=== PATIENT | female | born 2000 | race Caucasian/White ===

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

== ENCOUNTER 2022-01-16 10:51 | Emergency (ER) | payer OTHER, SELFPAY ==
--- NOTE | 2022-01-16 10:59 | ED.URI ---
HPI - URI/Sore Throat General Chief Complaint: Upper Respiratory Infection Stated Complaint: Sore Throat,Fatigue,Body Aches Time Seen by Provider: 01/16/22 10:59 Source: patient and RN notes reviewed History of Present Illness HPI Narrative: Patient is a 22-year-old female presents the urgent care with complaints of sore throat, fatigue and body aches since yesterday. Patient denies any ill exposures. States was worse today and she did have a low-grade fever. Patient is not taking anything [id number] for her symptoms. No other acute complaints. No acute distress noted. Patient aware of the plan of care. Some parts of this dictation were generated by voice recognition software and may contain typographical and/or grammatical inaccuracies. Related Data Home Medications Medication Instructions Recorded Confirmed Copper Iud 01/16/22 Allergies Allergy/AdvReac Type Severity Reaction Status Date / Time No Known Allergies Allergy Verified 01/16/22 11:11 Review of Systems Review of Systems: CONSTITUTIONAL: Reports of low-grade fever and fatigue EYES: Denies visual changes, redness, or discharge. ENT: Reports of sore throat and postnasal drainage CARDIOVASCULAR: Denies chest pain, palpitations, or edema. RESPIRATORY: Denies cough or dyspnea. GASTROINTESTINAL: Denies abdominal pain, nausea, vomiting, or diarrhea. GENITOURINARY: Denies dysuria or hematuria. SKIN: Denies rash or itching. MUSCULOSKELETAL: Denies back pain, joint pain. Reports of body aches NEUROLOGIC: Denies headache, numbness, or weakness. All other systems reviewed are negative, except as documented in HPI. [facility] Past Medical History Medical History (Updated 01/16/22 @ 11:38 by GAMAL Garcia) Anxiety and depression Elevated cholesterol Environmental and seasonal allergies Episode of syncope 2019 Surgical History Surgical History (Updated 08/30/21 @ 12:19 by Suki Mina NP) History of appendectomy History of tonsillectomy [place] teeth extracted Family History Family History Grandparent Diabetes mellitus Father Hypertension Other Cerebrovascular accident Social History Social History (Updated 08/30/21 @ 12:19 by Suki Mina NP) Smoking status: Current every day smoker Tobacco type: e-cigarettes/vaping Alcohol intake: never Substance use: never Gender identity (if verbalized by the patient): Female Comments At the time of my signature, I reviewed and agree with the nursing past medical, surgical, social, and family history. There is no relevant family history pertinent to the patient complaint. Exam Narrative: GENERAL: This is a well-nourished, well-developed patient, in no apparent distress. HEAD: normocephalic, atraumatic. EYES: PERRL. Sclera clear/white. Vision is grossly intact. EARS: External ears normal, auditory canals clear and without drainage, TMs normal without perforation. Hearing grossly intact. NOSE: External nose normal with no obvious nasal discharge, nares without redness, no rhinorrhea. THROAT: Mucous membranes moist, posterior pharynx clear. Mild postnasal drainage NECK: Neck supple CARDIOVASCULAR: Regular rate and rhythm without murmurs, gallops, or rubs. RESPIRATORY: Clear to auscultation. Breath sounds equal bilaterally. No wheezes, rales, or rhonchi. SKIN: warm, intact with no suspicious lesions or rash, good texture and turgor. NEURO: awake, alert, and oriented to person, place and time. There were no obvious focal neurologic abnormalities. EXTREMITIES: No clubbing, cyanosis, or edema. Course Course Level of Care: Express Care Visit Vital Signs Vital signs: Vital Signs Temperature 98.6 F 01/16/22 11:00 Pulse Rate 103 H 01/16/22 11:00 Respiratory Rate 18 01/16/22 11:00 Blood Pressure 117/85 01/16/22 11:00 Pulse Oximetry 100 01/16/22 11:00 Oxygen Delivery Room Air 01/16/22 11:0
[2022-01-16 11:00] VITALS: BP 117/85; PULSE 103; RESP 18; TEMP 37; O2SAT 100
== END 2022-01-16 11:47 | disposition home or self-care (01) ==
PROVIDERS: Emergency Provider Nurse Practitioner Family; PCP Family Medicine
DX: J02.9 Acute pharyngitis, unspecified (principal); F17.290 Nicotine dependence, other tobacco product, uncomplicated; E78.00 Pure hypercholesterolemia, unspecified
CPT/HCPCS: 87081; 87804; 87880; 99213; G0463

== ENCOUNTER 2022-05-14 19:31 | Emergency (ER) | payer OTHER, SELFPAY ==
--- NOTE | ~2022-05-14 | XR_ITS ---
EXAM: XR abdomen/kub 1V DATE: 05/14/2022 20:28 HISTORY: constipation, history of gastric sleeve 01/2022 . COMPARISON: None available. FINDINGS: Clear lung bases. Surgical changes at the GE junction. Paucity of small bowel gas, otherwi se normal bowel gas pattern. No organomegaly. No abnormal abdominal calcification. IUD projecting wit hin the pelvic ring Regional bones and soft tissues normal for age. IMPRESSION: No radiographic evidence of obstruction or ileus. Reviewed, dictated and finalized at location K. [employer]
[2022-05-14 19:34] VITALS: BP 141/94; PULSE 100; RESP 18; TEMP 35.2; O2SAT 100
--- NOTE | 2022-05-14 22:23 | ED.ABDPAIN ---
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 Patient states that she has not had a bowel movement in almost 3 weeks. Admits to taking multiple [id number] laxative preparations with no improvement of her symptoms. Patient states that she has not flatulent. Related Data Home Medications Medication Instructions Recorded Confirmed Copper Iud 01/16/22 Allergies Allergy/AdvReac Type Severity Reaction Status Date / Time No Known Allergies Allergy Verified 01/16/22 11:11 Review of Systems Review of Systems: CONSTITUTIONAL: Denies fever, chills, or sweats. EYES: Denies visual changes, redness, or discharge. ENT: Denies rhinorrhea, congestion, sore throat, or otalgia. CARDIOVASCULAR: Denies chest pain, palpitations, or edema. RESPIRATORY: Denies cough or dyspnea. GASTROINTESTINAL: Reports abdominal pain, nausea, constipation GENITOURINARY: Denies dysuria or hematuria. SKIN: Denies rash or itching. MUSCULOSKELETAL: Denies back pain, joint pain, or myalgia. NEUROLOGIC: Denies headache, numbness, dizziness, or weakness. PSYCHIATRIC: Denies anxiety or depression. PMFSH Past Medical History Medical History Anxiety and depression Elevated cholesterol Environmental and seasonal allergies Episode of syncope 2019 Surgical History Surgical History History of appendectomy History of tonsillectomy [place] teeth extracted Family History Family History Grandparent Diabetes mellitus Father Hypertension Other Cerebrovascular accident Social History Social History Smoking status: Current every day smoker Tobacco type: e-cigarettes/vaping Alcohol intake: never Substance use: never Gender identity (if verbalized by the patient): Female Exam Narrative: GENERAL: Well-appearing, well-nourished, no physical limitations, and in no acute distress. HEAD: Normocephalic, atraumatic. EYES: Conjunctivae normal, PERRLA and EOMI. CHEST: Clear to auscultation. No respiratory distress. No wheezes rales or rhonchi. HEART: Regular rate and rhythm. No murmur heard. Normal peripheral pulses. ABDOMEN: Soft, diffusely tender, distended, hypoactive bowel sounds. EXTREMITIES: Normal range of motion. No edema. No clubbing or cyanosis SKIN: Warm, dry, no rash. No noted wounds NEURO: No focal deficits. Alert and oriented x3. MAEW. CN's II-XI intact bilaterally, normal gait PSYCH: Cooperative. Normal mood and affect. Course Course Emergency Course: 0: Fleets enema was administered successfully. Patient has had 3 bowel movements Vital Signs Vital signs: Vital Signs Temperature 35.2 C L 05/14/22 19:34 Pulse Rate 100 05/14/22 19:34 Respiratory Rate 18 05/14/22 19:34 Blood Pressure 141/94 H 05/14/22 19:34 Pulse Oximetry 100 05/14/22 19:34 Oxygen Delivery Room Air 05/14/22 19:34 Temperature 35.2 C L 05/14/22 19:34 Pulse Rate 100 05/14/22 19:34 Respiratory Rate 18 05/14/22 19:34 Blood Pressure 141/94 H 05/14/22 19:34 Pulse Oximetry 100 05/14/22 19:34 Oxygen Delivery Room Air 05/14/22 19:34 MDM - Abdominal Pain Imaging Data Radiologist's impression: ITS Impressions Abdomen X-Ray 05/14/22 21:04 IMPRESSION: No radiographic evidence of obstruction or ileus. Discharge Plan Discharge Clinical Impression: Constipation Patient Disposition: Home, Self-Care Condition: Stable Instructions: Antibiotic Form, Constipation (DC) Prescriptions: No Action Copper Iud
--- NOTE | 2022-05-14 22:44 | PC.NURSE ---
Patient tolerated enema well and was able to have 3 bowel movements. patient verbalizes relief.
== END 2022-05-14 22:48 | disposition home or self-care (01) ==
LOC: ANHED 22:43
PROVIDERS: Emergency Provider Nurse Practitioner Family; PCP Family Medicine
DX: K59.00 Constipation, unspecified (principal); E78.00 Pure hypercholesterolemia, unspecified; F17.290 Nicotine dependence, other tobacco product, uncomplicated; Z98.84 Bariatric surgery status; Z97.5 Presence of (intrauterine) contraceptive device
CPT/HCPCS: 74018; 99283

== ENCOUNTER 2022-05-22 23:11 | Emergency (ER) | payer OTHER, SELFPAY ==
--- NOTE | ~2022-05-22 | CT_ITS ---
CT Abdomen and Pelvis with contrast. History: Abdominal pain. Spiral CT of the abdomen and pelvis was performed after the administration of intravenous contrast. 1 00 cc of Omnipaque 350 was administered intravenously without complication. Dose reduction technique was used on this scan by utilizing automated exposure control and iterative reconstruction technique. The dose-length product (DLP) was 1212.38 mGy-cm. COMPARISON: 12/29/2020 Findings: Scans through the lung bases are unremarkable. There is a 2.6 x 2.2 cm hypodense masslike area in the liver, adjacent to the gallbladder fossa (axia l image 47), stable from prior exam. The spleen, pancreas, gallbladder, adrenals and kidneys are with in normal limits. No evidence of aortic aneurysm. No lymphadenopathy is seen. There is no evidence of bowel obstruction. There is evidence of prior bariatric surgery. There is no evidence to suggest acute appendicitis or diverticulitis. Images through the pelvis were performed. Urinary bladder unremarkable. No adnexal mass seen. IUD in place. Trace pelvic free fluid noted. Impression: 2.6 x 2.2 cm hypodense masslike area in the liver, stable from prior exam. Given stability since 2020 , this is most compatible with focal fatty infiltration versus other benign mass. Trace free fluid in the pelvis, nonspecific. Reviewed, dictated and finalized at location . 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 Give n stability since 2020, this is most compatible with focal fatty infiltration v ersus other benign mass. Trace free fluid in the pelvis, nonspecific.
[2022-05-22 23:30] VITALS: BP 135/99; PULSE 99; RESP 17; TEMP 38.1; O2SAT 99
--- NOTE | 2022-05-23 00:08 | ED.ABDPAIN ---
HPI - Abdominal Pain General Chief Complaint: Abdominal Pain Stated Complaint: pain under rib cage Time Seen by Provider: 05/23/22 00:01 History of Present Illness HPI narrative: Patient is a 22-year-old female with a history of appendicitis status post appendectomy, obesity status post gastric sleeve procedure here for evaluation of sudden onset of epigastric abdominal pain. Patient states the pain came on while she was at rest and was severe in nature. Pain has been relatively constant since. It is located in her epigastric region and occasionally radiates to her right upper quadrant. Denies fever at home but noted to have a low-grade temp in triage. Reports 1 episode of vomiting and being nauseated since. Patient had chicken and cheese sandwich for lunch. No diarrhea, constipation, sick contacts, dyspnea, chest pain or cough. Related Data Home Medications Medication Instructions Recorded Confirmed Copper Iud 01/16/22 Allergies Allergy/AdvReac Type Severity Reaction Status Date / Time No Known Allergies Allergy Verified 01/16/22 11:11 Review of Systems Review of Systems: Gen: Denies fevers or chills Eyes: Denies eye pain or visual change ENT: Denies congestion Respiratory: Denies shortness of breath or cough CV: Denies chest pain or palpitations GI: Reports abdominal pain, nausea and vomiting. denies burning, urgency, frequency or hematuria Musculoskeletal: Denies back pain or muscle pain Neuro: Denies numbness, tingling, weakness or focal weakness Skin: Denies rash Except as documented, all other systems reviewed and negative [facility] Past Medical History Medical History Anxiety and depression Elevated cholesterol Environmental and seasonal allergies Episode of syncope 2019 Surgical History Surgical History History of appendectomy History of tonsillectomy [place] teeth extracted Family History Family History Grandparent Diabetes mellitus Father Hypertension Other Cerebrovascular accident Social History Social History Smoking status: Current every day smoker Tobacco type: e-cigarettes/vaping Alcohol intake: never Substance use: never Gender identity (if verbalized by the patient): Female Exam Narrative: APPEARANCE: Obese. Well appearing, no pain in distress, well-nourished. Head: Normocephalic and atraumatic. EYES: PERRLA/EOMI, conjunctivae clear NOSE: No nasal drainage EARS: External ear normal in appearance THROAT: Oropharynx is clear. Mucous membranes are moist. NECK: Supple. No adenopathy, no masses. RESPIRATORY: Airway patent, respirations nonlabored. Clear to auscultation bilaterally, no rales, rhonchi, wheezing. CARDIOVASCULAR: Regular rate and rhythm without murmurs, rubs, or gallops. ABDOMINAL: Tender to palpation in the epigastric region and right upper quadrant with deep palpation. Normoactive bowel sounds. Soft, nondistended. No rebound tenderness or guarding. MUSCULOSKELETAL: Extremities are warm and well-perfused. Moves all extremities well. No edema. NEURO: Normal speech. No focal neurologic deficits. SKIN: Skin is warm and dry. No rashes. PSYCHIATRIC: Normal affect/mood.. Course Vital Signs Vital signs: Vital Signs Temperature 100.6 F H 05/22/22 23:30 Pulse Rate 99 05/22/22 23:30 Respiratory Rate 17 05/22/22 23:30 Blood Pressure 135/99 H 05/22/22 23:30 Pulse Oximetry 99 05/22/22 23:30 Oxygen Delivery Room Air 05/22/22 23:30 Temperature 98.1 F 05/23/22 02:42 Pulse Rate 80 05/23/22 03:16 Respiratory Rate 18 05/23/22 03:16 Blood Pressure 133/80 05/23/22 03:16 Pulse Oximetry 99 05/23/22 03:16 Oxygen Delivery Room Air 05/22/22 23:30 MDM - Abdominal Pain MDM Narrative
[2022-05-23 00:11] VITALS: BP 137/89; O2SAT 98
[2022-05-23] MEDS: ONDANSETRON INJ 4 MG/2 ML VIAL IV PUSH (00:32)
[2022-05-23 00:33] VITALS: BP 134/72; O2SAT 99
[2022-05-23] MEDS: LACTATED RINGERS 1,000 ML 999 ML IV CONT (00:33)
[2022-05-23 00:37] LABS: Basophils Absolute Auto 0.1 K/mm3 (0.0-0.1); Basophils Percent Auto 0.7 % (0.2-1.2); Eosinophils Absolute Auto 0.1 K/mm3 (0-0.3); Hematocrit 42.5 % (37.0-47.0); Hemoglobin 14.1 g/dL (12.0-15.0); Immature Granulocyte Absolute 0.02 K/mm3 (0.00-0.031); Immature Granulocyte Percent A 0.2 % (0-0.5); Lymphocytes Absolute Auto 2.91 K/mm3 (0.9-3.2); Lymphocytes Percent Auto 33.1 % (18.3-44.2); Mean Corpuscular HGB Conc 33.2 g/dl (32-36); Mean Corpuscular Hemoglobin 31.2 pg (26-34); Mean Platelet Volume 12.1 fl (7.4-10.4); Monocytes Absolute Auto 0.7 K/mm3 (0.1-0.6); Monocytes Percent Auto 8.2 % (2.6-8.5); Neutrophils Percent Auto 56.8 % (45.5-73.1); Platelet Count Result 252 k/mm3 (150-375); Red Blood Count 4.52 M/mm3 (4.2-5.4); Red Cell Distribution Width 13.5 % (11.5-14.5); White Blood Count 8.8 K/mm3 (4.5-10.0)
[2022-05-23 00:38] LABS: Appearance Urine Clear (Clear); Bilirubin Urine Negative (Negative); Blood Urine Trace-intact (Negative); Color Urine Yellow (Yellow); Glucose Urine UA Negative (Negative); Ketones Urine Negative (Negative); Leukocyte Esterase Ur Negative LEU/UL (Negative); Nitrate Urine Negative (Negative); Protein Urine Negative (Negative); pH Urine 7.5 (5.0-9.0)
[2022-05-23 00:43] LABS: Bacteria Urine Trace /hpf; Mucus Urine Rare /lpf; Squamous Epithelial Cell Urine Moderate /hpf (Few); WBC Urine 0-3 /hpf
[2022-05-23 00:44] LABS: Add Urine Microscopic? YES
[2022-05-23 00:46] VITALS: BP 130/64; O2SAT 99
[2022-05-23 00:48] LABS: Alanine Aminotransferase 21 U/L (6-35); Albumin Level 4.4 g/dL (3.5-5.1); Alkaline Phosphatase 53 U/L (38-126); Anion Gap 4 mmol/L (8-16); Aspartate Amino Transferase 22 U/L (14-36); Bilirubin,Total 0.4 mg/dL (0.2-1.3); Blood Urea Nitrogen 12 mg/dL (7-17); Calcium 9.2 mg/dL (8.4-10.2); Carbon Dioxide 27 mmol/L (22-30); Chloride 108 mmol/L (98-107); Estimated CRCL calculation 182 ml/min; Estimated Glomerular Filt Rate > 60; Glucose 93 mg/dL (65-110); Lactic Acid Reflex 0.8 mmol/L (0.7-2.0); Lipase 71 U/L (23-300); Potassium 3.9 mmol/L (3.4-5.0); Sodium 139 mmol/L (137-145)
[2022-05-23] MEDS: MORPHINE SULFATE (*CRX) 4 MG/ML INJ IV PUSH (01:42)
[2022-05-23 02:01] VITALS: BP 132/81; O2SAT 98
[2022-05-23 02:18] LABS: Influenza A QL RT-PCR Negative (Negative); Influenza B QL RT-PCR Negative (Negative); SARS-CoV-2 RNA PCR Negative
[2022-05-23 02:42] VITALS: TEMP 36.7
[2022-05-23 03:16] VITALS: BP 133/80; PULSE 80; RESP 18; O2SAT 99
== END 2022-05-23 03:18 | disposition home or self-care (01) ==
PROVIDERS: Emergency Provider Physician Assistant; PCP Family Medicine
DX: R10.9 Unspecified abdominal pain (principal); Z20.822 Contact with and (suspected) exposure to COVID-19; F41.9 Anxiety disorder, unspecified; F32.9 Major depressive disorder, single episode, unspecified
CPT/HCPCS: 36415; 74177; 80053; 81001; 81025; 83605; 83690; 85025; 87636; 96365; 96375; 99284; J0131; J2270; J2405; J7120; Q9967

== ENCOUNTER 2022-05-27 23:35 | Emergency (ER) | payer OTHER, SELFPAY ==
--- NOTE | ~2022-05-27 | CT_ITS ---
EXAMINATION: CT abdomen pelvis w con DATE: 05/28/2022 04:12 INDICATION: Abdominal pain. History of gastric bypass surgery. TECHNIQUE: Computed tomography (CT) of the abdomen and pelvis was performed without intravenous contr ast. 100 CC oral contrast material was administered at 0300 hours with the patient vomited after the oral contrast medium administration. Automated exposure control and iterative reconstruction techniqu e were employed. Exam dose: 1375.49 mGy-cm total exam DLP. COMPARISON: May 23, 2022 CT abdomen pelvis FINDINGS: The lung bases are clear of infiltrate or consolidation. Normal heart size. No pericardial or pleural effusion. Stable hypoattenuating lesion of left hepatic lobe since 08/01/2018, consistent with benign process gi danya the long-term stability. The liver, gallbladder, bile ducts, spleen, pancreas, pancreatic duct, a nd adrenal glands and kidneys are otherwise unremarkable. No urinary tract calculus or hydroureterone phrosis. The urinary bladder is unremarkable. There is an IUD within the uterus. Involuting peripherally enhancing approximately 2.5 cm right ovarian cyst. Trace free fluid in the po sterior cul-de-sac. There is a suture line along the stomach from previous gastric sleeve procedure. No bowel obstruction or intraperitoneal free air. The appendix is not visualized. Small fat-containing umbilical hernia. Included skeletal structures are unremarkable. IMPRESSION: No bowel obstruction or intraperitoneal free air Involuting peripherally enhancing approximately 2.5 cm right ovarian cyst Trace free fluid in the pelvic cul-de-sac, likely due to ruptured right ovarian cyst IUD within uterus Status post gastric sleeve procedure Chronic focal hypoattenuating lesion of left hepatic lobe medial segment, stable since 08/09/2018, the refore likely benign Reviewed, dictated and finalized at Location A. Reviewed, dictated and finalized at location A. 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
[2022-05-27 23:38] VITALS: BP 133/92; PULSE 98; RESP 16; TEMP 36.6; O2SAT 100
[2022-05-27 23:52] LABS: Basophils Absolute Auto 0.1 K/mm3 (0.0-0.1); Basophils Percent Auto 0.6 % (0.2-1.2); Eosinophils Absolute Auto 0.2 K/mm3 (0-0.3); Eosinophils Percent Auto 1.8 % (0-4.4); Hematocrit 40.6 % (37.0-47.0); Hemoglobin 13.9 g/dL (12.0-15.0); Immature Granulocyte Absolute 0.02 K/mm3 (0.00-0.031); Immature Granulocyte Percent A 0.2 % (0-0.5); Lymphocytes Absolute Auto 3.68 K/mm3 (0.9-3.2); Lymphocytes Percent Auto 38.7 % (18.3-44.2); Mean Corpuscular HGB Conc 34.2 g/dl (32-36); Mean Corpuscular Hemoglobin 31.9 pg (26-34); Mean Corpuscular Volume 93.1 fl (80-100); Monocytes Absolute Auto 0.8 K/mm3 (0.1-0.6); Monocytes Percent Auto 8.2 % (2.6-8.5); Neutrophils Absolute Auto 4.8 K/mm3 (1.3-6.7); Neutrophils Percent Auto 50.5 % (45.5-73.1); Platelet Count Result 247 k/mm3 (150-375); Red Blood Count 4.36 M/mm3 (4.2-5.4); Red Cell Distribution Width 13.2 % (11.5-14.5); White Blood Count 9.5 K/mm3 (4.5-10.0)
[2022-05-28] VITALS (10 sets, daily range): BP systolic 100–140; BP diastolic 68–107; PULSE 73–80; RESP 14–19; TEMP 36.7–37.2; O2SAT 96–100
[2022-05-28 00:01] LABS: Alanine Aminotransferase 20 U/L (6-35); Albumin Level 4.7 g/dL (3.5-5.1); Alkaline Phosphatase 55 U/L (38-126); Anion Gap 7 mmol/L (8-16); Aspartate Amino Transferase 20 U/L (14-36); Bilirubin,Total 0.6 mg/dL (0.2-1.3); Blood Urea Nitrogen 17 mg/dL (7-17); Calcium 9.3 mg/dL (8.4-10.2); Carbon Dioxide 26 mmol/L (22-30); Chloride 104 mmol/L (98-107); Estimated CRCL calculation 153 ml/min; Estimated Glomerular Filt Rate > 60; Glucose 111 mg/dL (65-110); Lipase 91 U/L (23-300); Sodium 137 mmol/L (137-145)
[2022-05-28 00:12] LABS: Appearance Urine Clear (Clear); Bilirubin Urine Negative (Negative); Blood Urine Negative (Negative); Color Urine Yellow (Yellow); Glucose Urine UA Negative (Negative); Ketones Urine 1+ mg/dL (Negative); Leukocyte Esterase Ur Negative LEU/UL (Negative); Nitrate Urine Negative (Negative); Protein Urine Negative (Negative); pH Urine 6.5 (5.0-9.0)
[2022-05-28 00:17] LABS: Bacteria Urine Trace /hpf; Mucus Urine Rare /lpf; RBC Urine 0-2 /hpf (0-2); Squamous Epithelial Cell Urine Few /hpf (Few); WBC Urine 0-3 /hpf
[2022-05-28 00:25] LABS: Add Urine Microscopic? YES
--- NOTE | 2022-05-28 04:52 | ED.GENADULT ---
HPI - General Adult General Chief complaint: Abdominal Pain Stated complaint: abd pain Time Seen by Provider: 05/28/22 02:37 History of Present Illness HPI narrative: Patient a 22-year-old female that presents the emergency department with chief complaint of epigastric and right upper quadrant pain. Patient reports she has history of a gastric sleeve in the end of 2021 patient states that she started having epigastric discomfort and has had vomiting the patient reports she was seen in the emergency department for similar symptoms had a CT scan with just IV contrast that did not show any significant abnormality Related Data Home Medications Medication Instructions Recorded Confirmed Copper Iud 01/16/22 Allergies Allergy/AdvReac Type Severity Reaction Status Date / Time No Known Allergies Allergy Verified 05/28/22 02:08 Review of Systems Review of Systems: A 10 system review of systems was completed on the patient and is negative except for what is stated in the HPI. Nursing and ancillary documentation was reviewed. [facility] Past Medical History Medical History Anxiety and depression Elevated cholesterol Environmental and seasonal allergies Episode of syncope 2019 Surgical History Surgical History History of appendectomy History of tonsillectomy [place] teeth extracted Family History Family History Grandparent Diabetes mellitus Father Hypertension Other Cerebrovascular accident Social History Social History Smoking status: Current every day smoker Tobacco type: e-cigarettes/vaping Alcohol intake: never Substance use: never Gender identity (if verbalized by the patient): Female Exam Narrative: GENERAL: Well-appearing, well-nourished, and in no acute distress. HEAD: Normocephalic, atraumatic. EYES: PERRLA and EOMI. ENT: Nares clear, no rhinorrhea or epistaxis. Mucous membranes moist. NECK: Supple. CHEST: Clear to auscultation. No respiratory distress. HEART: Regular rate and rhythm. No murmur heard. Normal peripheral pulses. ABDOMEN: Soft, tender in the epigastric and right upper quadrant, nondistended, normal active bowel sounds. EXTREMITIES: Normal range of motion. No edema. SKIN: Warm, dry, no rash. NEURO: No focal deficits. Alert and oriented x3. PSYCH: Normal mood and affect. Course Vital Signs Vital signs: Vital Signs Temperature 36.6 C 05/27/22 23:38 Pulse Rate 98 05/27/22 23:38 Respiratory Rate 16 05/27/22 23:38 Blood Pressure 133/92 H 05/27/22 23:38 Pulse Oximetry 100 05/27/22 23:38 Oxygen Delivery Room Air 05/27/22 23:38 Temperature 36.7 C 05/28/22 02:02 Pulse Rate 77 05/28/22 06:35 Respiratory Rate 14 05/28/22 06:35 Blood Pressure 119/90 05/28/22 06:35 Pulse Oximetry 99 05/28/22 06:35 Oxygen Delivery Room Air 05/27/22 23:38 Medical Decision Making MDM Narrative Medical decision making narrative: Due to the patient's prior gastric procedure CT scan of the abdomen pelvis was ordered with addition of p.o. contrast. This showed no evidence of abnormality with the gastric procedure. There is no evidence of thickening around the gallbladder the patient's pain is doing much better at this time patient was instructed to follow-up with her primary care provider the patient's laboratory studies were reviewed and patient had normal white blood cell count normal electrolytes no evidence of liver enzyme elevation and urinalysis showed no evidence of UTI. Vital Signs Vital Signs: Vital Signs Temperature 36.6 C 05/27/22 23:38 Pulse Rate 98 05/27/22 23:38 Respiratory Rate 16 05/27/22 23:38 Blood Pressure 133/92 H 05/27/22 23:38 Pulse Oximetry 100 05/27/22 23:38 O
[2022-05-28] MEDS: MORPHINE SULFATE (*CRX) 4 MG/ML INJ IV PUSH (06:23)
== END 2022-05-28 07:40 | disposition home or self-care (01) ==
PROVIDERS: Emergency Provider Emergency Medicine; PCP Family Medicine
DX: R10.11 Right upper quadrant pain (principal); R10.13 Epigastric pain; E78.00 Pure hypercholesterolemia, unspecified; F17.290 Nicotine dependence, other tobacco product, uncomplicated
CPT/HCPCS: 36415; 74177; 80053; 81001; 81025; 83690; 85025; 96374; 99284; J2270; Q9967

== ENCOUNTER 2022-07-06 20:51 | Emergency (ER) | payer OTHER, SELFPAY ==
[2022-07-06] VITALS (11 sets, daily range): BP systolic 112–128; BP diastolic 51–91; PULSE 64–115; RESP 16–23; TEMP 37.9; O2SAT 96–100
--- NOTE | ~2022-07-06 | CT_ITS ---
EXAMINATION: CT abdomen pelvis w con INDICATION: Right upper quadrant pain TECHNIQUE: Computed tomographic images of the abdomen and pelvis were obtained after the administrati on of 100 cc of Omnipaque 350 intravenous contrast. The dose-length product (DLP) was 1356.49 mGy-cm. Automated exposure control and iterative reconstruction technique were employed. COMPARISON: 05/28/2022 FINDINGS: The lung bases are clear. The heart size is normal. There is a chronic, stable low-attenuat ion lesion adjacent to gallbladder fossa. The spleen, pancreas, and adrenal glands are normal. There are stones in the nondistended gallbladder. Surgical changes are noted in the stomach. The kidneys ar e unremarkable. No pathologically enlarged abdominal or pelvic lymph nodes are identified. No free in traperitoneal gas or evidence of bowel obstruction. An IUD is present in the uterus in expected posit ion. IMPRESSION: 1. Cholelithiasis without evidence of cholecystitis. Reviewed, dictated and finalized at location A.
[2022-07-06 21:22] LABS: Basophils Absolute Auto 0.1 K/mm3 (0.0-0.1); Basophils Percent Auto 0.6 % (0.2-1.2); Eosinophils Absolute Auto 0.1 K/mm3 (0-0.3); Eosinophils Percent Auto 1.4 % (0-4.4); Hematocrit 42.6 % (37.0-47.0); Hemoglobin 14.5 g/dL (12.0-15.0); Immature Granulocyte Absolute 0.02 K/mm3 (0.00-0.031); Immature Granulocyte Percent A 0.2 % (0-0.5); Lymphocytes Absolute Auto 2.26 K/mm3 (0.9-3.2); Lymphocytes Percent Auto 25.8 % (18.3-44.2); Mean Corpuscular Hemoglobin 31.9 pg (26-34); Mean Corpuscular Volume 93.8 fl (80-100); Mean Platelet Volume 11.7 fl (7.4-10.4); Monocytes Absolute Auto 0.6 K/mm3 (0.1-0.6); Monocytes Percent Auto 6.7 % (2.6-8.5); Neutrophils Absolute Auto 5.7 K/mm3 (1.3-6.7); Neutrophils Percent Auto 65.3 % (45.5-73.1); Platelet Count Result 316 k/mm3 (150-375); Red Blood Count 4.54 M/mm3 (4.2-5.4); Red Cell Distribution Width 13.2 % (11.5-14.5); White Blood Count 8.8 K/mm3 (4.5-10.0)
[2022-07-06 21:29] LABS: Appearance Urine Slightly Cloudy (Clear); Bilirubin Urine 1+ (Negative); Blood Urine Trace-lysed (Negative); Color Urine Yellow (Yellow); Glucose Urine UA Negative (Negative); Ketones Urine Trace mg/dL (Negative); Leukocyte Esterase Ur Trace LEU/UL (Negative); Nitrate Urine Negative (Negative); Protein Urine 1+ mg/dL (Negative); Specific Grav Ur 1.025 (1.001-1.035)
[2022-07-06 21:33] LABS: Alanine Aminotransferase 23 U/L (6-35); Albumin Level 4.6 g/dL (3.5-5.1); Alkaline Phosphatase 54 U/L (38-126); Anion Gap 8 mmol/L (8-16); Aspartate Amino Transferase 21 U/L (14-36); Bilirubin,Total 0.5 mg/dL (0.2-1.3); Blood Urea Nitrogen 9 mg/dL (7-17); Calcium 9.2 mg/dL (8.4-10.2); Carbon Dioxide 24 mmol/L (22-30); Chloride 108 mmol/L (98-107); Estimated CRCL calculation 172 ml/min; Estimated Glomerular Filt Rate > 60; Glucose 110 mg/dL (65-110); Lipase 50 U/L (23-300); Potassium 3.7 mmol/L (3.4-5.0); Sodium 140 mmol/L (137-145)
[2022-07-06 21:39] LABS: Add Urine Microscopic? YES
[2022-07-06 21:40] LABS: RBC Urine 0-2 /hpf (0-2); Squamous Epithelial Cell Urine Few /hpf (Few)
[2022-07-06 21:41] LABS: Bacteria Urine 1+ /hpf
--- NOTE | 2022-07-06 22:33 | ED.ABDPAIN ---
HPI - Abdominal Pain General Chief Complaint: Abdominal Pain Stated Complaint: abd pain Time Seen by Provider: 07/06/22 21:51 History of Present Illness HPI narrative: 22-year-old female with a history of appendectomy reports for right upper quadrant and epigastric abdominal pain for the past month, worsening over the past couple of days. Patient reports she has been evaluated in the ED for similar pain and was advised to follow-up with an outpatient ultrasound. Patient reports she got an ultrasound 5 days ago that revealed cholelithiasis. She reports worsening pain to her right upper quadrant. Reports the pain wraps around to her right back. Patient reports 3 episodes of vomiting today, fever of 100-102 at home today. Denies diarrhea, constipation, chest pain, shortness of breath, urinary complaints, cough, hemoptysis. Related Data Home Medications Medication Instructions Recorded Confirmed Copper Iud 01/16/22 Allergies Allergy/AdvReac Type Severity Reaction Status Date / Time NSAIDS (Non-Steroidal Allergy Unknown Other Verified 07/06/22 23:46 Anti-Inflamma Review of Systems Review of Systems: CONSTITUTIONAL: See HPI EYES: Denies visual changes, redness, or discharge. ENT: Denies rhinorrhea, congestion, sore throat, or otalgia. CARDIOVASCULAR: Denies chest pain, palpitations, or edema. RESPIRATORY: Denies cough or dyspnea. GASTROINTESTINAL: See HPI GENITOURINARY: Denies dysuria or hematuria. SKIN: Denies rash or itching. MUSCULOSKELETAL: Denies joint pain, or myalgia. NEUROLOGIC: Denies headache, numbness, dizziness, or weakness. PSYCHIATRIC: Denies anxiety or depression. [facility] Past Medical History Medical History Anxiety and depression Elevated cholesterol Environmental and seasonal allergies Episode of syncope 2019 Surgical History Surgical History History of appendectomy History of tonsillectomy [place] teeth extracted Family History Family History Grandparent Diabetes mellitus Father Hypertension Other Cerebrovascular accident Social History Social History Smoking status: Current every day smoker Tobacco type: e-cigarettes/vaping Alcohol intake: never Substance use: never Gender identity (if verbalized by the patient): Female Exam Narrative: GENERAL: Well-appearing, well-nourished, and in no acute distress. HEAD: Normocephalic, atraumatic. EYES: PERRLA and EOMI. ENT: Nares clear, no rhinorrhea or epistaxis. Mucous membranes moist. Oropharynx without tonsillar hypertrophy exudate or other lesions. B NECK: Supple. No adenopathy or masses. CHEST: Clear to auscultation. No respiratory distress. No wheezes rales or rhonchi HEART: Regular rate and rhythm. No murmur heard. Normal peripheral pulses. ABDOMEN: Soft, nondistended, normal active bowel sounds. Tenderness to right upper quadrant. Positive [place] sign. No rigidity, guarding. EXTREMITIES: Normal range of motion. No edema. SKIN: Warm, dry, no rash. NEURO: No focal deficits. Alert and oriented x3. PSYCH: Normal mood and affect. Course Vital Signs Vital signs: Vital Signs Temperature 100.2 F H 07/06/22 20:56 Pulse Rate 115 H 07/06/22 20:56 Respiratory Rate 18 07/06/22 20:56 Blood Pressure 122/91 H 07/06/22 20:56 Pulse Oximetry 100 07/06/22 20:56 Oxygen Delivery Room Air 07/06/22 20:56 Temperature 100.2 F H 07/06/22 20:56 Pulse Rate 73 07/07/22 00:47 Respiratory Rate 29 H 07/07/22 00:47 Blood Pressure 130/76 07/07/22 00:47 Pulse Oximetry 98 07/07/22 00:47 Oxygen Delivery Room Air 07/06/22 20:56 MDM - Abdominal Pain MDM Narrative Medical decision making narrative: 22-year-old female with a history of appendectom
[2022-07-06] MEDS: SODIUM CHLORIDE 0.9% IV 1,000 ML 999 ML IV CONT (23:02)
[2022-07-06] MEDS: ONDANSETRON INJ 4 MG/2 ML VIAL IV PUSH (23:03)
[2022-07-06] MEDS: FAMOTIDINE 20 MG/2 ML VIAL IV PUSH (23:03)
[2022-07-06 23:12] LABS: Lactic Acid Reflex 0.8 mmol/L (0.7-2.0)
[2022-07-07] VITALS (8 sets, daily range): BP systolic 114–131; BP diastolic 51–76; PULSE 65–93; RESP 17–29; O2SAT 98–100
[2022-07-07] MEDS: MORPHINE SULFATE (*CRX) 4 MG/ML INJ IV PUSH (00:42)
== END 2022-07-07 01:07 | disposition home or self-care (01) ==
PROVIDERS: Emergency Medicine; Emergency Provider Physician Assistant; PCP Family Medicine
DX: K80.50 Calculus of bile duct without cholangitis or cholecystitis without obstruction (principal); N30.00 Acute cystitis without hematuria; R10.11 Right upper quadrant pain; F17.290 Nicotine dependence, other tobacco product, uncomplicated
CPT/HCPCS: 36415; 74177; 80053; 81001; 81025; 83605; 83690; 85025; 96361; 96374; 96375; 99284; J0131; J2270; J2405; J7030; Q9967

== ENCOUNTER 2022-08-25 21:56 | Emergency (ER) | payer OTHER, SELFPAY ==
--- NOTE | ~2022-08-25 | XR_ITS ---
Right Knee Technique: AP, lateral, and oblique views were obtained. Clinical History: Laceration Findings: No fracture or dislocation is seen. Osseous alignment is anatomic. Joint spaces are preserv ed without degenerative or erosive change. Soft tissues are unremarkable. No joint effusion is seen. Impression: Unremarkable right knee radiographs. Reviewed, dictated and finalized at location . Impression: Unremarkable right knee radiographs.
[2022-08-25 22:01] VITALS: BP 151/76; PULSE 110; RESP 20; TEMP 36.3; O2SAT 100
[2022-08-25] MEDS: oxyCODONE/ACETAMINOPHEN (*CRX) 5-325 MG TABLET 1 TABLET PO (22:34)
--- NOTE | 2022-08-25 22:35 | ED.WOUNDLAC ---
HPI - Wound/Laceration General Chief Complaint: Wound/Laceration Stated Complaint: right knee lac Time Seen by Provider: 08/25/22 22:16 History of Present Illness HPI narrative: This is a 22-year-old female with past history of anxiety and depression, presents emergency department with laceration of the right knee. The patient states she was leaning against a glass coffee table, when it shattered, cutting her knee in two places. She complains of 8/10 knee pain. She denies head injury, other injury or loss of consciousness. Related Data Home Medications Medication Instructions Recorded Confirmed Copper Iud 01/16/22 Allergies Allergy/AdvReac Type Severity Reaction Status Date / Time NSAIDS (Non-Steroidal Allergy Unknown Other Verified 08/25/22 22:05 Anti-Inflamma Review of Systems Review of Systems: CONSTITUTIONAL: Denies fever, chills, or sweats. CARDIOVASCULAR: Denies chest pain, palpitations, or edema. RESPIRATORY: Denies cough or dyspnea. GASTROINTESTINAL: Denies abdominal pain, nausea, vomiting, or diarrhea. GENITOURINARY: Last menstrual period 2 months ago, IUD removed 1 month ago; Denies dysuria or hematuria. SKIN: Denies rash or itching. MUSCULOSKELETAL: Right knee pain denies back pain, joint pain, or myalgia. NEUROLOGIC: Denies headache, numbness, dizziness, or weakness. PSYCHIATRIC: Denies anxiety or depression. PMFSH Past Medical History Medical History Anxiety and depression Elevated cholesterol Environmental and seasonal allergies Episode of syncope 2020 Surgical History Surgical History History of appendectomy History of tonsillectomy [place] teeth extracted Family History Family History Grandparent Diabetes mellitus Father Hypertension Other Cerebrovascular accident Social History Social History Smoking status: Current every day smoker Tobacco type: e-cigarettes/vaping Alcohol intake: never Substance use: never Gender identity (if verbalized by the patient): Female Exam Narrative: GENERAL: Well-developed, well-nourished, and in no acute distress. HEAD: Normocephalic, atraumatic. EYES: PERRLA and EOMI. CHEST: Clear to auscultation. No respiratory distress. No wheezes rales or rhonchi HEART: Regular rate and rhythm. No murmur heard. Normal peripheral pulses. ABDOMEN: Soft, nontender, nondistended, normal active bowel sounds. EXTREMITIES: No lacerations noted at the medial aspect of the right knee. One measuring 1-1/2 cm and a second measuring 1 cm. Normal range of motion. No edema. NEURO: No focal deficits. Alert and oriented x3. PSYCH: Normal mood and affect. Course Course Emergency Course: 23:50 - X-ray not concerning for retained foreign object or fracture. Lacerations were repaired. Please see procedure note. I recommended the patient follow-up in 10 to 14 days for suture removal. Discussed return and emergency precautions including signs/symptoms of wound infection. The patient voiced understanding and is comfortable with the plan. All questions answered to her satisfaction. Vital Signs Vital signs: Vital Signs Temperature 97.3 F L 08/25/22 22:01 Pulse Rate 110 H 08/25/22 22:01 Respiratory Rate 20 08/25/22 22:01 Blood Pressure 151/76 H 08/25/22 22:01 Pulse Oximetry 100 08/25/22 22:01 Oxygen Delivery Room Air 08/25/22 22:01 Temperature 98 F 08/25/22 23:07 Pulse Rate 87 08/25/22 23:07 Respiratory Rate 14 08/25/22 23:07 Blood Pressure 131/82 08/25/22 23:07 Pulse Oximetry 97 08/25/22 23:07 Oxygen Delivery Room Air 08/25/22 22:01 Procedures Laceration Laceration 1: Date: 08/25/22 Time: 23:45 Site: lower extremity Side (If applicable): r
[2022-08-25] MEDS: LIDOCAINE HCL 2% LOCAL INJ 20 ML VIAL (22:41)
[2022-08-25 23:07] VITALS: BP 131/82; PULSE 87; RESP 14; TEMP 36.6; O2SAT 97
== END 2022-08-26 00:02 | disposition home or self-care (01) ==
PROVIDERS: Emergency Provider Preventive Medicine Aerospace Medicine; PCP Family Medicine
DX: S81.011A Laceration without foreign body, right knee, initial encounter (principal); E78.00 Pure hypercholesterolemia, unspecified; F17.290 Nicotine dependence, other tobacco product, uncomplicated; Z97.5 Presence of (intrauterine) contraceptive device; W25.XXXA Contact with sharp glass, initial encounter
CPT/HCPCS: 12002; 73562; 99283; A9270

== ENCOUNTER 2022-10-03 22:27 | Emergency (ER) | payer OTHER, SELFPAY ==
[2022-10-03 22:27] VITALS: BP 143/76; PULSE 117; RESP 16; TEMP 37; O2SAT 100
--- NOTE | 2022-10-04 01:47 | PC.NURSE ---
Pt reports diffuse abdominal pain that radiates to her back that has been going on for 2 months. +Intermittent nausea, vomiting, diarrhea. She has had her gallbladder removed. Last BM was yesterday, describes it as loose and stringy . Denies fevers or urinary symptoms.
[2022-10-04 02:01] LABS: Basophils Absolute Auto 0.1 K/mm3 (0.0-0.1); Basophils Percent Auto 0.6 % (0.2-1.2); Eosinophils Absolute Auto 0.4 K/mm3 (0-0.3); Eosinophils Percent Auto 3.3 % (0-4.4); Hematocrit 42.7 % (37.0-47.0); Hemoglobin 14.1 g/dL (12.0-15.0); Immature Granulocyte Absolute 0.02 K/mm3 (0.00-0.031); Immature Granulocyte Percent A 0.2 % (0-0.5); Lymphocytes Absolute Auto 3.45 K/mm3 (0.9-3.2); Lymphocytes Percent Auto 31.9 % (18.3-44.2); Mean Corpuscular Hemoglobin 31.3 pg (26-34); Mean Corpuscular Volume 94.7 fl (80-100); Mean Platelet Volume 11.2 fl (7.4-10.4); Monocytes Absolute Auto 0.7 K/mm3 (0.1-0.6); Monocytes Percent Auto 6.1 % (2.6-8.5); Neutrophils Absolute Auto 6.3 K/mm3 (1.3-6.7); Neutrophils Percent Auto 57.9 % (45.5-73.1); Platelet Count Result 302 k/mm3 (150-375); Red Blood Count 4.51 M/mm3 (4.2-5.4); Red Cell Distribution Width 12.7 % (11.5-14.5); White Blood Count 10.8 K/mm3 (4.5-10.0)
[2022-10-04 02:02] LABS: Appearance Urine Clear (Clear); Bilirubin Urine Negative (Negative); Blood Urine Negative (Negative); Color Urine Yellow (Yellow); Glucose Urine UA Negative (Negative); Ketones Urine Negative (Negative); Leukocyte Esterase Ur Negative LEU/UL (Negative); Nitrate Urine Negative (Negative); Protein Urine Negative (Negative); Specific Grav Ur 1.016 (1.001-1.035)
[2022-10-04 02:05] LABS: Add Urine Microscopic? NO
--- NOTE | 2022-10-04 02:09 | ED.GENADULT ---
HPI - General Adult General Chief complaint: Abdominal Pain Stated complaint: abd pain for two months Time Seen by Provider: 10/04/22 01:56 History of Present Illness HPI narrative: This is a 23-year-old female with history of chronic abdominal pain presenting with abdominal pain. Pain started at 7:00 p.m. is sharp pain in the epigastric area it is nonradiating, 7 out 10 intensity constant. Feels like when she had gallbladder pain although she had her gallbladder taken out several months ago. There are no exacerbating alleviating symptoms. No fever chills chest pain shortness of breath nausea vomiting or diarrhea. She took Tylenol with no relief before she arrived Related Data Home Medications Medication Instructions Recorded Confirmed Copper Iud 01/16/22 Allergies Allergy/AdvReac Type Severity Reaction Status Date / Time NSAIDS (Non-Steroidal Allergy Unknown Other Verified 08/25/22 22:05 Anti-Inflamma [facility] Past Medical History Medical History Anxiety and depression Elevated cholesterol Environmental and seasonal allergies Episode of syncope 2020 Surgical History Surgical History History of appendectomy History of tonsillectomy [place] teeth extracted Family History Family History Grandparent Diabetes mellitus Father Hypertension Other Cerebrovascular accident Social History Social History Smoking status: Current every day smoker Tobacco type: e-cigarettes/vaping Alcohol intake: never Substance use: never Gender identity (if verbalized by the patient): Female Exam Narrative: APPEARANCE: No apparent distress. well-appearing Head: atraumatic. EYES: EOMI, NOSE: Atraumatic NECK: Trachea midline RESPIRATORY: No increased rate of breathing CARDIOVASCULAR: RRR, ABDOMINAL: Non-distended MUSCULOSKELETAl: mild tenderness in the epigastric area, rest the abdomen is soft nontender no guarding or rebound NEURO: Alert. Moving 4/4 extremities SKIN:: Warm, dry. Normal color PSYCHIATRIC: Normal affect Course Vital Signs Vital signs: Vital Signs Temperature 98.6 F 10/03/22 22:27 Pulse Rate 117 H 10/03/22 22:27 Respiratory Rate 16 10/03/22 22:27 Blood Pressure 143/76 H 10/03/22 22:27 Pulse Oximetry 100 10/03/22 22:27 Oxygen Delivery Room Air 10/03/22 22:27 Temperature 98.6 F 10/03/22 22:27 Pulse Rate 117 H 10/03/22 22:27 Respiratory Rate 16 10/03/22 22:27 Blood Pressure 143/76 H 10/03/22 22:27 Pulse Oximetry 100 10/03/22 22:27 Oxygen Delivery Room Air 10/03/22 22:27 Medical Decision Making MDM Narrative Medical decision making narrative: -Presentation: 22-year-old with chronic abdominal pain presenting with abdominal pain. Abdominal exam is benign. 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 Metabolic panel unremarkable. UA without infection Dx tests considered but not ordered: CT abdomen pelvis - benign abdominal exam -Procedures: -Interventions: 1 L normal saline, Pepcid, Zofran, Tylenol, Maalox -Shared decision making / Disposition: upon re-evaluation the patient symptoms have improved. She is resting comfortably in bed. She is comfortable going home. Patient will be discharged with a course of Pepcid -RX Pepcid 20 mg b.i.d. x6 weeks Vital Signs Vital Signs: Vital Sig
[2022-10-04 02:18] LABS: Alanine Aminotransferase 23 U/L (6-35); Albumin Level 4.7 g/dL (3.5-5.1); Alkaline Phosphatase 58 U/L (38-126); Anion Gap 8 mmol/L (8-16); Aspartate Amino Transferase 23 U/L (14-36); Bilirubin,Total 0.4 mg/dL (0.2-1.3); Blood Urea Nitrogen 14 mg/dL (7-17); Calcium 9.2 mg/dL (8.4-10.2); Carbon Dioxide 28 mmol/L (22-30); Chloride 103 mmol/L (98-107); Estimated CRCL calculation 130 ml/min; Estimated Glomerular Filt Rate > 60; Glucose 92 mg/dL (65-110); Lipase 62 U/L (23-300); Potassium 3.9 mmol/L (3.4-5.0); Sodium 139 mmol/L (137-145)
[2022-10-04] MEDS: SODIUM CHLORIDE 0.9% IV 2,000 ML 999 ML IV CONT (02:26)
[2022-10-04] MEDS: MAG HYDROX/AL HYDROX/SIMETH 30 ML UDC PO (02:26)
[2022-10-04] MEDS: ONDANSETRON INJ 4 MG/2 ML VIAL IV PUSH (02:26)
[2022-10-04] MEDS: FAMOTIDINE 20 MG/2 ML VIAL IV PUSH (02:26)
[2022-10-04 03:43] VITALS: BP 111/68; PULSE 74; RESP 18; O2SAT 98
== END 2022-10-04 03:44 | disposition home or self-care (01) ==
PROVIDERS: Emergency Provider Emergency Medicine; PCP Family Medicine
DX: K29.70 Gastritis, unspecified, without bleeding (principal); E78.00 Pure hypercholesterolemia, unspecified; F17.290 Nicotine dependence, other tobacco product, uncomplicated
CPT/HCPCS: 36415; 80053; 81003; 81025; 83690; 85025; 96361; 96365; 96375; 99284; A9270; J0131; J2405; J7030

== ENCOUNTER 2022-11-01 21:48 | Emergency (ER) | payer OTHER, SELFPAY ==
--- NOTE | ~2022-11-01 | CT_ITS ---
EXAMINATION: CT abdomen pelvis w con DATE: 11/02/2022 00:07 INDICATION: Nausea and vomiting. Fever. Epigastric pain. TECHNIQUE: Computed tomography (CT) of the abdomen and pelvis was performed with 100 cc Omnipaque 350 intravenous contrast. The dose-length product was 1196.37 mGy-cm. Automated exposure control and ite rative reconstruction technique were employed. COMPARISON: CT dated 07/06/2022. FINDINGS: Lung bases are unremarkable. Heart size normal. No significant pleural or pericardial effus ion. Fatty infiltration of the liver. Status post cholecystectomy. There is a liver cyst at the gallbladde r fossa. The spleen, pancreas, adrenal glands and kidneys are unremarkable. There are changes of liana jerman bypass surgery. No significant vascular abnormality. There is a small involuting corpus luteal cy st of the right ovary. Small amount of free fluid in the pelvis. No significant vascular abnormality. No lymphadenopathy. IMPRESSION: 1. No acute abdominal abnormality. Reviewed, dictated and finalized at location A.
--- NOTE | ~2022-11-01 | XR_ITS ---
EXAMINATION: XR chest 1V portable 11/02/2022 00:12 INDICATION: Cough and fever PROCEDURE: AP portable chest COMPARISON: 04/10/2022 FINDINGS: The lungs are clear. The cardiomediastinal silhouette is within normal limits. There are no pleural effusions. There is no pneumothorax suspected. IMPRESSION: 1: NO ACUTE CARDIOPULMONARY DISEASE. Reviewed, dictated and finalized at location A.
[2022-11-01 21:49] VITALS: BP 132/85; PULSE 142; RESP 18; TEMP 36.9; O2SAT 100
[2022-11-01 22:00] VITALS: BP 120/84; PULSE 121; RESP 14; O2SAT 96
--- NOTE | 2022-11-01 22:15 | ECG_ITS ---
Measurements Intervals [place] Rate: 114 P: 50 CO: 161 QRS: 72 QRSD: 85 T: 13 QT: 312 QTc: 431 Interpretive Statements SINUS TACHYCARDIA DELAYED PRECORDIAL R/S TRANSITION ABNORMAL ECG COMPARED TO ECG 08/10/2019 09:57:57 SINUS TACHYCARDIA NOW PRESENT Electronically Signed On 11-02-2022 7:15:09 CDT by Heber Pearl D.O.
[2022-11-01] MEDS: ONDANSETRON INJ 4 MG/2 ML VIAL IV PUSH (22:47)
[2022-11-01] MEDS: SODIUM CHLORIDE 0.9% IV 1,000 ML 999 ML IV CONT ×2 (22:48→22:49)
[2022-11-01 22:51] LABS: Basophils Absolute Auto 0.1 K/mm3 (0.0-0.1); Basophils Percent Auto 0.7 % (0.2-1.2); Eosinophils Absolute Auto 0.1 K/mm3 (0-0.3); Eosinophils Percent Auto 1.1 % (0-4.4); Hemoglobin 13.7 g/dL (12.0-15.0); Immature Granulocyte Absolute 0.03 K/mm3 (0.00-0.031); Immature Granulocyte Percent A 0.3 % (0-0.5); Lymphocytes Absolute Auto 2.54 K/mm3 (0.9-3.2); Lymphocytes Percent Auto 25.9 % (18.3-44.2); Mean Corpuscular HGB Conc 33.4 g/dl (32-36); Mean Corpuscular Hemoglobin 31.3 pg (26-34); Mean Corpuscular Volume 93.6 fl (80-100); Mean Platelet Volume 11.3 fl (7.4-10.4); Monocytes Absolute Auto 0.7 K/mm3 (0.1-0.6); Monocytes Percent Auto 7.2 % (2.6-8.5); Neutrophils Absolute Auto 6.4 K/mm3 (1.3-6.7); Neutrophils Percent Auto 64.8 % (45.5-73.1); Platelet Count Result 280 k/mm3 (150-375); Red Blood Count 4.38 M/mm3 (4.2-5.4); Red Cell Distribution Width 12.1 % (11.5-14.5); White Blood Count 9.8 K/mm3 (4.5-10.0)
[2022-11-01 23:10] LABS: Alanine Aminotransferase 24 U/L (6-35); Albumin Level 4.3 g/dL (3.5-5.1); Alkaline Phosphatase 60 U/L (38-126); Anion Gap 10 mmol/L (8-16); Aspartate Amino Transferase 34 U/L (14-36); Bilirubin,Total 0.3 mg/dL (0.2-1.3); Blood Urea Nitrogen 15 mg/dL (7-17); Carbon Dioxide 20 mmol/L (22-30); Chloride 107 mmol/L (98-107); Estimated CRCL calculation 131 ml/min; Estimated Glomerular Filt Rate > 60; Glucose 100 mg/dL (65-110); Lipase 63 U/L (23-300); Sodium 137 mmol/L (137-145)
[2022-11-01 23:11] LABS: Lactic Acid Reflex 0.7 mmol/L (0.7-2.0)
[2022-11-01 23:13] LABS: Appearance Urine Clear (Clear); Bilirubin Urine Negative (Negative); Blood Urine Negative (Negative); Color Urine Yellow (Yellow); Glucose Urine UA Negative (Negative); Ketones Urine Trace mg/dL (Negative); Leukocyte Esterase Ur Negative LEU/UL (Negative); Nitrate Urine Negative (Negative); Protein Urine Negative (Negative); pH Urine 5.5 (5.0-9.0)
[2022-11-01 23:27] LABS: Influenza A QL RT-PCR Negative (Negative); Influenza B QL RT-PCR Negative (Negative); SARS-CoV-2 RNA PCR Negative (Negative)
[2022-11-01 23:28] LABS: Add Urine Microscopic? NO
--- NOTE | 2022-11-01 23:36 | ED.GENADULT ---
HPI - General Adult General Chief complaint: Fever Stated complaint: fever, n/v, fatigue Time Seen by Provider: 11/01/22 22:01 History of Present Illness HPI narrative: Patient presents emerged from the chief complaint of fever patient reports that for the last several days she has been having intermittent fever patient reports she has prior history of gastric sleeve and reports that she was seen in another emergency department had a chest x-ray and was swabbed for COVID and flu patient states that she is able to nausea denies diarrhea reports some mild epigastric discomfort. Related Data Home Medications Medication Instructions Recorded Confirmed Copper Iud 01/16/22 Allergies Allergy/AdvReac Type Severity Reaction Status Date / Time NSAIDS (Non-Steroidal Allergy Unknown Other Verified 08/25/22 22:05 Anti-Inflamma Review of Systems Review of Systems: A 10 system review of systems was completed on the patient and is negative except for what is stated in the HPI. Nursing and ancillary documentation was reviewed. PMFSH Past Medical History Medical History Anxiety and depression Elevated cholesterol Environmental and seasonal allergies Episode of syncope 2020 Surgical History Surgical History History of appendectomy History of tonsillectomy [place] teeth extracted Family History Family History Grandparent Diabetes mellitus Father Hypertension Other Cerebrovascular accident Social History Social History Smoking status: Current every day smoker Tobacco type: e-cigarettes/vaping Alcohol intake: never Substance use: never Gender identity (if verbalized by the patient): Female Exam Narrative: GENERAL: Well-appearing, well-nourished, and in no acute distress. HEAD: Normocephalic, atraumatic. EYES: PERRLA and EOMI. ENT: Nares clear, no rhinorrhea or epistaxis. Mucous membranes moist. NECK: Supple. CHEST: Clear to auscultation. No respiratory distress. HEART: Regular rate and rhythm. No murmur heard. Normal peripheral pulses. ABDOMEN: Soft, nontender, nondistended, normal active bowel sounds. EXTREMITIES: Normal range of motion. No edema. SKIN: Warm, dry, no rash. NEURO: No focal deficits. Alert and oriented x3. PSYCH: Normal mood and affect. Course Vital Signs Vital signs: Vital Signs Temperature 36.9 C 11/01/22 21:49 Pulse Rate 142 H 11/01/22 21:49 Respiratory Rate 18 11/01/22 21:49 Blood Pressure 132/85 11/01/22 21:49 Pulse Oximetry 100 11/01/22 21:49 Oxygen Delivery Room Air 11/01/22 21:49 Temperature 37.1 C 11/02/22 01:28 Pulse Rate 74 11/02/22 03:25 Respiratory Rate 14 11/02/22 03:25 Blood Pressure 123/89 11/02/22 03:25 Pulse Oximetry 100 11/02/22 03:25 Oxygen Delivery Room Air 11/01/22 21:49 Medical Decision Making [facility] Narrative Medical decision making narrative: Differential diagnosis includes bowel obstruction, gastroenteritis, dehydration, UTI, colitis, diverticulitis Laboratory studies were obtained and patient showed normal CBC electrolytes are within normal limits liver enzymes are normal lactic acid 0.7 urinalysis showed no evidence of UTI Patient is negative for COVID negative for flu CT scan of the abdomen pelvis showed no acute abnormalities Patient received 2 L of normal saline boluses and received Zofran and Compazine in the emergency department the patient is feeling much better at this time and like to go home Vital Signs Vital Signs: Vital Signs Temperature 36.9 C 11/01/22 21:49 Pulse Rate 142 H 11/01/22 21:49 Respiratory Rate 18 11/01/22 21:49 Blood Pressure 132/85 11/01/22 21:49 Pulse Oximetry 100 11/01/22 21:49 Oxygen De
[2022-11-01 23:40] VITALS: BP 102/68; PULSE 86; RESP 14; O2SAT 100
[2022-11-01 23:41] LABS: Procalcitonin < 0.0 ng/mL
[2022-11-02] VITALS: BP 117/76; PULSE 90; RESP 14; O2SAT 100
[2022-11-02 01:28] VITALS: BP 132/66; PULSE 82; RESP 14; TEMP 37.1; O2SAT 100
[2022-11-02 03:25] VITALS: BP 123/89; PULSE 74; RESP 14; O2SAT 100
[2022-11-02] MEDS: PROCHLORPERAZINE EDISYLATE 10 MG/2 ML VIAL IV PUSH (03:25)
== END 2022-11-02 03:45 | disposition home or self-care (01) ==
PROVIDERS: Emergency Provider Emergency Medicine; PCP Family Medicine
DX: R11.2 Nausea with vomiting, unspecified (principal); E86.0 Dehydration; Z20.822 Contact with and (suspected) exposure to COVID-19; E78.00 Pure hypercholesterolemia, unspecified; F17.290 Nicotine dependence, other tobacco product, uncomplicated; Z98.84 Bariatric surgery status; Z90.49 Acquired absence of other specified parts of digestive tract; R00.0 Tachycardia, unspecified
CPT/HCPCS: 36415; 71045; 74177; 80053; 81003; 81025; 83605; 83690; 83735; 84145; 85025; 87040; 87636; 93005; 96361; 96374; 99284; J0780; J2405; J7030; Q9967

== ENCOUNTER 2023-02-25 20:51 | Emergency (ER) | payer OTHER, SELFPAY ==
--- NOTE | ~2023-02-25 | XR_ITS ---
EXAM: XR hand RT min 3V DATE: 02/25/2023 21:18 HISTORY: pain, numbness, injury TO 1ST AND 2ND DIGIT . COMPARISON: None available. FINDINGS: Normal mineralization. No fracture or dislocation. No lytic or blastic lesion. Joint space s are maintained. No erosion or periosteal change. Soft tissues within normal limits. IMPRESSION: No acute osseous finding in the right hand. Reviewed, dictated and finalized at location K. R AWAY
[2023-02-25 20:57] VITALS: BP 130/90; PULSE 80; RESP 15; TEMP 36.5; O2SAT 100
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
== END 2023-02-25 21:50 | disposition home or self-care (01) ==
LOC: ANHED 21:33
PROVIDERS: Emergency Provider Emergency Medicine; PCP Family Medicine
DX: S63.501A Unspecified sprain of right wrist, initial encounter (principal); S66.911A Strain of unspecified muscle, fascia and tendon at wrist and hand level, right hand, initial encounter; F17.290 Nicotine dependence, other tobacco product, uncomplicated; X58.XXXA Exposure to other specified factors, initial encounter; Y99.0 Civilian activity done for income or pay
CPT/HCPCS: 73130; 99283

== ENCOUNTER 2023-03-02 21:01 | Emergency (ER) | payer OTHER, SELFPAY ==
--- NOTE | ~2023-03-02 | XR_ITS ---
EXAM: XR shoulder RT min 2V DATE: 03/02/2023 21:46 HISTORY: ARM WAS PULLED X 5 DAY AGO . COMPARISON: None available. FINDINGS: Normal mineralization. No fracture or dislocation. No lytic or blastic lesion. Joint space s are maintained. No erosion or periosteal change. Soft tissues within normal limits. IMPRESSION: No acute osseous finding in the right shoulder. Reviewed, dictated and finalized at location K. 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
[2023-03-02 21:01] VITALS: BP 132/100; PULSE 113; RESP 18; TEMP 36.3; O2SAT 99
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
--- NOTE | 2023-03-02 21:40 | PC.NURSE ---
Pt denies taking any meds for her symptoms.
== END 2023-03-02 22:39 | disposition home or self-care (01) ==
PROVIDERS: Emergency Provider Emergency Medicine; PCP Family Medicine
DX: R20.2 Paresthesia of skin (principal); M25.511 Pain in right shoulder; F17.290 Nicotine dependence, other tobacco product, uncomplicated
CPT/HCPCS: 73030; 99283

== ENCOUNTER 2023-03-20 10:17 | Emergency (ER) | payer OTHER, SELFPAY ==
[2023-03-20 10:24] VITALS: BP 124/87; PULSE 86; RESP 18; TEMP 37.2; O2SAT 100
--- NOTE | 2023-03-20 10:43 | ED.URI ---
HPI - URI/Sore Throat General Chief Complaint: Upper Respiratory Infection Stated Complaint: Sore Throat Time Seen by Provider: 03/20/23 10:38 Source: patient and RN notes reviewed Mode of arrival: ambulatory Limitations: no limitations History of Present Illness HPI Narrative: Patient presents today complaining of a sore throat since yesterday that is worse today. Denies any additional symptoms to include cough, congestion, rhinorrhea, fever. She currently rates her pain 8/10 and has tried some allergy medication with mild relief. Pain increases with swallowing. History of tonsillectomy. Denies known sick contacts. Related Data Home Medications Medication Instructions Recorded Confirmed No Home Medications 03/20/23 03/20/23 Allergies Allergy/AdvReac Type Severity Reaction Status Date / Time NSAIDS (Non-Steroidal Allergy Unknown Other Verified 03/20/23 10:31 Anti-Inflamma Review of Systems Review of Systems: CONSTITUTIONAL: Denies body aches, fever, chills, or sweats. EYES: Denies visual changes, redness, or discharge. ENT: Denies rhinorrhea, congestion, or otalgia.+ sore throat CARDIOVASCULAR: Denies chest pain, palpitations, or edema. RESPIRATORY: Denies cough or dyspnea. GASTROINTESTINAL: Denies abdominal pain, nausea, vomiting, or diarrhea. GENITOURINARY: Denies dysuria or hematuria. SKIN: Denies rash, itching, or wounds. MUSCULOSKELETAL: Denies back pain, joint pain, or myalgia. NEUROLOGIC: Denies headache, numbness, tingling, or weakness. PSYCH: Denies depression or anxiety. [facility] Past Medical History Medical History Anxiety and depression Elevated cholesterol Environmental and seasonal allergies Episode of syncope 2019 Surgical History Surgical History History of appendectomy (~07/2018) History of cholecystectomy (~07/2022) History of gastric surgery (~01/2022) History of tonsillectomy (~2019) [place] teeth extracted (~2018) Family History Family History Grandparent Diabetes mellitus Father Hypertension Unknown Cancer Unknown POTS (postural orthostatic tachycardia syndrome) Other Cerebrovascular accident Social History Social History Smoking status: Former smoker Tobacco type: e-cigarettes/vaping Alcohol intake: current Alcohol use details: 1 drink per month Substance use: never Lack of Transportation: No Lack of Food: Never True Current Housing: I Have Housing Concerned About Future Housing: No Difficulty Paying Gas/Electric Bills: No Difficulty Paying for Meds: No Currently Unemployed: No Education: High School Diploma/GED Difficulty w/ Childcare or Family Care: No Gender identity (if verbalized by the patient): Female Comments At time of signature, I have reviewed and agree with nursing past medical, surgical, social and family history unless otherwise noted. Please see nursing chart for further information. There is no relevant family history pertinent to the presenting complaint Exam Narrative: GENERAL: Well-appearing, well-nourished, and in no acute distress. HEAD: Normocephalic, atraumatic. EYES: EOMI. No redness or drainage. Conjunctivae normal. ENT: Mucous membranes pink and moist. Nares clear. No rhinorrhea. TMs normal bilaterally. Throat erythematous posteriorly without edema or exudate. Uvula midline. NECK: Normal AROM. Supple. No lymphadenopathy. CHEST: No respiratory distress. Clear to auscultation. HEART: Regular rate and rhythm. No murmur appreciated. EXTREMITIES: Normal range of motion. No edema. SKIN: Warm, dry, no rash. Capillary refill normal. Normal skin turgor. NEURO: No focal deficits. Alert and oriented x3. Gait steady. PSYCH: Normal affect. No signs of dep
== END 2023-03-20 10:50 | disposition home or self-care (01) ==
PROVIDERS: Emergency Provider Nurse Practitioner; PCP Family Medicine
DX: J02.9 Acute pharyngitis, unspecified (principal); F17.290 Nicotine dependence, other tobacco product, uncomplicated; E78.00 Pure hypercholesterolemia, unspecified
CPT/HCPCS: 87081; 87880; 99213; G0463

== ENCOUNTER 2023-03-23 12:02 | Emergency (ER) | payer OTHER, SELFPAY ==
[2023-03-23 12:23] VITALS: BP 117/69; PULSE 84; RESP 18; TEMP 36.9; O2SAT 98
--- NOTE | 2023-03-23 12:55 | ED.GENADULT ---
HPI - General Adult General Chief complaint: Upper Respiratory Infection Stated complaint: sorethroat Time Seen by Provider: 03/23/23 12:56 Source: patient Mode of arrival: ambulatory Limitations: no limitations History of Present Illness HPI narrative: a 3-year-old female patient presents to [facility] with complaints of sore throat for about a week now. Patient states she went saw to the urgent care a couple days ago and was swabbed for strep throat and was negative. Patient states she has been on antihistamines throat lozenges. Patient states that her throat pain is gotten worse and now she has noticed some white patches on her tongue that are very painful today. Denies fevers, body aches or chills. Patient does admit giving oral sex as recently as 2 weeks ago. Denies any other symptoms at this time. Related Data Allergies Allergy/AdvReac Type Severity Reaction Status Date / Time NSAIDS (Non-Steroidal Allergy Unknown Other Verified 03/20/23 10:31 Anti-Inflamma Review of Systems Review of Systems: CONSTITUTIONAL: Denies fever, chills, or sweats. EYES: Denies visual changes, redness, or discharge. ENT: Denies rhinorrhea, congestion, Positive sore throat, denies otalgia. CARDIOVASCULAR: Denies chest pain, palpitations, or edema. RESPIRATORY: Denies cough or dyspnea. GASTROINTESTINAL: Denies abdominal pain, nausea, vomiting, or diarrhea. GENITOURINARY: Denies dysuria or hematuria. SKIN: Denies rash or itching. MUSCULOSKELETAL: Denies back pain, joint pain, or myalgia. NEUROLOGIC: Denies headache, numbness, or weakness. PSYCHIATRIC: Denies anxiety or depression. [facility] Past Medical History Medical History Anxiety and depression Elevated cholesterol Environmental and seasonal allergies Episode of syncope 2019 Surgical History Surgical History History of appendectomy (~07/2018) History of cholecystectomy (~07/2022) History of gastric surgery (~01/2022) History of tonsillectomy (~2019) [place] teeth extracted (~2018) Family History Family History Grandparent Diabetes mellitus Father Hypertension Unknown Cancer Unknown POTS (postural orthostatic tachycardia syndrome) Other Cerebrovascular accident Social History Social History Smoking status: Former smoker Tobacco type: e-cigarettes/vaping Alcohol intake: current Alcohol use details: 1 drink per month Substance use: never Lack of Transportation: No Lack of Food: Never True Current Housing: I Have Housing Concerned About Future Housing: No Difficulty Paying Gas/Electric Bills: No Difficulty Paying for Meds: No Currently Unemployed: No Education: High School Diploma/GED Difficulty w/ Childcare or Family Care: No Gender identity (if verbalized by the patient): Female Comments at the time of my signature I agree with nursing past medical history, surgical, social, and family history. There is no relevant family history pertinent to the presenting complaint. Exam Narrative: GENERAL: Well-appearing, well-nourished, and in no acute distress. HEAD: Normocephalic, atraumatic. EYES: PERRLA and EOMI. ENT: Nares clear, no rhinorrhea or epistaxis. Mucous membranes moist. posterior pharynx with bright erythema and there is white lesions in patches noted to the tongue. Some scattered white patchy noted to the posterior pharynx that appears very small pinpoint. NECK: Supple. No lymphadenopathy CHEST: Clear to auscultation. No respiratory distress. HEART: Regular rate and rhythm. No murmur heard. Normal peripheral pulses. ABDOMEN: Soft, nontender, nondistended, normal active bowel sounds. EXTREMITIES: Normal range of motion. No edema. SKIN: Warm, dry, no rash. NEURO: No focal deficits. Alert and oriente
[2023-03-23 16:10] LABS: Chlamydia trachomatis NOT DETECTED (NOT DETECTE); Neisseria gonorrhoeae PCR NOT DETECTED (NOT DETECTE)
== END 2023-03-23 13:19 | disposition home or self-care (01) ==
PROVIDERS: Emergency Provider Nurse Practitioner Family; PCP Family Medicine
DX: B37.0 Candidal stomatitis (principal); J02.9 Acute pharyngitis, unspecified; E78.00 Pure hypercholesterolemia, unspecified
CPT/HCPCS: 87081; 87491; 87591; 87880; 99213; G0463

== ENCOUNTER 2023-04-21 12:40 | Outpatient (CLI) | payer OTHER, SELFPAY ==
--- NOTE | ~2023-04-21 | MR_ITS ---
EXAMINATION: MR shoulder RT wo con DATE: 04/21/2023 13:26 INDICATION: Right rotator cuff capsule sprain presenting with right shoulder pain and decreased range of motion post lifting injury 2 months prior TECHNIQUE: Magnetic resonance imaging (MRI) of the right shoulder was performed without intravenous c ontrast. Sequences included axial PD-weighted FS FSE, coronal oblique PD-weighted FS FSE, coronal obl ique T2-weighted FS FSE, sagittal PD-weighted FS FSE, and sagittal T1-weighted SE. COMPARISON: None. FINDINGS: Coracoacromial arch: The acromion undersurface is mildly curved in morphology (type I-II). The coracoacromial ligament is normal. Acromioclavicular joint is normal. Rotator cuff: The supraspinatus, infraspinatus and teres minor tendons are normal. The subscapularis tendon is norm al. Normal rotator cuff muscle bulk and signal. Biceps tendon, glenoid labrum and glenohumeral cartilage: Long head of the biceps tendon is normal. Glenoid labrum is normal. Glenohumeral cartilage is normal. Fluid: Physiologic amount of fluid in the glenohumeral joint and biceps tendon sheath. No loose osteochondr al bodies. No abnormal fluid signal in the subacromial/subdeltoid bursa to suggest bursitis. Bones: Normal marrow signal with no edema, fracture or abnormal marrow replacing process. IMPRESSION: 1. Normal right shoulder MRI. Reviewed, dictated and finalized at location [facility]. 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
== END 2023-04-21 12:41 | disposition home or self-care (01) ==
PROVIDERS: PCP Family Medicine; Visit Provider Orthopaedic Surgery
DX: S43.421A Sprain of right rotator cuff capsule, initial encounter (principal); X58.XXXA Exposure to other specified factors, initial encounter
CPT/HCPCS: 73221

== ENCOUNTER 2023-05-02 11:15 | Outpatient (RCR) | payer OTHER, SELFPAY ==
[2023-03-17 11:05] VITALS: BP_SYST 120
--- NOTE | 2023-03-17 11:58 | OPREHPOC ---
Outpatient Therapy Plan of Care This is a Multidisciplinary Plan of Care that may contain components documented by all disciplines (PT, OT, and ST.) PT Problem 1 PT Problem #1 Knowledge Deficit PT Goal 1 Goal 1* indep with HEP 2* use correct body mechanics & shoulder position with lifting PT Problem 2 PT Problem #2 Pain PT Goal 1 Goal 1* pain rating at worst 3/10 2* no radicular pain into R UE 3* self assessment Quick DASH score of 16% limitation in activity level PT Problem 3 PT Problem #3 Impaired Flexibility PT Goal 1 Goal increase R shoulder AROM in standing to increase activity level: 1* flexion 140' 2* abduction 140' 3* IR- reach behind back, palm to above waist 4* ER- reach to back of head, palm to back of head PT Problem 4 PT Problem #4 Impaired Strength PT Goal 1 Goal increase R shoulder strength to increase activity and return to work: in standing 5 reps: 1* flexion with 2# hand wt to 90' 2* abduction with 2# hand wt to 90' 3* ER with 2# hand wt with elbow at her side 4* bilateral UE lift of 20# box from floor/waist height x 3 reps
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
[2023-04-09 11:00] VITALS: BP_SYST 130
--- NOTE | 2023-04-09 11:56 | PTOPPROG ---
Assessment and note entered by Dionne Celeste, PT Evaluation Information Assessment Status Progress Diagnosis R rotator cuff sprain Onset 02-25 Subjective Information saw last week, to have MRI, not yet scheduled, have to get workman's comp to approve it; continue to stay off work; shoulder is better, but lifting forward still hurts and pain into neck pain range 3-6/10; sharp, constant pain; lateral neck to anterior shoulder joint; radicular into upper 1/3 of humerus; decrease pain: tylenol, ice increase pain: shoulder flexion, getting comfortable position for sleep awaken 0-1x/night with pain in shoulder Assessment PT Clinical Summary Caroline has received 8 PT sessions. She is awaiting work comp approval for MRI and has not returned to work. Compared to the initial evaluation: pain rating same at the worst of 6/10 and least from 4 to 3/10 self assessment Quick DASH score worse, from 34% to 39% limitation in activity level; R shoulder active and passive motions all increased 5 to 15'; increase strength of R shoulder, but exhibit cleaner dynamometer decreased by 5#; education for posture, shoulder positioning and HEP. Continue PT 2x/week for continue to decrease pain and increase R shoulder ROM and strength. Plan of Care Interventions Electrical Stimulation,Hot Pack/Cold Pack,Manual Therapy,Neuro Re-education,Patient Education,Therapeutic Activities,Therapeutic Exercise,Ultrasound,Other Other Interventions taping PT Services Indicated Yes Treatment Frequency and 2x/wk for 4 visits Duration These treatments will address the objective and functional deficits as defined above. The patient will be advanced safely and appropriately in order for the patient to progress towards his/her prior level of function. Additional exercises will be introduced and as well as a comprehensive home exercise program upon discharge, if needed, ?to ensure carryover of functional gains achieved in the clinic. This treatment plan has been reviewed and agreement upon by the patient.
--- NOTE | 2023-04-30 13:53 | PCPTNOTE ---
pt called and canceled today's reeval appt; rescheduled for later this week.
--- NOTE | 2023-05-02 11:58 | PTOPPROG ---
Assessment and note entered by Dionne Celeste, PT Evaluation Information Assessment Status Progress Diagnosis R rotator cuff sprain Onset 02-25 Subjective Information saw , is able to return to work with restrictions: no lifting, pushing, pulling over 10# no overhead or repetitive reaching activities; to return to work Friday; had cortisone shot at dr boyce and feeling better; had the MRI- said inflammation and no tears; is using her arm to clean home, kitchen tasks, laundry--able to do everything she needs to do at home; Assessment PT Clinical Summary Caroline has had 12 PT sessions. 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 She is to return to work next week, light duty, 10# lifting limit. 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 Plan of Care Interventions Electrical Stimulation,Hot Pack/Cold Pack,Manual Therapy,Patient Education,Therapeutic Activities,Therapeutic Exercise,Ultrasound Other Interventions taping PT Services Indicated Yes Treatment Frequency and 1x/wk for 5 visits Duration These treatments will address the objective and functional deficits as defined above. The patient will be advanced safely and appropriately in order for the patient to progress towards his/her prior level of function. Additional exercises will be introduced and as well as a comprehensive home exercise program upon discharge, if needed, ?to ensure carryover of functional gains achieved in the clinic. This treatment plan has been reviewed and agreement upon by the patient.
--- NOTE | 2023-05-02 11:58 | OPREHPOC ---
Outpatient Therapy Plan of Care This is a Multidisciplinary Plan of Care that may contain components documented by all disciplines (PT, OT, and ST.) PT Problem 1 PT Problem #1 Knowledge Deficit PT Goal 1 Goal 1* indep with HEP 2* use correct body mechanics & shoulder position with lifting Progress Met Comment 04-09-23 progress met goals continue toward goals PT Goal 2 Progress Met Comment 05-02-23 progress met goals continue towards goals to progress education PT Problem 2 PT Problem #2 Pain PT Goal 1 Goal 1* pain rating at worst 3/10 2* no radicular pain into R UE 3* self assessment Quick DASH score of 16% limitation in activity level Progress Not Met Comment 04-09-23 progress goals not met continue towards goals PT Goal 2 Progress Met Comment 05-02-23 progress met goals NEW GOALS: 1* pt report pain at worst of 2/10 with increased activity level PT Problem 3 PT Problem #3 Impaired Flexibility PT Goal 1 Goal increase R shoulder AROM in standing to increase activity level: 1* flexion 140' 2* abduction 140' 3* IR- reach behind back, palm to above waist 4* ER- reach to back of head, palm to back of head Progress Not Met Comment 04-09-23 progress improved with all ranges, but goals not met continue towards goals PT Goal 2 Progress Met Comment 05-02-23 progress met goals discontinue ROM treatment
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
== END 2023-05-12 09:52 | disposition home or self-care (01) ==
LOC: ANHPT 11:15
PROVIDERS: PCP Family Medicine; Visit Provider Orthopaedic Surgery
DX: S43.421D Sprain of right rotator cuff capsule, subsequent encounter (principal)
CPT/HCPCS: 97014; 97110; 97140; 97161; 97530; G0283

== ENCOUNTER 2023-05-03 18:44 | Emergency (ER) | payer OTHER, SELFPAY ==
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
[2023-05-03 18:46] VITALS: BP 144/90; PULSE 120; RESP 19; TEMP 36.3; O2SAT 99
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
[2023-05-04] MEDS: ACETAMINOPHEN 500 MG TABLET 1000 MG PO (00:14)
[2023-05-04] MEDS: diazePAM INJ (*CRX) 10 MG/2 ML SYRINGE 5 MG IM (00:14)
== END 2023-05-04 01:47 | disposition home or self-care (01) ==
PROVIDERS: Emergency Provider Physician Assistant; PCP Family Medicine
DX: S16.1XXA Strain of muscle, fascia and tendon at neck level, initial encounter (principal); E78.00 Pure hypercholesterolemia, unspecified; Z87.891 Personal history of nicotine dependence; Z90.49 Acquired absence of other specified parts of digestive tract; V49.40XA Driver injured in collision with unspecified motor vehicles in traffic accident, initial encounter
CPT/HCPCS: 70450; 72125; 72128; 72131; 81025; 96372; 99284; A9270; J3360; L0140

== ENCOUNTER 2023-05-25 19:36 | Emergency (ER) | payer OTHER, SELFPAY ==
[2023-05-25] VITALS (10 sets, daily range): BP systolic 138–142; BP diastolic 83–93; PULSE 98–119; RESP 17–19; TEMP 36.2; O2SAT 98–100
--- NOTE | ~2023-05-25 | CT_ITS ---
Non-contrast CT scan of the Abdomen and Pelvis Clinical indication: Obstruction Technique: 2.5 mm axial scans were obtained through the abdomen and pelvis without intravenous or or al contrast. Dose reduction technique was used on this scan by utilizing automated exposure control a nd iterative reconstruction technique. The dose-length product (DLP) was 1383.32 mGy-cm. COMPARISON: 11/01/2022 Findings: Images through the lung bases reveal no abnormalities. There is no evidence of renal or ureteral calculi. The kidneys and the ureters are nondilated. Stable cystic mass in the liver adjacent to the gallbladder fossa. The spleen, pancreas, and adrenals appear normal. Cholecystectomy clips are present. There is no aortic aneurysm. There is no evidence of bowel obstruction. Images through the pelvis were performed. There is no evidence of ascites or lymphadenopathy. Urinary bladder unremarkable. No pelvic mass seen. No ascites. Impression: No acute abnormality. No evidence of bowel obstruction. Stable cystic mass in the liver adjacent to the gallbladder fossa. Reviewed, dictated and finalized at [facility]. 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 No evidence of bowel obstruction. Stable cystic mass in the liver adjacent to the gallbladder fossa.
--- NOTE | 2023-05-25 19:47 | ED.GENADULT ---
[facility] - General Adult General Chief complaint: Unspecified Stated complaint: constipation Time Seen by Provider: 05/25/23 19:43 Source: patient Mode of arrival: ambulatory Limitations: no limitations History of Present Illness HPI narrative: This is a 23-year-old female who presents to the ED with chief complaint of constipation x4 weeks. Reports her last bowel movement was 4 weeks ago and the last time she passed gas was 4 weeks ago. Reports she had an episode of this in the past that lasted 3 weeks and she came to the ER got an enema that helped. Reports today she tried to give herself 2 separate soapsuds enemas without success. She reports 2 episodes of vomiting after trying the enemas today. Reports generalized abdominal pain. Denies fevers, chills, urinary symptoms, hematemesis. States she has been trying MiraLax, Dulcolax and Colace as well. Past Surgical history of gastric sleeve, cholecystectomy, appendectomy Related Data Home Medications Medication Instructions Recorded Confirmed metoprolol succinate 25 mg 37.5 mg PO DAILY 04/23/23 05/15/23 tablet,extended release 24 hr Allergies Allergy/AdvReac Type Severity Reaction Status Date / Time NSAIDS (Non-Steroidal Allergy Unknown Other Verified 04/23/23 07:55 Anti-Inflamma Review of Systems Review of Systems: All systems as dictated in [facility] Past Medical History Medical History Anxiety and depression Elevated cholesterol Environmental and seasonal allergies Episode of syncope 2019 Inappropriate sinus tachycardia Surgical History Surgical History History of appendectomy (~07/2018) History of cholecystectomy (~07/2022) History of gastric surgery (~01/2022) History of tonsillectomy (~2019) [place] teeth extracted (~2018) Family History Family History Grandparent Diabetes mellitus Father Hypertension Unknown Cancer Unknown POTS (postural orthostatic tachycardia syndrome) Other Cerebrovascular accident Social History Social History (Updated 04/23/23 @ 07:57 by Coco Brennan) Smoking status: Former smoker Tobacco type: e-cigarettes/vaping Alcohol intake: current Alcohol use details: 1 drink per month Substance use: never Do You Feel Safe in your Home?: Yes Lack of Transportation: No Lack of Food: Never True Current Housing: I Have Housing Concerned About Future Housing: No Difficulty Paying Gas/Electric Bills: No Difficulty Paying for Meds: No Currently Unemployed: No Education: High School Diploma/GED Difficulty w/ Childcare or Family Care: No Gender identity (if verbalized by the patient): Female Exam Narrative: GENERAL: Well-appearing, well-nourished, and in no acute distress. HEAD: Normocephalic, atraumatic. EYES: PERRLA and EOMI. ENT: Nares clear, no rhinorrhea or epistaxis. Mucous membranes moist. Oropharynx without tonsillar hypertrophy exudate or other lesions. NECK: Supple. No adenopathy or masses. CHEST: No respiratory distress. Clear to auscultation. No wheezes rales or rhonchi HEART: Regular rate and rhythm. No murmur heard. Normal peripheral pulses. ABDOMEN: Soft, nontender, nondistended with hypo-active bowel sounds. MSK: Normal range of motion. No edema. SKIN: Warm, dry, no rash. NEURO: Alert and oriented x3. No focal deficits. PSYCH: Normal mood and affect. Course Vital Signs Vital signs: Vital Signs Temperature 97.1 F L 05/25/23 19:38 Pulse Rate 119 H 05/25/23 19:38 Respiratory Rate 18 05/25/23 19:38 Blood Pressure 138/93 H 05/25/23 19:38 Pulse Oximetry 100 05/25/23 19:38 Temperature 97.1 F L 05/25/23 19:38 Pulse Rate 105 H 05/25/23 21:30 Respiratory Rate 19 05/25/23 21:30 Blood Pressure 141/83 H 05/25/23 20:16 Pulse Oximetry 100 05/25/23 21:30
[2023-05-25] MEDS: SODIUM CHLORIDE 0.9% IV 1,000 ML 999 ML IV CONT (20:11)
[2023-05-25 20:19] LABS: Basophils Percent Auto 0.5 % (0.2-1.2); Eosinophils Percent Auto 0.5 % (0-4.4); Hematocrit 37.9 % (37.0-47.0); Hemoglobin 12.7 g/dL (12.0-15.0); Immature Granulocyte Absolute 0.02 K/mm3 (0.00-0.031); Immature Granulocyte Percent A 0.3 % (0-0.5); Lymphocytes Absolute Auto 1.79 K/mm3 (0.9-3.2); Lymphocytes Percent Auto 23.6 % (18.3-44.2); Mean Corpuscular HGB Conc 33.5 g/dl (32-36); Mean Corpuscular Hemoglobin 30.7 pg (26-34); Mean Corpuscular Volume 91.5 fl (80-100); Mean Platelet Volume 10.7 fl (7.4-10.4); Monocytes Absolute Auto 0.7 K/mm3 (0.1-0.6); Monocytes Percent Auto 9.6 % (2.6-8.5); Neutrophils Percent Auto 65.5 % (45.5-73.1); Platelet Count Result 294 k/mm3 (150-375); Red Blood Count 4.14 M/mm3 (4.2-5.4); Red Cell Distribution Width 12.8 % (11.5-14.5); White Blood Count 7.6 K/mm3 (4.5-10.0)
[2023-05-25 20:28] LABS: Alanine Aminotransferase 27 U/L (6-35); Albumin Level 4.5 g/dL (3.5-5.1); Alkaline Phosphatase 76 U/L (38-126); Anion Gap 9 mmol/L (8-16); Aspartate Amino Transferase 29 U/L (14-36); Bilirubin,Total 0.4 mg/dL (0.2-1.3); Blood Urea Nitrogen 12 mg/dL (7-17); Calcium 9.5 mg/dL (8.4-10.2); Carbon Dioxide 25 mmol/L (22-30); Chloride 106 mmol/L (98-107); Estimated CRCL calculation 129 ml/min; Estimated Glomerular Filt Rate > 60; Glucose 93 mg/dL (65-110); Lipase 55 U/L (23-300); Potassium 3.6 mmol/L (3.4-5.0); Sodium 140 mmol/L (137-145)
[2023-05-25 20:32] LABS: Appearance Urine Cloudy (Clear); Bacteria Urine 1+ /hpf; Bilirubin Urine Negative (Negative); Blood Urine Negative (Negative); Color Urine Yellow (Yellow); Glucose Urine UA Negative (Negative); Ketones Urine Negative (Negative); Leukocyte Esterase Ur Negative LEU/UL (Negative); Nitrate Urine Negative (Negative); Non Pathogenic Casts 0-2; Protein Urine Negative (Negative); Squamous Epithelial Cell Urine Many /hpf (Few); WBC Urine 0-5 /hpf
[2023-05-25 20:37] LABS: Add Urine Microscopic? YES
== END 2023-05-25 22:00 | disposition home or self-care (01) ==
PROVIDERS: Emergency Provider Physician Assistant; PCP Family Medicine
DX: K59.00 Constipation, unspecified (principal); E78.00 Pure hypercholesterolemia, unspecified; Z90.49 Acquired absence of other specified parts of digestive tract; Z87.891 Personal history of nicotine dependence; R16.0 Hepatomegaly, not elsewhere classified
CPT/HCPCS: 36415; 74176; 80053; 81001; 81025; 83690; 85025; 96360; 99284; J7030

== ENCOUNTER 2023-09-21 21:32 | Emergency (ER) | payer OTHER, SELFPAY ==
--- NOTE | ~2023-09-21 | CT_ITS ---
CT of the Abdomen and Pelvis: Indication: Abdominal pain Technique: 2.5 mm axial scans were obtained through the abdomen and pelvis following intravenous adm inistration of 100 cc of Omnipaque 350. Dose reduction technique was used on this scan by utilizing a utomated exposure control and iterative reconstruction technique. The dose-length product (DLP) was 9 34.16 mGy-cm. COMPARISON: 05/25/2023 Findings: Scans through the lung bases are unremarkable. Patient is status post cholecystectomy. There is a 4.1 x 2.6 cm cyst with a fluid collection in the l iver extending to the gallbladder fossa, essentially unchanged from prior exam. The spleen, pancreas, adrenals and kidneys are within normal limits. No evidence of aortic aneurysm. No lymphadenopathy. No bowel obstruction or bowel wall thickening. There is no evidence to suggest acute appendicitis. Images through the pelvis were performed. Urinary bladder unremarkable. No pelvic mass seen. No ascit es. Impression: Stable cystic mass in the liver extending to the gallbladder fossa. This could reflect biloma or othe r chronic postcholecystectomy fluid collection, and appears stable from prior exam. No acute abnormality. Reviewed, dictated and finalized at location . Impression: Stable cystic mass in the liver extending to the gallbladder fossa. This could reflect biloma or other chronic postcholecystectomy fluid collection, and appea rs stable from prior exam. No acute abnormality.
[2023-09-21 21:34] VITALS: BP 127/85; PULSE 110; RESP 18; TEMP 36.5; O2SAT 100
[2023-09-21 22:38] LABS: Basophils Absolute Auto 0.1 K/mm3 (0.0-0.1); Eosinophils Absolute Auto 0.3 K/mm3 (0-0.3); Eosinophils Percent Auto 4.8 % (0-4.4); Hematocrit 39.4 % (37.0-47.0); Hemoglobin 13.5 g/dL (12.0-15.0); Immature Granulocyte Absolute 0.01 K/mm3 (0.00-0.031); Immature Granulocyte Percent A 0.2 % (0-0.5); Lymphocytes Absolute Auto 1.79 K/mm3 (0.9-3.2); Lymphocytes Percent Auto 34.4 % (18.3-44.2); Mean Corpuscular HGB Conc 34.3 g/dl (32-36); Mean Corpuscular Volume 90.4 fl (80-100); Mean Platelet Volume 11.6 fl (7.4-10.4); Monocytes Absolute Auto 0.5 K/mm3 (0.1-0.6); Monocytes Percent Auto 10.4 % (2.6-8.5); Neutrophils Absolute Auto 2.6 K/mm3 (1.3-6.7); Neutrophils Percent Auto 49.2 % (45.5-73.1); Platelet Count Result 231 k/mm3 (150-375); Red Blood Count 4.36 M/mm3 (4.2-5.4); Red Cell Distribution Width 12.7 % (11.5-14.5); White Blood Count 5.2 K/mm3 (4.5-10.0)
[2023-09-21 22:50] LABS: Alanine Aminotransferase 23 U/L (6-35); Albumin Level 4.2 g/dL (3.5-5.1); Alkaline Phosphatase 64 U/L (38-126); Anion Gap 6 mmol/L (4-12); Aspartate Amino Transferase 22 U/L (14-36); Bilirubin,Total 0.5 mg/dL (0.2-1.3); Blood Urea Nitrogen 10 mg/dL (7-17); Calcium 9.2 mg/dL (8.4-10.2); Carbon Dioxide 25 mmol/L (22-30); Chloride 109 mmol/L (98-107); Estimated CRCL calculation 127 ml/min; Estimated Glomerular Filt Rate > 60; Glucose 87 mg/dL (65-110); Lipase 78 U/L (23-300); Potassium 3.6 mmol/L (3.4-5.0); Sodium 140 mmol/L (137-145)
[2023-09-21] MEDS: ONDANSETRON INJ 4 MG/2 ML VIAL IV PUSH (23:18)
[2023-09-21] MEDS: BELLADONNA ALK/PHENOB ELIX 10 ML, MAG HYDROX/ALUMINUM HYD/SIMETH 30 ML, LIDOCAINE HCL 2... PO (23:18)
[2023-09-21] MEDS: FAMOTIDINE 20 MG/2 ML VIAL IV PUSH (23:18)
[2023-09-21] MEDS: MORPHINE SULFATE (*CRX) 4 MG/ML INJ IV PUSH (23:19)
--- NOTE | 2023-09-21 23:53 | ED.ABDPAIN ---
HPI - Abdominal Pain General Chief Complaint: Abdominal Pain <EV Miles Last Filed: 09/22/23 01:50> Stated Complaint: abdominal pain x3 days/ nausea <EV Miles Last Filed: 09/22/23 01:50> Time Seen by Provider: 09/21/23 22:06 <EV Miles Last Filed: 09/22/23 01:50> Source: patient <EV Miles Last Filed: 09/22/23 01:50> Mode of arrival: ambulatory <EV Miles Last Filed: 09/22/23 01:50> Limitations: no limitations <EV Miles Last Filed: 09/22/23 01:50> History of Present Illness HPI narrative: Patient is a 23-year-old female who presents the ED with report of upper abdominal pain. Patient reports pain has been constant over the last 3 days. Worse with eating. States Tylenol was helping with pain initially, but was no longer providing relief today. States pain feels similar to when she had gallbladder issues. Has since had gallbladder removed. Reports nausea with dry heaving, denies diarrhea, constipation, fevers, urinary complaints. Patient last took Tylenol at 7:00 p.m.. <EV Miles Last Filed: 09/22/23 01:50> Related Data Home Medications: Home Medications Medication Instructions Recorded Confirmed metoprolol succinate 25 mg 37.5 mg PO DAILY 04/23/23 05/15/23 tablet,extended release 24 hr <EV Miles Last Filed: 09/22/23 01:50> Allergies/Adverse Reactions: Allergies Allergy/AdvReac Type Severity Reaction Status Date / Time NSAIDS (Non-Steroidal Allergy Unknown Other Verified 04/23/23 07:55 Anti-Inflamma adhesive AdvReac Hives Verified 09/21/23 21:32 <EV Miles Last Filed: 09/22/23 01:50> Review of Systems Review of Systems: CONSTITUTIONAL: Denies fever, chills, or sweats. GASTROINTESTINAL: See HPI. GENITOURINARY: Denies dysuria or hematuria. <Emily Santos PA-C - Last Filed: 09/22/23 01:50> All systems reviewed & are unremarkable except as noted in HPI and below <Emily Santos PA-C - Last Filed: 09/22/23 01:50> [facility] Past Medical History Medical History: Medical History Anxiety and depression Elevated cholesterol Environmental and seasonal allergies Episode of syncope 2019 Inappropriate sinus tachycardia <Emily Santos PA-C - Last Filed: 09/22/23 01:50> Surgical History Surgical History: Surgical History History of appendectomy (~07/2018) History of cholecystectomy (~07/2022) History of gastric surgery (~01/2022) History of tonsillectomy (~2019) [place] teeth extracted (~2018) <Emily Santos PA-C - Last Filed: 09/22/23 01:50> Family History Family History: Family History Grandparent Diabetes mellitus Father Hypertension Unknown Cancer Unknown POTS (postural orthostatic tachycardia syndrome) Other Cerebrovascular accident <Emily Santos PA-C - Last Filed: 09/22/23 01:50> Social History Social History: Social History Smoking status: Former smoker Tobacco type: e-cigarettes/vaping Alcohol intake: current Alcohol use details: 1 drink per month Substance use: never Do You Feel Safe in your Home?: Yes Lack of Transportation: No Lack of Food: Never True Current Housing: I Have Housing Concerned About Future Housing: No Difficulty Paying Gas/Electric Bills: No Difficulty Paying for Meds: No Currently Unemployed: No Education: High School Diploma/GED Difficulty w/ Childcare or Family Care: No Gender identity (if verbalized by the patient): Female <Emily Santos PA-C - Last Filed: 09/22/23 01:50> Exam Narrative
[2023-09-22] LABS: Appearance Urine Clear (Clear); Bacteria Urine 1+ /hpf; Bilirubin Urine Negative (Negative); Blood Urine 2+ (Negative); Color Urine Yellow (Yellow); Glucose Urine UA Negative (Negative); Ketones Urine Negative (Negative); Leukocyte Esterase Ur Negative LEU/UL (Negative); Nitrate Urine Negative (Negative); Non Pathogenic Casts 0-2; Protein Urine Negative (Negative); RBC Urine 0-2 /hpf (0-2); Squamous Epithelial Cell Urine Few /hpf (Few); WBC Urine 0-5 /hpf (0-3)
[2023-09-22 00:04] LABS: Add Urine Microscopic? YES
[2023-09-22] MEDS: HYDROmorphone HCL INJ (*CRX) 1 MG/ML SYR (01:24)
--- NOTE | 2023-09-22 02:15 | PC.NURSE ---
This Rn gave pt 0.5mg of diluadid via verbal order from carrie MUNGUIA at 0124. Pt rating pain 8/10. Pt is now 0216 is rating her pain at a 4/10.
== END 2023-09-22 03:52 | disposition home or self-care (01) ==
PROVIDERS: Physician Assistant; Emergency Provider Emergency Medicine; PCP Family Medicine
DX: R10.10 Upper abdominal pain, unspecified (principal); F41.9 Anxiety disorder, unspecified; F32.A Depression, unspecified
CPT/HCPCS: 36415; 74177; 80053; 81001; 81025; 83690; 85025; 96374; 96375; 99284; A9270; J1170; J2270; J2405; Q9967

== ENCOUNTER 2023-10-25 08:47 | Emergency (ER) | payer OTHER, SELFPAY ==
[2023-10-25 08:57] VITALS: RESP 20
[2023-10-25 09:30] LABS: Basophils Absolute Auto 0.1 K/mm3 (0.0-0.1); Basophils Percent Auto 0.5 % (0.2-1.2); Eosinophils Absolute Auto 0.1 K/mm3 (0-0.3); Eosinophils Percent Auto 1.3 % (0-4.4); Hematocrit 35.7 % (37.0-47.0); Hemoglobin 12.1 g/dL (12.0-15.0); Immature Granulocyte Absolute 0.03 K/mm3 (0.00-0.031); Immature Granulocyte Percent A 0.3 % (0-0.5); Lymphocytes Absolute Auto 2.18 K/mm3 (0.9-3.2); Lymphocytes Percent Auto 21.5 % (18.3-44.2); Mean Corpuscular HGB Conc 33.9 g/dl (32-36); Mean Corpuscular Hemoglobin 31.4 pg (26-34); Mean Corpuscular Volume 92.7 fl (80-100); Mean Platelet Volume 11.3 fl (7.4-10.4); Monocytes Absolute Auto 0.8 K/mm3 (0.1-0.6); Monocytes Percent Auto 7.6 % (2.6-8.5); Neutrophils Percent Auto 68.8 % (45.5-73.1); Platelet Count Result 248 k/mm3 (150-375); Red Blood Count 3.85 M/mm3 (4.2-5.4); White Blood Count 10.1 K/mm3 (4.5-10.0)
[2023-10-25 09:43] LABS: Alanine Aminotransferase 32 U/L (6-35); Albumin Level 4.3 g/dL (3.5-5.1); Alkaline Phosphatase 72 U/L (38-126); Anion Gap 9 mmol/L (4-12); Aspartate Amino Transferase 24 U/L (14-36); Bilirubin,Total 0.4 mg/dL (0.2-1.3); Blood Urea Nitrogen 10 mg/dL (7-17); Calcium 8.7 mg/dL (8.4-10.2); Carbon Dioxide 24 mmol/L (22-30); Chloride 108 mmol/L (98-107); Estimated CRCL calculation 134 ml/min; Estimated Glomerular Filt Rate > 60; Glucose 97 mg/dL (65-110); Potassium 3.5 mmol/L (3.4-5.0); Sodium 141 mmol/L (137-145)
[2023-10-25 09:59] LABS: Beta HCG Quantitative < 2.39 mIU/ML
--- NOTE | 2023-10-25 10:27 | ED.GENADULT ---
HPI - General Adult General Chief complaint: Recheck/Abnormal Lab/Rx Stated complaint: requesting a beta HCG Time Seen by Provider: 10/25/23 08:56 History of Present Illness HPI narrative: patient is a 23-year-old female who presents emergency department with chief complaint of requesting a test. The patient states that she has had a little bit of abdominal cramping and some spotting reports that she took several tests at home 1 was positive and the others were negative the patient reports no abdominal pain reports that she has not been before in the past Related Data Home Medications Medication Instructions Recorded Confirmed metoprolol succinate 25 mg 37.5 mg PO DAILY 04/23/23 05/15/23 tablet,extended release 24 hr Allergies Allergy/AdvReac Type Severity Reaction Status Date / Time NSAIDS (Non-Steroidal Allergy Unknown Other Verified 04/23/23 07:55 Anti-Inflamma adhesive AdvReac Hives Verified 09/21/23 21:32 Review of Systems Review of Systems: A 10 system review of systems was completed on the patient and is negative except for what is stated in the HPI. Nursing and ancillary documentation was reviewed. [facility] Past Medical History Medical History Anxiety and depression Elevated cholesterol Environmental and seasonal allergies Episode of syncope 2019 Inappropriate sinus tachycardia Surgical History Surgical History History of appendectomy (~07/2018) History of cholecystectomy (~07/2022) History of gastric surgery (~01/2022) History of tonsillectomy (~2019) [place] teeth extracted (~2018) Family History Family History Grandparent Diabetes mellitus Father Hypertension Unknown Cancer Unknown POTS (postural orthostatic tachycardia syndrome) Other Cerebrovascular accident Social History Social History Smoking status: Former smoker Tobacco type: e-cigarettes/vaping Alcohol intake: current Alcohol use details: 1 drink per month Substance use: never Do You Feel Safe in your Home?: Yes Lack of Transportation: No Lack of Food: Never True Current Housing: I Have Housing Concerned About Future Housing: No Difficulty Paying Gas/Electric Bills: No Difficulty Paying for Meds: No Currently Unemployed: No Education: High School Diploma/GED Difficulty w/ Childcare or Family Care: No Gender identity (if verbalized by the patient): Female Exam Narrative: GENERAL: Well-appearing, well-nourished, and in no acute distress. HEAD: Normocephalic, atraumatic. EYES: PERRLA and EOMI. ENT: Nares clear, no rhinorrhea or epistaxis. Mucous membranes moist. NECK: Supple. CHEST: Clear to auscultation. No respiratory distress. HEART: Regular rate and rhythm. No murmur heard. Normal peripheral pulses. ABDOMEN: Soft, nontender, nondistended, normal active bowel sounds. EXTREMITIES: Normal range of motion. No edema. SKIN: Warm, dry, no rash. NEURO: No focal deficits. Alert and oriented x3. PSYCH: Normal mood and affect. Course Vital Signs Vital signs: Vital Signs Respiratory Rate 10/25/23 08:57 Respiratory Rate 10/25/23 08:57 Medical Decision Making [facility] Narrative Medical decision making narrative: differential diagnosis includes , amenorrhea, hCG was negative the patient's blood type is A positive electrolytes are within normal limits Vital Signs Vital Signs: Vital Signs Respiratory Rate 10/25/23 08:57 Respiratory Rate 10/25/23 08:57 Lab Data 10/25/23 09:23 10/25/23 09:23 Labs: Lab Results 10/25/23 Range/Units 09:23 WBC 10.1 H (4.5-10.0) K/mm3 RBC 3.85 L (4.2-5.4)
== END 2023-10-25 10:34 | disposition home or self-care (01) ==
PROVIDERS: Emergency Provider Emergency Medicine
DX: N91.2 Amenorrhea, unspecified (principal); Z87.891 Personal history of nicotine dependence; Z32.02 Encounter for pregnancy test, result negative
CPT/HCPCS: 36415; 80053; 84702; 85025; 85461; 86850; 86900; 86901; 99283

== ENCOUNTER 2023-12-03 10:25 | Outpatient (CLI) | payer OTHER, SELFPAY ==
--- NOTE | ~2023-12-03 | US_ITS ---
EXAMINATION: US pelvic complete w TV DATE: 12/03/2023 11:24 INDICATION: Irregular menses TECHNIQUE: Multiple transabdominal and endovaginal sonographic images of the pelvis were obtained. COMPARISON: None. FINDINGS: The uterus measures 8.3 x 2.6 x 5.2 cm. The endometrial complex measures 6-7 mm in thickness. The ri ght ovary measures 2.0 x 1.9 x 1.3 cm. The left ovary measures 1.9 x 1.2 x 1.2 cm. Fashion flow ident ified in both ovaries on color Doppler. There is small amount of likely physiologic anechoic free flu id in the pelvis. IMPRESSION: 1. Normal pelvic ultrasound. Reviewed, dictated and finalized at location A.
== END 2023-12-03 10:26 | disposition home or self-care (01) ==
PROVIDERS: PCP Family Medicine; Visit Provider Family Medicine
DX: N92.6 Irregular menstruation, unspecified (principal)
CPT/HCPCS: 76830; 76856

== ENCOUNTER 2024-02-21 18:25 | Emergency (ER) | payer OTHER, SELFPAY ==
[2024-02-21] VITALS (16 sets, daily range): BP systolic 137–149; BP diastolic 90–107; PULSE 87–132; RESP 11–27; TEMP 36.7; O2SAT 97–100
--- NOTE | ~2024-02-21 | XR_ITS ---
EXAMINATION: XR chest 2V Exam Date/Time: 02/21/2024 20:12 DIRECTOR PROJECT MANAGEMENT HISTORY: palpitations Comparison: 11/01/2022. RESULT: Lines, tubes, and devices: Cholecystectomy clips. Lungs and pleura: Clear. Cardiomediastinal silhouette: Stable. Other: No acute osseous or upper abdominal finding. IMPRESSION: No acute cardiopulmonary process. Reviewed, dictated and finalized at location K. CTOR PROJECT MANAGEMENT
--- NOTE | ~2024-02-21 | CT_ITS ---
EXAMINATION: CT brain wo con DATE: 02/21/2024 21:07 INDICATION: fall, confusion . TECHNIQUE: Computed tomography (CT) of the head was performed without intravenous contrast. The mA wa s adjusted according to patient size. Iterative reconstruction technique was employed. The dose-lengt h product was 681.00 mGy-cm. COMPARISON: 05/04/2023. FINDINGS: No acute intracranial hemorrhage or extra-axial fluid collection. No hydrocephalus, mass, or herniation. No acute ischemic infarct. Unremarkable dural venous sinus attenuation. No acute osseous abnormality. Left maxillary retention cyst/polyp, the remaining aerated spaces are clear. IMPRESSION: No acute intracranial process. Reviewed, dictated and finalized at location K. AID
--- NOTE | 2024-02-21 19:14 | ECG_ITS ---
Test Date: 2024-02-21 19:28:16 Measurements Intervals [place] Rate: 92 P: 30 MI: 161 QRS: 69 QRSD: 86 T: 20 QT: 327 QTc: 406 Interpretive Statements SINUS RHYTHM WITH SINUS ARRHYTHMIA NORMAL ECG No previous ECG available for comparison Electronically Signed On 02-22-2024 07:04:58 WRAPPER AND PRESERVER by Heber Pearl D.O.
[2024-02-21] MEDS: SODIUM CHLORIDE 0.9% IV 1,000 ML 999 ML IV CONT (19:19)
--- NOTE | 2024-02-21 19:21 | ED.ARRPALP ---
HPI - Arrhythmia/Palpitations General Chief Complaint: Recheck/Abnormal Lab/Rx Stated Complaint: High blood pressure, tachycardic Time Seen by Provider: 02/21/24 18:36 Source: patient Mode of arrival: ambulatory Limitations: no limitations History of Present Illness HPI narrative: This is a 24-year-old female that presents to the emergency department for palpitations. Reports when she woke up from her nap she felt confused. She is walking into the kitchen and lost her balance and fell. She is unsure if she passed out. She does not believe she hit her head. Since she has noted that her heart rate has been elevated. She does report history of this, but is no longer taking her beta mercedes. Denies chest pain or shortness of breath. Related Data Home Medications Medication Instructions Recorded Confirmed metoprolol succinate 25 mg 37.5 mg PO DAILY 04/23/23 05/15/23 tablet,extended release 24 hr Allergies Allergy/AdvReac Type Severity Reaction Status Date / Time NSAIDS (Non-Steroidal Allergy Unknown Other Verified 02/21/24 18:43 Anti-Inflamma adhesive AdvReac Hives Verified 02/21/24 18:43 Review of Systems Review of Systems: CONSTITUTIONAL: Denies fever EYES: Denies visual changes CARDIOVASCULAR: Denies chest pain RESPIRATORY: Denies dyspnea. GASTROINTESTINAL: Denies vomiting NEUROLOGIC: Denies numbness, or weakness. All systems reviewed & are unremarkable except as noted in HPI and below PMFSH Past Medical History Medical History Anxiety and depression Elevated cholesterol Environmental and seasonal allergies Episode of syncope 2019 Inappropriate sinus tachycardia Surgical History Surgical History History of appendectomy (~07/2018) History of cholecystectomy (~07/2022) History of gastric surgery (~01/2022) History of tonsillectomy (~2019) [place] teeth extracted (~2018) Family History Family History Grandparent Diabetes mellitus Father Hypertension Unknown Cancer Unknown POTS (postural orthostatic tachycardia syndrome) Other Cerebrovascular accident Social History Social History Smoking status: Former smoker Tobacco type: e-cigarettes/vaping Alcohol intake: current Alcohol use details: 1 drink per month Substance use: never Do You Feel Safe in your Home?: Yes Lack of Transportation: No Lack of Food: Never True Current Housing: I Have Housing Concerned About Future Housing: No Difficulty Paying Gas/Electric Bills: No Difficulty Paying for Meds: No Currently Unemployed: No Education: High School Diploma/GED Difficulty w/ Childcare or Family Care: No Gender identity (if verbalized by the patient): Female Exam Narrative: GENERAL: Well-appearing, well-nourished, and in no acute distress. HEAD: Normocephalic, atraumatic. EYES: PERRLA and EOMI. ENT: Nares clear, no rhinorrhea or epistaxis. Mucous membranes moist. Oropharynx without tonsillar hypertrophy exudate or other lesions. Bilateral TMs pearly [place] non-bulging NECK: Supple. No adenopathy or masses. CHEST: Clear to auscultation. No respiratory distress. No wheezes rales or rhonchi HEART: Regular rate and rhythm. No murmur heard. Normal peripheral pulses. ABDOMEN: Soft, nontender, nondistended, normal active bowel sounds. EXTREMITIES: Normal range of motion. No edema. Strength equal in bilateral upper and lower extremities (5/5) SKIN: Warm, dry, no rash. NEURO: No focal deficits. Alert and oriented x3. Cranial nerves 2-12 grossly intact PSYCH: Normal mood and affect Course Course Emergency Course: patient updated on her workup and agrees with plan of care Vital Signs Vital signs: Vital Signs Temperature 98.0 F 02/21/24 18:37 Pulse Rate 126 H 02/21/24 18:37 Respiratory Rate 16 02/21/24 18:37 Blood Pressure 146/103 H 02/21/24 18:37 Pulse Oximetry 100 02/21/24 18:37 Oxygen Delivery Room Air 02/21/24 18:37 Temperature 98.0 F 02/21/24 18:37 Pulse Rate 126 H 02/21/24 18:37 Respiratory Rate 16 02/21/24 18:41 Blood Pressure 146/103 H 02/21/24 18:37 Pulse Oximetry 99 02/21/24 18:41 Oxygen Delivery Room Air 02/21/24 18:37 MDM - Arrhythmia/Palpitations MDM Narrative Medical decision making narrative: patient presents to the emergency department for palpitations. History of same. Reports she is not currently taking her beta mercedes. Reports she felt confused when she woke up from her nap and fell. She is neurologically intact at this time. Tachycardic upon arrival, this normalized with IV fluids. CBC and metabolic panel without concerning findings. EKG without acute changes and her baseline troponin is negative. TSH is normal. CT brain without acute findings. Chest x-ray without acute cardiopulmonary abnormality. Patient updated on her workup and agrees with plan of care. She is to follow up with primary provider. She was given warnings to return to the ER Differential Diagnosis Differential diagnosis: Likely palpitations, anxiety, sinus tachycardia, artial fibrillation, artial flutter and ventricular premature beats Lab Data Attestation: I reviewed the patient's lab results. 02/21/24 19:19 02/21/24 19:19 Labs: Lab Results 02/21/24 02/21/24 Range/Units 19:19 19:22 WBC 7.3 (4.5-10.0) K/mm3 RBC 4.73 (4.2-5.4) M/mm3 Hgb 14.3 (12.0-15.0) g/dL Hct 43.5 (37.0-47.0) % MCV 92.0 (80-100) fl MCH 30.2 (26-34) pg MCHC 32.9 (32-36) g/dl RDW 12.1 (11.5-14.5) % Plt Count 324 (150-375) k/mm3 MPV 11.7 H (7.4-10.4) fl Immature Gran % (Auto) 0.1 (0-0.5) % Neut % (Auto) 64.0 (45.5-73.1) % Lymph % (Auto) 27.2 (18.3-44.2) % [place] % (Auto) 7.0 (2.6-8.5) % Eos % (Auto) 1.2 (0-4.4) % Baso % (Auto) 0.5 (0.2-1.2) % Lymph # (Auto) 1.99 (0.9-3.2) K/mm3 [place] # (Auto) 0.5 (0.1-0.6) K/mm3 Eos # (Auto) 0.1 (0-0.3) K/mm3 Baso # (Auto) 0.0 (0.0-0.1) K/mm3 Abs Immat Gran (auto) 0.01 (0.00-0.031) K/mm3 Absolute Neuts (auto) 4.7 (1.3-6.7) K/mm3 Absolute Nucleated RBC 0.000 (0.0-0.012) K/mm3 Nucleated RBC % 0.0 (0.0-0.2) % PT 13.6 (11.1-14.7) Seconds INR 1.0 APTT 29.5 (22.3-36.8) Seconds Sodium 140 (137-145) mmol/L Potassium 3.8 (3.4-5.0) mmol/L Chloride 106 (98-107) mmol/L Carbon Dioxide 25 (22-30) mmol/L Anion Gap 9 (4-12) mmol/L BUN 13 (7-17) mg/dL Creatinine 0.70 (0.7-1.0) mg/dL Estim Creat Clear Calc 130 ml/min Estimated GFR > 60 (59 - ) Glucose 98 (65-110) mg/dL Calcium 9.5 (8.4-10.2) mg/dL Total Bilirubin 0.6 (0.2-1.3) mg/dL AST 19 (14-36) U/L ALT 15 (6-35) U/L Alkaline Phosphatase 66 (38-126) U/L Troponin I < 0.012 Cancelled (0.000-0.034) ng/mL Total Protein 8.0 (6.3-8.2) g/dL Albumin 4.5 (3.5-5.1) g/dL TSH (Reflex) 1.490 (0.465-4.68) uIU/mL Imaging Data Radiologist's impression: ITS Impressions Chest X-Ray 02/21/24 20:23 IMPRESSION: No acute cardiopulmonary process. Head CT 02/21/24 21:09 IMPRESSION: No acute intracranial process. ECG Data EKG #1: ECG completion date: 02/21/24 EKG Interpretation: normal rate, sinus rhythm, no ST changes and normal QT Critical Care Time Critical Care Time Critical Care Time: No Discharge Plan Discharge Clinical Impression: Palpitations Patient Disposition: Home, Self-Care Condition: Improved Instructions: Heart Palpitations (ED) Additional Instructions: Return to the emergency department if you experience fever, chest pain, shortness of breath, abdominal pain with nausea and vomiting, weakness, numbness, or any other symptoms that are concerning to you. Follow up with your primary care doctor Prescriptions: No Action metoprolol succinate 25 mg tablet extended release 24 hr 37.5 mg PO DAILY peg 3350-electrolytes [Golytely] 236-22.74-6.74 -5.86 gram recon soln 240 ml PO Q10M Qty: 4000 0RF Rx Instructions: until fecal effluent is clear cyclobenzaprine 10 mg tablet 10 mg PO TID PRN (Reason: muscle spasm) Qty: 14 0RF omeprazole 10 mg capsule,delayed release(DR/EC) 10 mg PO DAILY Qty: 30 0RF ondansetron 4 mg tablet,disintegrating 4 mg PO Q8H PRN (Reason: nausea and vomiting) Qty: 15 0RF Follow-up/Referrals: Gerson,Martha Greene MD [Primary Care Provider] - Stand Alone Forms: Work/School Release IP
[2024-02-21 19:39] LABS: Basophils Percent Auto 0.5 % (0.2-1.2); Eosinophils Absolute Auto 0.1 K/mm3 (0-0.3); Eosinophils Percent Auto 1.2 % (0-4.4); Hematocrit 43.5 % (37.0-47.0); Hemoglobin 14.3 g/dL (12.0-15.0); Immature Granulocyte Absolute 0.01 K/mm3 (0.00-0.031); Immature Granulocyte Percent A 0.1 % (0-0.5); Lymphocytes Absolute Auto 1.99 K/mm3 (0.9-3.2); Lymphocytes Percent Auto 27.2 % (18.3-44.2); Mean Corpuscular HGB Conc 32.9 g/dl (32-36); Mean Corpuscular Hemoglobin 30.2 pg (26-34); Mean Platelet Volume 11.7 fl (7.4-10.4); Monocytes Absolute Auto 0.5 K/mm3 (0.1-0.6); Neutrophils Absolute Auto 4.7 K/mm3 (1.3-6.7); Platelet Count Result 324 k/mm3 (150-375); Red Blood Count 4.73 M/mm3 (4.2-5.4); Red Cell Distribution Width 12.1 % (11.5-14.5); White Blood Count 7.3 K/mm3 (4.5-10.0)
--- NOTE | 2024-02-21 19:42 | PC.NURSE ---
Report received from IVAN Zambrano. Assumed care of patient at this time.
[2024-02-21 19:51] LABS: Alanine Aminotransferase 15 U/L (6-35); Albumin Level 4.5 g/dL (3.5-5.1); Alkaline Phosphatase 66 U/L (38-126); Anion Gap 9 mmol/L (4-12); Aspartate Amino Transferase 19 U/L (14-36); Bilirubin,Total 0.6 mg/dL (0.2-1.3); Blood Urea Nitrogen 13 mg/dL (7-17); Calcium 9.5 mg/dL (8.4-10.2); Carbon Dioxide 25 mmol/L (22-30); Chloride 106 mmol/L (98-107); Estimated CRCL calculation 130 ml/min; Estimated Glomerular Filt Rate > 60; Glucose 98 mg/dL (65-110); Potassium 3.8 mmol/L (3.4-5.0); Sodium 140 mmol/L (137-145)
[2024-02-21 19:59] LABS: Prothrombin Time 13.6 Seconds (11.1-14.7)
[2024-02-21 20:00] LABS: Partial Thromboplastin Time 29.5 Seconds (22.3-36.8)
[2024-02-21 20:14] LABS: Troponin I < 0.012 ng/mL (0.000-0.034)
== END 2024-02-21 22:04 | disposition home or self-care (01) ==
PROVIDERS: Emergency Provider Physician Assistant; PCP Family Medicine
DX: R00.2 Palpitations (principal); E78.00 Pure hypercholesterolemia, unspecified; Z87.891 Personal history of nicotine dependence; Z90.49 Acquired absence of other specified parts of digestive tract
CPT/HCPCS: 36415; 70450; 71046; 80053; 84443; 84484; 85025; 85610; 85730; 93005; 96360; 99284; J7030

== ENCOUNTER 2024-02-26 19:43 | Emergency (ER) | payer OTHER, SELFPAY ==
--- NOTE | ~2024-02-26 | CT_ITS ---
CLINICAL INDICATION: Flank pain COMPARISON: 09/22/2023 and 05/25/2023. TECHNIQUE: Multiple contiguous axial images of the abdomen and pelvis were performed without the admi nistration of intravenous contrast The dose-length product (DLP) was 1498.87 mGy-cm. Automated exposure control and iterative reconstruction technique were employed. FINDINGS/OBSERVATIONS: Visualized lower thorax: The bilateral lung bases are clear. The heart is of normal size, without pericardial effusion. Liver: The liver demonstrates homogeneous decreased attenuation and is enlarged measuring 23 cm in longitudi nal dimension. Gallbladder and biliary system: The gallbladder is surgically absent. Pancreas: Limited evaluation of the pancreas secondary to the lack of intravenous contrast. Spleen: The spleen demonstrates homogeneous attenuation and is enlarged measuring 13 cm in longitudinal dimen brisa. Kidneys: The bilateral kidneys are unremarkable, without hydronephrosis or renal calculi. Adrenal glands: Unremarkable. Gastrointestinal tract: Postoperative change within the upper abdomen consistent with a gastric sleeve. Fecal stasis within the cecum. Appendix: The appendix is not definitively visualized. However, no pericecal inflammatory change is identified suggest the presence of acute appendicitis. Vasculature: Unremarkable. Lymph nodes: No pathologically enlarged or morphologically suspicious lymph nodes within the retroperitoneum or at the root of the mesentery. Pelvic structures: The bladder is distended, and otherwise unremarkable. The uterus is retroverted and anteflexed, and otherwise unremarkable. Body wall and musculoskeletal: Small fat-containing umbilical hernia. No significant degenerative disease within the lower thoracic or lumbosacral spine. IMPRESSION: Fatty infiltration of an enlarged liver. Splenomegaly. No obstructive uropathy. Reviewed, dictated and finalized at location A. S MANAGER
[2024-02-26 19:47] VITALS: BP 124/89; PULSE 100; RESP 18; TEMP 36.3; O2SAT 100
[2024-02-26 21:52] VITALS: BP 151/97; PULSE 100; RESP 20; TEMP 36.7; O2SAT 100
[2024-02-26] MEDS: SODIUM CHLORIDE 0.9% IV 1,000 ML 999 ML IV CONT (22:40)
[2024-02-26 22:44] LABS: Basophils Percent Auto 0.5 % (0.2-1.2); Eosinophils Absolute Auto 0.1 K/mm3 (0-0.3); Eosinophils Percent Auto 0.9 % (0-4.4); Hematocrit 39.5 % (37.0-47.0); Hemoglobin 13.5 g/dL (12.0-15.0); Immature Granulocyte Absolute 0.01 K/mm3 (0.00-0.031); Immature Granulocyte Percent A 0.1 % (0-0.5); Lymphocytes Absolute Auto 1.93 K/mm3 (0.9-3.2); Mean Corpuscular HGB Conc 34.2 g/dl (32-36); Mean Corpuscular Hemoglobin 30.8 pg (26-34); Mean Corpuscular Volume 90.2 fl (80-100); Mean Platelet Volume 11.1 fl (7.4-10.4); Monocytes Absolute Auto 0.5 K/mm3 (0.1-0.6); Monocytes Percent Auto 6.9 % (2.6-8.5); Neutrophils Absolute Auto 4.9 K/mm3 (1.3-6.7); Neutrophils Percent Auto 65.6 % (45.5-73.1); Platelet Count Result 305 k/mm3 (150-375); Red Blood Count 4.38 M/mm3 (4.2-5.4); Red Cell Distribution Width 12.4 % (11.5-14.5); White Blood Count 7.4 K/mm3 (4.5-10.0)
[2024-02-26 22:57] LABS: Alanine Aminotransferase 15 U/L (6-35); Albumin Level 4.5 g/dL (3.5-5.1); Alkaline Phosphatase 80 U/L (38-126); Anion Gap 8 mmol/L (4-12); Aspartate Amino Transferase 22 U/L (14-36); Bilirubin,Total 0.5 mg/dL (0.2-1.3); Blood Urea Nitrogen 8 mg/dL (7-17); Calcium 9.4 mg/dL (8.4-10.2); Carbon Dioxide 25 mmol/L (22-30); Chloride 105 mmol/L (98-107); Estimated CRCL calculation 130 ml/min; Estimated Glomerular Filt Rate > 60; Glucose 103 mg/dL (65-110); Sodium 138 mmol/L (137-145)
[2024-02-26] MEDS: ONDANSETRON INJ 4 MG/2 ML VIAL IV PUSH (22:58)
[2024-02-26] MEDS: MORPHINE SULFATE (*CRX) 4 MG/ML INJ IV PUSH (22:58)
[2024-02-26 23:00] VITALS: BP 138/77; PULSE 88; RESP 17; TEMP 36.7; O2SAT 97
--- NOTE | 2024-02-26 23:13 | ED_ITS ---
HPI - Female Genitourinary General Chief complaint: Urogenital-Female Stated complaint: Bladder and flank pain Time Seen by Provider: 02/26/24 21:26 Source: patient Mode of arrival: ambulatory Limitations: no limitations History of Present Illness HPI Narrative: Patient is a 24-year-old female who presents to the ED with report of difficulty urinating. Patient reports she has had a feeling of incomplete bladder emptying over the past few days. She was able to urinate this morning a small amount, but complained of pain throughout her lower abdomen lower back afterwards. Still felt as though she needed to urinate, but was unable to void any further. She went to her primary care doctor today and had a negative urinalysis. She was sent here for further evaluation. Patient denies history of kidney stones, but does have family history of this. Has not taken anything for pain. Reports intermittent nausea, denies vomiting. Denies hematuria, fevers. Related Data Home Medications Medication Instructions Recorded Confirmed metoprolol succinate 25 mg 37.5 mg PO DAILY 04/23/23 05/15/23 tablet,extended release 24 hr Allergies Allergy/AdvReac Type Severity Reaction Status Date / Time NSAIDS (Non-Steroidal Allergy Unknown Other Verified 02/21/24 18:43 Anti-Inflamma adhesive AdvReac Hives Verified 02/21/24 18:43 Review of Systems Review of Systems: All systems reviewed & are unremarkable except as noted in HPI. All systems reviewed & are unremarkable except as noted in HPI and below PMFSH Past Medical History Medical History Anxiety and depression Elevated cholesterol Environmental and seasonal allergies Episode of syncope 2019 Inappropriate sinus tachycardia Surgical History Surgical History History of appendectomy (~07/2018) History of cholecystectomy (~07/2022) History of gastric surgery (~01/2022) History of tonsillectomy (~2019) [place] teeth extracted (~2018) Family History Family History Grandparent Diabetes mellitus Father Hypertension Unknown Cancer Unknown POTS (postural orthostatic tachycardia syndrome) Other Cerebrovascular accident Social History Social History (Reviewed 02/26/24 @ 23:16 by GIGI Miles Smoking status: Former smoker Tobacco type: e-cigarettes/vaping Alcohol intake: current Alcohol use details: 1 drink per month Substance use: never Do You Feel Safe in your Home?: Yes Lack of Transportation: No Lack of Food: Never True Current Housing: I Have Housing Concerned About Future Housing: No Difficulty Paying Gas/Electric Bills: No Difficulty Paying for Meds: No Currently Unemployed: No Education: High School Diploma/GED Difficulty w/ Childcare or Family Care: No Gender identity (if verbalized by the patient): Female Exam Narrative: GENERAL: Mildly uncomfortable appearing, morbidly obese with BMI of 40.9, non- toxic, in no acute distress. HEAD: Normocephalic, atraumatic. RESPIRATORY: Airway patent, respirations nonlabored. Clear to auscultation bilaterally, no rales, rhonchi, wheezing. CARDIOVASCULAR: Borderline tachycardic with regular rhythm without murmurs, rubs, or gallops. ABDOMINAL: Soft, diffuse tenderness throughout lower abdomen, nondistended. Normoactive BS. Mild delia +CVA tenderness to palpation MUSCULOSKELETAL: Moves all extremities. No gross deformities. SKIN: Warm, dry, normal color. NEURO: A&O X3. Speech clear. PSYCHIATRIC: Appropriate mood and affect. Normal interaction. Course Vital Signs Vital signs: Vital Signs Temperature 97.4 F L 02/26/24 19:47 Pulse Rate 100 02/26/24 19:47 Respiratory Rate 18 02/26/24 19:47 Blood Pressure 124/89 02/26/24 19:47 Pulse Oximetry 100 02/26/24 19:47 Temperature 97.9 F 02/27/24 00:57 Pulse Rate 74 02/27/24 00:57 Respiratory Rate 15 02/27/24 00:57 Blood Pressure 134/77 02/27/24 00:57 Pulse Oximetry 98 02/27/24 00:57 MDM - Female Genitourinary MDM Narrative Medical decision making narrative: Patient presents to ED with lower abdomen/flank pain, difficulty urinating. Vital signs are stable upon arrival. Patient is in no acute distress. Does have some diffuse tenderness throughout lower abdomen on exam. Denies previous history of kidney stones, but states this runs in her family. Initially unable to void in the ED. Bladder scan was obtained and around 250mL. Will allow patient to continue to void before discussing cathing. Laboratory studies are unremarkable. No leukocytosis. Stable kidney function. CT scan of abdomen/pelvis was obtained and unremarkable. No evidence of hydronephrosis or obstructive pathology. No ureterolithiasis. Discussed lab and imaging findings with patient. She states she is still unable to void. Discussed straight cath versus placing a Covarrubias catheter. Patient would for referred to perform a straight cath and then attempt to urinate. She was advised that if she is unable to urinate after straight cath then she will need a Covarrubias catheter placed and urology follow-up. Prior to Covarrubias catheter being placed, patient was actually able to urinate on her own. This was sent for analysis. Showing nitrate positive, trace leuks. No WBC. Will send for culture. Given acute difficulty urinating with positive nitrate, will cover for infection with Keflex. Given 1st dose in the ED. Given prescription paper for Keflex. Will refer to Urology for further evaluation if needed. Given return precautions. Discharged in stable condition. Medical Records Attestation: I reviewed the patient's medical records. Lab Data Attestation: I reviewed the patient's lab results. 02/26/24 22:35 02/26/24 22:35 Labs: Lab Results 02/26/24 02/26/24 02/27/24 Range/Units 22:35 23:31 00:51 WBC 7.4 (4.5-10.0) K/mm3 RBC 4.38 (4.2-5.4) M/mm3 Hgb 13.5 (12.0-15.0) g/dL Hct 39.5 (37.0-47.0) % MCV 90.2 (80-100) fl MCH 30.8 (26-34) pg MCHC 34.2 (32-36) g/dl RDW 12.4 (11.5-14.5) % Plt Count 305 (150-375) k/mm3 MPV 11.1 H (7.4-10.4) fl Immature Gran % (Auto) 0.1 (0-0.5) % Neut % (Auto) 65.6 (45.5-73.1) % Lymph % (Auto) 26.0 (18.3-44.2) % [place] % (Auto) 6.9 (2.6-8.5) % Eos % (Auto) 0.9 (0-4.4) % Baso % (Auto) 0.5 (0.2-1.2) % Lymph # (Auto) 1.93 (0.9-3.2) K/mm3 [place] # (Auto) 0.5 (0.1-0.6) K/mm3 Eos # (Auto) 0.1 (0-0.3) K/mm3 Baso # (Auto) 0.0 (0.0-0.1) K/mm3 Abs Immat Gran (auto) 0.01 (0.00-0.031) K/mm3 Absolute Neuts (auto) 4.9 (1.3-6.7) K/mm3 Absolute Nucleated RBC 0.000 (0.0-0.012) K/mm3 Nucleated RBC % 0.0 (0.0-0.2) % Sodium 138 (137-145) mmol/L Potassium 4.0 (3.4-5.0) mmol/L Chloride 105 (98-107) mmol/L Carbon Dioxide 25 (22-30) mmol/L Anion Gap 8 (4-12) mmol/L BUN 8 D (7-17) mg/dL Creatinine 0.70 (0.7-1.0) mg/dL Estim Creat Clear Calc 130 ml/min Estimated GFR > 60 (59 - ) Glucose 103 (65-110) mg/dL Calcium 9.4 (8.4-10.2) mg/dL Total Bilirubin 0.5 (0.2-1.3) mg/dL AST 22 (14-36) U/L ALT 15 (6-35) U/L Alkaline Phosphatase 80 (38-126) U/L Total Protein 8.0 (6.3-8.2) g/dL Albumin 4.5 (3.5-5.1) g/dL Serum HCG, Qual Negative Urine Color Dark yellow (Yellow) Urine Appearance Clear (Clear) Urine pH 7.0 (5.0-9.0) Ur Specific [place] 1.011 (1.001-1.035) Urine Protein Negative (Negative) mg/dL Urine Glucose (UA) Negative (Negative) mg/dL Urine Ketones Negative (Negative) mg/dL Ur Blood (Man) Negative (Negative) Urine Nitrate Positive H (Negative) Urine Bilirubin Negative (Negative) Urine Urobilinogen 1.0 (<2.0) mg/dL Add Ur Microanalysis Reviewed Leukocyte Esterase Rfl Trace H (Negative) LINDA/UL Urine RBC 0-2 (0-2) /hpf Urine WBC 0-5 (0-3) /hpf Ur Squamous Epith Cells Occasional (Few) /hpf Urine Bacteria None seen /hpf Urine Casts 0-2 POC Urine HCG, Qual (Negative) 02/27/24 Range/Units 00:55 WBC (4.5-10.0) K/mm3 RBC (4.2-5.4) M/mm3 Hgb (12.0-15.0) g/dL Hct (37.0-47.0) % MCV (80-100) fl MCH (26-34) pg MCHC (32-36) g/dl RDW (11.5-14.5) % Plt Count (150-375) k/mm3 MPV (7.4-10.4) fl Immature Gran % (Auto) (0-0.5) % Neut % (Auto) (45.5-73.1) % Lymph % (Auto) (18.3-44.2) % [place] % (Auto) (2.6-8.5) % Eos % (Auto) (0-4.4) % Baso % (Auto) (0.2-1.2) % Lymph # (Auto) (0.9-3.2) K/mm3 [place] # (Auto) (0.1-0.6) K/mm3 Eos # (Auto) (0-0.3) K/mm3 Baso # (Auto) (0.0-0.1) K/mm3 Abs Immat Gran (auto) (0.00-0.031) K/mm3 Absolute Neuts (auto) (1.3-6.7) K/mm3 Absolute Nucleated RBC (0.0-0.012) K/mm3 Nucleated RBC % (0.0-0.2) % Sodium (137-145) mmol/L Potassium (3.4-5.0) mmol/L Chloride (98-107) mmol/L Carbon Dioxide (22-30) mmol/L Anion Gap (4-12) mmol/L BUN (7-17) mg/dL Creatinine (0.7-1.0) mg/dL Estim Creat Clear Calc ml/min Estimated GFR (59 - ) Glucose (65-110) mg/dL Calcium (8.4-10.2) mg/dL Total Bilirubin (0.2-1.3) mg/dL AST (14-36) U/L ALT (6-35) U/L Alkaline Phosphatase (38-126) U/L Total Protein (6.3-8.2) g/dL Albumin (3.5-5.1) g/dL Serum HCG, Qual Urine Color (Yellow) Urine Appearance (Clear) Urine pH (5.0-9.0) Ur Specific [place] (1.001-1.035) Urine Protein (Negative) mg/dL Urine Glucose (UA) (Negative) mg/dL Urine Ketones (Negative) mg/dL Ur Blood (Man) (Negative) Urine Nitrate (Negative) Urine Bilirubin (Negative) Urine Urobilinogen (<2.0) mg/dL Add Ur Microanalysis Leukocyte Esterase Rfl (Negative) LINDA/UL Urine RBC (0-2) /hpf Urine WBC (0-3) /hpf Ur Squamous Epith Cells (Few) /hpf Urine Bacteria /hpf Urine Casts POC Urine HCG, Qual Negative (Negative) Imaging Data Attestation: I personally reviewed and interpreted this imaging study as follows: Radiologist's impression: ITS Impressions Abdomen/Pelvis CT 02/27/24 00:04 IMPRESSION: Fatty infiltration of an enlarged liver. Splenomegaly. No obstructive uropathy. STAT RAD CT abd/pelvis: Impression: 3 cm hepatic hypodensity near the gallbladder fossa, is now isodense, though the previous study was performed with contrast. Ultrasound liver may be considered for further evaluation. Mildly distended urinary bladder may be physiologic, mild urinary retention could have this appearance, correlate clinically. No other/definite acute intra-abdominal or intrapelvic abnormality. Incidental findings: Compared with CT abdomen pelvis 09/22/2023. Stable gastric bypass surgery and cholecystectomy. No renal stone or hydronephrosis. Discharge Plan Discharge Clinical Impression: Difficulty urinating Patient Disposition: Home, Self-Care Condition: Stable Instructions: Antibiotic Form, Acute Urinary Retention in Women (ED), Dysuria (ED) Prescriptions: No Action metoprolol succinate 25 mg tablet extended release 24 hr 37.5 mg PO DAILY peg 3350-electrolytes [Golytely] 236-22.74-6.74 -5.86 gram recon soln 240 ml PO Q10M Qty: 4000 0RF Rx Instructions: until fecal effluent is clear cyclobenzaprine 10 mg tablet 10 mg PO TID PRN (Reason: muscle spasm) Qty: 14 0RF omeprazole 10 mg capsule,delayed release(DR/EC) 10 mg PO DAILY Qty: 30 0RF ondansetron 4 mg tablet,disintegrating 4 mg PO Q8H PRN (Reason: nausea and vomiting) Qty: 15 0RF Follow-up/Referrals: Gerson,Martha Greene MD [Primary Care Provider] -
[2024-02-26 23:49] LABS: SPREG INTERNAL CONTROL Positive; Serum Qual hCG Negative
--- NOTE | 2024-02-27 00:36 | PC.NURSE ---
Patient request a female nurse/PCT to preform the straight catheter to collect the urine sample.
[2024-02-27] MEDS: TAMSULOSIN HCL 0.4 MG CAPSULE PO (00:54)
[2024-02-27 00:56] LABS: BEDSIDEPREGUCG Negative (Negative)
[2024-02-27 00:57] VITALS: BP 134/77; PULSE 74; RESP 15; TEMP 36.6; O2SAT 98
[2024-02-27 01:14] LABS: Add Urine Microscopic? YES; Appearance Urine Clear (Clear); Bacteria Urine None Seen /hpf; Bilirubin Urine Negative (Negative); Blood Urine Negative (Negative); Color Urine Dark Yellow (Yellow); Glucose Urine UA Negative (Negative); Ketones Urine Negative (Negative); Leukocyte Esterase Ur Trace LEU/UL (Negative); Need Manual Microscopic Reviewed; Nitrate Urine Positive (Negative); Non Pathogenic Casts 0-2; Protein Urine Negative (Negative); RBC Urine 0-2 /hpf (0-2); Specific Grav Ur 1.011 (1.001-1.035); Squamous Epithelial Cell Urine Occasional /hpf (Few); WBC Urine 0-5 /hpf (0-3)
[2024-02-27] MEDS: CEPHALEXIN 500 MG CAPSULE PO (01:30)
== END 2024-02-27 01:30 | disposition home or self-care (01) ==
PROVIDERS: Emergency Provider Physician Assistant; PCP Family Medicine
DX: R30.0 Dysuria (principal); Z87.891 Personal history of nicotine dependence
CPT/HCPCS: 36415; 74176; 80053; 81001; 81025; 84703; 85025; 87086; 96361; 96374; 96375; 99284; A9270; J2270; J2405; J7030

== ENCOUNTER 2024-04-26 10:45 | Outpatient (CLI) | payer OTHER, SELFPAY ==
--- NOTE | ~2024-04-26 | US_ITS ---
EXAMINATION: US OB transvaginal DATE: 04/26/2024 11:11 INDICATION: Establish dating of during first trimester. care for patient with rec urrent loss. TECHNIQUE: Real-time pelvic ultrasound utilizing both a transvaginal and transabdominal probe was pe rformed. The interpreting radiologist was not present for the study. COMPARISON: None. FINDINGS: The uterus measures 7.1 x 3.6 x 5.2 cm. There is an intrauterine gestational sac. A yolk sac and fet al pole are identified. The crown rump length measures 2 mm, which correlates with an estimated gesta tional age of 5 weeks and 5 days. heart motion is identified measuring 102 bpm (bpm) by M-mode Doppler. The right ovary measures 3.1 x 2.3 x 2.3 cm. The left ovary is not visualized. There is no free fluid in the pelvis. IMPRESSION: 1. Single living fetus with heart of 102 bpm. 2. Gestational age by ultrasound of 5 weeks 5 day(s) +/- 4 day(s) with ultrasound estimated date of delivery (RY) of 12/22/2024. Reviewed, dictated and finalized at location B. 911 TELECOMMUNICATOR IMPRESSION: 1. Single living fetus with heart of 102 bpm. 2. Gestational age by ultrasound of 5 weeks 5 day(s) +/- 4 day(s) with ultraso und estimated date of delivery (RY) of 12/22/2024.
== END 2024-04-26 10:46 | disposition home or self-care (01) ==
PROVIDERS: PCP Obstetrics & Gynecology Gynecology; Visit Provider Obstetrics & Gynecology Gynecology
DX: O26.21 Pregnancy care for patient with recurrent pregnancy loss, first trimester (principal); Z3A.01 Less than 8 weeks gestation of pregnancy
CPT/HCPCS: 76817

== ENCOUNTER 2024-05-04 08:27 | Outpatient (CLI) | payer OTHER, SELFPAY ==
--- NOTE | ~2024-05-04 | US_ITS ---
EXAMINATION: US OB transvaginal DATE: 05/04/2024 08:59 INDICATION: viability. TECHNIQUE: Real-time transvaginal pelvic ultrasound was performed. COMPARISON: Ultrasound 04/26/2024 FINDINGS: The uterus measures 8.6 x 4.8 x 6.1 cm. There is an intrauterine gestational sac. A yolk sac is ident ified. The crown rump length measures 9 mm, which correlates with an estimated gestational age of 7 weeks and 0 day(s) (+/-) 4 day(s). heart motion is identified measuring 135 beats per min coquille (bpm) by M-mode Doppler. The ovaries are not visualized. There is no free fluid in the pelvis. IMPRESSION: 1. Single living intrauterine gestation with estimated date of delivery of 12/22/2024 based on the ul trasound from 04/26/2024. Reviewed, dictated and finalized at location B. RAFT ENGINE INSTALLER IMPRESSION: 1. Single living intrauterine gestation with estimated date of delivery of 12/13 based on the ultrasound from 04/26/2024.
== END 2024-05-04 08:28 | disposition home or self-care (01) ==
LOC: MICIMG 08:27
PROVIDERS: PCP Obstetrics & Gynecology Gynecology; Visit Provider Obstetrics & Gynecology Gynecology
DX: O36.80X0 Pregnancy with inconclusive fetal viability, not applicable or unspecified (principal); Z3A.00 Weeks of gestation of pregnancy not specified
CPT/HCPCS: 76817

== ENCOUNTER 2024-07-27 10:56 | Outpatient (CLI) | payer OTHER, SELFPAY ==
--- NOTE | ~2024-07-27 | US_ITS ---
EXAMINATION: US OB /maternal detail DATE: 07/27/2024 13:33 CDT INDICATION: Anatomy scan TECHNIQUE: Real-time transabdominal obstetric ultrasound. FINDINGS: 2 para 0 There is a single intrauterine gestation in vertex presentation. The placenta is anterior. The tip of the placenta measures 5.2 cm from the cervix. The cervix measures 3.2 cm in length. cardiac activity and movement is noted with a heart rate of 148 beats per minute. Anatomic parameters are as follows The bladder is visualized and is unremarkable. A three-vessel cord is present. Cord insertion is not clearly demonstrated to be on the midline on the submitted images for which follow-up is needed. Bilateral kidneys are present without hydronephrosis. The anterior margin of the diaphragm is continuous. The posterior margin of the diaphragm is poorly visualized for which follow-up examination i s needed. The cervical, thoracic and lumbar spines are covered in their entirety. choroid plexi are poorly visualized, for which follow-up imaging is recommended Lateral ventricles are visualized measuring 5.6 and 5.8 mm, respectively. The falx is poorly visualized. The cerebellum is visualized measuring 18.2 mm, and is sonographically unremarkable. The cisterna magna measures 4.8 mm in anterior to posterior dimension (normal measurement is 2 to 10 mm). The nuchal fold measures 4.5 mm (greater than 6 mm is considered abnormal). Cine of the four-chamber heart is visualized and is anatomic. Both the right and left ventricular outflow tracts are poorly visualized for which follow-up exami nation is recommended. Limited views of the arms, hands, legs and feet were performed and appear grossly unremarkable. Limited evaluation of the upper lip and nose to confirm their continuity is appreciated on the subm itted images for which follow-up examination is needed. The following biometric data were obtained: Biparietal diameter (BPD): 4.4 cm; head circumference (HC): 16.3 cm; abdominal circumference (AC): 14.4 cm; femur length (FL): 3.1 cm. These measurements are concordant. Estimated weight is 302 g +/- 45.3 g, which correlates with the 86th percentile when 12/18/2024 i s used as estimated date of delivery. As single measurements, these parameters are each equal to the following estimated gestational ages: BPD: 19 weeks 3 days. HC: 19 weeks 1 day lower lobar or more. AC: 19 weeks 5 days. FL: 19 weeks 4 days. estimated gestational age based solely on measurements from this exam is 19 weeks 3 days +/- 1 week 3 days. IMPRESSION: Single intrauterine gestation with an approximate gestational age of 19 weeks and 3 days. Estimated d ue date by ultrasound is 12/18/2024. Cord insertion is not clearly demonstrated to be on the midline on the submitted images for which follow-up is needed. The posterior margin of the diaphragm is poorly visualized for which follow-up examination i s needed. choroid plexi are poorly visualized, for which follow-up imaging is recommended The falx is poorly visualized. Both the right and left ventricular outflow tracts are poorly visualized for which follow-up exami nation is recommended. Limited evaluation of the upper lip and nose to confirm their continuity is appreciated on the subm itted images for which follow-up examination is needed. Remaining portions of the anatomy scan are visualized and are unremarkable. Reviewed, dictated and finalized at location A. IMPRESSION: Single intrauterine gestation with an approximate gestational age of 19 weeks a nd 3 days. Estimated due date by ultrasound is 12/18/2024. Cord insertion is not clearly demonstrated to be on the midline on the submi tted images for which follow-up is needed. The posterior margin of the diaphragm is poorly visualized for which f ollow-up examination is needed. choroid plexi are poorly visualized, for which follow-up imaging is re commended The falx is poorly visualized. Both the right and left ventricular outflow tracts are poorly visualized for which follow-up examination is recommended. Limited evaluation of the upper lip and nose to confirm their continuity is a ppreciated on the submitted images for which follow-up examination is needed. Remaining portions of the anatomy scan are visualized and are unremarkable.
== END 2024-07-27 10:57 | disposition home or self-care (01) ==
LOC: MICIMG 10:56
PROVIDERS: PCP Obstetrics & Gynecology Gynecology; Visit Provider Obstetrics & Gynecology Gynecology
DX: Z36.9 Encounter for antenatal screening, unspecified (principal)
CPT/HCPCS: 76805

== ENCOUNTER 2024-08-17 10:47 | Outpatient (CLI) | payer OTHER, SELFPAY ==
--- NOTE | ~2024-08-17 | US_ITS ---
US OB follow up 08/17/2024 11:24 Indication: Follow-up survey Procedure: High-resolution Limited obstetrical ultrasound using transabdominal technique Comparison: Comparison to multiple prior studies sequentially, with oldest reviewed study dated 04/26. Findings: There is a single living intrauterine in variable presentation. Placenta is anter ior measuring 3.8 cm to the cervix. Amniotic fluid is subjectively normal. heart rate is 155 BP M. Limited survey demonstrates normal ventricles, choroid plexus, cerebellum, cisterna magna, nuch al fold, upper left, four-chamber heart, diaphragm and 3 vessel cord. Impression: 1: Single living intrauterine in variable presentation with heart rate of 155 BPM. 2: Normal limited survey. 3: Low-lying anterior placenta measuring 3.8 cm to the cervix. Reviewed, dictated and finalized at location A. Impression: 1: Single living intrauterine in variable presentation with hea rt rate of 155 BPM. 2: Normal limited survey. 3: Low-lying anterior placenta measuring 3.8 cm to the cervix.
== END 2024-08-17 10:48 | disposition home or self-care (01) ==
LOC: MICIMG 10:49
PROVIDERS: PCP Obstetrics & Gynecology Gynecology; Visit Provider Obstetrics & Gynecology Gynecology
DX: Z36.9 Encounter for antenatal screening, unspecified (principal); Z3A.00 Weeks of gestation of pregnancy not specified
CPT/HCPCS: 76816

== ENCOUNTER 2024-09-03 11:15 | Observation (INO) | payer OTHER, SELFPAY ==
--- OUTSIDE RECORDS SUMMARY | 2024-09-03 11:21 | XMS_ITS ---
Author Organization [facility] [employer] [place] ([address]) Address [address] [place] [address] Care Team Providers Care Cryptologic Linguist Name Role Phone Gerson PETERSON Martha Primary Care Provider Unavailabl Tanisha Ragsdale Unavailable [phone] [facility], Provider Unavailable Unavailab le Allergies Allergen (clinical drug ingredient) Drug/Non Drug Allergy documented on EMR Reaction Allergy Type Onset Date Status Glue GLUE (uncoded) hives Allergy Activ e REASON FOR VISIT [facility] Encounter Medications Medication SIG (Take, Route, Frequency, Duration) Notes Start Date End Date Status NASAL WASHES N/A DIRECTED INTRANASALLY NEEDED for 30 *Please review for potential replacement for e-prescription and drug interaction check* 07/24/2023 Active Fluticasone Propionate 50 MCG/ACT 2 spray(s) in each nostril once a day for 30 days 07/24/2023 Active Cetirizine HCl 10 MG 1 tab(s) orally once a day for 30 days 07/24/2023 Active Metoprolol Succinate ER 200 MG 1 CAP(S) ORALLY TWICE A DAY *Please review and pick correct strength-formulatio n from Medispan options. If intended option is not shown, discontinue and re-order from Quick Search* Active Encounters Encounter Location Date Provider Diagnosis [facility] [address] [place] [address] 09/27/2023 Provider ZZ-Migration Allergic rhinitis due to pollen J30.1 Assessments Encounter Date Diagnosis (ICD Code) Assessment Notes Treatment Notes Treatment Clinical Notes Section Notes 09/27/2023 Allergic rhinitis due to pollen (ICD-10 - J30.1) Plan Of Treatment Medication Medication Name Sig Start Date Stop Date Notes NASAL WASHES N/A DIRECTED INTRANASALLY NEEDED for 30 07/24/2023 *Please review for potential replacement for e-prescription and drug interaction check* Fluticasone Propionate 50 MCG/ACT 2 spray(s) in each nostril once a day for 30 days 07/24/2023 Cetirizine HCl 10 MG 1 tab(s) orally onc e a day for 30 days 07/24/2023 Progress Notes * IDANIACarolineDOB: 2 (24 yo F)Acc No.[id number]:09/27/2023 Patient: Caroline KIRBY Provider: Jovani Callahan :2000 A ge:23 Y S ex:Female Date:09/27/2023 Address:[address] [place], [place] [id number] Pcp:Martha Nieto DO Subjective: * Chief Complaints: [...] Codes: * Electronic signature of Prov toby [employer] on 09/03/2024 at 11:21 AM CDT Sign off status: Pending * Provider: Jovani Callahan Date: 09/27/2023 Generated for Maribell rowe/Vasile/Destineeitting on: 09/03/2024 11:21 AM CDT
--- OUTSIDE RECORDS SUMMARY | 2024-09-03 11:21 | XMS_ITS | Patient Health Record ---
Author Organization [facility] [employer] [place] ([address]) Address [address] [place] [address] Care Team Providers Care Trolley Car Operator Name Role Phone Martha Nieto DO Primary Care Provider Unavailabl e Tanisha Morton Unavailable [phone] [employer], Provider Unavailable Unavailab le Allergies Allergen (clinical drug ingredient) Drug/Non Drug Allergy documented on EMR Reaction Allergy Type Onset Date Status Glue GLUE (uncoded) hives Allergy Activ e Reason For Referral No Information Medications Medication SIG (Take, Route, Frequency, Duration) Notes Start Date End Date Status CETIRIZINE 10 mg 1 tab(s) orally once a day for 30 days 07/24/2023 Active FLUTICASONE NASAL 50 mcg/inh 2 spray(s) in each nostril once a day for 30 days 07/24/2023 Active NASAL WASHES N/A DIRECTED INTRANASALLY NEEDED for 30 *Please review for potential replacement for e-prescription and drug interaction check* 07/24/2023 Active Fluticasone Propionate 50 MCG/ACT 2 spray(s) in each nostril once a day for 30 days 07/24/2023 Active Cetirizine HCl 10 MG 1 tab(s) orally once a day for 30 days 07/24/2023 Active METOPROLOL 200 mg 1 cap(s) orally twice a day Active Metoprolol Succinate ER 200 MG 1 CAP(S) ORALLY TWICE A DAY *Please review and pick correct strength-formulatio n from Medispan options. If intended option is not shown, discontinue and re-order from Quick Search* Active Social History Tobacco Use: Social History Observation Description Date Details (start date - stop date) Unknown Tobacco Control (Standard) Question Answer Notes Tobacco use: Uses tobacco in other forms Additional Findings: Tobacco user e-cigarette Problems Problem Type SNOMED Code ICD Code Onset Dates Problem Status W/U Status Risk Notes Problem Chronic allergic conjunctivitis (60172125) Other chronic allergic conjunctivitis (H10.45) Active confirmed Problem Allergic rhinitis caused by pollen (disorder) (30609235) Allergic rhinitis due to pollen (J30.1) Active confirmed Problem Allergic rhinitis (29387979) Other allergic rhinitis (J30.89) Active confirmed Problem Allergic rhinitis caused by animal hair and dander (697182105840897) Allergic rhinitis due to animal (cat) (dog) hair and dander (J30.81) Active confirmed Encounters Encounter Location Date Provider Diagnosis [address] [address] 09/27/2023 Provider Connor Allergic rhinitis due to pollen J30.1 Assessments Encounter Date Diagnosis (ICD Code) Assessment Notes Treatment Notes Treatment Clinical Notes Section Notes 09/27/2023 Allergic rhinitis due to pollen (ICD-10 - J30.1) Plan Of Treatment No Information Insurance Providers Payer Name Payer Address Payer Phone Subscriber Number Group Number Insured Name Patient Relationship to Insured Coverage Start Date Coverage End Date [facility] [address] [place] [address] [id number] Chinedu Ly Child - Insured has Financial Responsibility Medical (General) History Medical History History ICD Code pre hypertension Surgical History Surgery Date(Month/Year) appendectomy 04/2016 cholecystectomy 04/2022 Tonsillectomy Gastric sleeve Dora teeth removal
--- OUTSIDE RECORDS SUMMARY | 2024-09-03 11:21 | XMS_ITS ---
Author Organization [facility] [place] ([address]) Address [address] [place] [address] Care Team Providers Care Yardage Caller Name Role Phone Martha Nieto DO Primary Care Provider Tanisha Hanna Unavailable [phone] REASON FOR VISIT ARC follow-up Encounters Encounter Location Date Provider Diagnosis [facility] [address] [place] [address] 11/12/2023 Tanisha Morton Plan Of Treatment No Information Progress Notes * Caroline LYDOB: 2 (24 yo F)Acc No.[id number]:11/12/2023 Progress Notes Patient: Caroline KIRBY Provider: MADELINE Cardenas :2000 A ge:23 Y S ex:Female Date:11/12/2023 Address:[address] [facility] Pcp:Martha Nieto DO Subjective: * Chief Complaints: * 1 . ARC follow-up. * Medical History: Objective: * Vitals: Assessment: Plan: * Treatment: * Billing Information: * Visit Code: * Procedure Codes: * Electronic signature of MADELINE Cano on 09/03/2024 at 11:21 AM CDT Sign off status: Pending * Provider: MADELINE Cardenas Date: 0 11/12/2023 Generated for Maribell rowe/Vasile/Haider on: 0 09/03/2024 11:21 AM CDT
[2024-09-03 11:56] VITALS: TEMP 36.9
[2024-09-03 11:57] VITALS: BP 113/58; PULSE 80
[2024-09-03 13:38] VITALS: BMI 45.8
--- NOTE | 2024-09-03 13:39 | OBADM ---
This patient, Caroline Olsen, admitted to the OB room OB Post 116 for observation. Patient/family oriented to hospital policies and general routines including ID bracelet, bed and alarms, visiting hours, pain management, procedures, bathroom and other care routines, personal items, smoking policy, room service/diet, and visiting hours. Patient/Family are encouraged to report perceived risks to care and to ask questions if they do not understand what they are told or what they should do.
--- NOTE | 2024-09-13 08:47 | PM.OBTRLD ---
OB - Triage/Final Diagnosis Visit Information Reason for evaluation: other (s/p fall) Comments/Additional reasons for admission: I have assessed the risk for this patient, Caroline Olsen, and determined that she would benefit from observation care.
== END 2024-09-03 13:56 | disposition home or self-care (01) ==
PROVIDERS: Admitting Provider Obstetrics & Gynecology Gynecology; PCP Family Medicine; Visit Provider Obstetrics & Gynecology Gynecology
DX: O26.892 Other specified pregnancy related conditions, second trimester (principal); W19.XXXA Unspecified fall, initial encounter; Z3A.24 24 weeks gestation of pregnancy
CPT/HCPCS: G0378; G0379

== ENCOUNTER 2024-09-27 12:17 | Outpatient (CLI) | payer OTHER, SELFPAY ==
--- NOTE | ~2024-09-27 | US_ITS ---
LEFT LOWER EXTREMITY VENOUS ULTRASOUND Ordering provider: Bryanna Swartz MD History: . Leg swelling . Comparison: None. FINDINGS: --COMMON FEMORAL: Patent and free of thrombus. Normal compressibility, phasic flow and augmentation. --PROXIMAL SUPERFICIAL FEMORAL: Patent and free of thrombus. Normal compressibility, phasic flow and augmentation. --DISTAL SUPERFICIAL FEMORAL: Patent and free of thrombus. Normal compressibility, phasic flow and au gmentation. --POPLITEAL: Patent and free of thrombus. Normal compressibility, phasic flow and augmentation. --POSTERIOR TIBIAL: Patent and free of thrombus. Normal compressibility, phasic flow and augmentation . IMPRESSION: Negative left lower extremity venous US. No deep vein thrombosis. Reviewed, dictated and finalized at location A.
--- OUTSIDE RECORDS SUMMARY | 2024-09-27 13:16 | XMS_ITS ---
Author Organization [facility] [employer] [place] ([address]) Address [address] [place] [address] Care Team Providers Care Catering Associate Name Role Phone Gerson PETERSON Martha Primary Care Provider Unavailabl Tanisha Ragsdale Unavailable [phone] [facility], Provider Unavailable Unavailab le Allergies Allergen (clinical drug ingredient) Drug/Non Drug Allergy documented on EMR Reaction Allergy Type Onset Date Status Glue GLUE (uncoded) hives Allergy Activ e REAS[facility] FOR VISIT [facility] Encounter Medications Medication SIG (Take, Route, [...] Location Date Provider Diagnosis [address] [address] [place] [address] 09/27/2023 Provider ZZ-Migration Allergic rhinitis due to [...] Notes * IDANIACarolineDOB: 2 (24 yo F)Acc No.[id number]:09/27/2023 Patient: Caroline KIRBY Provider: Jovani Callahan :2000 A ge:23 Y S ex:Female Date:09/27/2023 Address:[address] [place], [place] [id number] Pcp:Martha Nieto DO Subjective: * Chief Complaints: [...] Electronic signature of Prov toby Ware[employer]-Migration on 09/27/2024 at 01:15 PM CDT Sign off status: Pending * Provider: Jovani Clalahan Date: 09/27/2023 Generated for Maribell rowe/Vasile/Destineeitting on: 09/27/2024 01:15 PM CDT
--- OUTSIDE RECORDS SUMMARY | 2024-09-27 13:16 | XMS_ITS ---
Author Organization [facility] [place] ([address]) Address [address] [place] [address] Care Team Providers Care Sales Broker Name Role Phone Martha Nieto DO Primary Care Provider Tanisha Hanna Unavailable [phone] REASON FOR VISIT ARC follow-up Encounters Encounter Location Date Provider Diagnosis [facility] [address] [place] [address] 11/12/2023 Tanisha Morton Plan Of Treatment No Information Progress Notes * Caroline LYDOB: 2 (24 yo F)Acc No.[id number]:11/12/2023 Progress Notes Patient: Caroline KIRBY Provider: MADELINE Cardenas :2000 A ge:23 Y S ex:Female Date:11/12/2023 [facility] [facility] Pcp:Martha Nieto DO Subjective: * Chief Complaints: * 1 . ARC follow-up. * Medical History: Objective: * Vitals: Assessment: Plan: * Treatment: * Billing Information: * Visit Code: * Procedure Codes: * Electronic signature of MADELINE Cano on 09/27/2024 at 01:15 PM CDT Sign off status: Pending * Provider: MADELINE Cardenas Date: 0 11/12/2023 Generated for Maribell rowe/Vasile/Haider on: 0 09/27/2024 01:15 PM CDT
--- OUTSIDE RECORDS SUMMARY | 2024-09-27 13:16 | XMS_ITS | Patient Health Record ---
Author Organization [facility] [employer] [place] ([address]) Address [address] [place] [address] Care Team Providers Care Perl Programmer Name Role Phone Martha Nieto DO Primary Care Provider Unavailbrianna e Tanisha Morton Unavailable [phone] Allergies Allergen (clinical drug ingredient) Drug/Non Drug [...] Status Risk Notes Problem Chronic allergic conjunctivitis (69347219) Other chronic allergic conjunctivitis (H10.45) Active confirmed Problem Allergic rhinitis caused by pollen (disorder) (05258370) Allergic rhinitis due to pollen (J30.1) Active confirmed Problem Other allergic rhinitis (J30.89) Active confirmed Problem Allergic rhinitis caused by animal hair and dander (150700350547555) Allergic rhinitis due to animal (cat) (dog) hair and dander (J30.81) Active confirmed Plan Of Treatment No Information Insurance Providers Payer Name Payer Address Payer Phone Subscriber Number Group Number Insured Name Patient Relationship to Insured Coverage Start Date Coverage End Date [facility] [address] [place] [phone] [id number] Chinedu Ly Child - Insured has Financial Responsibility Medical (General) History Medical History History ICD Code pre hypertension Surgical History Surgery Date(Month/Year) appendectomy 04/2016 cholecystectomy 04/2022 Tonsillectomy Gastric sleeve Bob White teeth removal
[2024-09-27 15:14] LABS: Hematocrit 34.2 % (37.0-47.0); Hemoglobin 11.5 g/dL (12.0-15.0)
[2024-09-27 15:24] LABS: Glucose 1 Hour PP 50gm Dose 140 mg/dL
[2024-09-27 15:54] LABS: Vitamin D 25 Hydroxy 39.5 ng/mL
[2024-09-27 16:04] LABS: Syphilis IgG/IgM Antibody Non-Reactive (Nonreactive)
[2024-09-27 16:07] LABS: HIV 1/2 Ab P24 Ag Result Negative (Negative)
== END 2024-09-27 12:18 | disposition home or self-care (01) ==
PROVIDERS: PCP Family Medicine; Visit Provider Obstetrics & Gynecology Gynecology
DX: Z34.93 Encounter for supervision of normal pregnancy, unspecified, third trimester (principal); M79.89 Other specified soft tissue disorders; Z3A.00 Weeks of gestation of pregnancy not specified
CPT/HCPCS: 36415; 82306; 82947; 85014; 85018; 86593; 86703; 93971; G0432

== ENCOUNTER 2024-10-07 07:18 | Outpatient (CLI) | payer OTHER, SELFPAY ==
[2024-10-07 08:05] LABS: Glucose Fasting Gestational 90 mg/dL (>/=95)
[2024-10-07 09:49] LABS: Glucose 1 Hour Gest 162 mg/dL (>/=180)
[2024-10-07 11:41] LABS: Glucose 2 Hour Gest 121 mg/dL (>/= 155)
[2024-10-07 11:43] LABS: Glucose 3 Hour Gest 68 mg/dL (>/=140)
== END 2024-10-07 07:19 | disposition home or self-care (01) ==
LOC: ANHLAB 07:21
PROVIDERS: PCP Family Medicine; Visit Provider Obstetrics & Gynecology Gynecology
DX: O99.810 Abnormal glucose complicating pregnancy (principal); Z3A.00 Weeks of gestation of pregnancy not specified
CPT/HCPCS: 36415; 82951; 82952

== ENCOUNTER 2024-10-16 22:57 | Observation (INO) | payer OTHER, SELFPAY ==
--- NOTE | ~2024-10-16 | US_ITS ---
EXAM: RENAL ULTRASOUND HISTORY: right sided flank pain COMPARISON: None FINDINGS: RIGHT KIDNEY: 13.1 x 4.2 x 4.6 cm. The parenchyma of the right kidney is unremarkable in echogenicity. No renal calculi. Mild right-sided hydronephrosis. LEFT KIDNEY: 14.5 x 5.2 x 4.6 cm No hydronephrosis or renal calculi. The parenchyma of the left kidney is unremarkable in echogenicity. BLADDER: The bladder is mildly distended. Despite prolonged interrogation, neither ureteral jet was visualized. IMPRESSION: Mild right-sided hydronephrosis. No renal calculi. Despite prolonged interrogation, neither ureteral jet was visualized. Reviewed, dictated and finalized at location A.
--- OUTSIDE RECORDS SUMMARY | 2024-10-16 23:02 | XMS_ITS | Encounter Summary ---
Author Organization [facility] Address [address] [place] [address] Care Team Providers Care Caddymaster Name Role Phone Martha Nieto DO Primary Care Provider [phone] Encounter Details Date Type Department Care Team (Late st Contact Info) Description 01/14/2024 MyChart Message Enc [facility] - [place] [address], [address] [place] [phone] Martha Nieto DO [address] [place] [address] Fertility Social History Tobacco Use Types Packs/Day Years Used Date Smoking Tobacco: Never Passive Smoke Exposure: Never Smokeless Tobacco: Never Comments:Patient quit vaping . 09/2023 Alcohol Use Standard Drinks/Week Comments Yes 0 (1 standard drink = 0.6 oz pure alcohol) stoppped drinking unless special occasion AUDIT-C Answer Date Recorded Frequency of Alcohol Consumption Never 02/27/2018 Average Number of Drinks Not on file 018 Frequency of Binge Drinking Not on file 02/12 PHQ-2 Answer Date Recorded Patient Health Questionnaire-2 Score 0 10/30/2023 Comments No Sex and Gender Information Value Date Recorded Sex Assigned at Female 04/27/2024 3:23 PM CYANIDE CASE HARDENER Legal Sex Female 5:49 PM CDT Gender Identity Female 06/08/2021 9:11 AM CYANIDE CASE HARDENER Sexual Orientation Straight 06/08/2021 9: 11 AM CYANIDE CASE HARDENER documented as of this encounter Plan of Treatment Not on file documented as of this encounter Visit Diagnoses Not on filedocumented in this encounter Additional Health Concerns Assessment Noted Time PHQ-9 Depression Total Score: 11 023 8:25 AM CYANIDE CASE HARDENER documented as of this encounter Care Teams Caddymaster Relationship Specialty Start Date End Date Martha Nieto DO [address] [place] [address] PCP - General 08/01/16 documented as of this encounter
--- OUTSIDE RECORDS SUMMARY | 2024-10-16 23:02 | XMS_ITS | Encounter Summary ---
Author Organization [facility] Address [address] [place] [address] Care Team Providers Care Cloth Napping Supervisor Name Role Phone Martha Nieto DO Primary Care Provider [phone] Encounter Details Date Type Department Care Team (Late st Contact Info) Description 07/03/2022 MyChart Message Enc [facility] Medical [facility] Family Medicine - [place] [address], [address] [place] [phone] Martha Nieto DO [address] [place] [address] General Surgeon Social History Tobacco Use Types Packs/Day Years Used Date Smoking Tobacco: Never Smokeless Tobacco: Never Comments:I smoke nicotine Alcohol Use Standard Drinks/Week Comments Not Currently 0 (1 standard drink = 0.6 oz pure alcohol) I stopped drinking after my Gastric Sleeve AUDIT-C Answer Date Recorded Frequency of Alcohol Consumption Never 02/27/2018 Average Number of Drinks Not on file 018 Frequency of Binge Drinking Not on file 02/12 PHQ-2 Answer Date Recorded Patient Health Questionnaire-2 Score 2 06/04/2022 Comments No Sex and Gender Information Value Date Recorded Sex Assigned at Female 04/27/2024 3:23 PM DISTRIBUTING CLERK Legal Sex Female 5:49 PM CDT Gender Identity Female 06/08/2021 9:11 AM DISTRIBUTING CLERK Sexual Orientation Straight 06/08/2021 9: 11 AM DISTRIBUTING CLERK COVID-19 Exposure Response Date Recorded In the last 10 days, have yo u been in contact with someone who was confirmed or suspected to have Coronavirus/COVID-19? No / Unsure 07/02/2022 10:17 PM CDT documented as of this encounter Progress Notes * Katty Girard MA - 07/04/2022 7:43 AM CDTFrom: Caroline Ly To: Dr. Martha Nieto Sent: 07/03/2022 2:20 PM CDT Subject: General Surgeon I need a referral for as soon as possible because I have an appointment set up with him on the . As my pain is getting worse and the er gave me the information to call and set up an appointment. documented in this encounter Plan of Treatment Not on file documented as of this encounter Visit Diagnoses Not on filedocumented in this encounter Additional Health Concerns Infection Onset Date Last Indicated Resolved Time COVID-19 Rule Out 10/31/2022 10/31/2022 10/31/2022 2:17 AM CDT Assessment Noted Time PHQ-9 Depression Total Score: 11 023 8:25 AM DISTRIBUTING CLERK documented as of this encounter Care Teams Cloth Napping Supervisor Relationship Specialty Start Date End Date Martha Nieto DO [address] [place] [address] PCP - General 08/01/16 documented as of this encounter
--- OUTSIDE RECORDS SUMMARY | 2024-10-16 23:02 | XMS_ITS | Encounter Summary ---
Author Organization [facility] Address [address] [place] [address] Care Team Providers Care Pharmaceutical Physician Name Role Phone Martha Nieto DO Primary Care Provider [phone] Encounter Details Date Type Department Care Team (Late st Contact Info) Description 04/01/2022 MyChart Message Enc [facility] Medical Group Family Medicine - [place] [address], [address] [place] [phone] Martha Nieto DO [address] [place] [address] ROBBY Social History Tobacco Use Types Packs/Day Years [...] on file 02/12 PHQ-2 Answer Date Recorded PHQ-2 Score - If the patient scores above 3, please move on to questions 3-9 0 06/19/2021 Comments No Sex and Gender Information Value Date Recorded Sex Assigned at Female 04/27/2024 3:23 PM BULLET SWAGING MACHINE OPERATOR Legal Sex Female 5:49 PM CDT Gender Identity Female 06/08/2021 9:11 AM BULLET SWAGING MACHINE OPERATOR Sexual Orientation Straight 06/08/2021 9: 11 AM BULLET SWAGING MACHINE OPERATOR COVID-19 Exposure Response Date Recorded In the last 10 days, have yo u been in contact with someone who was confirmed or suspected to have Coronavirus/COVID-19? No / Unsure 03/19/2022 3:25 PM BULLET SWAGING MACHINE OPERATOR documented as of this encounter Progress Notes * Tika Delong MA - 04/02/2022 8:59 AM CST Left message for patient to call office ET SWAGING MACHINE OPERATOR * Tika Delong MA - 04/01/2022 10:24 AM CST Left message for patient to call office for appointment. ET SWAGING MACHINE OPERATOR documented in this encounter Plan of Treatment Not on file documented as of this encounter Visit Diagnoses Not on filedocumented in this encounter Additional Health Concerns Infection Onset Date Last Indicated Resolved Time COVID-19 Rule Out 10/31/2022 10/31/2022 10/31/2022 2:17 AM CDT Assessment Noted Time PHQ-9 Depression Total Score: 0 06/20/19 2:52 PM BULLET SWAGING MACHINE OPERATOR documented as of this encounter Care Teams Pharmaceutical Physician Relationship Specialty Start Date End Date Martha Nieto DO [address] '[place] [address] PCP - General 08/01/16 documented as of this encounter
--- OUTSIDE RECORDS SUMMARY | 2024-10-16 23:02 | XMS_ITS | Encounter Summary ---
Author Organization [facility] Address [address] [place] [address] Care Team Providers Care Pet Training Instructor Name Role Phone Martha Nieto DO Primary Care Provider [phone] Encounter Details Date Type Department Care Team (Late st Contact Info) Description 05/14/2022 MyChart Message Enc [facility] Medical Group Family Medicine - [place] [address] [place] [phone] Martha Nieto DO [address] [place] [address] Bowel movement Social History Tobacco Use Types Packs/Day Years [...] Sex Assigned at Female 04/27/2024 3:23 PM LAMINATE FLOOR INSTALLER Legal Sex Female 5:49 PM CDT Gender Identity Female 06/08/2021 9:11 AM LAMINATE FLOOR INSTALLER Sexual Orientation Straight 06/08/2021 9: 11 AM LAMINATE FLOOR INSTALLER documented as of this encounter Plan of Treatment Not on file documented as of this encounter Visit Diagnoses Not on filedocumented in this encounter Additional Health Concerns Infection Onset Date Last Indicated Resolved Time COVID-19 Rule Out 10/31/2022 10/31/2022 10/31/2022 2:17 AM CDT Assessment Noted Time PHQ-9 Depression Total Score: 0 06/20/19 22 2:52 PM LAMINATE FLOOR INSTALLER documented as of this encounter Care Teams Pet Training Instructor Relationship Specialty Start Date End Date Martha Nieto DO [address] [place] [address] PCP - General 08/01/16 documented as of this encounter
--- OUTSIDE RECORDS SUMMARY | 2024-10-16 23:02 | XMS_ITS | Encounter Summary ---
Author Organization [facility] Address [address] [place] [address] Care Team Providers Care Child Care Nurse Name Role Phone Martha Nieto DO Primary Care Provider [phone] Encounter Details Date Type Department Care Team (Late st Contact Info) Description 08/13/2022 MyChart Message Enc [facility] Family Medicine - [place] [address], [address] [place] [address] Martha Nieto DO [address] [place] [address] Question regarding CBC W/DIFF AUTOMATED Social History Tobacco Use Types Packs/Day Years Used Date Smoking Tobacco: Never Smokeless Tobacco: Current Comments:I use nicotine wit h vap Alcohol Use Standard Drinks/Week Comments Yes 0 [...] Sex Assigned at Female 04/27/2024 3:23 PM GRINDER OUTSIDE DIAMETER Legal Sex Female 5:49 PM CDT Gender Identity Female 06/08/2021 9:11 AM GRINDER OUTSIDE DIAMETER Sexual Orientation Straight 06/08/2021 9: 11 AM GRINDER OUTSIDE DIAMETER COVID-19 Exposure Response Date Recorded In the last 10 days, have yo u been in contact with someone who was confirmed or suspected to have Coronavirus/COVID-19? No / Unsure 07/26/2022 5:09 AM CDT documented as of this encounter Plan of Treatment Not on file documented as of this encounter Visit Diagnoses Not on filedocumented in this encounter Additional Health Concerns Infection Onset Date Last Indicated Resolved Time COVID-19 Rule Out 10/31/2022 10/31/2022 10/31/2022 2:17 AM CDT Assessment Noted Time PHQ-9 Depression Total Score: 11 023 8:25 AM GRINDER OUTSIDE DIAMETER documented as of this encounter Care Teams Child Care Nurse Relationship Specialty Start Date End Date Martha Nieto DO [address] '[place] [address] PCP - General 08/01/16 documented as of this encounter
--- OUTSIDE RECORDS SUMMARY | 2024-10-16 23:02 | XMS_ITS | Encounter Summary ---
Author Organization [facility] Address [address] [place] [address] Care Team Providers Care Manager Inspection Name Role Phone Martha Nieto DO Primary Care Provider [phone] Encounter Details Date Type Department Care Team (Late st Contact Info) Description 12/22/2023 MyChart Message Enc [facility] Medical Group Family Medicine - [place] [address], [address] [place] [phone] Martha Nieto DO [address] [place] [address] Question Social History Tobacco Use Types Packs/Day Years [...] Sex Assigned at Female 04/27/2024 3:23 PM DUST COLLECTOR ATTENDANT Legal Sex Female 5:49 PM CDT Gender Identity Female 06/08/2021 9:11 AM DUST COLLECTOR ATTENDANT Sexual Orientation Straight 06/08/2021 9: 11 AM DUST COLLECTOR ATTENDANT documented as of this encounter Plan of Treatment Not on file documented as of this encounter Visit Diagnoses Not on filedocumented in this encounter Additional Health Concerns Assessment Noted Time PHQ-9 Depression Total Score: 11 023 8:25 AM DUST COLLECTOR ATTENDANT documented as of this encounter Care Teams Manager Inspection Relationship Specialty Start Date End Date Martha Nieto DO [address] [place] [address] PCP - General 08/01/16 documented as of this encounter
--- OUTSIDE RECORDS SUMMARY | 2024-10-16 23:02 | XMS_ITS | Encounter Summary ---
Author Organization [facility] Address [address] [place] [address] Care Team Providers Care Community Health Nurse Name Role Phone Martha Nieto DO Primary Care Provider [phone] Encounter Details Date Type Department Care Team (Late st Contact Info) Description 08/09/2022 Kongregate Message [facility] Patient Accounts [address] [place] [address] [facility] Payment Plan Social History Tobacco Use Types Packs/Day Years [...] Sex Assigned at Female 04/27/2024 3:23 PM CENSUS ENUMERATOR Legal Sex Female 5:49 PM CDT Gender Identity Female 06/08/2021 9:11 AM CENSUS ENUMERATOR Sexual Orientation Straight 06/08/2021 9: 11 AM CENSUS ENUMERATOR COVID-19 Exposure Response Date Recorded In the [...] Depression Total Score: 11 023 8:25 AM CENSUS ENUMERATOR documented as of this encounter Care Teams Community Health Nurse Relationship Specialty Start Date End Date Martha Nieto DO [address] '[place] [address] PCP - General 08/01/16 documented as of this encounter
--- OUTSIDE RECORDS SUMMARY | 2024-10-16 23:02 | XMS_ITS | Clinical Summary ---
Author Organization [facility] Address [address] [place] [address] Care Team Providers Care Histology Technologist Name Role Phone Martha Nieto DO Primary Care Provider [phone] Allergies Active Allergy Reactions Criticality Noted Date Comments Tape Hives Medium 09/23/2023 Cyanoacrylate Hives 07/20/2022 Noted on 07/20/22, s/p cholecystectomy Suture Material Angioedema 03/19/2022 Monocryl suture Medications ondansetron (ZOFRAN-ODT) 4 MG disintegrating tablet Take 1 tablet (4 mg total) by mouth every 4 (four) hours as needed. 20 tablet 11/01/19 23 Active linaCLOtide (LINZESS) 290 MCG capsuleIndications :Constipation, unspecified constipation type Take 1 capsule (290 mcg total) by mouth every morning before breakfast. Take on empty stomach at least 30 minutes prior to first meal of the day. Swallow whole. Do not open capsule or chew. 90 capsule 05/26/19 24 Active Additional Information Patient taking differently:290 mcg OralPRN, Take on empty stomach at least 30 minutes prior to first meal of the day. Swallow whole. Do not open capsule or chew., Reported on 02/26/2024 vitamin (ZATEAN-PN PLUS) 28-0.6-0.4-340 MG capsule Take 1 capsule by mouth daily. Active ondansetron (ZOFRAN) 4 MG tablet Take 1 tablet (4 mg total) by mouth every 8 (eight) hours as needed for Nausea. 20 tablet 03/01/20 24 Active tamsulosin (FLOMAX) 0.4 MG Cap Take 1 capsule (0.4 mg total) by mouth daily. 30 capsule 03/01/20 24 Active LORazepam (ATIVAN) 0.5 MG tabletIndications: Fear of flying Take 1 tablet (0.5 mg total) by mouth every 6 (six) hours as needed for Anxiety (prior to flying). 4 tablet 03/15/20 24 Active Active Problems Problem Noted Date Diagnosed Date Other forms of dyspnea 12/03/2021 Eczema 04/17/2017 Borderline hyperlipidemia 11/03/2014 Morbid obesity 10/28/2013 Encounters Date Type Department Care Team Description 10/11/2024 Wintegra Message Enc [facility] Medical Group Family Medicine [address], [address] [place] [address] Martha Nieto DO Updated ROBBY Note 09/27/2024 Scan HEALTH INFO SRVCS Scanned, Doc Med Group Vascular Lab Study (SCAN) from Last 3 Months Immunizations Immunization Administration Dates Next Due Dtap (Generic) 03/26/2006, 4,2002,05/05,2002 Fluzone 6 Months+ Quad (0.5 mL Prefilled Syringe) 03/19/2022,03/06/2020,03/19/2019,02/27 HPV 10/28/2013,06/14/2013,02/04/2013 Hepatitis A (Generic) 07/08/2006,11/26/2005 Hepatitis B (Generic: Adult) 2002,05/05/19 03,2002 Hepatitis B(Engerix B Adult) 04/17/2022 Hib Vaccine, Prp-Omp 06/27/2003,07/06/19 03,2002,03/26 Influenza (Generic) 02/04/2013 Influenza Adult (Generic) 02/22/2015 MMR (Generic) 03/26/2006,02/03/2003 Meningococcal (Menactra) 02/27/2018 Meningococcal Vac A,C,Y,W-135 Sc 10/28/2013 PFIZER COVID-19 (ORIGINAL FO RMULATION, PURPLE CAP) mRNA, LNP-S, PF, 30 MCG/0.3 ML DOSE 07/21/2020,06/29/2020 Pneumococcal (Prevnar 13) 06/27/2003,,2002,07/05 Polio Ipv (Generic) 03/26/2006, 4,2002,05/05,2002 Tdap (Generic) 10/05/2012 Varicella Vaccine 08/13/2006,02/03/2003 Family History Medical History Relation Comments Depression Brother Mental Health Brother Cancer Father Diabetes Father Hypertension Father Stroke Maternal Grandfather Diabetes Mother Miscarriages / Stillbirths Mother Heart Disease Paternal Grandfather VA Stroke Paternal Grandfather Cancer Paternal Grandmother Diabetes Paternal Grandmother Depression Sister Kidney Disease Sister Mental Health Sister Miscarriages / Stillbirths Sister Relation Status Comments Brother Father Maternal Grandfather Mother Paternal Grandfather Paternal Grandmother Sister Social History Tobacco Use Types Packs/Day Years Used Date Smoking Tobacco: Never Passive Smoke Exposure: Never Smokeless Tobacco: Never Tobacco Cessation:Counseling Given: No Comments:Patient quit vaping. 09/2023 Alcohol Use Standard Drinks/Week Comments Yes [...] Sex Assigned at Female 04/27/2024 3:23 PM IBM WEBSPHERE PORTAL DEVELOPER Legal Sex Female 5:49 PM CDT Gender Identity Female 06/08/2021 9:11 AM IBM WEBSPHERE PORTAL DEVELOPER Sexual Orientation Straight 06/08/2021 9: 11 AM IBM WEBSPHERE PORTAL DEVELOPER Last Filed Vital Signs Vital Sign Reading Time Taken Comments Blood Pressure 118/83 03/01/2024 12:00 PM IBM WEBSPHERE PORTAL DEVELOPER Pulse 72 03/01/2024 10:16 AM IBM WEBSPHERE PORTAL DEVELOPER Temperature 36.8 C (98.3 F) 03/01/2024 8:02 AM IBM WEBSPHERE PORTAL DEVELOPER Respiratory Rate 20 03/01/2024 10:16 AM IBM WEBSPHERE PORTAL DEVELOPER Oxygen Saturation 98% 03/01/2024 11:00 AM IBM WEBSPHERE PORTAL DEVELOPER Inhaled Oxygen Concentration - - Weight 111.1 kg (245 lb) 03/01/2024 8:02 AM IBM WEBSPHERE PORTAL DEVELOPER Height 162.6 cm (5' 4) 03/01/2024 8:02 AM IBM WEBSPHERE PORTAL DEVELOPER Body Mass Index 42.05 03/01/2024 8:02 AM IBM WEBSPHERE PORTAL DEVELOPER Plan of Treatment Health Maintenance Due Date Last Done Comments Cervical Cancer Screening Pap Smear (Age 21 to 29) Every 3 Years 2002 Cervical Cancer Screening 2002 Meningococcal B Vaccine (1 of 2 - Standard) 2018 Hepatitis C 01/03/2020 Annual Physical 08/21/2021 08/21/2020, 04/01/2018 DTaP, Tdap and Td Vaccines (7 - Td or Tdap) 10/05/2022 10/05/2012, 03/26/2006, 06/27/2003, Additional history exists COVID-19 Vaccine ( season) 2023 04/19/2022, 07/21/2020, 06/29/2020 PHQ-2 (Physician [place]) 04/14/2024 10/30/2023 Chlamydia Screening Females ages 16-24 03/01/2025 03/01/2024 Pneumococcal Vaccine: Pediatrics (0 to 5 Years) and At-Risk Patients (6 to 49 Years) Completed 06/27/2003, 02/03/2003, 2002, Additional history exists HPV Vaccines Completed 10/28/2013, 06/2013, 02/04/2013 Meningococcal Vaccine Completed 02/27/2018, 014 Hepatitis B Vaccines Completed 04/17/2022, 2002, 2002, Additional history exists RSV Immunizations Under 20 Months Aged Out No longer eligible based on patient's age to complete this topic Procedures Procedure Name Priority Date/Time Associated Diagnosis Comments VASCULAR LAB GENERIC (SCAN ORDER) 09/27/2024 CHLAMYDIA GC RNA STAT 03/01/2024 8:15 AM IBM WEBSPHERE PORTAL DEVELOPER from Last 3 Months or Most Recently Relevant to Health Maintenance Results * VASCULAR LAB GENERIC (SCAN ORDER) (09/27/2024) 09/27/2024 us Doc [facility] Scanned SCANNING Final Resu lt * CHLAMYDIA GC RNA (03/01/2024 8:15 AM IBM WEBSPHERE PORTAL DEVELOPER) SPEC DESCRIPTION URINE CLEAN CATCH 03/01/2024 11:11 AM IBM WEBSPHERE PORTAL DEVELOPER [facility] CHLAMYDIA RNA TMA NEGATIVE NEGATIVE 024 1:14 AM IBM WEBSPHERE PORTAL DEVELOPER [facility] Comment:PERFORMED BY NUCLEIC ACID AMPLIFICATION N.GONORRHOEAE RNA TMA NEGATIVE NEGATIVE 03/03/2024 1:14 AM IBM WEBSPHERE PORTAL DEVELOPER [facility] Comment:PERFORMED BY NUCLEIC ACID AMPLIFICATION URINE SPECIMEN / Unknown 03/01/2024 8:15 AM IBM WEBSPHERE PORTAL DEVELOPER Brendan Lee MD MICROBIOLOGY - GENERAL ORDER SHELLEY Final Result [facility] [address] [place] [address], [place] [phone] [facility] [address] [place] [address], [place] [phone] from Last 3 Months or Most Recently Relevant to Health Maintenance Insurance Advance Directives * Full Code (Latest Code Status on File) Date Activated Date Inactivated Comments 01/21/2020 9:44 AM 01/21/2020 11:45 AM Care Teams Histology Technologist Relationship Specialty Start Date End Date Martha Nieto DO [address] [place], [place] [id number] PCP - General 08/01/16
--- OUTSIDE RECORDS SUMMARY | 2024-10-16 23:02 | XMS_ITS | Encounter Summary ---
Author Organization [facility] Address [address] [place] [address] Care Team Providers Care Agency Development Manager Name Role Phone Martha Nieto DO Primary Care Provider [phone] Encounter Details Date Type Department Care Team (Late st Contact Info) Description 09/29/2020 MyChart Message Enc [facility] Medical Group Family Medicine - [place] [address] [place] [phone] Martha Nieto DO [address] [place] [address] RE: Question Social History Tobacco Use Types Packs/Day Years Used Date Smoking Tobacco: Never Smokeless Tobacco: Never Alcohol Use Standard Drinks/Week Comments No 0 (1 standard drink = 0.6 oz pur e alcohol) occasionally 1x/ 2 months AUDIT-C Answer Date Recorded Frequency of Alcohol Consumption Never 02/27/2018 Average Number of Drinks Not on file 018 Frequency of Binge Drinking Not on file 02/12 PHQ-2 Answer Date Recorded PHQ-2 Score - If the patient scores above 3, please move on to questions 3-9 2 09/20/2020 Comments No Sex and Gender Information Value Date Recorded Sex Assigned at Female 04/27/2024 3:23 PM MANAGER QUALITY SYSTEMS Legal Sex Female 5:49 PM CDT Gender Identity Female 06/08/2021 9:11 AM MANAGER QUALITY SYSTEMS Sexual Orientation Straight 06/08/2021 9: 11 AM MANAGER QUALITY SYSTEMS COVID-19 Exposure Response Date Recorded In the last month, have you been in contact with someone who was confirmed or suspected to have Coronavirus / COVID-19? No / Unsure 09/20/2020 7:30 AM CDT documented as of this encounter Plan of Treatment Not on file documented as of this encounter Visit Diagnoses Not on filedocumented in this encounter Additional Health Concerns Infection Onset Date Last Indicated Resolved Time COVID-19 Rule Out 10/31/2022 10/31/2022 10/31/2022 2:17 AM CDT Assessment Noted Time PHQ-9 Depression Total Score: 13 021 7:38 AM CDT documented as of this encounter Care Teams Agency Development Manager Relationship Specialty Start Date End Date Martha Nieto DO [address] '[place] [address] PCP - General 08/01/16 documented as of this encounter
--- OUTSIDE RECORDS SUMMARY | 2024-10-16 23:02 | XMS_ITS | Encounter Summary ---
Author Organization [facility] Address [address] [place] [address] Care Team Providers Care Middleware Developer Name Role Phone Martha Nieto DO Primary Care Provider [phone] Encounter Details Date Type Department Care Team (Late st Contact Info) Description 01/17/2020 Prep for Procedure [place] Pre-Admission Testing [facility] [place] [address] Anton Maza MD [address] [place] [address] Social History Tobacco Use Types Packs/Day Years Used Date Smoking Tobacco: Never Smokeless Tobacco: Never Alcohol Use Standard Drinks/Week Comments No 0 (1 standard drink = 0.6 oz pur e alcohol) occasionally 1x/ 2 months AUDIT-C Answer Date Recorded Frequency of Alcohol Consumption Never 02/27/2018 Average Number of Drinks Not on file 018 Frequency of Binge Drinking Not on file 02/12 Comments No Sex and Gender Information Value Date Recorded Sex Assigned at Female 04/27/2024 3:23 PM ERP IMPLEMENTATION CONSULTANT Legal Sex Female 5:49 PM CDT Gender Identity Female 06/08/2021 9:11 AM ERP IMPLEMENTATION CONSULTANT Sexual Orientation Straight 06/08/2021 9: 11 AM ERP IMPLEMENTATION CONSULTANT COVID-19 Exposure Response Date Recorded In the last month, have you been in contact with someone who was confirmed or suspected to have Coronavirus / COVID-19? No / Unsure 01/17/2020 11:18 AM CDT documented as of this encounter Plan of Treatment Not on file documented as of this encounter Results * PRE-SURGICAL/PRE-PROCEDURE CORONAVIRUS (COVID 19) (01/18/2020 3:06 PM CDT) CORONAVIRUS SARS COV 2 PCR (RESP) NOT DETECTED NOT DETECTED 01/20/2020 12:21 PM CDT [facility] Comment: A Not Detected (negative) test result for this test means that SARS- CoV-2 RNA was not present in the specimen above the limit of detection. A negative result does not rule out the possibility of COVID-19 and should not be used as the sole basis for treatment or patient management decisions. If COVID-19 is still suspected, based on exposure history together with other clinical findings, re-testing should be considered in consultation with public health authorities. Laboratory test results should always be considered in the context of clinical observations and epidemiological data in making a final diagnosis and patient management decisions. Please review the Fact Sheets and FDA authorized labeling available for health care providers and patients using the following websites: https://www.[employer]/home/Covid-19/HCP/NAAT/fact-sheet2 https://www.[employer]/home/Covid-19/Patients/NAAT/ fact-sheet2 This test has been authorized by the FDA under an Emergency Use Authorization (EUA) for use by authorized laboratories. Due to the current public health emergency, [facility] is receiving a high volume of samples from a wide variety of swabs and media for COVID-19 testing. In order to serve patients during this public health crisis, samples from appropriate clinical sources are being tested. Negative test results derived from specimens received in non-commercially manufactured viral collection and transport media, or in media and sample collection kits not yet authorized by FDA for COVID-19 testing should be cautiously evaluated and the patient potentially subjected to extra precautions such as additional clinical monitoring, including collection of an additional specimen. Methodology: Nucleic Acid Amplification Test (NAAT) includes RT-PCR or TMA Additional information about COVID-19 can be found at the [facility] website: www.[employer]/Covid19. Test performed at [facility] [address] [id number] Director: DAINA BRUSH DO,MPH FIRST TEST YES 01/18/2020 3:07 PM CDT [facility] EMPLOYED IN HEALTHCARE NO 01/18/2020 3:07 PM CDT [facility] SYMPTOMATIC DEFINED BY CDC NO 01/18/2020 3:07 PM CDT [facility] DATE OF SYMPTOM ONSET UNKNOWN 01/18/2020 3:09 PM CDT [facility] HOSPITALIZATION STATUS NO 01/18/2020 3:07 PM CDT [facility] PATIENT IN ICU NO 01/18/2020 3:07 PM CDT [facility] RESIDENT OF [facility] NO 01/18/2020 3:07 PM CDT [facility] NOT 01/18/2020 3:07 PM CDT [facility] PATIENT'S RACE WHITE OR 01/18/2020 3:07 PM CDT [facility] ETHNICITY NONHISPANIC 01/18/2020 3:07 PM CDT [facility] SOURCE (QST) NASOPHARYNGEAL SWAB 01/18/2020 3:07 PM CDT [facility] NASOPHARYNGEAL SWAB / Unknown 01/18/2020 3:06 PM CDT us Anton Maza MD MICROBIOLOGY - GENERAL ORDERABL ES Final Result [facility] [address] [place] [address], [place] [phone] [facility] [address] [place] [address], documented in this encounter Visit Diagnoses Diagnosis Preop examination- Primary Preoperative examination, unspecified documented in this encounter Additional Health Concerns Infection Onset Date Last Indicated Resolved Time COVID-19 Rule Out 01/18/2020 01/18/2020 01/20/2020 12:21 PM CDT COVID-19 Rule Out 10/31/2022 10/31/2022 10/31/2022 2:17 AM CDT documented as of this encounter Care Teams Middleware Developer Relationship Specialty Start Date End Date Martha Nieto DO [address] [place] [address] PCP - General 08/01/16 documented as of this encounter
--- OUTSIDE RECORDS SUMMARY | 2024-10-16 23:02 | XMS_ITS | Encounter Summary ---
Author Organization [facility] Address [address] [place] [address] Care Team Providers Care Transition Coach Name Role Phone Martha Nieto DO Primary Care Provider [phone] Encounter Details Date Type Department Care Team (Late st Contact Info) Description 04/15/2024 MyChart Message Enc [facility] Medical Group Family Medicine - [place] [address] [place] [phone] Martha Nieto DO [address] [place] [address] Hcg Social History Tobacco Use Types Packs/Day Years [...] Sex Assigned at Female 04/27/2024 3:23 PM TELEVISION PRODUCER Legal Sex Female 5:49 PM CDT Gender Identity Female 06/08/2021 9:11 AM TELEVISION PRODUCER Sexual Orientation Straight 06/08/2021 9: 11 AM TELEVISION PRODUCER documented as of this encounter Progress Notes * Tika Francis MA - 04/15/2024 12:53 PM CST Patient notified that results have been faxed to and new labs have been ordered. SheVU and thanked us. VISION PRODUCER documented in this encounter Plan of Treatment Not on file documented as of this encounter Results * HCG QUANT (SERUM)-CHORIONIC GONADOTROPIN (04/15/2024 2:10 PM TELEVISION PRODUCER) Pathologist [facility] HCG QUANTITATIVE 448 MIU/ML 04/15/19 3:37 PM TELEVISION PRODUCER [facility] Comment: WEEKS OF REFERENCE RANGES Non- female < or = 2 0.2 - 1 5 - 50 1 - 2 50 - 500 2 - 3 100 - 5000 3 - 4 500 - 10,000 4 - 5 1000 - 50,000 5 - 6 10,000 - 100,000 6 - 8 15,000 - 200,000 2 - 3 MONTHS 10,000 - 100,000 04/15/2024 2:10 PM TELEVISION PRODUCER us Martha Nieto DO LABORATORY Final Result [facility] [address] [place] [address], [place] [phone] documented in this encounter Visit Diagnoses Diagnosis Missed menses Absence of menstruation documented in this encounter Additional Health Concerns Assessment Noted Time PHQ-9 Depression Total Score: 11 023 8:25 AM TELEVISION PRODUCER documented as of this encounter Care Teams Transition Coach Relationship Specialty Start Date End Date Martha Nieto DO [address] [place] [address] PCP - General 08/01/16 documented as of this encounter
--- OUTSIDE RECORDS SUMMARY | 2024-10-16 23:02 | XMS_ITS ---
Author Organization [facility] [place] ([address]) Address [address] [place] [address] Care Team Providers Care Credit Review Analyst Name Role Phone Gerson PETERSON Martha Primary Care Provider Unavailabl Tanisha Ragsdale Unavailable [phone] [facility], Provider Unavailable Unavailab le Allergies Allergen (clinical drug ingredient) Drug/Non Drug Allergy documented on EMR Reaction Allergy Type Onset Date Status Glue GLUE (uncoded) hives Allergy Activ e REASON FOR VISIT [facility] Encounter Medications Medication SIG (Take, [...] review and pick correct strength-formulatio n from [facility] options. If intended option is not shown, discontinue and re-order from Quick Search* Active Encounters Encounter Location Date Provider Diagnosis [place] - [address] [address] 09/27/2023 Provider [facility] Allergic rhinitis due to [...] * IDANIA CarolineDOB: 2 (24 yo F)Acc No.[id number]:09/27/2023 Patient: Caroline KIRBY Provider: Jovani Callahan :2000 A ge:23 Y S ex:Female Date:09/27/2023 Address:[address] [place], [place] [id number] Pcp:Martha Nieto DO Subjective: * Chief Complaints: [...] Electronic signature of Prov toby CASTELLON-Migration on 10/16/2024 at 11:02 PM CDT Sign off status: Pending * Provider: Jovani Callahan Date: 09/27/2023 Generated for Maribell rowe/Vasile/Destineeitting on: 10/16/2024 11:02 PM CDT
--- OUTSIDE RECORDS SUMMARY | 2024-10-16 23:02 | XMS_ITS | Encounter Summary ---
Author Organization [facility] Address [address] [place] [address] Care Team Providers Care Engineering Technical Analyst Name Role Phone Martha Nieto DO Primary Care Provider [phone] Encounter Details Date Type Department Care Team (Late st Contact Info) Description 11/06/2022 MyChart Message Enc [facility] Medical Group Family Medicine - [place] [address] [place] [phone] Martha Nieto DO [address] [place] [address] Heart Rate Social History Tobacco Use Types Packs/Day Years Used Date Smoking Tobacco: Never Smokeless Tobacco: Never Comments:Patient is not real ly ready to stop vaping. Alcohol Use Standard Drinks/Week Comments Yes 0 [...] Sex Assigned at Female 04/27/2024 3:23 PM SPACE CONTROL AGENT Legal Sex Female 5:49 PM CDT Gender Identity Female 06/08/2021 9:11 AM SPACE CONTROL AGENT Sexual Orientation Straight 06/08/2021 9: 11 AM SPACE CONTROL AGENT documented as of this encounter Plan of Treatment Not on file documented as of this encounter Visit Diagnoses Not on filedocumented in this encounter Additional Health Concerns Assessment Noted Time PHQ-9 Depression Total Score: 11 023 8:25 AM SPACE CONTROL AGENT documented as of this encounter Care Teams Engineering Technical Analyst Relationship Specialty Start Date End Date Martha Nieto DO [address] [place] [address] PCP - General 08/01/16 documented as of this encounter
--- OUTSIDE RECORDS SUMMARY | 2024-10-16 23:02 | XMS_ITS | Encounter Summary ---
Author Organization [facility] Address [address] [place] [address] Care Team Providers Care Esl Tutor Name Role Phone Martha Nieto DO Primary Care Provider [phone] Encounter Details Date Type Department Care Team (Late st Contact Info) Description 11/13/2022 MyChart Message Enc [facility] Medical Group Family Medicine - [place] [address] [place] [phone] Martha Nieto DO [address] [place] [address] Throw up Social History Tobacco Use Types Packs/Day Years [...] Sex Assigned at Female 04/27/2024 3:23 PM BRANCH DIRECTOR Legal Sex Female 5:49 PM CDT Gender Identity Female 06/08/2021 9:11 AM BRANCH DIRECTOR Sexual Orientation Straight 06/08/2021 9: 11 AM BRANCH DIRECTOR documented as of this encounter Progress Notes * Katty Girard MA - 11/13/2022 9:38 AM CDTFrom: Caroline Ly To: Dr. Martha Nieto Sent: 11/13/2022 9:37 AM CDT Subject: Throw up I woke up and have bee Throwing up yellow stomach bile. I have nothing left in my system and I tried taking zofran but I just puked it up. Is there a different type of anti nausea medicine I could take instead? documented in this encounter Plan of Treatment Not on file documented as of this encounter Visit Diagnoses Not on filedocumented in this encounter Additional Health Concerns Assessment Noted Time PHQ-9 Depression Total Score: 11 023 8:25 AM BRANCH DIRECTOR documented as of this encounter Care Teams Esl Tutor Relationship Specialty Start Date End Date Martha Nieto DO [address] [place] [address] PCP - General 08/01/16 documented as of this encounter
--- OUTSIDE RECORDS SUMMARY | 2024-10-16 23:02 | XMS_ITS | Encounter Summary ---
Author Organization [facility] Address [address] [place] [address] Care Team Providers Care Flatbed Stitcher Name Role Phone Martha Nieto DO Primary Care Provider [phone] Encounter Details Date Type Department Care Team (Late st Contact Info) Description 05/30/2023 Curalatet Message Enc [facility] [place], [place] [phone] Lula Jasso MD [address] [facility] [address] [place], [place] [id number] Heart rate Social History Tobacco Use Types Packs/Day Years [...] Date Recorded Patient Health Questionnaire-2 Score 0 04/22/2023 Comments No Sex and Gender Information Value Date Recorded Sex Assigned at Female 04/27/2024 3:23 PM FURNITURE PAINTER Legal Sex Female 5:49 PM CDT Gender Identity Female 06/08/2021 9:11 AM FURNITURE PAINTER Sexual Orientation Straight 06/08/2021 9: 11 AM FURNITURE PAINTER documented as of this encounter Progress Notes * Kimi Vitale RN - 06/02/2023 12:07 PM CST Lets increase metoprolol to 50 mg QD. Monitor BP daily and call back in 1 week w/ bp readings for medication titration. Above message from Dr. Jasso. [employer] message sent to the patient with the above information. ITURE PAINTER documented in this encounter Plan of Treatment Not on file documented as of this encounter Visit Diagnoses Not on filedocumented in this encounter Additional Health Concerns Assessment Noted Time PHQ-9 Depression Total Score: 11 023 8:25 AM FURNITURE PAINTER documented as of this encounter Care Teams Flatbed Stitcher Relationship Specialty Start Date End Date Martha Nieto DO [address] [place] [address] PCP - General 08/01/16 documented as of this encounter
--- OUTSIDE RECORDS SUMMARY | 2024-10-16 23:02 | XMS_ITS | Encounter Summary ---
Author Organization [facility] Address [address] [place] [address] Care Team Providers Care Title I Instructional Assistant Name Role Phone Martha Nieto DO Primary Care Provider [phone] Encounter Details Date Type Department Care Team (Late st Contact Info) Description 04/24/2023 MyChart Message Enc [facility] Medical Group Family Medicine - [place] [address] [place] [phone] Martha Nieto DO [address] [place] [address] Allergic reaction Social History Tobacco Use Types Packs/Day Years [...] Sex Assigned at Female 04/27/2024 3:23 PM AMMONIA WORKER Legal Sex Female 5:49 PM CDT Gender Identity Female 06/08/2021 9:11 AM AMMONIA WORKER Sexual Orientation Straight 06/08/2021 9: 11 AM AMMONIA WORKER documented as of this encounter Plan of Treatment Not on file documented as of this encounter Visit Diagnoses Not on filedocumented in this encounter Additional Health Concerns Assessment Noted Time PHQ-9 Depression Total Score: 11 023 8:25 AM AMMONIA WORKER documented as of this encounter Care Teams Title I Instructional Assistant Relationship Specialty Start Date End Date Martha Nieto DO [address] [place] [address] PCP - General 08/01/16 documented as of this encounter
--- OUTSIDE RECORDS SUMMARY | 2024-10-16 23:02 | XMS_ITS | Encounter Summary ---
Author Organization [facility] Address [address] [place] [address] Care Team Providers Care Gelatin Dynamite Packing Operator Name Role Phone Martha Nieto DO Primary Care Provider [phone] Encounter Details Date Type Department Care Team (Late st Contact Info) Description 10/31/2022 MyChart Message Enc [facility] Medical Group Family Medicine - [place] [address] [place] [address] Martha Nieto DO [address] [place] [address] Question regarding URINALYSIS Social History Tobacco Use Types Packs/Day Years [...] Sex Assigned at Female 04/27/2024 3:23 PM DIRECT SERVICE WORKER Legal Sex Female 5:49 PM CDT Gender Identity Female 06/08/2021 9:11 AM DIRECT SERVICE WORKER Sexual Orientation Straight 06/08/2021 9: 11 AM DIRECT SERVICE WORKER documented as of this encounter Functional Status * Calculated C-SSRS Risk Score (Lifetime/Recent) Answer Date of Assessment Author Status No Risk Indicated 10/31/2022 12:56 AM CDT Yarelis Howe RN Active * [place] Suicide Severity Rating Scale (Screener/Recent Self-Report) Question Answer Date of Assessment Author Status 1. Wish to be (Past 1 Month) No 10/31/2022 12:56 AM CDT Teri Howe RN Ac tive 2. Non-Specific Active Suicidal Thoughts (Past 1 Month) No 10/31/2022 12:56 AM CDT Teri Howe RN Ac tive 6. Suicidal Behavior (Lifetime) No 10/31/2022 12:56 AM CDT Teri Howe RN Ac tive documented as of this encounter Plan of Treatment Not on file documented as of this encounter Visit Diagnoses Not on filedocumented in this encounter Additional Health Concerns Infection Onset Date Last Indicated Resolved Time COVID-19 Rule Out 10/31/2022 10/31/2022 10/31/2022 2:17 AM CDT Assessment Noted Time PHQ-9 Depression Total Score: 11 023 8:25 AM DIRECT SERVICE WORKER documented as of this encounter Care Teams Gelatin Dynamite Packing Operator Relationship Specialty Start Date End Date Martha Nieto DO [address] [place] [address] PCP - General 08/01/16 documented as of this encounter
--- OUTSIDE RECORDS SUMMARY | 2024-10-16 23:02 | XMS_ITS | Encounter Summary ---
Author Organization [facility] Address [address] [place] [address] Care Team Providers Care Classifying Machine Operator Name Role Phone Martha Nieto DO Primary Care Provider [phone] Encounter Details Date Type Department Care Team (Late st Contact Info) Description 03/28/2023 Tely Labst Message Enc [facility], [address] [place], [place] [phone] Lula Jasso MD [address] [facility] [address] [place], [place] [id number] Medication Social History Tobacco Use Types Packs/Day Years [...] Sex Assigned at Female 04/27/2024 3:23 PM DENTAL OFFICE MANAGER Legal Sex Female 5:49 PM CDT Gender Identity Female 06/08/2021 9:11 AM DENTAL OFFICE MANAGER Sexual Orientation Straight 06/08/2021 9: 11 AM DENTAL OFFICE MANAGER documented as of this encounter Progress Notes * Kimi Vitale RN - 03/28/2023 1:05 PM CST Thank you for letting me know. I will review the engine monitor and message you with results. Letsget you started on metoprolol XL 25 mg QD. Can you monitor your HR/BP once daily and message in 1 week with HR and BP readings. Above message from Dr. Jasso. [employer] message sent to the patient with the above information. AL OFFICE MANAGER documented in this encounter Plan of Treatment Not on file documented as of this encounter Visit Diagnoses Not on filedocumented in this encounter Additional Health Concerns Assessment Noted Time PHQ-9 Depression Total Score: 11 023 8:25 AM DENTAL OFFICE MANAGER documented as of this encounter Care Teams Classifying Machine Operator Relationship Specialty Start Date End Date Martha Nieto DO [address] [place] [address] PCP - General 08/01/16 documented as of this encounter
--- OUTSIDE RECORDS SUMMARY | 2024-10-16 23:02 | XMS_ITS | Encounter Summary ---
Author Organization [facility] Address [address] [place] [address] Care Team Providers Care Family Life Counselor Name Role Phone Martha Nieto DO Primary Care Provider [phone] Encounter Details Date Type Department Care Team (Late st Contact Info) Description 02/27/2024 MyChart Message Enc [facility] Medical Group Family Medicine - [place] [address] [place] [phone] Martha Nieto DO [address] [place] [address] Bladder problems Social History Tobacco Use Types Packs/Day Years [...] Sex Assigned at Female 04/27/2024 3:23 PM DERRICK OPERATOR Legal Sex Female 5:49 PM CDT Gender Identity Female 06/08/2021 9:11 AM DERRICK OPERATOR Sexual Orientation Straight 06/08/2021 9: 11 AM DERRICK OPERATOR documented as of this encounter Functional Status * Calculated C-SSRS Risk Score (Lifetime/Recent) Answer Date of Assessment Author Status No Risk Indicated 03/01/2024 8:09 AM Sánchez Ryan RN Active * [place] Suicide Severity Rating Scale (Screener/Recent Self-Report) Question Answer Date of Assessment Author Status 1. Wish to be (Past 1 Month) No 03/01/2024 8:09 AM Marilee Ryan RN Ac tive 2. Non-Specific Active Suicidal Thoughts (Past 1 Month) No 03/01/2024 8:09 AM Marilee Ryan RN Ac tive 6. Suicidal Behavior (Lifetime) No 03/01/2024 8:09 AM Marilee Ryan RN Ac tive documented as of this encounter Plan of Treatment Not on file documented as of this encounter Visit Diagnoses Not on filedocumented in this encounter Additional Health Concerns Assessment Noted Time PHQ-9 Depression Total Score: 11 023 8:25 AM DERRICK OPERATOR documented as of this encounter Care Teams Family Life Counselor Relationship Specialty Start Date End Date Martha Nieto DO [address] [place] [address] PCP - General 08/01/16 documented as of this encounter
--- OUTSIDE RECORDS SUMMARY | 2024-10-16 23:02 | XMS_ITS | Encounter Summary ---
Author Organization [facility] Address [address] [place] [address] Care Team Providers Care Dude Ranch Manager Name Role Phone Martha Nieto DO Primary Care Provider [phone] Encounter Details Date Type Department Care Team (Late st Contact Info) Description 04/15/2024 MyChart Message Enc [facility] Medical Group Family Medicine - [place] [address], [address] [place] [phone] Martha Nieto DO [address] [place] [address] Hcg results Social History Tobacco Use Types Packs/Day Years [...] Sex Assigned at Female 04/27/2024 3:23 PM CONFERENCE SPECIALIST Legal Sex Female 5:49 PM CDT Gender Identity Female 06/08/2021 9:11 AM CONFERENCE SPECIALIST Sexual Orientation Straight 06/08/2021 9: 11 AM CONFERENCE SPECIALIST documented as of this encounter Plan of Treatment Not on file documented as of this encounter Visit Diagnoses Not on filedocumented in this encounter Additional Health Concerns Assessment Noted Time PHQ-9 Depression Total Score: 11 023 8:25 AM CONFERENCE SPECIALIST documented as of this encounter Care Teams Dude Ranch Manager Relationship Specialty Start Date End Date Martha Nieto DO [address] [place] [address] PCP - General 08/01/16 documented as of this encounter
--- OUTSIDE RECORDS SUMMARY | 2024-10-16 23:02 | XMS_ITS | Encounter Summary ---
Author Organization [facility] Address [address] [place] [address] Care Team Providers Care Slag Production Worker Name Role Phone Martha Nieto DO Primary Care Provider [phone] Encounter Details Date Type Department Care Team (Late st Contact Info) Description 06/15/2021 MyChart Message Enc [facility] Medical [facility] Family Medicine - [place] [address] [place] [phone] Martha Nieto DO [address] [place] [address] Possible UTI Social History Tobacco Use Types Packs/Day Years [...] Sex Assigned at Female 04/27/2024 3:23 PM TINSMITH HELPER Legal Sex Female 5:49 PM CDT Gender Identity Female 06/08/2021 9:11 AM TINSMITH HELPER Sexual Orientation Straight 06/08/2021 9: 11 AM TINSMITH HELPER COVID-19 Exposure Response Date Recorded In the last 10 days, have yo u been in contact with someone who was confirmed or suspected to have Coronavirus/COVID-19? No / Unsure 06/18/2021 3:10 PM TINSMITH HELPER documented as of this encounter Plan of Treatment Not on file documented as of this encounter Visit Diagnoses Not on filedocumented in this encounter Additional Health Concerns Infection Onset Date Last Indicated Resolved Time COVID-19 Rule Out 10/31/2022 10/31/2022 10/31/2022 2:17 AM CDT Assessment Noted Time PHQ-9 Depression Total Score: 0 06/08/19 22 9:58 AM TINSMITH HELPER documented as of this encounter Care Teams Slag Production Worker Relationship Specialty Start Date End Date Martha Nieto DO [address] '[place] [address] PCP - General 08/01/16 documented as of this encounter
--- OUTSIDE RECORDS SUMMARY | 2024-10-16 23:02 | XMS_ITS | Encounter Summary ---
Author Organization [facility] Address [address] [place] [address] Care Team Providers Care Dry Room Operator Name Role Phone Martha Nieto DO Primary Care Provider [phone] Encounter Details Date Type Department Care Team (Late st Contact Info) Description 04/21/2023 MyChart Message Enc [facility] Family Medicine - [place] [address] [place] [phone] Martha Nieto DO [address] [place] [address] Allergic reaction Social History Tobacco Use Types [...] Sex Assigned at Female 04/27/2024 3:23 PM PRIOR AUTHORIZATION NURSE Legal Sex Female 5:49 PM CDT Gender Identity Female 06/08/2021 9:11 AM PRIOR AUTHORIZATION NURSE Sexual Orientation Straight 06/08/2021 9: 11 AM PRIOR AUTHORIZATION NURSE documented as of this encounter Functional Status * Over the past 2 weeks, how often have you been bothered by any of the following problems? Question Answer Date of Assessment Author Status Little interest or pleasure in doing things Not at all 04/22/2023 10:46 AM Katty Sandoval MA Ac tibalbir Feeling down, depressed, or hopeless Not at all 04/22/2023 10:46 AM Katty Sandoval MA Active Patient Health Questionnaire-2 Score 0 04/22/2023 10:46 AM Katty Sandoval MA Active * If you checked off any problems on this questionnaire so far, Question Answer Date of Assessment Author Status How difficult have these problems made it for you to do your work, take care of things at home, or get along with other people? Not difficult at all 04/22/2023 10:46 AM Katty Sandoval MA Active * Over the last 2 weeks, how often have you been bothered by any of the following problems? Question Answer Date of Assessment Author Status Feeling nervous, anxious, or on edge 0 04/22/2023 10:46 AM Katty Sandoval MA Ac tive Not being able to stop or control worrying 0 04/22/2023 10:46 AM Katty Sandoval MA A ctive Worrying too much about different things 0 04/22/2023 10:46 AM Katty Sandoval MA A ctive Trouble relaxing 0 04/22/2023 10:46 AM Katty Sandoval MA Active Being so restless that it is hard to sit still 0 04/22/2023 10:46 AM Katty Sandoval MA Active Becoming easily annoyed or irritable 0 04/22/2023 10:46 AM Katty Sandoval MA Ac tive Feeling afraid as if something awful might happen 0 04/22/2023 10:46 AM PRIOR AUTHORIZATION NURSE Katty Girard MA Ac tive LULÚ-7 Total Score 0 04/22/2023 10:46 AM PRIOR AUTHORIZATION NURSE Katty Clemente MA Active documented as of this encounter Plan of Treatment Not on file documented as of this encounter Visit Diagnoses Not on filedocumented in this encounter Additional Health Concerns Assessment Noted Time PHQ-9 Depression Total Score: 11 023 8:25 AM PRIOR AUTHORIZATION NURSE documented as of this encounter Care Teams Dry Room Operator Relationship Specialty Start Date End Date Martha Nieto DO [address] [place] [address] PCP - General 08/01/16 documented as of this encounter
--- OUTSIDE RECORDS SUMMARY | 2024-10-16 23:02 | XMS_ITS | Encounter Summary ---
Author Organization [facility] Address [address] [place] [address] Care Team Providers Care Pulley Worker Name Role Phone Martha Nieto DO Primary Care Provider [phone] Encounter Details Date Type Department Care Team (Late st Contact Info) Description 10/01/2023 MyChart Message Enc [facility] Medical Group Family Medicine - [place] [address], [address] [place] [phone] Martha Nieto DO [address] [place] [address] Oral thrush Social History Tobacco Use Types Packs/Day Years Used Date Smoking Tobacco: Never Smokeless Tobacco: Never Comments:Patient quit vaping [...] Sex Assigned at Female 04/27/2024 3:23 PM CRESTER Legal Sex Female 5:49 PM CDT Gender Identity Female 06/08/2021 9:11 AM CRESTER Sexual Orientation Straight 06/08/2021 9: 11 AM CRESTER documented as of this encounter Plan of Treatment Not on file documented as of this encounter Visit Diagnoses Not on filedocumented in this encounter Additional Health Concerns Assessment Noted Time PHQ-9 Depression Total Score: 11 023 8:25 AM CRESTER documented as of this encounter Care Teams Pulley Worker Relationship Specialty Start Date End Date Martha Nieto DO [address] [place] [address] PCP - General 08/01/16 documented as of this encounter
--- OUTSIDE RECORDS SUMMARY | 2024-10-16 23:02 | XMS_ITS | Encounter Summary ---
Author Organization [facility] Address [address] [place] [address] Care Team Providers Care Tennis Centre Manager Name Role Phone Martha Nieto DO Primary Care Provider [phone] Encounter Details Date Type Department Care Team (Late st Contact Info) Description 06/12/2023 MyChart Message Enc [facility] Medical Group Family Medicine - [place] [address] [place] [phone] Martha Nieto DO [address] [place] [address] Blood work/urine Social History Tobacco Use Types Packs/Day Years [...] Sex Assigned at Female 04/27/2024 3:23 PM ANIMAL SHELTER CLERK Legal Sex Female 5:49 PM CDT Gender Identity Female 06/08/2021 9:11 AM ANIMAL SHELTER CLERK Sexual Orientation Straight 06/08/2021 9: 11 AM ANIMAL SHELTER CLERK documented as of this encounter Plan of Treatment Not on file documented as of this encounter Visit Diagnoses Not on filedocumented in this encounter Additional Health Concerns Assessment Noted Time PHQ-9 Depression Total Score: 11 023 8:25 AM ANIMAL SHELTER CLERK documented as of this encounter Care Teams Tennis Centre Manager Relationship Specialty Start Date End Date Martha Nieto DO [address] [place] [address] PCP - General 08/01/16 documented as of this encounter
--- OUTSIDE RECORDS SUMMARY | 2024-10-16 23:02 | XMS_ITS | Encounter Summary ---
Author Organization [facility] Address [address] [place] [address] Care Team Providers Care Trip Follower Name Role Phone Martha Nieto Karlie PETERSON Primary Care Provider [phone] Encounter Details Date Type Department Care Team (Late st Contact Info) Description 10/29/2023 WriteOn Message Enc [facility] [employer] [address] [place] [address] Meliza, [facility] Provider Proof of name change Social History Tobacco Use Types Packs/Day Years [...] Sex Assigned at Female 04/27/2024 3:23 PM ADMINISTRATIVE LIAISON Legal Sex Female 5:49 PM CDT Gender Identity Female 06/08/2021 9:11 AM ADMINISTRATIVE LIAISON Sexual Orientation Straight 06/08/2021 9: 11 AM ADMINISTRATIVE LIAISON documented as of this encounter Functional Status * Over the past 2 weeks, how often have you been bothered by any of the following problems? Question Answer Date of Assessment Author Status Little interest or pleasure in doing things Not at all 10/30/2023 12:48 PM CDT Tonny Yanes, Nurse Eligibility Specialist I Active Feeling down, depressed, or hopeless Not at all 10/30/2023 12:48 PM CDT Favian Yanes, Nurse Eligibility Specialist I Active Patient Health Questionnaire-2 Score 0 10/30/2023 12:48 PM CDT Shanell Yanes, Nurse Eligibility Specialist I Active documented as of this encounter Plan of Treatment Not on file documented as of this encounter Visit Diagnoses Not on filedocumented in this encounter Additional Health Concerns Assessment Noted Time PHQ-9 Depression Total Score: 11 023 8:25 AM ADMINISTRATIVE LIAISON documented as of this encounter Care Teams Trip Follower Relationship Specialty Start Date End Date Martha Nieto DO [address] [place] [address] PCP - General 08/01/16 documented as of this encounter
--- OUTSIDE RECORDS SUMMARY | 2024-10-16 23:02 | XMS_ITS | Encounter Summary ---
Author Organization [facility] Address [address] [place] [address] Care Team Providers Care Agriculture Laboratory Technician Name Role Phone Martha Nieto DO Primary Care Provider [phone] Encounter Details Date Type Department Care Team (Late st Contact Info) Description 07/11/2021 MyChart Message Enc [facility] Medical [facility] Family Medicine - [place] [address] [place] [phone] Martha Nieto DO [address] [place] [address] Pain Social History Tobacco Use Types Packs/Day Years [...] Sex Assigned at Female 04/27/2024 3:23 PM DESIGN STUDIO CONSULTANT Legal Sex Female 5:49 PM CDT Gender Identity Female 06/08/2021 9:11 AM DESIGN STUDIO CONSULTANT Sexual Orientation Straight 06/08/2021 9: 11 AM DESIGN STUDIO CONSULTANT COVID-19 Exposure Response Date Recorded In the last 10 days, have yo u been in contact with someone who was confirmed or suspected to have Coronavirus/COVID-19? No / Unsure 07/12/2021 10:15 AM CDT documented as of this encounter Plan of Treatment Not on file documented as of this encounter Visit Diagnoses Not on filedocumented in this encounter Additional Health Concerns Infection Onset Date Last Indicated Resolved Time COVID-19 Rule Out 10/31/2022 10/31/2022 10/31/2022 2:17 AM CDT Assessment Noted Time PHQ-9 Depression Total Score: 0 06/20/19 22 2:52 PM DESIGN STUDIO CONSULTANT documented as of this encounter Care Teams Agriculture Laboratory Technician Relationship Specialty Start Date End Date Martha Nieto DO [address] '[place] [address] PCP - General 08/01/16 documented as of this encounter
--- OUTSIDE RECORDS SUMMARY | 2024-10-16 23:03 | XMS_ITS | Patient Health Record ---
Author Organization [facility] [employer] [facility] ([address]) Address [address] [place] [address] Care Team Providers Care Nurse Clinical Name Role Phone Martha Nieto DO Primary Care Provider Unavailbrianna e Tanisha Morton Unavailable [phone] Allergies Allergen (clinical drug ingredient) Drug/Non Drug Allergy documented on EMR Reaction Allergy Type Onset Date Status Glue GLUE (uncoded) hives Allergy Activ e Reason For Referral No Information Medications Medication SIG (Take, Route, Frequency, Duration) Notes Start Date End Date Status CETIRIZINE 10 mg 1 tab(s) orally once a day; Duration: 30 days 07/24/2023 Active FLUTICASONE NASAL 50 mcg/inh 2 spray(s) in each nostril once a day; Duration: 30 days 07/24/2023 Active NASAL WASHES N/A DIRECTED INTRANASALLY NEEDED; Duration: 30 *Please review for potential replacement for e-prescription and drug interaction check* 07/24/2023 Active Fluticasone Propionate 50 MCG/ACT 2 spray(s) in each nostril once a day; Duration: 30 days 07/24/2023 Active Cetirizine HCl 10 MG 1 tab(s) orally once a day; Duration: 30 days 07/24/2023 Active METOPROLOL 200 mg [...] Status Risk Notes Problem Chronic allergic conjunctivitis (10594317) Other chronic allergic conjunctivitis (H10.45) Active confirmed Problem Allergic rhinitis caused by pollen (disorder) (68851109) Allergic rhinitis due to pollen (J30.1) Active confirmed Problem Other allergic rhinitis (J30.89) Active confirmed Problem Allergic rhinitis caused by animal hair and dander ([id number]) Allergic rhinitis due to animal (cat) (dog) hair and dander (J30.81) Active confirmed Plan Of Treatment No Information Insurance Providers Payer Name Payer Address Payer Phone Subscriber Number Group Number Insured Name Patient Relationship to Insured Coverage Start Date Coverage End Date [facility] [address] [place] [phone] [id number] Chinedu Ly Child - Insured has Financial Responsibility Medical (General) History Medical History History ICD Code pre hypertension Surgical History Surgery Date(Month/Year) appendectomy 04/2016 cholecystectomy 04/2022 Tonsillectomy Gastric sleeve [place] teeth removal
--- OUTSIDE RECORDS SUMMARY | 2024-10-16 23:03 | XMS_ITS ---
Author Organization [facility] [place] ([address]) Address [address] [place] [address] Care Team Providers Care Electric Range Assembler Name Role Phone Martha Nieto DO Primary Care Provider Tanisha Hanna Unavailable [phone] REASON FOR VISIT ARC follow-up Encounters Encounter Location Date Provider Diagnosis [facility] [address] [place] [address] 11/12/2023 Tanisha Morton Plan Of Treatment No Information Progress Notes * Caroline LYDOB: 2 (24 yo F)Acc No.[id number]:11/12/2023 Progress Notes Patient: Caroline KIRBY Provider: MADELINE Cardenas :2000 A ge:23 Y S ex:Female Date:11/12/2023 [facility] [id number] Pcp:Martha Nieto DO Subjective: * Chief Complaints: * 1 . ARC follow-up. * Medical History: Objective: * Vitals: Assessment: Plan: * Treatment: * Billing Information: * Visit Code: * Procedure Codes: * Electronic signature of MADELINE Cano on 10/16/2024 at 11:02 PM CDT Sign off status: Pending * Provider: MADELINE Cardenas Date: 0 11/12/2023 Generated for Maribell rowe/Vasile/Haider on: 0 10/16/2024 11:02 PM CDT
--- OUTSIDE RECORDS SUMMARY | 2024-10-16 23:03 | XMS_ITS | Encounter Summary ---
Author Organization [facility] Address [address] [place] [address] Care Team Providers Care Welt Slasher Name Role Phone Martha Nieto DO Primary Care Provider [phone] Encounter Details Date Type Department Care Team (Late st Contact Info) Description 10/11/2020 MyChart Message Enc [facility] Medical Group Family Medicine - [place] [address] [place] [phone] Martha Nieto DO [address] [place] [address] Question Social History Tobacco Use Types Packs/Day [...] please move on to questions 3-9 0 10/11/2020 Comments No Sex and Gender Information Value Date Recorded Sex Assigned at Female 04/27/2024 3:23 PM ELECTRIC FAN ASSEMBLER Legal Sex Female 5:49 PM CDT Gender Identity Female 06/08/2021 9:11 AM ELECTRIC FAN ASSEMBLER Sexual Orientation Straight 06/08/2021 9: 11 AM ELECTRIC FAN ASSEMBLER COVID-19 Exposure Response Date Recorded In the last month, have you been in contact with someone who was confirmed or suspected to have Coronavirus / COVID-19? No / Unsure 10/11/2020 9:25 AM CDT documented as of this encounter Plan of Treatment Not on file documented as of this encounter Visit Diagnoses Not on filedocumented in this encounter Additional Health Concerns Infection Onset Date Last Indicated Resolved Time COVID-19 Rule Out 10/31/2022 10/31/2022 10/31/2022 2:17 AM CDT Assessment Noted Time PHQ-9 Depression Total Score: 0 10/12/19 21 9:36 AM CDT documented as of this encounter Care Teams Welt Slasher Relationship Specialty Start Date End Date Martha iNeto DO [address] [place] [address] PCP - General 08/01/16 documented as of this encounter
--- OUTSIDE RECORDS SUMMARY | 2024-10-16 23:03 | XMS_ITS | Encounter Summary ---
Author Organization [facility] Address [address] [place] [address] Care Team Providers Care Windows Application Packager Name Role Phone Martha Nieto DO Primary Care Provider [phone] Encounter Details Date Type Department Care Team (Late st Contact Info) Description 12/28/2020 MyChart Message Enc [facility] Medical Group Family Medicine - [place] [address] [place] [phone] Martha Nieto DO [address] [place] [address] RE: Question Social History Tobacco Use Types [...] Sex Assigned at Female 04/27/2024 3:23 PM DOCK SUPERVISOR Legal Sex Female 5:49 PM CDT Gender Identity Female 06/08/2021 9:11 AM DOCK SUPERVISOR Sexual Orientation Straight 06/08/2021 9: 11 AM DOCK SUPERVISOR documented as of this encounter Progress Notes * Katty Girard MA - 12/29/2020 10:55 AM CDT Spoke with mother and tried to call pt cell phone with no answer. LVM for pt to call back and we can get her in for an appointment. * Pennie Shah MA - 12/29/2020 8:48 AM CDT LVM for pt to make appt today documented in this encounter Plan of Treatment Not on file documented as of this encounter Visit Diagnoses Not on filedocumented in this encounter Additional Health Concerns Infection Onset Date Last Indicated Resolved Time COVID-19 Rule Out 10/31/2022 10/31/2022 10/31/2022 2:17 AM CDT Assessment Noted Time PHQ-9 Depression Total Score: 0 10/12/19 21 9:36 AM CDT documented as of this encounter Care Teams Windows Application Packager Relationship Specialty Start Date End Date Martha Nieto DO [address] [place] [address] PCP - General 08/01/16 documented as of this encounter
[2024-10-16 23:14] VITALS: BP 129/72; PULSE 83
[2024-10-16 23:15] VITALS: BP 119/69; PULSE 85
[2024-10-16 23:30] VITALS: BP 119/74; PULSE 77
[2024-10-16 23:45] VITALS: BP 120/65; PULSE 79
[2024-10-16 23:45] LABS: Add Urine Microscopic? YES; Appearance Urine Cloudy (Clear); Glucose Urine UA Negative (Negative); Leukocyte Esterase Ur 1+ LEU/UL (Negative); Need Manual Microscopic Reviewed; Nitrate Urine Negative (Negative); Non Pathogenic Casts 0-2; Specific Grav Ur 1.025 (1.001-1.035)
[2024-10-17] VITALS (18 sets, daily range): BP systolic 107–131; BP diastolic 64–81; PULSE 66–95; TEMP 36.2–36.9; O2SAT 99–100; BMI 47.2
[2024-10-17] MEDS: LACTATED RINGERS 1,000 ML 125 ML IV CONT ×2 (01:00→09:06)
[2024-10-17] MEDS: ceFAZolin 2 GM/D5W 50 ML 2 GM/50 ML BAG IVPB ×3 (01:05→17:16)
[2024-10-17] MEDS: ACETAMINOPHEN 500 MG TABLET 1000 MG PO ×2 (09:07→17:23)
--- NOTE | 2024-10-17 09:40 | P.HP_ITS ---
H&P: HPI History of Present Illness Date/Time: 10/17/24 09:40 Chief Complaint: blood in urine/ back pain Narrative: 24 yo @ 31 wks here after seeing blood in urine and back pain. Mild right flank pain noted. Mild urgency and frequency.No fevers. No contractions or other ob complaints. Good FM. Feels better this am. Review of Systems Review of Systems: All systems reviewed & are unremarkable except as noted in HPI and below (HPI) [facility] Past Medical History Medical History (Updated 10/17/24 @ 09:48 by Bryanna Swartz MD) History of spontaneous 11/04-no D&C PTSD (post-traumatic stress disorder) Episode of syncope 2019 Elevated cholesterol Anxiety and depression Environmental and seasonal allergies Surgical History Surgical History (Updated 10/17/24 @ 09:43 by Bryanna Swartz MD) History of cholecystectomy (~07/2022) History of gastric surgery (~01/2022) s/p gastric sleeve [place] teeth extracted (~2018) History of tonsillectomy (~2019) History of appendectomy (~07/2018) Family History Family History Grandparent Diabetes mellitus Father Hypertension Unknown Cancer Unknown POTS (postural orthostatic tachycardia syndrome) Other Cerebrovascular accident Social History Social History (Updated 10/17/24 @ 09:44 by Bryanna Swartz MD) Smoking status: Former smoker Tobacco type: e-cigarettes/vaping Alcohol intake: former Alcohol use details: not while Substance use: never Do You Feel Safe in your Home?: Yes Lack of Transportation: No Lack of Food: Never True Current Housing: I Have Housing Concerned About Future Housing: No Difficulty Paying Gas/Electric Bills: No Difficulty Paying for Meds: No Currently Unemployed: No Education: High School Diploma/GED Difficulty w/ Childcare or Family Care: No Gender identity (if verbalized by the patient): Female Meds Home Medications and Allergies Allergies Allergy/AdvReac Type Severity Reaction Status Date / Time NSAIDS (Non-Steroidal Allergy Unknown Other Verified 02/21/24 18:43 Anti-Inflamma adhesive AdvReac Hives Verified 10/17/24 05:35 Vital Signs Vital Signs - 24 hr 10/16/24 23:14 10/16/24 23:15 10/16/24 23:30 Pulse Rate 83 85 77 Blood Pressure 129/72 119/69 119/74 Pulse Oximetry 10/16/24 23:45 10/17/24 00:00 10/17/24 00:15 Pulse Rate 79 82 80 Blood Pressure 120/65 124/70 123/72 Pulse Oximetry 10/17/24 00:30 10/17/24 08:59 10/17/24 09:00 Pulse Rate 87 79 Blood Pressure 117/73 128/70 Pulse Oximetry 99 10/17/24 09:02 10/17/24 09:04 10/17/24 09:09 Pulse Rate 77 Blood Pressure 121/68 Pulse Oximetry 100 100 10/17/24 09:14 10/17/24 09:16 10/17/24 09:19 Pulse Rate 84 Blood Pressure 114/79 Pulse Oximetry 99 99 10/17/24 09:24 10/17/24 09:29 10/17/24 09:30 Pulse Rate 95 Blood Pressure 131/81 Pulse Oximetry 100 99 Exam Const: General: healthy appearing, comfortable and no acute distress Nutritional Appearance: obese Resp: Effort & Inspection: normal respiratory effort GI: Inspection: normal to inspection and other (gravid) GI Palp: No abdominal tenderness Auscultation: other (FHTs Category I-reactive) Back/Spine/Pelvis: Back: no CVA tenderness (none left) and CVA tenderness (mild right) H&P: Results Labs Labs: Urine 10/16/24 Range/Units 23:08 Urine Color Yellow (Yellow) Urine Appearance Cloudy H (Clear) Urine pH 6.0 (5.0-9.0) Ur Specific [place] 1.025 (1.001-1.035) Urine Protein Trace (Negative) mg/dL Urine Glucose (UA) Negative (Negative) mg/dL Assessment and Plan Assessment and plan (1) Pyelonephritis affecting : Code(s): O23.00 - Infections of kidney in , unspecified trimester Status: Acute Assessment and Plan: Likely early pyelonephritis. Continue Ancef. Due to seeing blood in urine and minimal response overnight to antibiotics, check u/s right kidney. Unlikely stone with her pain level, but will check kidney u/s for hydronephrosis or other signs.
--- NOTE | 2024-10-17 12:47 | PC.NURSE ---
Called Dr. Swartz at 1247 per her request to notify of ultrasound results in the afternoon. Notified of mild right hydronephrosis, no caliculi, and no uretal jets visualized. No new orders at this time. Will continue NST qshift and Ancef q8h as pt. is still symptomatic with flank pain. Plan is to dc to home in the morning.
[2024-10-17] MEDS: ONDANSETRON INJ 4 MG/2 ML VIAL IV PUSH (12:56)
[2024-10-18] VITALS (9 sets, daily range): BP systolic 94–110; BP diastolic 47–66; PULSE 69–87; TEMP 36.6–36.9; O2SAT 95–99
[2024-10-18] MEDS: LACTATED RINGERS 1,000 ML 125 ML IV CONT (00:44)
[2024-10-18] MEDS: ceFAZolin 2 GM/D5W 50 ML 2 GM/50 ML BAG IVPB (00:44)
--- NOTE | 2024-10-18 01:50 | PC.NURSE ---
Dr. Swartz in department. Update given on pt. No new orders @ this time.
--- NOTE | 2024-10-18 08:09 | PM.OBPNVD ---
OB - PN: Subj Subjective Date/time seen: 10/18/24 08:09 Interval history: back pain resolved late yesterday no UTI sx OB - PN: Obj Data Imaging Radiologist's impression: Impressions Renal Ultrasound 10/17/24 10:56 IMPRESSION: Mild right-sided hydronephrosis. No renal calculi. Despite prolonged interrogation, neither ureteral jet was visualized. OB - PN A/P Assessment and Plan (1) Pyelonephritis affecting : Code(s): O23.00 - Infections of kidney in , unspecified trimester Status: Acute Assessment and Plan: Urine culture with GBS at low colony count. Sx resolved. DC home on Keflex 500 mg TID x 3 additional days. Will not commit to abx for full due to low colony count. Time Spent With Patient Time: Total time spent is greater than 50% in coordination of care (as documented) at patient's floor/unit and/or counseling patient: Exam Narrative: abdomen soft, nt no cva tenderness
--- NOTE | 2024-10-19 07:53 | PM.DS ---
DS: Admitting Diagnosis Discharge Date 10/18/24 Admitting Diagnosis hematuria DS: Discharge Diagnosis Discharge Diagnosis (1) Hematuria: Code(s): R31.9 - Hematuria, unspecified Status: Acute (2) Pyelonephritis affecting : Code(s): O23.00 - Infections of kidney in , unspecified trimester Status: Acute DS: Summary Hospital Course Hospital Course: Patient arrived complaining of seeing blood in urine with back pain and urge/frequency. Treated with Ancef 2 q 8 until back pain resolved. Urine grew GBS. DC to continue Keflex 500 mg TID x 3 more days.VVS and afebile throughout. Status at Discharge Functional status at discharge: independent ambulation Overall status at discharge: patient is back to baseline Time Spent with Patient Time attestation: Total time spent providing and/or coordinating discharge services: Discharge Plan Discharge Attending physician on discharge: Bryanna Swartz Consulting providers: Rebecca Jaime Discharging Clinician: Bryanna Swartz Anticipated Discharge Date/Time: 10/18/24 08:11 Patient Disposition: Home Activity: as tolerated Diet: regular Discharge Instructions: OB ANTEPARTUM DISCHARGE INSTRUCTIONS This information is given to help you properly care for yourself at home after your discharge from the hospital. Follow these instructions until your doctor tells you otherwise. DIET: Eat Three Well Balanced Meals per Day Drink at Least Eight 8-Ounce Glasses of Caffeine-Free Beverages Daily ACTIVITY: As Tolerated RETURN TO LABOR AND DELIVERY IF YOU HAVE: Any Change In Baby's Normal Movement Pattern Any Leakage of Fluid More than 6 Contractions in an Hour Vaginal Bleeding Warning Signs of Pre-term Labor as per Handout Contractions may feel like abdominal pain, tightening, cramping, pressure, back ache, or thigh ache. FOLLOW-UP CARE: Keep Next Scheduled Appointment Valuables released to patient or family? N/A Medications from home returned to patient? N/A I Acknowledge Receipt of and Understand the Above Instructions IF YOU HAVE ANY QUESTIONS REGARDING THESE INSTRUCTIONS, PLEASE CALL [phone]. IF PROBLEMS ARISE, CALL YOUR PROVIDER. IF EMERGENCY CARE IS NEEDED, [facility]S EMERGENCY ROOM IS AVAILABLE 24 HOURS A DAY. Patient Instructions: Antibiotic Form Patient Language: Northern Irish Stand Alone Forms: General Discharge Information Follow-up/Referrals: Bryanna Swartz MD [Physician] - Keep Reg. Scheduled Appt. Discharge Medications: New cephalexin 500 mg capsule 500 mg PO Q8H Qty: 9 0RF Date of admission: 10/16/24 22:57 Primary Care Provider: Gerson,Martha Greene Admitting Provider: Bryanna Swartz Attending physician on admission: Bryanna Swartz Condition: Stable
== END 2024-10-18 08:53 | disposition home or self-care (01) ==
PROVIDERS: Admitting Provider Obstetrics & Gynecology Gynecology; PCP Family Medicine; Visit Provider Obstetrics & Gynecology Gynecology
DX: O23.03 Infections of kidney in pregnancy, third trimester (principal); O98.813 Other maternal infectious and parasitic diseases complicating pregnancy, third trimester; B95.1 Streptococcus, group B, as the cause of diseases classified elsewhere; Z3A.31 31 weeks gestation of pregnancy
CPT/HCPCS: 59025; 76775; 81001; 96361; 96365; 96374; 96375; A9270; G0378; G0379; J0690; J2405; J7120

== ENCOUNTER 2024-11-11 21:00 | Observation (INO) | payer OTHER, SELFPAY ==
[2024-11-11] VITALS (32 sets, daily range): BP systolic 102–130; BP diastolic 55–80; PULSE 66–155; TEMP 36.4; O2SAT 97–100; BMI 47.2
--- OUTSIDE RECORDS SUMMARY | 2024-11-11 21:06 | XMS_ITS | Encounter Summary ---
Author Organization [facility] Address [address] [place] [address] Care Team Providers Care Shipping And Receiving Assistant Name Role Phone Martha Nieto DO Primary Care Provider Encounter Details Date Type Department Care Team (Late st Contact Info) Description 09/29/2020 MyChart Message Enc [facility] Family Medicine - [place] [address] [place] [phone] Martha Nieto DO [address] [place] [address] RE: Question Social History Tobacco Use Types [...] Sex Assigned at Female 04/27/2024 3:23 PM QUALITY ENG Legal Sex Female 5:49 PM CDT Gender Identity Female 06/08/2021 9:11 AM QUALITY ENG Sexual Orientation Straight 06/08/2021 9: 11 AM QUALITY ENG COVID-19 Exposure Response Date Recorded In the [...] documented as of this encounter Care Teams Shipping And Receiving Assistant Relationship Specialty Start Date End Date Martha Nieto DO [address] '[place] [address] PCP - General 08/01/16 documented as of this encounter
--- OUTSIDE RECORDS SUMMARY | 2024-11-11 21:06 | XMS_ITS | Encounter Summary ---
Author Organization [facility] Address [address] [place] [address] Care Team Providers Care Lab Manager Name Role Phone Martha Nieto DO Primary Care Provider [phone] Encounter Details Date Type Department Care Team (Late st Contact Info) Description 11/06/2022 MyChart Message Enc [facility] Medical [facility] Family Medicine - [place] [address] [place] [phone] Martha Nieto DO [address] [place] [address] Heart Rate Social History Tobacco Use Types [...] Sex Assigned at Female 04/27/2024 3:23 PM DIRECTOR OF STRATEGIC INITIATIVES Legal Sex Female 5:49 PM CDT Gender Identity Female 06/08/2021 9:11 AM DIRECTOR OF STRATEGIC INITIATIVES Sexual Orientation Straight 06/08/2021 9: 11 AM DIRECTOR OF STRATEGIC INITIATIVES documented as of this encounter Plan of Treatment Not on file documented as of this encounter Visit Diagnoses Not on filedocumented in this encounter Additional Health Concerns Assessment Noted Time PHQ-9 Depression Total Score: 11 023 8:25 AM DIRECTOR OF STRATEGIC INITIATIVES documented as of this encounter Care Teams Lab Manager Relationship Specialty Start Date End Date Martha Nieto DO [address] [place] [address] PCP - General 08/01/16 documented as of this encounter
--- OUTSIDE RECORDS SUMMARY | 2024-11-11 21:06 | XMS_ITS | Encounter Summary ---
Author Organization [facility] Address [address] [place] [address] Care Team Providers Care Patent Lawyer Name Role Phone Martha Nieto DO Primary Care Provider [phone] Encounter Details Date Type Department Care Team (Late st Contact Info) Description 04/21/2023 MyChart Message Enc [facility] Medical [facility] Family Medicine - [place] [address] [place] [phone] Martha Nieto DO [address] [place] [address] Allergic reaction Social History Tobacco Use Types [...] Sex Assigned at Female 04/27/2024 3:23 PM LEATHER BELT MAKER Legal Sex Female 5:49 PM CDT Gender Identity Female 06/08/2021 9:11 AM LEATHER BELT MAKER Sexual Orientation Straight 06/08/2021 9: 11 AM LEATHER BELT MAKER documented as of this encounter Functional Status [...] awful might happen 0 04/22/2023 10:46 AM LEATHER BELT MAKER Katty Girard MA Ac tive LULÚ-7 Total Score 0 04/22/2023 10:46 AM LEATHER BELT MAKER Katty Clemente MA Active documented as of this encounter Plan of Treatment Not on file documented as of this encounter Visit Diagnoses Not on filedocumented in this encounter Additional Health Concerns Assessment Noted Time PHQ-9 Depression Total Score: 11 023 8:25 AM LEATHER BELT MAKER documented as of this encounter Care Teams Patent Lawyer Relationship Specialty Start Date End Date Martha Nieto DO [address] [place] [address] PCP - General 08/01/16 documented as of this encounter
--- OUTSIDE RECORDS SUMMARY | 2024-11-11 21:06 | XMS_ITS | Encounter Summary ---
Author Organization [facility] Address [address] [place] [address] Care Team Providers Care Bench Assembler Electrical Name Role Phone Martha Nieto DO Primary Care Provider [phone] Encounter Details Date Type Department Care Team (Late st Contact Info) Description 03/28/2023 [place] Digitalt Message Enc [facility] [place], [place] [id number] Lula Jasso MD [address] [place], [place] [id number] Medication Social History Tobacco Use Types Packs/Day [...] Sex Assigned at Female 04/27/2024 3:23 PM GENERAL UTILITY MACHINE OPERATOR Legal Sex Female 5:49 PM CDT Gender Identity Female 06/08/2021 9:11 AM GENERAL UTILITY MACHINE OPERATOR Sexual Orientation Straight 06/08/2021 9: 11 AM GENERAL UTILITY MACHINE OPERATOR documented as of this encounter Progress Notes * Kimi Vitale RN - 03/28/2023 1:05 PM CST Thank you for letting me know. I will review the nurse monitoring and message you with results. Letsget you started on metoprolol XL 25 mg QD. Can you monitor your HR/BP once daily and message in 1 week with HR and BP readings. Above message from Dr. Jasso. [employer] View Technologies[employer] message sent to the patient with the above information. RAL UTILITY MACHINE OPERATOR documented in this encounter Plan of Treatment Not on file documented as of this encounter Visit Diagnoses Not on filedocumented in this encounter Additional Health Concerns Assessment Noted Time PHQ-9 Depression Total Score: 11 023 8:25 AM GENERAL UTILITY MACHINE OPERATOR documented as of this encounter Care Teams Bench Assembler Electrical Relationship Specialty Start Date End Date Martha Nieto DO [address] [place] [address] PCP - General 08/01/16 documented as of this encounter
--- OUTSIDE RECORDS SUMMARY | 2024-11-11 21:06 | XMS_ITS | Encounter Summary ---
Author Organization [facility] Address [address] [place] [address] Care Team Providers Care Still Cleaner Tube Name Role Phone Martha Nieto DO Primary Care Provider [phone] Encounter Details Date Type Department Care Team (Late st Contact Info) Description 10/31/2022 MyChart Message Enc [facility] Family Medicine - [place] [address] [place] [address] Martha Nieto DO [address] [place] [address] Question regarding URINALYSIS Social History Tobacco Use [...] Sex Assigned at Female 04/27/2024 3:23 PM ECOMMERCE PROJECT MANAGER Legal Sex Female 5:49 PM CDT Gender Identity Female 06/08/2021 9:11 AM ECOMMERCE PROJECT MANAGER Sexual Orientation Straight 06/08/2021 9: 11 AM ECOMMERCE PROJECT MANAGER documented as of this encounter Functional Status * Calculated C-SSRS Risk Score (Lifetime/Recent) Answer Date of Assessment Author Status No Risk Indicated 10/31/2022 12:56 AM CDT Yarelis Howe RN Active * [place] Suicide Severity Rating Scale (Screener/Recent Self-Report) Question [...] Depression Total Score: 11 023 8:25 AM ECOMMERCE PROJECT MANAGER documented as of this encounter Care Teams Still Cleaner Tube Relationship Specialty Start Date End Date Martha Nieto DO [address] [place] [address] PCP - General 08/01/16 documented as of this encounter
--- OUTSIDE RECORDS SUMMARY | 2024-11-11 21:06 | XMS_ITS | Encounter Summary ---
Author Organization [facility] Address [address] [place] [address] Care Team Providers Care Seo Team Lead Name Role Phone Martha Nieto DO Primary Care Provider [phone] Encounter Details Date Type Department Care Team (Late st Contact Info) Description 01/14/2024 MyChart Message Enc [facility] Medical Group Family Medicine - [place] [address] [place] [phone] Martha Nieto DO [address] [place] [address] Fertility Social History Tobacco Use Types Packs/Day [...] Sex Assigned at Female 04/27/2024 3:23 PM SOFTWARE SUPPORT ANALYST Legal Sex Female 5:49 PM CDT Gender Identity Female 06/08/2021 9:11 AM SOFTWARE SUPPORT ANALYST Sexual Orientation Straight 06/08/2021 9: 11 AM SOFTWARE SUPPORT ANALYST documented as of this encounter Plan of Treatment Not on file documented as of this encounter Visit Diagnoses Not on filedocumented in this encounter Additional Health Concerns Assessment Noted Time PHQ-9 Depression Total Score: 11 023 8:25 AM SOFTWARE SUPPORT ANALYST documented as of this encounter Care Teams Seo Team Lead Relationship Specialty Start Date End Date Martha Nieto DO [address] [place] [address] PCP - General 08/01/16 documented as of this encounter
--- OUTSIDE RECORDS SUMMARY | 2024-11-11 21:06 | XMS_ITS | Encounter Summary ---
Author Organization [facility] Address [address] [place] [address] Care Team Providers Care Block Greaser Name Role Phone Martha Nieto DO Primary Care Provider [phone] Encounter Details Date Type Department Care Team (Late st Contact Info) Description 01/17/2020 Prep for Procedure [facility] [place] [address] Anton Maza MD [address] [place] [address] Social History Tobacco Use Types [...] Sex Assigned at Female 04/27/2024 3:23 PM INVESTMENT TRADER Legal Sex Female 5:49 PM CDT Gender Identity Female 06/08/2021 9:11 AM INVESTMENT TRADER Sexual Orientation Straight 06/08/2021 9: 11 AM INVESTMENT TRADER COVID-19 Exposure Response Date Recorded In the [...] DETECTED NOT DETECTED 01/20/2020 12:21 PM CDT [facility] Comment: A Not Detected (negative) test result [...] providers and patients using the following websites: https://www.[employer].Headstrong/home/Covid-19/HCP/NAAT/fact-sheet2 https://www.[employer]Headstrong/home/Covid-19/Patients/NAAT/ fact-sheet2 This test has been authorized by the FDA under an Emergency Use Authorization (EUA) for use by authorized laboratories. Due to the current public health emergency, [employer] is receiving a high volume of samples [...] about COVID-19 can be found at the [employer] website: www.[employer].Headstrong/Covid19. Test performed at [facility] [address] [id number] Director: DAINA BRUSH DO,MPH FIRST TEST YES 01/18/2020 3:07 PM CDT [facility] EMPLOYED IN HEALTHCARE NO 01/18/2020 3:07 PM CDT [facility] SYMPTOMATIC DEFINED BY CDC NO 01/18/2020 3:07 PM CDT [facility] DATE OF SYMPTOM ONSET UNKNOWN 01/18/2020 3:09 PM CDT [facility] HOSPITALIZATION STATUS NO 01/18/2020 3:07 PM CDT [facility] PATIENT IN ICU NO 01/18/2020 3:07 PM CDT [facility] RESIDENT OF [facility] NO 01/18/2020 3:07 PM CDT [facility] NOT 01/18/2020 3:07 PM CDT [facility] PATIENT'S RACE WHITE OR 01/18/2020 3:07 PM CDT [facility] ETHNICITY NONHISPANIC 01/18/2020 3:07 PM CDT [facility] SOURCE (QST) NASOPHARYNGEAL SWAB 01/18/2020 3:07 PM CDT [facility] NASOPHARYNGEAL SWAB / Unknown 01/18/2020 3:06 PM CDT us Anton Maza MD MICROBIOLOGY - GENERAL ORDERABL ES Final Result [facility] [address] [place] [address], [place] [phone] [facility] [address] [place] [address], documented in this encounter Visit Diagnoses Diagnosis Preop examination- Primary Preoperative examination, unspecified documented in this encounter Additional Health Concerns Infection Onset Date Last Indicated Resolved Time COVID-19 Rule Out 01/18/2020 01/18/2020 01/20/2020 12:21 PM CDT COVID-19 Rule Out 10/31/2022 10/31/2022 10/31/2022 2:17 AM CDT documented as of this encounter Care Teams Block Greaser Relationship Specialty Start Date End Date Martha Nieto DO [address] [place] [address] PCP - General 08/01/16 documented as of this encounter
--- OUTSIDE RECORDS SUMMARY | 2024-11-11 21:06 | XMS_ITS | Encounter Summary ---
Author Organization [facility] Address [address] [place] [address] Care Team Providers Care Linux Vmware Administrator Name Role Phone Martha Nieto DO Primary Care Provider [phone] Encounter Details Date Type Department Care Team (Late st Contact Info) Description 08/13/2022 MyChart Message Enc [facility] Family Medicine - [place] [address] [place] [address] Martha Nieto DO [address] [place] [address] Question regarding CBC W/DIFF AUTOMATED Social History [...] Sex Assigned at Female 04/27/2024 3:23 PM NUTRITION THERAPIST Legal Sex Female 5:49 PM CDT Gender Identity Female 06/08/2021 9:11 AM NUTRITION THERAPIST Sexual Orientation Straight 06/08/2021 9: 11 AM NUTRITION THERAPIST COVID-19 Exposure Response Date Recorded In the [...] Depression Total Score: 11 023 8:25 AM NUTRITION THERAPIST documented as of this encounter Care Teams Linux Vmware Administrator Relationship Specialty Start Date End Date Martha Nieto DO [address] '[place] [address] PCP - General 08/01/16 documented as of this encounter
--- OUTSIDE RECORDS SUMMARY | 2024-11-11 21:06 | XMS_ITS | Encounter Summary ---
Author Organization [facility] Address [address] [place] [address] Care Team Providers Care In Home Sales Consultant Name Role Phone Martha Nieto DO Primary Care Provider [phone] Encounter Details Date Type Department Care Team (Late st Contact Info) Description 12/22/2023 MyChart Message Enc [facility] Medical [facility] Family Medicine - [place] [address] [place] [phone] Martha Nieto DO [address] [place] [address] Question Social History Tobacco Use Types Packs/Day [...] Sex Assigned at Female 04/27/2024 3:23 PM CASH MANAGEMENT OFFICER Legal Sex Female 5:49 PM CDT Gender Identity Female 06/08/2021 9:11 AM CASH MANAGEMENT OFFICER Sexual Orientation Straight 06/08/2021 9: 11 AM CASH MANAGEMENT OFFICER documented as of this encounter Plan of Treatment Not on file documented as of this encounter Visit Diagnoses Not on filedocumented in this encounter Additional Health Concerns Assessment Noted Time PHQ-9 Depression Total Score: 11 023 8:25 AM CASH MANAGEMENT OFFICER documented as of this encounter Care Teams In Home Sales Consultant Relationship Specialty Start Date End Date Martha Nieto DO [address] [place] [address] PCP - General 08/01/16 documented as of this encounter
--- OUTSIDE RECORDS SUMMARY | 2024-11-11 21:06 | XMS_ITS | Encounter Summary ---
Author Organization [facility] Address [address] [place] [address] Care Team Providers Care Scan Coordinator Name Role Phone Martha Nieto DO Primary Care Provider [phone] Encounter Details Date Type Department Care Team (Late st Contact Info) Description 05/14/2022 MyChart Message Enc [facility] Medical [facility] Family Medicine - [place] [address] [place] [phone] Martha Nieto DO [address] [place] [address] Bowel movement Social History Tobacco Use Types [...] Sex Assigned at Female 04/27/2024 3:23 PM RESEARCH PHLEBOTOMIST Legal Sex Female 5:49 PM CDT Gender Identity Female 06/08/2021 9:11 AM RESEARCH PHLEBOTOMIST Sexual Orientation Straight 06/08/2021 9: 11 AM RESEARCH PHLEBOTOMIST documented as of this encounter Plan of Treatment Not on file documented as of this encounter Visit Diagnoses Not on filedocumented in this encounter Additional Health Concerns Infection Onset Date Last Indicated Resolved Time COVID-19 Rule Out 10/31/2022 10/31/2022 10/31/2022 2:17 AM CDT Assessment Noted Time PHQ-9 Depression Total Score: 0 06/20/19 22 2:52 PM RESEARCH PHLEBOTOMIST documented as of this encounter Care Teams Scan Coordinator Relationship Specialty Start Date End Date Martha Nieto DO [address] [place] [address] PCP - General 08/01/16 documented as of this encounter
--- OUTSIDE RECORDS SUMMARY | 2024-11-11 21:06 | XMS_ITS | Encounter Summary ---
Author Organization [facility] Address [address] [place] [address] Care Team Providers Care Jaw Skinner Name Role Phone Martha Nieto DO Primary Care Provider [phone] Encounter Details Date Type Department Care Team (Late st Contact Info) Description 04/01/2022 MyChart Message Enc [facility] Medical Group Family Medicine - [place] [address] [place] [phone] Martha Nieto DO [address] [place] [address] [place] Social History Tobacco Use Types Packs/Day [...] Sex Assigned at Female 04/27/2024 3:23 PM STRETCHER HELPER Legal Sex Female 5:49 PM CDT Gender Identity Female 06/08/2021 9:11 AM STRETCHER HELPER Sexual Orientation Straight 06/08/2021 9: 11 AM STRETCHER HELPER COVID-19 Exposure Response Date Recorded In the last 10 days, have yo u been in contact with someone who was confirmed or suspected to have Coronavirus/COVID-19? No / Unsure 03/19/2022 3:25 PM STRETCHER HELPER documented as of this encounter Progress Notes * Tika Delong MA - 04/02/2022 8:59 AM CST Left message for patient to call office TCHER HELPER * Tika Delong MA - 04/01/2022 10:24 AM CST Left message for patient to call office for appointment. TCHER HELPER documented in this encounter Plan of Treatment Not on file documented as of this encounter Visit Diagnoses Not on filedocumented in this encounter Additional Health Concerns Infection Onset Date Last Indicated Resolved Time COVID-19 Rule Out 10/31/2022 10/31/2022 10/31/2022 2:17 AM CDT Assessment Noted Time PHQ-9 Depression Total Score: 0 06/20/19 2:52 PM STRETCHER HELPER documented as of this encounter Care Teams Jaw Skinner Relationship Specialty Start Date End Date Martha Nieto DO [address] '[place] [address] PCP - General 08/01/16 documented as of this encounter
--- OUTSIDE RECORDS SUMMARY | 2024-11-11 21:06 | XMS_ITS | Encounter Summary ---
Author Organization [facility] Address [address] [place] [address] Care Team Providers Care Gravity Manager Name Role Phone Martha Nieto DO Primary Care Provider [phone] Encounter Details Date Type Department Care Team (Late st Contact Info) Description 02/27/2024 MyChart Message Enc [facility] Medical Group Family Medicine - [place] [address] [place] [phone] Martha Nieto DO [address] [place] [address] Bladder problems Social History Tobacco Use Types [...] Sex Assigned at Female 04/27/2024 3:23 PM VACATION GUIDE Legal Sex Female 5:49 PM CDT Gender Identity Female 06/08/2021 9:11 AM VACATION GUIDE Sexual Orientation Straight 06/08/2021 9: 11 AM VACATION GUIDE documented as of this encounter Functional Status * Calculated C-SSRS Risk Score (Lifetime/Recent) Answer Date of Assessment Author Status No Risk Indicated 03/01/2024 8:09 AM Sánchez Ryan RN Active * [place] Suicide Severity Rating Scale (Screener/Recent Self-Report) Question [...] Depression Total Score: 11 023 8:25 AM VACATION GUIDE documented as of this encounter Care Teams Gravity Manager Relationship Specialty Start Date End Date Martha Nieto DO [address] [place] [address] PCP - General 08/01/16 documented as of this encounter
--- OUTSIDE RECORDS SUMMARY | 2024-11-11 21:06 | XMS_ITS | Encounter Summary ---
Author Organization [facility] Address [address] [place] [address] Care Team Providers Care Ornamental Rail Installer Name Role Phone Martha Nieto DO Primary Care Provider [phone] Encounter Details Date Type Department Care Team (Late st Contact Info) Description 08/09/2022 Queryday Message [facility] Patient Accounts [address] [place] [address] [facility] Payment Plan Social History Tobacco Use [...] Sex Assigned at Female 04/27/2024 3:23 PM FILING AND POLISHING SUPERVISOR Legal Sex Female 5:49 PM CDT Gender Identity Female 06/08/2021 9:11 AM FILING AND POLISHING SUPERVISOR Sexual Orientation Straight 06/08/2021 9: 11 AM FILING AND POLISHING SUPERVISOR COVID-19 Exposure Response Date Recorded In the [...] Depression Total Score: 11 023 8:25 AM FILING AND POLISHING SUPERVISOR documented as of this encounter Care Teams Ornamental Rail Installer Relationship Specialty Start Date End Date Martha Nieto DO [address] '[place] [address] PCP - General 08/01/16 documented as of this encounter
--- OUTSIDE RECORDS SUMMARY | 2024-11-11 21:06 | XMS_ITS | Encounter Summary ---
Author Organization [facility] Address [address] [place] [address] Care Team Providers Care Traditional Maori Health Practitioner Name Role Phone Martha Nieto DO Primary Care Provider [phone] Encounter Details Date Type Department Care Team (Late st Contact Info) Description 07/03/2022 MyChart Message Enc [facility] Medical [facility] Family Medicine - [place] [address] [place] [phone] Martha Nieto DO [address] [place] [address] General Surgeon Social History Tobacco Use Types [...] Sex Assigned at Female 04/27/2024 3:23 PM EXCELLENCE LEADER Legal Sex Female 5:49 PM CDT Gender Identity Female 06/08/2021 9:11 AM EXCELLENCE LEADER Sexual Orientation Straight 06/08/2021 9: 11 AM EXCELLENCE LEADER COVID-19 Exposure Response Date Recorded In the [...] Depression Total Score: 11 023 8:25 AM EXCELLENCE LEADER documented as of this encounter Care Teams Traditional Maori Health Practitioner Relationship Specialty Start Date End Date Martha Nieto DO [address] [place] [address] PCP - General 08/01/16 documented as of this encounter
--- OUTSIDE RECORDS SUMMARY | 2024-11-11 21:06 | XMS_ITS | Encounter Summary ---
Author Organization [facility] Address [address] [place] [address] Care Team Providers Care Pipeline Operator Name Role Phone Martha Nieto DO Primary Care Provider [phone] Encounter Details Date Type Department Care Team (Late st Contact Info) Description 04/24/[address] [facility] Medical Group Family Medicine - [place] [address] [place] [phone] Martha Nieto DO [address] [place] [address] Allergic reaction Social History Tobacco Use Types [...] Sex Assigned at Female 04/27/2024 3:23 PM RING ROLLING MACHINE OPERATOR Legal Sex Female 5:49 PM CDT Gender Identity Female 06/08/2021 9:11 AM RING ROLLING MACHINE OPERATOR Sexual Orientation Straight 06/08/2021 9: 11 AM RING ROLLING MACHINE OPERATOR documented as of this encounter Plan of Treatment Not on file documented as of this encounter Visit Diagnoses Not on filedocumented in this encounter Additional Health Concerns Assessment Noted Time PHQ-9 Depression Total Score: 11 023 8:25 AM RING ROLLING MACHINE OPERATOR documented as of this encounter Care Teams Pipeline Operator Relationship Specialty Start Date End Date Martha Nieto DO [address] [place] [address] PCP - General 08/01/16 documented as of this encounter
--- OUTSIDE RECORDS SUMMARY | 2024-11-11 21:06 | XMS_ITS | Encounter Summary ---
Author Organization [facility] Address [address] [place] [address] Care Team Providers Care Freelance Copywriter Name Role Phone Martha Nieto DO Primary Care Provider [phone] Encounter Details Date Type Department Care Team (Late st Contact Info) Description 11/13/2022 MyChart Message Enc [facility] Medical [facility] Family Medicine - [place] [address] [place] [phone] Martha Nieto DO [address] [place] [address] Throw up Social History Tobacco Use Types [...] Sex Assigned at Female 04/27/2024 3:23 PM BOAT RIGGER Legal Sex Female 5:49 PM CDT Gender Identity Female 06/08/2021 9:11 AM BOAT RIGGER Sexual Orientation Straight 06/08/2021 9: 11 AM BOAT RIGGER documented as of this encounter Progress Notes [...] Depression Total Score: 11 023 8:25 AM BOAT RIGGER documented as of this encounter Care Teams Freelance Copywriter Relationship Specialty Start Date End Date Martha Nieto DO [address] [place] [address] PCP - General 08/01/16 documented as of this encounter
--- OUTSIDE RECORDS SUMMARY | 2024-11-11 21:06 | XMS_ITS | Encounter Summary ---
Author Organization [facility] Address [address] [place] [address] Care Team Providers Care Wharf Builder Name Role Phone Martha Nieto DO Primary Care Provider [phone] Encounter Details Date Type Department Care Team (Late st Contact Info) Description 04/15/2024 MyChart Message Enc [facility] Medical [facility] Family Medicine - [place] [address], [address] [place] [phone] Martha Nieto DO [address] [place] [address] Hcg results Social History Tobacco Use Types [...] Sex Assigned at Female 04/27/2024 3:23 PM FIELD EDUCATION COORDINATOR Legal Sex Female 5:49 PM CDT Gender Identity Female 06/08/2021 9:11 AM FIELD EDUCATION COORDINATOR Sexual Orientation Straight 06/08/2021 9: 11 AM FIELD EDUCATION COORDINATOR documented as of this encounter Plan of Treatment Not on file documented as of this encounter Visit Diagnoses Not on filedocumented in this encounter Additional Health Concerns Assessment Noted Time PHQ-9 Depression Total Score: 11 023 8:25 AM FIELD EDUCATION COORDINATOR documented as of this encounter Care Teams Wharf Builder Relationship Specialty Start Date End Date Martha Nieto DO [address] [place] [address] PCP - General 08/01/16 documented as of this encounter
--- OUTSIDE RECORDS SUMMARY | 2024-11-11 21:06 | XMS_ITS | Encounter Summary ---
Author Organization [facility] Address [address] [place] [address] Care Team Providers Care Health Service Worker Name Role Phone Martha Nieto DO Primary Care Provider [phone] Encounter Details Date Type Department Care Team (Late st Contact Info) Description 04/15/2024 MyChart Message Enc [facility] Medical Group Family Medicine - [place] [address] [place] [phone] Martha Nieto DO [address] [place] [address] Hcg Social History Tobacco Use Types Packs/Day [...] Sex Assigned at Female 04/27/2024 3:23 PM ELECTRICAL TEST TECHNICIAN Legal Sex Female 5:49 PM CDT Gender Identity Female 06/08/2021 9:11 AM ELECTRICAL TEST TECHNICIAN Sexual Orientation Straight 06/08/2021 9: 11 AM ELECTRICAL TEST TECHNICIAN documented as of this encounter Progress Notes * Tika Francis MA - 04/15/2024 12:53 PM CST Patient notified that results have been faxed to and new labs have been ordered. SheVU and thanked us. TRICAL TEST TECHNICIAN documented in this encounter Plan of Treatment Not on file documented as of this encounter Results * HCG QUANT (SERUM)-CHORIONIC GONADOTROPIN (04/15/2024 2:10 PM ELECTRICAL TEST TECHNICIAN) Pathologist [facility] HCG QUANTITATIVE 448 MIU/ML 04/15/19 3:37 PM ELECTRICAL TEST TECHNICIAN [facility] Comment: WEEKS OF REFERENCE RANGES Non- [...] MONTHS 10,000 - 100,000 04/15/2024 2:10 PM ELECTRICAL TEST TECHNICIAN us Martha Nieto DO LABORATORY Final Result [facility] [address] [place] [address], [place] [phone] documented in this encounter Visit Diagnoses Diagnosis Missed menses Absence of menstruation documented in this encounter Additional Health Concerns Assessment Noted Time PHQ-9 Depression Total Score: 11 023 8:25 AM ELECTRICAL TEST TECHNICIAN documented as of this encounter Care Teams Health Service Worker Relationship Specialty Start Date End Date Martha Nieto DO [address] [place] [address] PCP - General 08/01/16 documented as of this encounter
--- OUTSIDE RECORDS SUMMARY | 2024-11-11 21:07 | XMS_ITS | Encounter Summary ---
Author Organization [facility] Address [address] [place] [address] Care Team Providers Care Gas Appliance Servicer Helper Name Role Phone Martha Nieto DO Primary Care Provider [phone] Encounter Details Date Type Department Care Team (Late st Contact Info) Description 06/15/2021 MyChart Message Enc [facility] Family Medicine - [place] [address], [address] [place] [phone] Martha Nieto DO [address] [place] [address] Possible UTI Social History Tobacco Use Types [...] Sex Assigned at Female 04/27/2024 3:23 PM PUBLIC RELATIONS SENIOR ASSOCIATE Legal Sex Female 5:49 PM CDT Gender Identity Female 06/08/2021 9:11 AM PUBLIC RELATIONS SENIOR ASSOCIATE Sexual Orientation Straight 06/08/2021 9: 11 AM PUBLIC RELATIONS SENIOR ASSOCIATE COVID-19 Exposure Response Date Recorded In the last 10 days, have yo u been in contact with someone who was confirmed or suspected to have Coronavirus/COVID-19? No / Unsure 06/18/2021 3:10 PM PUBLIC RELATIONS SENIOR ASSOCIATE documented as of this encounter Plan of Treatment Not on file documented as of this encounter Visit Diagnoses Not on filedocumented in this encounter Additional Health Concerns Infection Onset Date Last Indicated Resolved Time COVID-19 Rule Out 10/31/2022 10/31/2022 10/31/2022 2:17 AM CDT Assessment Noted Time PHQ-9 Depression Total Score: 0 06/08/19 22 9:58 AM PUBLIC RELATIONS SENIOR ASSOCIATE documented as of this encounter Care Teams Gas Appliance Servicer Helper Relationship Specialty Start Date End Date Martha Nieto DO [address] '[place] [address] PCP - General 08/01/16 documented as of this encounter
--- OUTSIDE RECORDS SUMMARY | 2024-11-11 21:07 | XMS_ITS | Encounter Summary ---
Author Organization [facility] Address [address] [place] [address] Care Team Providers Care Supervisor Last Model Department Name Role Phone Martha Nieto DO Primary Care Provider [phone] Encounter Details Date Type Department Care Team (Late st Contact Info) Description 10/01/2023 MyChart Message Enc [facility] Medical [facility] Family Medicine - [place] [address], [address] [place] [phone] Martha Nieto DO [address] [place] [address] Oral thrush Social History Tobacco Use Types [...] Sex Assigned at Female 04/27/2024 3:23 PM RETURNED TELEPHONE EQUIPMENT APPRAISER Legal Sex Female 5:49 PM CDT Gender Identity Female 06/08/2021 9:11 AM RETURNED TELEPHONE EQUIPMENT APPRAISER Sexual Orientation Straight 06/08/2021 9: 11 AM RETURNED TELEPHONE EQUIPMENT APPRAISER documented as of this encounter Plan of Treatment Not on file documented as of this encounter Visit Diagnoses Not on filedocumented in this encounter Additional Health Concerns Assessment Noted Time PHQ-9 Depression Total Score: 11 023 8:25 AM RETURNED TELEPHONE EQUIPMENT APPRAISER documented as of this encounter Care Teams Supervisor Last Model Department Relationship Specialty Start Date End Date Martha Nieto DO [address] [place] [address] PCP - General 08/01/16 documented as of this encounter
--- OUTSIDE RECORDS SUMMARY | 2024-11-11 21:07 | XMS_ITS | Encounter Summary ---
Author Organization [facility] Address [address] [place] [address] Care Team Providers Care Camp Dining Room Attendant Name Role Phone Martha Nieto DO Primary Care Provider Encounter Details Date Type Department Care Team (Late st Contact Info) Description 06/12/2023 MyChart Message Enc [facility] Medical Group Family Medicine - [place] [address] [place] [phone] Martha Nieto DO [address] [place] [address] Blood work/urine Social History Tobacco Use Types [...] Sex Assigned at Female 04/27/2024 3:23 PM SPECIAL LIBRARY LIBRARIAN Legal Sex Female 5:49 PM CDT Gender Identity Female 06/08/2021 9:11 AM SPECIAL LIBRARY LIBRARIAN Sexual Orientation Straight 06/08/2021 9: 11 AM SPECIAL LIBRARY LIBRARIAN documented as of this encounter Plan of Treatment Not on file documented as of this encounter Visit Diagnoses Not on filedocumented in this encounter Additional Health Concerns Assessment Noted Time PHQ-9 Depression Total Score: 11 023 8:25 AM SPECIAL LIBRARY LIBRARIAN documented as of this encounter Care Teams Camp Dining Room Attendant Relationship Specialty Start Date End Date Martha Nieto DO [address] [place] [address] PCP - General 08/01/16 documented as of this encounter
--- OUTSIDE RECORDS SUMMARY | 2024-11-11 21:07 | XMS_ITS ---
Author Organization [facility] Source Produ ction (ClinicalSummary Clone) Address Unknown Care Team Providers Care Calibration Tester Name Role Phone Unavailable Primary Care Physician Unavailab le Results * [UNITY] CARRIER SCREEN Performed by: [employer] Component Value Range Date Fraction 3.4% 07/12/2024 02 :34 pm [facility] Cystic Fibrosis NIPT result LOW RISK < 1 in 5000 07/12/2024 02:34 pm [facility] Sickle Cell Disease/Beta-Thalassemia/Hemo globinopathies carrier screen NEGATIVE 07/12/2024 02:34 pm [facility] Alpha-Thalassemia carrier screen NEGATIVE 07/12/2024 02:34 pm [facility] Cystic Fibrosis carrier screen POSITIVE [id number] ([id number]) 07/12/2024 02:34 pm [facility] Spinal Muscular Atrophy carrier screen NEGATIVE 2 SMN1 copies, SNP not present 07/12/2024 02:34 pm [facility] For detailed report, see PDF See PDF 07/12/2024 02:34 pm UTC 07/12/2024 02:3 4 pm [facility] Social History Observation Value Start Date End Date
--- OUTSIDE RECORDS SUMMARY | 2024-11-11 21:07 | XMS_ITS | Encounter Summary ---
Author Organization [facility] Address [address] [place] [address] Care Team Providers Care Plastic Press Operator Name Role Phone Martha Nieto DO Primary Care Provider [phone] Encounter Details Date Type Department Care Team (Late st Contact Info) Description 07/11/2021 MyChart Message Enc [facility] Family Medicine - [place] [address] [place] [phone] Martha Nieto DO [address] [place] [address] Pain Social History Tobacco Use Types Packs/Day [...] Sex Assigned at Female 04/27/2024 3:23 PM ABRASIVE COATING MACHINE OPERATOR Legal Sex Female 5:49 PM CDT Gender Identity Female 06/08/2021 9:11 AM ABRASIVE COATING MACHINE OPERATOR Sexual Orientation Straight 06/08/2021 9: 11 AM ABRASIVE COATING MACHINE OPERATOR COVID-19 Exposure Response Date Recorded [...] Total Score: 0 06/20/19 22 2:52 PM ABRASIVE COATING MACHINE OPERATOR documented as of this encounter Care Teams Plastic Press Operator Relationship Specialty Start Date End Date Martha Nieto DO [address] '[place] [address] PCP - General 08/01/16 documented as of this encounter
--- OUTSIDE RECORDS SUMMARY | 2024-11-11 21:07 | XMS_ITS | Encounter Summary ---
Author Organization [facility] Address [address] [place] [address] Care Team Providers Care Fire Department Battalion Chief Name Role Phone Martha Nieto DO Primary Care Provider Encounter Details Date Type Department Care Team (Late st Contact Info) Description 10/11/2020 MyChart Message Enc [facility] Medical Group Family Medicine - [place] [address], [address] [place] [phone] Martha Nieto DO [address] [place] [address] Question Social History Tobacco Use Types Packs/Day [...] Sex Assigned at Female 04/27/2024 3:23 PM IN SCHOOL SUSPENSION AIDE Legal Sex Female 5:49 PM CDT Gender Identity Female 06/08/2021 9:11 AM IN SCHOOL SUSPENSION AIDE Sexual Orientation Straight 06/08/2021 9: 11 AM IN SCHOOL SUSPENSION AIDE COVID-19 Exposure Response Date Recorded In the [...] documented as of this encounter Care Teams Fire Department Battalion Chief Relationship Specialty Start Date End Date Martha Nieto DO [address] [place] [address] PCP - General 08/01/16 documented as of this encounter
--- OUTSIDE RECORDS SUMMARY | 2024-11-11 21:07 | XMS_ITS | Clinical Summary ---
Author Organization [facility] Address [address] [place] [address] Care Team Providers Care Under Ground Miner Name Role Phone Martha Nieto DO Primary Care Provider [phone] Allergies Active Allergy Reactions Criticality Noted Date [...] Encounters Date Type Department Care Team Description 10/18/2024 Scan [facility] Scanned, [facility] 10/17/2024 Scan [facility] Scanned, [facility] 10/16/2024 Scan [facility] Scanned, [facility] Ultrasound (SCAN) 10/11/2024 MyChart Message Enc [facility] Medical Group Family Medicine [address], [address] [place] [address] Martha Nieto DO Updated ROBBY Note 09/27/2024 Scan [facility] Scanned, Doc Med Group [...] / Stillbirths Mother Heart Disease Paternal Grandfather [place] Stroke Paternal Grandfather Cancer Paternal Grandmother Diabetes [...] Sex Assigned at Female 04/27/2024 3:23 PM PLUG STITCHER Legal Sex Female 5:49 PM CDT Gender Identity Female 06/08/2021 9:11 AM PLUG STITCHER Sexual Orientation Straight 06/08/2021 9: 11 AM PLUG STITCHER Last Filed Vital Signs Vital Sign Reading Time Taken Comments Blood Pressure 118/83 03/01/2024 12:00 PM PLUG STITCHER Pulse 72 03/01/2024 10:16 AM PLUG STITCHER Temperature 36.8 C (98.3 F) 03/01/2024 8:02 AM PLUG STITCHER Respiratory Rate 20 03/01/2024 10:16 AM PLUG STITCHER Oxygen Saturation 98% 03/01/2024 11:00 AM PLUG STITCHER Inhaled Oxygen Concentration - - Weight 111.1 kg (245 lb) 03/01/2024 8:02 AM PLUG STITCHER Height 162.6 cm (5' 4) 03/01/2024 8:02 AM PLUG STITCHER Body Mass Index 42.05 03/01/2024 8:02 AM PLUG STITCHER Plan of Treatment Health Maintenance Due Date [...] season) 2023 04/19/2022, 07/21/2020, 06/29/2020 PHQ-2 (Physician [place]) 04/14/2024 10/30/2023 Chlamydia Screening Females ages 16-24 03/01/2025 03/01/2024 Pneumococcal Vaccine: Pediatrics (0 to 5 Years) and At-Risk Patients (6 to 49 Years) Completed 06/27/2003, 02/03/2003, 2002, Additional history exists HPV Vaccines Completed 10/28/2013, 0306/2013, 02/04/2013 Meningococcal Vaccine Completed 02/27/2018, 014 Hepatitis B Vaccines Completed 04/17/2022, 2002, 2002, Additional history exists RSV Immunizations Under 20 Months Aged Out No longer eligible based on patient's age to complete this topic Procedures Procedure Name Priority Date/Time Associated Diagnosis Comments ULTRASOUND GENERIC (SCAN ORDER) 10/16/2024 VASCULAR LAB GENERIC (SCAN ORDER) 09/27/2024 CHLAMYDIA GC RNA STAT 03/01/2024 8:15 AM PLUG STITCHER from Last 3 Months or Most Recently Relevant to Health Maintenance Results * ULTRASOUND GENERIC (SCAN ORDER) (10/16/2024) Anatomical Region Laterality Modality Other 10/16/2024 [facility] Scanned SCANNING Final Resu lt * VASCULAR LAB GENERIC (SCAN ORDER) (09/27/2024) 09/27/2024 [facility] Scanned SCANNING Final Resu lt * CHLAMYDIA GC RNA (03/01/2024 8:15 AM PLUG STITCHER) SPEC DESCRIPTION URINE CLEAN CATCH 03/01/2024 11:11 AM PLUG STITCHER [facility] CHLAMYDIA RNA TMA NEGATIVE NEGATIVE 024 1:14 AM PLUG STITCHER [facility] Comment:PERFORMED BY NUCLEIC ACID AMPLIFICATION N.GONORRHOEAE RNA TMA NEGATIVE NEGATIVE 03/03/2024 1:14 AM PLUG STITCHER [facility] Comment:PERFORMED BY NUCLEIC ACID AMPLIFICATION URINE SPECIMEN / Unknown 03/01/2024 8:15 AM PLUG STITCHER us Brendan Lee MD MICROBIOLOGY - GENERAL ORDER SHELLEY Final Result [facility] [address] [place] [address], [place] [phone] [facility] [address] [place] [address], [place] [phone] from Last 3 Months or Most Recently Relevant to Health Maintenance Insurance [employer] Advance Directives * Full Code (Latest Code Status on File) Date Activated Date Inactivated Comments 01/21/2020 9:44 AM 01/21/2020 11:45 AM Care Teams Under Ground Miner Relationship Specialty Start Date End Date Martha Nieto DO [address] [place] [address] PCP - General 08/01/16
--- OUTSIDE RECORDS SUMMARY | 2024-11-11 21:07 | XMS_ITS | Patient Health Record ---
Author Organization [facility] [employer] ([address]) Address [address] [place] [address] Care Team Providers Care Casing Sewer Name Role Phone Martha Nieto DO Primary Care Provider Unavailbrianna e Tanisha Morton Unavailable [phone] Allergies Allergen (clinical drug ingredient) Drug/Non Drug [...] Status Risk Notes Problem Chronic allergic conjunctivitis (18934051) Other chronic allergic conjunctivitis (H10.45) Active confirmed Problem Allergic rhiniti s due to pollen (J30.1) Active confirmed Problem Allergic rhinitis (88148091) Other allergic rhinitis (J30.89) Active confirmed Problem Allergic rhinitis caused by animal hair and dander (864050412150279) Allergic rhinitis due to animal (cat) (dog) hair and dander (J30.81) Active confirmed Plan Of Treatment No Information Insurance Providers Payer Name Payer Address Payer Phone Subscriber Number Group Number Insured Name Patient Relationship to Insured Coverage Start Date Coverage End Date [facility] [address] [place] [address] [id number] Chinedu Ly Child - Insured has Financial Responsibility Medical (General) History Medical History History ICD Code pre hypertension Surgical History Surgery Date(Month/Year) appendectomy 04/2016 cholecystectomy 04/2022 Tonsillectomy Gastric sleeve [place] teeth removal
--- OUTSIDE RECORDS SUMMARY | 2024-11-11 21:07 | XMS_ITS ---
Author Organization [facility] Source Produ ction (ClinicalSummary Clone) Address Unknown Care Team Providers Care Plate Furnace Operator Name Role Phone Unavailable Primary Care Physician Unavailab le Results * [UNITY] ANEUPLOIDY NIPT Performed by: [employer] Component Value Range Date Fraction 4.2% 06/30/2024 08 :16 pm UTC Sex Chromosome Aneuploidy NOT DETECTED 08:16 pm UTC Monosomy X LOW RISK <1 in 10,000 2024 08:16 pm UTC Trisomy 13 LOW RISK <1 in 10,000 2024 08:16 pm UTC Trisomy 18 LOW RISK <1 in 10,000 2024 08:16 pm UTC Trisomy 21 LOW RISK <1 in 10,000 2024 08:16 pm UTC Sex FEMALE 06/30/2024 08:1 6 pm UTC Gestation ZARAGOZA 07/01/19 08:16 pm UTC For detailed report, see PDF See PDF 06/30/2024 08:16 pm UTC 06/30/2024 08:1 6 pm UTC Social History Observation Value Start Date End Date
--- OUTSIDE RECORDS SUMMARY | 2024-11-11 21:07 | XMS_ITS | Encounter Summary ---
Author Organization [facility] Address [address] [place] [address] Care Team Providers Care Regional Wildlife Agent Name Role Phone Martha Nieto Karlie PETERSON Primary Care Provider [phone] Encounter Details Date Type Department Care Team (Late st Contact Info) Description 10/29/2023 Liquipel Message Enc [facility] [employer] [address] [place] [address] Meliza, [facility] Provider Proof of name change Social History [...] Sex Assigned at Female 04/27/2024 3:23 PM GRAPHIC ART TECHNICIAN Legal Sex Female 5:49 PM CDT Gender Identity Female 06/08/2021 9:11 AM GRAPHIC ART TECHNICIAN Sexual Orientation Straight 06/08/2021 9: 11 AM GRAPHIC ART TECHNICIAN documented as of this encounter Functional Status * Over the past 2 weeks, how often have you been bothered by any of the following problems? Question Answer Date of Assessment Author Status Little interest or pleasure in doing things Not at all 10/30/2023 12:48 PM CDT Tonny Yanes, Nurse Flour Worker I Active Feeling down, depressed, or hopeless Not at all 10/30/2023 12:48 PM CDT Favian Yanes, Nurse Flour Worker I Active Patient Health Questionnaire-2 Score 0 10/30/2023 12:48 PM CDT Shanell Yanes, Nurse Flour Worker I Active documented as of this encounter Plan of Treatment Not on file documented as of this encounter Visit Diagnoses Not on filedocumented in this encounter Additional Health Concerns Assessment Noted Time PHQ-9 Depression Total Score: 11 023 8:25 AM GRAPHIC ART TECHNICIAN documented as of this encounter Care Teams Regional Wildlife Agent Relationship Specialty Start Date End Date Martha Nieto DO [address] [place] [address] PCP - General 08/01/16 documented as of this encounter
--- OUTSIDE RECORDS SUMMARY | 2024-11-11 21:07 | XMS_ITS | Encounter Summary ---
Author Organization [facility] Address [address] [place] [address] Care Team Providers Care Manager Web Application Name Role Phone Martha Nieto DO Primary Care Provider [phone] Encounter Details Date Type Department Care Team (Late st Contact Info) Description 12/28/2020 MyChart Message Enc [facility] Family Medicine - [place] [address] [place] [phone] Martha Nieto DO [address] [place] [address] RE: Question Social History Tobacco Use Types [...] Sex Assigned at Female 04/27/2024 3:23 PM PATIENT TRANSITION SPECIALIST Legal Sex Female 5:49 PM CDT Gender Identity Female 06/08/2021 9:11 AM PATIENT TRANSITION SPECIALIST Sexual Orientation Straight 06/08/2021 9: 11 AM PATIENT TRANSITION SPECIALIST documented as of this encounter Progress Notes [...] as of this encounter Care Teams Manager Web Application Relationship Specialty Start Date End Date Martha Nieto DO [address] [place] [address] PCP - General 08/01/16 documented as of this encounter
--- OUTSIDE RECORDS SUMMARY | 2024-11-11 21:07 | XMS_ITS ---
Author Organization [facility] [place] ([address]) Address [address] [place] [address] Care Team Providers Care Enrollment Coordinator Name Role Phone Martha Nieto DO Primary Care Provider Tanisha Hanna Unavailable [phone] REASON FOR VISIT ARC follow-up Encounters Encounter Location Date Provider Diagnosis [facility] [address] [place] [address] 11/12/2023 Tanisha Morton Plan Of Treatment No Information Progress Notes * Caroline LYDOB: 2 (24 yo F)Acc No.[id number]:11/12/2023 Progress Notes Patient: Caroline KIRBY Provider: MADELINE Cardenas :2000 A ge:23 Y S ex:Female Date:11/12/2023 [facility] [facility] Pcp:Martha Nieto DO Subjective: * Chief Complaints: * 1 . ARC follow-up. * Medical History: Objective: * Vitals: Assessment: Plan: * Treatment: * Billing Information: * Visit Code: * Procedure Codes: * Electronic signature of MADELINE Cano on 11/11/2024 at 09:07 PM CDT Sign off status: Pending * Provider: MADELINE Cardenas Date: 0 11/12/2023 Generated for Maribell rowe/Vasile/Haider on: 0 11/11/2024 09:07 PM CDT
--- OUTSIDE RECORDS SUMMARY | 2024-11-11 21:07 | XMS_ITS | Encounter Summary ---
Author Organization [facility] Address [address] [place] [address] Care Team Providers Care Drafter Automotive Design Name Role Phone Martha Nieto DO Primary Care Provider [phone] Encounter Details Date Type Department Care Team (Late st Contact Info) Description 05/30/2023 Drobot Message Enc [facility], [address] [place], [place] [phone] Lula Jasso MD Three [facility] [address] [place], [place] [id number] Heart rate Social History Tobacco Use Types [...] Sex Assigned at Female 04/27/2024 3:23 PM SCHEDULE HANGER Legal Sex Female 5:49 PM CDT Gender Identity Female 06/08/2021 9:11 AM SCHEDULE HANGER Sexual Orientation Straight 06/08/2021 9: 11 AM SCHEDULE HANGER documented as of this encounter Progress Notes * Kimi Vitale RN - 06/02/2023 12:07 PM CST Lets increase metoprolol to 50 mg QD. Monitor BP daily and call back in 1 week w/ bp readings for medication titration. Above message from Dr. Jasso. [employer] message sent to the patient with the above information. DULE HANGER documented in this encounter Plan of Treatment Not on file documented as of this encounter Visit Diagnoses Not on filedocumented in this encounter Additional Health Concerns Assessment Noted Time PHQ-9 Depression Total Score: 11 023 8:25 AM SCHEDULE HANGER documented as of this encounter Care Teams Drafter Automotive Design Relationship Specialty Start Date End Date Martha Nieto DO [address] [place] [address] PCP - General 08/01/16 documented as of this encounter
--- OUTSIDE RECORDS SUMMARY | 2024-11-11 21:07 | XMS_ITS ---
Author Organization [facility] [employer] [place] ([address]) Address [address] [place] [address] Care Team Providers Care Truck Headlight Assembler Name Role Phone Gerson PETERSON Martha Primary Care Provider Unavailabl Tanisha Ragsdale Unavailable [phone] [facility], Provider Unavailable Unavailab le Allergies Allergen (clinical drug ingredient) Drug/Non Drug Allergy documented on EMR Reaction Allergy Type Onset Date Status Glue GLUE (uncoded) hives Allergy Activ e REASON FOR VISIT [facility] Encounter Medications Medication SIG (Take, Route, [...] review and pick correct strength-formulatio n from [facility] options. If intended option is not shown, discontinue and re-order from Quick Search* Active Encounters Encounter Location Date Provider Diagnosis [facility] [place] [address] 09/27/2023 Provider ZZ-Migration Allergic rhinitis due to [...] * IDANIA CarolineDOB: 2 (24 yo F)Acc No.[id number]:09/27/2023 Patient: Caroline KIRBY Provider: Jovani Callahan :2000 A ge:23 Y S ex:Female Date:09/27/2023 Address:[address] [place], [place] [address] Pcp:Martha Nieto DO Subjective: * Chief Complaints: [...] Electronic signature of Prov toby CASTELLON-Migration on 11/11/2024 at 09:06 PM CDT Sign off status: Pending * Provider: Jovani Callahan Date: 09/27/2023 Generated for Maribell rowe/Vasile/Destineeitting on: 11/11/2024 09:06 PM CDT
[2024-11-11 21:40] LABS: Add Urine Microscopic? YES; Appearance Urine Clear (Clear); Glucose Urine UA Negative (Negative); Leukocyte Esterase Ur 1+ LEU/UL (Negative); Need Manual Microscopic Reviewed; Nitrate Urine Negative (Negative); Non Pathogenic Casts 0-2; Specific Grav Ur 1.023 (1.001-1.035)
--- NOTE | 2024-11-11 21:56 | OBADM ---
This patient, Caroline Olsen, admitted to the OB room OB Post 115 for observation. Patient/family oriented to hospital policies and general routines including ID bracelet, bed and alarms, visiting hours, pain management, procedures, bathroom and other care routines, personal items, smoking policy, room service/diet, and visiting hours. Patient/Family are encouraged to report perceived risks to care and to ask questions if they do not understand what they are told or what they should do.
[2024-11-11] MEDS: TERBUTALINE SULFATE 1 MG/ML VIAL 0.25 MG SUB-Q (22:10)
[2024-11-12] VITALS (7 sets, daily range): BP systolic 90–102; BP diastolic 48–65; PULSE 66–75; O2SAT 100
--- NOTE | 2024-11-20 06:45 | PM.OBTRLD ---
OB - Triage/Final Diagnosis Visit Information Reason for evaluation: other (abdominal pain) Comments/Additional reasons for admission: I have assessed the risk for this patient, Caroline Olsne, and determined that she would benefit from observation care. Evaluation Laboratory results: Laboratory Tests 11/11/24 21:23 Urine Color Yellow Urine Appearance Clear Urine pH 6.5 Ur Specific [place] 1.023 Urine Protein Trace Urine Glucose (UA) Negative Urine Ketones Trace H Ur Blood (Man) 2+ H Urine Nitrate Negative Urine Bilirubin Negative Urine Urobilinogen 1.0 Add Ur Microanalysis Reviewed Leukocyte Esterase Rfl 1+ H Urine RBC 51-100 H Urine WBC 6-10 H Ur Squamous Epith Cells Moderate Urine Bacteria 2+ H Urine Casts 0-2
== END 2024-11-12 00:40 | disposition home or self-care (01) ==
PROVIDERS: Admitting Provider Obstetrics & Gynecology Gynecology; PCP Family Medicine; Visit Provider Obstetrics & Gynecology Gynecology
DX: O26.893 Other specified pregnancy related conditions, third trimester (principal); R10.9 Unspecified abdominal pain; Z3A.34 34 weeks gestation of pregnancy
CPT/HCPCS: 81001; 96372; G0378; G0379; J3105

== ENCOUNTER 2024-11-15 15:19 | Outpatient (CLI) | payer OTHER, SELFPAY ==
--- NOTE | ~2024-11-15 | US_ITS ---
EXAMINATION: US OB follow up DATE: 11/15/2024 15:49 INDICATION: Estimated size greater than expected for estimated gestational age during third tri mester TECHNIQUE: Real-time ultrasound of the pelvis was performed. The interpreting radiologist was not pre sent for the study. COMPARISON: None. FINDINGS: There is a single living fetus in vertex presentation. The placenta is anterior and not low-lying. T he margins of the cervix are not sufficiently clearly visualized to assess for cervical length due to transabdominal imaging and shadowing from the skull. heart rate is 145 beats per minute (bpm). The amniotic fluid index is 17.9 cm, which is normal. (5th%-95%: 8.1-24.8 cm at 34 weeks dante mated gestational age). The following biometric data were obtained: BPD: 8.9 cm -> 36 weeks 1 days Head circumference: 31.6 cm -> 35 weeks 3 days Abdominal circumference: 31.6 cm -> 35 weeks 4 days Femur length: 6.8 cm -> 34 weeks 5 days These measurements are concordant. Head circumference to abdominal circumference ratio: 1.00 (normal range 0.93-1.10). Estimated weight: 2659 g (+/-) 399 g or 5 lbs. 14 oz. (+/-) 14 oz. IMPRESSION: 1. Single living fetus in vertex presentation with heart rate of 145 bpm. 2. Normal amniotic fluid index of 17.9 cm. 3. Estimated weight is 65th percentile by Hadlock criteria when 08/21/2024 is used as the estima kem date of delivery (RY) based upon earliest ultrasound performed at this institution on 04/26/2024. Please correlate with clinical information or earlier ultrasounds for most accurate RY. Reviewed, dictated and finalized at location A. IMPRESSION: 1. Single living fetus in vertex presentation with heart rate of 145 bpm. 2. Normal amniotic fluid index of 17.9 cm. 3. Estimated weight is 65th percentile by Hadlock criteria when 08/21/2024 is used as the estimated date of delivery (RY) based upon earliest ultrasound performed at this institution on 04/26/2024. Please correlate with clinical inf ormation or earlier ultrasounds for most accurate RY.
== END 2024-11-15 15:20 | disposition home or self-care (01) ==
LOC: MICIMG 15:19
PROVIDERS: PCP Obstetrics & Gynecology Gynecology; Visit Provider Obstetrics & Gynecology Gynecology
DX: O36.63X0 Maternal care for excessive fetal growth, third trimester, not applicable or unspecified (principal); Z3A.00 Weeks of gestation of pregnancy not specified
CPT/HCPCS: 76816

== ENCOUNTER 2024-11-15 21:21 | Observation (INO) | payer OTHER, SELFPAY ==
[2024-11-15] VITALS (16 sets, daily range): BP systolic 124; BP diastolic 69; PULSE 75–95; O2SAT 99–100; BMI 30.6
--- NOTE | 2024-11-15 21:21 | PC.NURSE ---
Pt arrives to unit with contractions.
--- NOTE | 2024-11-15 22:32 | PC.NURSE ---
Dr. Brian Siu responded to page, update on pt and contractions 3 to 10 minutes. Orders received to perform cervical exam and administer one dose of terbutaline.
[2024-11-15] MEDS: TERBUTALINE SULFATE 1 MG/ML VIAL 0.25 MG SUB-Q (22:58)
--- NOTE | 2024-11-15 23:10 | OBADM ---
This patient, Caroline Olsen, admitted to the OB room Labor/Delivery/Recovery 105 for observation. Patient/family oriented to hospital policies and general routines including ID bracelet, bed and alarms, visiting hours, pain management, procedures, bathroom and other care routines, personal items, smoking policy, room service/diet, and visiting hours. Patient/Family are encouraged to report perceived risks to care and to ask questions if they do not understand what they are told or what they should do.
--- NOTE | 2024-11-15 23:52 | PC.NURSE ---
Dr. Brian Siu responded to page, update on pt and two contractions in the hour. Orders received to discharge pt with instructions to keep next scheduled appointment and when to return to the unit.
[2024-11-16] VITALS: PULSE 87; O2SAT 100
--- NOTE | 2024-11-16 00:14 | PC.NURSE ---
Pt discharged with instructions to keep next scheduled appointment and when to return to the unit, pt verbalizes understanding.
--- NOTE | 2024-11-16 00:18 | PM.OBTRLD ---
OB - Triage/Final Diagnosis Visit Information Date of evaluation: 11/16/24 Reason for evaluation: threatened labor Comments/Additional reasons for admission: I have assessed the risk for this patient, Caroline Olsen, and determined that she would benefit from observation care. The patient was admitted complaining regular uterine contractions which responded to 1 dose of terbutaline. RN noted her cervix to be closed. She is dismissed with labor precautions Evaluation Vital signs: Vital Signs - 24 hr 11/15/24 21:36 11/15/24 22:46 11/15/24 22:52 Pulse Rate Blood Pressure Pulse Oximetry 99 99 Oxygen Delivery Room Air 11/15/24 22:56 11/15/24 23:04 11/15/24 23:09 Pulse Rate Blood Pressure Pulse Oximetry 99 100 100 Oxygen Delivery 11/15/24 23:14 11/15/24 23:19 11/15/24 23:24 Pulse Rate Blood Pressure Pulse Oximetry 100 100 100 Oxygen Delivery 11/15/24 23:29 11/15/24 23:30 11/15/24 23:34 Pulse Rate 85 Blood Pressure 124/69 Pulse Oximetry 100 100 Oxygen Delivery 11/15/24 23:39 11/15/24 23:44 11/15/24 23:49 Pulse Rate Blood Pressure Pulse Oximetry 100 99 100 Oxygen Delivery 11/15/24 23:54 11/15/24 23:55 11/16/24 00:00 Pulse Rate Blood Pressure Pulse Oximetry 100 100 100 Oxygen Delivery
== END 2024-11-16 00:14 | disposition home or self-care (01) ==
PROVIDERS: Admitting Provider Obstetrics & Gynecology; PCP Obstetrics & Gynecology Gynecology; Visit Provider Obstetrics & Gynecology
DX: O47.03 False labor before 37 completed weeks of gestation, third trimester (principal); Z3A.35 35 weeks gestation of pregnancy
CPT/HCPCS: 96372; G0378; G0379; J3105

== ENCOUNTER 2024-11-18 20:06 | Observation (INO) | payer OTHER, SELFPAY ==
[2024-11-18 20:16] VITALS: BMI 47.8
--- NOTE | 2024-11-18 20:43 | PC.NURSE ---
Called Dr. Swartz, notified of arrival ROM+ results,SVE, ctx and FHT. OK for D/C home with strict labor precautions
--- OUTSIDE RECORDS SUMMARY | 2024-11-18 20:59 | XMS_ITS | Encounter Summary ---
Author Organization [facility] Address [address] [place] [address] Care Team Providers Care Ignition Expert Name Role Phone Martha Nieto DO Primary Care Provider [phone] Encounter Details Date Type Department Care Team (Late st Contact Info) Description 08/13/2022 MyChart Message Enc [facility] Family Medicine - [place] [address] [place] [address] Martha Nieto DO [address] [place] [address] Question regarding CBC W/DIFF AUTOMATED Social History [...] Sex Assigned at Female 04/27/2024 3:23 PM CNC LATHE MACHINIST Legal Sex Female 5:49 PM CDT Gender Identity Female 06/08/2021 9:11 AM CNC LATHE MACHINIST Sexual Orientation Straight 06/08/2021 9: 11 AM CNC LATHE MACHINIST COVID-19 Exposure Response Date Recorded In the [...] Depression Total Score: 11 023 8:25 AM CNC LATHE MACHINIST documented as of this encounter Care Teams Ignition Expert Relationship Specialty Start Date End Date Martha Nieto DO [address] '[place] [address] PCP - General 08/01/16 documented as of this encounter
--- OUTSIDE RECORDS SUMMARY | 2024-11-18 20:59 | XMS_ITS | Encounter Summary ---
Author Organization [facility] Address [address] [place] [address] Care Team Providers Care Epic Interface Analyst Name Role Phone Martha Nieto DO Primary Care Provider [phone] Encounter Details Date Type Department Care Team (Late st Contact Info) Description 07/03/2022 MyChart Message Enc [facility] Family Medicine - [place] [address] [place] [phone] Martha Nieto DO [address] [place] [address] General Surgeon Social History Tobacco Use Types [...] Sex Assigned at Female 04/27/2024 3:23 PM RECORDER HELPER SEISMOGRAPH Legal Sex Female 5:49 PM CDT Gender Identity Female 06/08/2021 9:11 AM RECORDER HELPER SEISMOGRAPH Sexual Orientation Straight 06/08/2021 9: 11 AM RECORDER HELPER SEISMOGRAPH COVID-19 Exposure Response Date Recorded In the [...] Depression Total Score: 11 023 8:25 AM RECORDER HELPER SEISMOGRAPH documented as of this encounter Care Teams Epic Interface Analyst Relationship Specialty Start Date End Date Martha Nieto DO [address] [place] [address] PCP - General 08/01/16 documented as of this encounter
--- OUTSIDE RECORDS SUMMARY | 2024-11-18 20:59 | XMS_ITS | Encounter Summary ---
Author Organization [facility] Address [address] [place] [address] Care Team Providers Care Top Distribution Executive Name Role Phone Martha Nieto DO Primary Care Provider [phone] Encounter Details Date Type Department Care Team (Late st Contact Info) Description 03/28/2023 [employer]t Message Enc [facility], [address] [place], [place] [phone] Lula Jasso MD [address] [address] [place], [place] [id number] Medication Social History Tobacco Use Types Packs/Day [...] Sex Assigned at Female 04/27/2024 3:23 PM RADIATION ENGINEER Legal Sex Female 5:49 PM CDT Gender Identity Female 06/08/2021 9:11 AM RADIATION ENGINEER Sexual Orientation Straight 06/08/2021 9: 11 AM RADIATION ENGINEER documented as of this encounter Progress Notes * Kimi Vitale RN - 03/28/2023 1:05 PM CST Thank you for letting me know. I will review the library monitor and message you with results. Letsget you started on metoprolol XL 25 mg QD. Can you monitor your HR/BP once daily and message in 1 week with HR and BP readings. Above message from Dr. Jasso. [employer] message sent to the patient with the above information. ATION ENGINEER documented in this encounter Plan of Treatment Not on file documented as of this encounter Visit Diagnoses Not on filedocumented in this encounter Additional Health Concerns Assessment Noted Time PHQ-9 Depression Total Score: 11 023 8:25 AM RADIATION ENGINEER documented as of this encounter Care Teams Top Distribution Executive Relationship Specialty Start Date End Date Martha Nieto DO [address] [place] [address] PCP - General 08/01/16 documented as of this encounter
--- OUTSIDE RECORDS SUMMARY | 2024-11-18 20:59 | XMS_ITS ---
Author Organization [facility] ([address]) Address [address] [place] [address] Care Team Providers Care Associate Pastor Name Role Phone Gerson PETERSON Martha Primary Care Provider Unavailabl Tanisha Ragsdale Unavailable [phone] [facility], Provider Unavailable Unavailab le Allergies Allergen (clinical drug ingredient) Drug/Non Drug Allergy documented on EMR Reaction Allergy Type Onset Date Status Glue GLUE (uncoded) hives Allergy Activ e REASON FOR VISIT [facility] Encounter Medications Medication SIG (Take, [...] review and pick correct strength-formulatio n from [facility] options. If intended option is not shown, discontinue and re-order from Quick Search* Active Encounters Encounter Location Date Provider Diagnosis [facility] - [place] [address] 09/27/2023 Provider ZZ-Migration Allergic rhinitis due to [...] * IDANIA CarolineDOB: 2 (24 yo F)Acc No.[id number]:09/27/2023 Patient: Caroline KIRBY Provider: Jovani Callahan :2000 A ge:23 Y S ex:Female Date:09/27/2023 Address:[address] [place], [place] [address] Pcp:Martha Nieto DO Subjective: * Chief Complaints: [...] Electronic signature of Prov toby CASTELLON-Migration on 11/18/2024 at 08:59 PM CDT Sign off status: Pending * Provider: Jovani Callahan Date: 09/27/2023 Generated for Maribell rowe/Vasile/Destineeitting on: 0 11/18/2024 08:59 PM CDT
--- OUTSIDE RECORDS SUMMARY | 2024-11-18 20:59 | XMS_ITS | Encounter Summary ---
Author Organization [facility] Address [address] [place] [address] Care Team Providers Care Refractory Furnace Designer Name Role Phone Martha Nieto DO Primary Care Provider [phone] Encounter Details Date Type Department Care Team (Late st Contact Info) Description 11/13/2022 MyChart Message Enc [facility] Family Medicine - [place] [address] [place] [phone] Martha Nieto DO [address] [place] [address] Throw up Social History Tobacco Use Types [...] Sex Assigned at Female 04/27/2024 3:23 PM REGULATORY COMPLIANCE ENGINEER Legal Sex Female 5:49 PM CDT Gender Identity Female 06/08/2021 9:11 AM REGULATORY COMPLIANCE ENGINEER Sexual Orientation Straight 06/08/2021 9: 11 AM REGULATORY COMPLIANCE ENGINEER documented as of this encounter Progress [...] Depression Total Score: 11 023 8:25 AM REGULATORY COMPLIANCE ENGINEER documented as of this encounter Care Teams Refractory Furnace Designer Relationship Specialty Start Date End Date Martha Nieto DO [address] [place] [address] PCP - General 08/01/16 documented as of this encounter
--- OUTSIDE RECORDS SUMMARY | 2024-11-18 20:59 | XMS_ITS | Encounter Summary ---
Author Organization [facility] Address [address] [place] [address] Care Team Providers Care Windlasser Name Role Phone Martha Nieto DO Primary Care Provider [phone] Encounter Details Date Type Department Care Team (Late st Contact Info) Description 09/29/2020 MyChart Message Enc [facility] Family Medicine - [place] [address], [address] [place] [phone] Martha Nieto DO [address] [place] [address] RE: Question Social History Tobacco Use Types [...] Sex Assigned at Female 04/27/2024 3:23 PM CRINKLING MACHINE OPERATOR Legal Sex Female 5:49 PM CDT Gender Identity Female 06/08/2021 9:11 AM CRINKLING MACHINE OPERATOR Sexual Orientation Straight 06/08/2021 9: 11 AM CRINKLING MACHINE OPERATOR COVID-19 Exposure Response Date Recorded [...] documented as of this encounter Care Teams Windlasser Relationship Specialty Start Date End Date Martha Nieto DO [address] '[place] [address] PCP - General 08/01/16 documented as of this encounter
--- OUTSIDE RECORDS SUMMARY | 2024-11-18 20:59 | XMS_ITS ---
Author Organization [facility] [place] ([address]) Address [address] [place] [address] Care Team Providers Care Label Operator Name Role Phone Martha Nieto DO Primary Care Provider Tanisha Hanna Unavailable [phone] REASON FOR VISIT ARC follow-up Encounters Encounter Location Date Provider Diagnosis [facility] [address] [place] [address] 11/12/2023 Tanisha Morton Plan Of Treatment No Information Progress Notes * Caroline LYDOB: 2 (24 yo F)Acc No.[id number]:11/12/2023 Progress Notes Patient: Caroline KIRBY Provider: MADELINE Cardenas :2000 A ge:23 Y S ex:Female Date:11/12/2023 [facility] [facility] Pcp:Martha Nieto DO Subjective: * Chief Complaints: * 1 . ARC follow-up. * Medical History: Objective: * Vitals: Assessment: Plan: * Treatment: * Billing Information: * Visit Code: * Procedure Codes: * Electronic signature of MADELINE Cano on 11/18/2024 at 08:59 PM CDT Sign off status: Pending * Provider: MADELINE Cardenas Date: 0 11/12/2023 Generated for Maribell rowe/Vasile/Haider on: 0 11/18/2024 08:59 PM CDT
--- OUTSIDE RECORDS SUMMARY | 2024-11-18 20:59 | XMS_ITS | Encounter Summary ---
Author Organization [facility] Address [address] [place] [address] Care Team Providers Care Farmworker Chicken Farm Name Role Phone Martha Nieto DO Primary Care Provider [phone] Encounter Details Date Type Department Care Team (Late st Contact Info) Description 12/22/2023 MyChart Message Enc [facility] Family Medicine - [place] [address] [place] [phone] Martha Nieto DO [address] [place] [address] Question Social History Tobacco Use Types Packs/Day [...] Sex Assigned at Female 04/27/2024 3:23 PM INTEGRATED MARKETING INTERN Legal Sex Female 5:49 PM CDT Gender Identity Female 06/08/2021 9:11 AM INTEGRATED MARKETING INTERN Sexual Orientation Straight 06/08/2021 9: 11 AM INTEGRATED MARKETING INTERN documented as of this encounter Plan of Treatment Not on file documented as of this encounter Visit Diagnoses Not on filedocumented in this encounter Additional Health Concerns Assessment Noted Time PHQ-9 Depression Total Score: 11 023 8:25 AM INTEGRATED MARKETING INTERN documented as of this encounter Care Teams Farmworker Chicken Farm Relationship Specialty Start Date End Date Martha Nieto DO [address] [place] [address] PCP - General 08/01/16 documented as of this encounter
--- OUTSIDE RECORDS SUMMARY | 2024-11-18 20:59 | XMS_ITS | Encounter Summary ---
Author Organization [facility] Address [address] [place] [address] Care Team Providers Care High School Art Teacher Name Role Phone Martha Nieto DO Primary Care Provider [phone] Encounter Details Date Type Department Care Team (Late st Contact Info) Description 01/17/2020 Prep for Procedure [facility] Pre-Admission Testing [facility] [place] [address] Anton Maza MD [address] [place] [address] Social History Tobacco Use Types [...] Assigned at Female 04/27/2024 3:23 PM DIRECTOR COMMUNITY HEALTH NURSING Legal Sex Female 5:49 PM CDT Gender Identity Female 06/08/2021 9:11 AM DIRECTOR COMMUNITY HEALTH NURSING Sexual Orientation Straight 06/08/2021 9: 11 AM DIRECTOR COMMUNITY HEALTH NURSING COVID-19 Exposure Response Date Recorded In the [...] DETECTED NOT DETECTED 01/20/2020 12:21 PM CDT [facility] Comment: A Not Detected (negative) test [...] providers and patients using the following websites: https://www.[employer]/home/Covid-19/HCP/NAAT/fact-sheet2 https://www.[employer]/home/Covid-19/Patients/NAAT/ fact-sheet2 This test has been authorized by the FDA under an Emergency Use Authorization (EUA) for use by authorized laboratories. Due to the current public health emergency, [facility] is receiving a high volume of samples [...] about COVID-19 can be found at the [facility] website: www.[employer]/Covid19. Test performed at [facility] [address] [id number] Director: DAINA BRUSH DO,MPH FIRST TEST YES 01/18/2020 3:07 PM CDT [facility] EMPLOYED IN HEALTHCARE NO 01/18/2020 3:07 PM CDT [facility] SYMPTOMATIC DEFINED BY CDC NO 01/18/2020 3:07 PM CDT [facility] DATE OF SYMPTOM ONSET UNKNOWN 01/18/2020 3:09 PM CDT [facility] HOSPITALIZATION STATUS NO 01/18/2020 3:07 PM CDT [facility] PATIENT IN ICU NO 01/18/2020 3:07 PM CDT [facility] NO 01/18/2020 3:07 PM CDT [facility] NOT 01/18/2020 3:07 PM CDT [facility] PATIENT'S RACE WHITE OR 01/18/2020 3:07 PM CDT [facility] ETHNICITY NONHISPANIC 01/18/2020 3:07 PM CDT [facility] SOURCE (QST) NASOPHARYNGEAL SWAB 01/18/2020 3:07 PM CDT [facility] NASOPHARYNGEAL SWAB / Unknown 01/18/2020 3:06 PM CDT us Anton Maza MD MICROBIOLOGY - GENERAL ORDERABL ES Final Result [facility] [address] [place] [address], [place] [phone] [facility] [address] [place] [address], documented in this encounter Visit Diagnoses Diagnosis Preop examination- Primary Preoperative examination, unspecified documented in this encounter Additional Health Concerns Infection Onset Date Last Indicated Resolved Time COVID-19 Rule Out 01/18/2020 01/18/2020 01/20/2020 12:21 PM CDT COVID-19 Rule Out 10/31/2022 10/31/2022 10/31/2022 2:17 AM CDT documented as of this encounter Care Teams High School Art Teacher Relationship Specialty Start Date End Date Martha Nieto DO [address] [place] [address] PCP - General 08/01/16 documented as of this encounter
--- OUTSIDE RECORDS SUMMARY | 2024-11-18 20:59 | XMS_ITS | Encounter Summary ---
Author Organization [facility] Address [address] [place] [address] Care Team Providers Care Scientific Laboratory Supervisor Name Role Phone Martha Nieto DO Primary Care Provider [phone] Encounter Details Date Type Department Care Team (Late st Contact Info) Description 06/12/2023 MyChart Message Enc [facility] Medical Group Family Medicine - [place] [address] [place] [phone] Martha Nieto DO [address] [place] [address] Blood work/urine Social History Tobacco Use Types [...] Sex Assigned at Female 04/27/2024 3:23 PM COMPARATIVE SOCIOLOGY PROFESSOR Legal Sex Female 5:49 PM CDT Gender Identity Female 06/08/2021 9:11 AM COMPARATIVE SOCIOLOGY PROFESSOR Sexual Orientation Straight 06/08/2021 9: 11 AM COMPARATIVE SOCIOLOGY PROFESSOR documented as of this encounter Plan of Treatment Not on file documented as of this encounter Visit Diagnoses Not on filedocumented in this encounter Additional Health Concerns Assessment Noted Time PHQ-9 Depression Total Score: 11 023 8:25 AM COMPARATIVE SOCIOLOGY PROFESSOR documented as of this encounter Care Teams Scientific Laboratory Supervisor Relationship Specialty Start Date End Date Martha Nieto DO [address] [place] [address] PCP - General 08/01/16 documented as of this encounter
--- OUTSIDE RECORDS SUMMARY | 2024-11-18 20:59 | XMS_ITS | Encounter Summary ---
Author Organization [facility] Address [address] [place] [address] Care Team Providers Care Bankruptcy Processor Name Role Phone Martha Nieto DO Primary Care Provider [phone] Encounter Details Date Type Department Care Team (Late st Contact Info) Description 11/06/2022 MyChart Message Enc [facility] Medical Group Family Medicine - [place] [address] [place] [phone] Martha Nieto DO [address] [place] [address] Heart Rate Social History Tobacco Use Types [...] Sex Assigned at Female 04/27/2024 3:23 PM BOX ICER Legal Sex Female 5:49 PM CDT Gender Identity Female 06/08/2021 9:11 AM BOX ICER Sexual Orientation Straight 06/08/2021 9: 11 AM BOX ICER documented as of this encounter Plan of Treatment Not on file documented as of this encounter Visit Diagnoses Not on filedocumented in this encounter Additional Health Concerns Assessment Noted Time PHQ-9 Depression Total Score: 11 023 8:25 AM BOX ICER documented as of this encounter Care Teams Bankruptcy Processor Relationship Specialty Start Date End Date Martha Nieto DO [address] [place] [address] PCP - General 08/01/16 documented as of this encounter
--- OUTSIDE RECORDS SUMMARY | 2024-11-18 20:59 | XMS_ITS | Encounter Summary ---
Author Organization [facility] Address [address] [place] [address] Care Team Providers Care Rv Body Mechanic Name Role Phone Martha Nieto DO Primary Care Provider [phone] Encounter Details Date Type Department Care Team (Late st Contact Info) Description 10/01/2023 MyChart Message Enc [facility] Medical Group Family Medicine - [place] [address] [place] [phone] Martha Nieto DO [address] [place] [address] Oral thrush Social History Tobacco Use Types [...] Sex Assigned at Female 04/27/2024 3:23 PM PIANO STRINGER Legal Sex Female 5:49 PM CDT Gender Identity Female 06/08/2021 9:11 AM PIANO STRINGER Sexual Orientation Straight 06/08/2021 9: 11 AM PIANO STRINGER documented as of this encounter Plan of Treatment Not on file documented as of this encounter Visit Diagnoses Not on filedocumented in this encounter Additional Health Concerns Assessment Noted Time PHQ-9 Depression Total Score: 11 023 8:25 AM PIANO STRINGER documented as of this encounter Care Teams Rv Body Mechanic Relationship Specialty Start Date End Date Martha Nieto DO [address] [place] [address] PCP - General 08/01/16 documented as of this encounter
--- OUTSIDE RECORDS SUMMARY | 2024-11-18 20:59 | XMS_ITS | Encounter Summary ---
Author Organization [facility] Address [address] [place] [address] Care Team Providers Care Senior Physical Therapist Name Role Phone Martha Nieto DO Primary Care Provider [phone] Encounter Details Date Type Department Care Team (Late st Contact Info) Description 05/14/2022 MyChart Message Enc [facility] Medical Group Family Medicine - [place] [address] [place] [phone] Martha Nieto DO [address] [place] [address] Bowel movement Social History Tobacco Use Types [...] Sex Assigned at Female 04/27/2024 3:23 PM CARD DOFFER Legal Sex Female 5:49 PM CDT Gender Identity Female 06/08/2021 9:11 AM CARD DOFFER Sexual Orientation Straight 06/08/2021 9: 11 AM CARD DOFFER documented as of this encounter Plan of Treatment Not on file documented as of this encounter Visit Diagnoses Not on filedocumented in this encounter Additional Health Concerns Infection Onset Date Last Indicated Resolved Time COVID-19 Rule Out 10/31/2022 10/31/2022 10/31/2022 2:17 AM CDT Assessment Noted Time PHQ-9 Depression Total Score: 0 06/20/19 22 2:52 PM CARD DOFFER documented as of this encounter Care Teams Senior Physical Therapist Relationship Specialty Start Date End Date Martha Nieto DO [address] [place] [address] PCP - General 08/01/16 documented as of this encounter
--- OUTSIDE RECORDS SUMMARY | 2024-11-18 20:59 | XMS_ITS | Encounter Summary ---
Author Organization [facility] Address [address] [place] [address] Care Team Providers Care Computed Tomography Technologist Name Role Phone Martha Nieto DO Primary Care Provider [phone] Encounter Details Date Type Department Care Team (Late st Contact Info) Description 10/31/2022 MyChart Message Enc [facility] Medical Group Family Medicine - [place] [address] [place] [address] Martha Nieto DO [address] [place] [address] Question regarding URINALYSIS Social History Tobacco Use [...] Sex Assigned at Female 04/27/2024 3:23 PM COMMISSIONS MANAGER Legal Sex Female 5:49 PM CDT Gender Identity Female 06/08/2021 9:11 AM COMMISSIONS MANAGER Sexual Orientation Straight 06/08/2021 9: 11 AM COMMISSIONS MANAGER documented as of this encounter Functional Status * Calculated C-SSRS Risk Score (Lifetime/Recent) Answer Date of Assessment Author Status No Risk Indicated 10/31/2022 12:56 AM CDT Yarelis Howe RN Active * Ideal Suicide Severity Rating Scale (Screener/Recent Self-Report) Question [...] Depression Total Score: 11 023 8:25 AM COMMISSIONS MANAGER documented as of this encounter Care Teams Computed Tomography Technologist Relationship Specialty Start Date End Date Martha Nieto DO [address] [place] [address] PCP - General 08/01/16 documented as of this encounter
--- OUTSIDE RECORDS SUMMARY | 2024-11-18 20:59 | XMS_ITS | Encounter Summary ---
Author Organization [facility] Address [address] [place] [address] Care Team Providers Care Newspaper Press Operator Apprentice Name Role Phone Martha Nieto DO Primary Care Provider [phone] Encounter Details Date Type Department Care Team (Late st Contact Info) Description 04/15/2024 MyChart Message Enc [facility] Medical Group Family Medicine - [place] [address], [address] [place] [phone] Martha Nieto DO [address] [place] [address] Hcg Social History Tobacco Use Types Packs/Day [...] Sex Assigned at Female 04/27/2024 3:23 PM SUBSURFACE AUGMENTEE OPERATOR Legal Sex Female 5:49 PM CDT Gender Identity Female 06/08/2021 9:11 AM SUBSURFACE AUGMENTEE OPERATOR Sexual Orientation Straight 06/08/2021 9: 11 AM SUBSURFACE AUGMENTEE OPERATOR documented as of this encounter Progress Notes * Tika Francis MA - 04/15/2024 12:53 PM CST Patient notified that results have been faxed to and new labs have been ordered. SheVU and thanked us. URFACE AUGMENTEE OPERATOR documented in this encounter Plan of Treatment Not on file documented as of this encounter Results * HCG QUANT (SERUM)-CHORIONIC GONADOTROPIN (04/15/2024 2:10 PM SUBSURFACE AUGMENTEE OPERATOR) Pathologist [facility] HCG QUANTITATIVE 448 MIU/ML 04/15/19 3:37 PM SUBSURFACE AUGMENTEE OPERATOR [facility] Comment: WEEKS OF REFERENCE [...] MONTHS 10,000 - 100,000 04/15/2024 2:10 PM SUBSURFACE AUGMENTEE OPERATOR us Martha Nieto DO LABORATORY Final Result [facility] [address] [place] [address], [place] [phone] documented in this encounter Visit Diagnoses Diagnosis Missed menses Absence of menstruation documented in this encounter Additional Health Concerns Assessment Noted Time PHQ-9 Depression Total Score: 11 023 8:25 AM SUBSURFACE AUGMENTEE OPERATOR documented as of this encounter Care Teams Newspaper Press Operator Apprentice Relationship Specialty Start Date End Date Martha Nieto DO [address] [place] [address] PCP - General 08/01/16 documented as of this encounter
--- OUTSIDE RECORDS SUMMARY | 2024-11-18 20:59 | XMS_ITS | Encounter Summary ---
Author Organization [facility] Address [address] [place] [address] Care Team Providers Care Hat Blocker Name Role Phone Martha Nieto DO Primary Care Provider [phone] Encounter Details Date Type Department Care Team (Late st Contact Info) Description 12/28/[address] [facility] Medical Group Family Medicine - [place] [address], [address] [place] [phone] Martha Nieto DO [address] [place] [address] RE: Question Social History Tobacco Use Types [...] Sex Assigned at Female 04/27/2024 3:23 PM TIMBER RIDER Legal Sex Female 5:49 PM CDT Gender Identity Female 06/08/2021 9:11 AM TIMBER RIDER Sexual Orientation Straight 06/08/2021 9: 11 AM TIMBER RIDER documented as of this encounter Progress Notes * Katty Girrad MA - 12/29/2020 10:55 AM CDT Spoke [...] documented as of this encounter Care Teams Hat Blocker Relationship Specialty Start Date End Date Martha Nieto DO [address] [place] [address] PCP - General 08/01/16 documented as of this encounter
--- OUTSIDE RECORDS SUMMARY | 2024-11-18 20:59 | XMS_ITS | Patient Health Record ---
Author Organization [facility] [place] ([address]) Address [address] [place] [address] Care Team Providers Care Steel Detailer Name Role Phone Martha Nieto DO Primary Care Provider Unavailbrianna e Tanisha Morton Unavailable [phone] Allergies Allergen (clinical drug ingredient) Drug/Non Drug [...] Status Risk Notes Problem Chronic allergic conjunctivitis (60165342) Other chronic allergic conjunctivitis (H10.45) Active confirmed Problem Allergic rhinitis caused by pollen (disorder) (07842831) Allergic rhinitis due to pollen (J30.1) Active confirmed Problem Allergic rhinitis (31793836) Other allergic rhinitis (J30.89) Active confirmed Problem Allergic rhinitis caused by animal hair and dander (832557598539819) Allergic rhinitis due to animal (cat) (dog) hair and dander (J30.81) Active confirmed Plan Of Treatment No Information Insurance Providers Payer Name Payer Address Payer Phone Subscriber Number Group Number Insured Name Patient Relationship to Insured Coverage Start Date Coverage End Date [facility] [address] [place] [phone] [id number] Chinedu Ly Child - Insured has Financial Responsibility Medical (General) History Medical History History ICD Code pre hypertension Surgical History Surgery Date(Month/Year) appendectomy 04/2016 cholecystectomy 04/2022 Tonsillectomy Gastric sleeve [place] teeth removal
--- OUTSIDE RECORDS SUMMARY | 2024-11-18 20:59 | XMS_ITS | Encounter Summary ---
Author Organization [facility] Address [address] [place] [address] Care Team Providers Care Landing Support Specialist Name Role Phone Martha Nieto DO Primary Care Provider [phone] Encounter Details Date Type Department Care Team (Late st Contact Info) Description 04/01/2022 MyChart Message Enc [facility] Family Medicine - [place] [address], [address] [place] [phone] Martha Nieto DO [address] [place] [address] [place] Social History Tobacco Use Types Packs/Day [...] Sex Assigned at Female 04/27/2024 3:23 PM JAVA SOFTWARE DEVELOPER Legal Sex Female 5:49 PM CDT Gender Identity Female 06/08/2021 9:11 AM JAVA SOFTWARE DEVELOPER Sexual Orientation Straight 06/08/2021 9: 11 AM JAVA SOFTWARE DEVELOPER COVID-19 Exposure Response Date Recorded In the last 10 days, have yo u been in contact with someone who was confirmed or suspected to have Coronavirus/COVID-19? No / Unsure 03/19/2022 3:25 PM JAVA SOFTWARE DEVELOPER documented as of this encounter Progress Notes * Tika Delong MA - 04/02/2022 8:59 AM CST Left message for patient to call office SOFTWARE DEVELOPER * Tika Delong MA - 04/01/2022 10:24 AM CST Left message for patient to call office for appointment. SOFTWARE DEVELOPER documented in this encounter Plan of Treatment Not on file documented as of this encounter Visit Diagnoses Not on filedocumented in this encounter Additional Health Concerns Infection Onset Date Last Indicated Resolved Time COVID-19 Rule Out 10/31/2022 10/31/2022 10/31/2022 2:17 AM CDT Assessment Noted Time PHQ-9 Depression Total Score: 0 06/20/19 2:52 PM JAVA SOFTWARE DEVELOPER documented as of this encounter Care Teams Landing Support Specialist Relationship Specialty Start Date End Date Martha Nieto DO [address] '[place] [address] PCP - General 08/01/16 documented as of this encounter
--- OUTSIDE RECORDS SUMMARY | 2024-11-18 20:59 | XMS_ITS | Encounter Summary ---
Author Organization [facility] Address [address] [place] [address] Care Team Providers Care Public Relations Specialist Name Role Phone Martha Nieto DO Primary Care Provider [phone] Encounter Details Date Type Department Care Team (Late st Contact Info) Description 06/15/2021 MyChart Message Enc [facility] Medical Group Family Medicine - [place] [address], [address] [place] [phone] Martha Nieto DO [address] [place] [address] Possible UTI Social History Tobacco Use Types [...] Sex Assigned at Female 04/27/2024 3:23 PM AREA REPRESENTATIVE Legal Sex Female 5:49 PM CDT Gender Identity Female 06/08/2021 9:11 AM AREA REPRESENTATIVE Sexual Orientation Straight 06/08/2021 9: 11 AM AREA REPRESENTATIVE COVID-19 Exposure Response Date Recorded In the last 10 days, have yo u been in contact with someone who was confirmed or suspected to have Coronavirus/COVID-19? No / Unsure 06/18/2021 3:10 PM AREA REPRESENTATIVE documented as of this encounter Plan of Treatment Not on file documented as of this encounter Visit Diagnoses Not on filedocumented in this encounter Additional Health Concerns Infection Onset Date Last Indicated Resolved Time COVID-19 Rule Out 10/31/2022 10/31/2022 10/31/2022 2:17 AM CDT Assessment Noted Time PHQ-9 Depression Total Score: 0 06/08/19 22 9:58 AM AREA REPRESENTATIVE documented as of this encounter Care Teams Public Relations Specialist Relationship Specialty Start Date End Date Martha Nieto DO [address] '[place] [address] PCP - General 08/01/16 documented as of this encounter
--- OUTSIDE RECORDS SUMMARY | 2024-11-18 20:59 | XMS_ITS | Encounter Summary ---
Author Organization [facility] Address [address] [place] [address] Care Team Providers Care Stone Engraver Name Role Phone Martha Nieto DO Primary Care Provider [phone] Encounter Details Date Type Department Care Team (Late st Contact Info) Description 08/09/2022 ZYB Message [facility] Patient Accounts [address] [place] [address] [facility] Social History Tobacco [...] Sex Assigned at Female 04/27/2024 3:23 PM NATURAL GAS TREATING UNIT OPERATOR Legal Sex Female 5:49 PM CDT Gender Identity Female 06/08/2021 9:11 AM NATURAL GAS TREATING UNIT OPERATOR Sexual Orientation Straight 06/08/2021 9: 11 AM NATURAL GAS TREATING UNIT OPERATOR COVID-19 Exposure Response Date Recorded In [...] Depression Total Score: 11 023 8:25 AM NATURAL GAS TREATING UNIT OPERATOR documented as of this encounter Care Teams Stone Engraver Relationship Specialty Start Date End Date Martha Nieto DO [address] '[place] [address] PCP - General 08/01/16 documented as of this encounter
--- OUTSIDE RECORDS SUMMARY | 2024-11-18 20:59 | XMS_ITS | Encounter Summary ---
Author Organization [facility] Address [address] [place] [address] Care Team Providers Care Disease Control Inspector Name Role Phone Martha Nieto DO Primary Care Provider [phone] Encounter Details Date Type Department Care Team (Late st Contact Info) Description 10/11/2020 MyChart Message Enc [facility] Medical Group Family Medicine - [place] [address], [address] [place] [phone] Martha Nieto DO [address] [place] [address] Question Social History Tobacco Use Types Packs/Day [...] Sex Assigned at Female 04/27/2024 3:23 PM STENOCAPTIONER Legal Sex Female 5:49 PM CDT Gender Identity Female 06/08/2021 9:11 AM STENOCAPTIONER Sexual Orientation Straight 06/08/2021 9: 11 AM STENOCAPTIONER COVID-19 Exposure Response Date Recorded In the [...] documented as of this encounter Care Teams Disease Control Inspector Relationship Specialty Start Date End Date Martha Nieto DO [address] [place] [address] PCP - General 08/01/16 documented as of this encounter
--- OUTSIDE RECORDS SUMMARY | 2024-11-18 20:59 | XMS_ITS | Encounter Summary ---
Author Organization [facility] Address [address] [place] [address] Care Team Providers Care Sales Department Clerk Name Role Phone Martha Nieto DO Primary Care Provider [phone] Encounter Details Date Type Department Care Team (Late st Contact Info) Description 04/15/2024 MyChart Message Enc [facility] Medical Group Family Medicine - [place] [address] [place] [phone] Martha Nieto DO [address] [place] [address] Hcg results Social History Tobacco Use Types [...] Sex Assigned at Female 04/27/2024 3:[address]UCK DRIVER Legal Sex Female 5:49 PM CDT Gender Identity Female 06/08/2021 9:[address]IVER Sexual Orientation Straight 06/08/2021 9: [address] DRIVER documented as of this encounter Plan of Treatment Not on file documented as of this encounter Visit Diagnoses Not on filedocumented in this encounter Additional Health Concerns Assessment Noted Time PHQ-9 Depression Total Score: 11 023 8:[address]IVER documented as of this encounter Care Teams Sales Department Clerk Relationship Specialty Start Date End Date Martha Nieto DO [address] [place] [address] PCP - General 08/01/16 documented as of this encounter
--- OUTSIDE RECORDS SUMMARY | 2024-11-18 20:59 | XMS_ITS | Encounter Summary ---
Author Organization [facility] Address [address] [place] [address] Care Team Providers Care Electric Crane Operator Name Role Phone Martha Nieto DO Primary Care Provider [phone] Encounter Details Date Type Department Care Team (Late st Contact Info) Description 07/11/2021 MyChart Message Enc [facility] Medical [facility] Family Medicine - [place] [address] [place] [phone] Martha Nieto DO [address] [place] [address] Pain Social History Tobacco Use Types Packs/Day [...] Sex Assigned at Female 04/27/2024 3:23 PM MEDICAL RECORDS ASSISTANT Legal Sex Female 5:49 PM CDT Gender Identity Female 06/08/2021 9:11 AM MEDICAL RECORDS ASSISTANT Sexual Orientation Straight 06/08/2021 9: 11 AM MEDICAL RECORDS ASSISTANT COVID-19 Exposure Response Date Recorded In the [...] Total Score: 0 06/20/19 22 2:52 PM MEDICAL RECORDS ASSISTANT documented as of this encounter Care Teams Electric Crane Operator Relationship Specialty Start Date End Date Martha Nieto DO [address] '[place] [address] PCP - General 08/01/16 documented as of this encounter
--- OUTSIDE RECORDS SUMMARY | 2024-11-18 20:59 | XMS_ITS | Encounter Summary ---
Author Organization [facility] Address [address] [place] [address] Care Team Providers Care Patient Support Partner Name Role Phone Martha Nieto DO Primary Care Provider [phone] Encounter Details Date Type Department Care Team (Late st Contact Info) Description 04/21/2023 MyChart Message Enc [facility] Medical Group Family Medicine - [place] [address] [place] [phone] Martha Nieto DO [address] [place] [address] Allergic reaction Social History Tobacco Use Types [...] Sex Assigned at Female 04/27/2024 3:23 PM AEROSPACE PROJECT MANAGER Legal Sex Female 5:49 PM CDT Gender Identity Female 06/08/2021 9:11 AM AEROSPACE PROJECT MANAGER Sexual Orientation Straight 06/08/2021 9: 11 AM AEROSPACE PROJECT MANAGER documented as of this encounter [...] awful might happen 0 04/22/2023 10:46 AM AEROSPACE PROJECT MANAGER Katty Girard MA Ac tive LULÚ-7 Total Score 0 04/22/2023 10:46 AM AEROSPACE PROJECT MANAGER Katty Clemente MA Active documented as of this encounter Plan of Treatment Not on file documented as of this encounter Visit Diagnoses Not on filedocumented in this encounter Additional Health Concerns Assessment Noted Time PHQ-9 Depression Total Score: 11 023 8:25 AM AEROSPACE PROJECT MANAGER documented as of this encounter Care Teams Patient Support Partner Relationship Specialty Start Date End Date Martha Nieto DO [address] [place] [address] PCP - General 08/01/16 documented as of this encounter
--- OUTSIDE RECORDS SUMMARY | 2024-11-18 20:59 | XMS_ITS | Encounter Summary ---
Author Organization [facility] Address [address] [place] [address] Care Team Providers Care Teacher Industrial Arts Name Role Phone Martha Nieto Karlie PETERSON Primary Care Provider [phone] Encounter Details Date Type Department Care Team (Late st Contact Info) Description 10/29/2023 [facility] Message Enc [facility] [employer] [address] [place] [address] Mel[facility], [facility] Provider Proof of name change Social [...] Sex Assigned at Female 04/27/2024 3:23 PM PROCESS CONTROL TECHNICIAN Legal Sex Female 5:49 PM CDT Gender Identity Female 06/08/2021 9:11 AM PROCESS CONTROL TECHNICIAN Sexual Orientation Straight 06/08/2021 9: 11 AM PROCESS CONTROL TECHNICIAN documented as of this encounter Functional Status * Over the past 2 weeks, how often have you been bothered by any of the following problems? Question Answer Date of Assessment Author Status Little interest or pleasure in doing things Not at all 10/30/2023 12:48 PM CDT Tonny Yanes, Nurse Manager [employer] Active Feeling down, depressed, or hopeless Not at all 10/30/2023 12:48 PM CDT Favian Yanes, Nurse Manager [employer] Active Patient Health Questionnaire-2 Score 0 10/30/2023 12:48 PM CDT Shanell Yanes, Nurse Manager [employer] Active documented as of this encounter Plan of Treatment Not on file documented as of this encounter Visit Diagnoses Not on filedocumented in this encounter Additional Health Concerns Assessment Noted Time PHQ-9 Depression Total Score: 11 023 8:25 AM PROCESS CONTROL TECHNICIAN documented as of this encounter Care Teams Teacher Industrial Arts Relationship Specialty Start Date End Date Martha Nieto DO [address] [place] [address] PCP - General 08/01/16 documented as of this encounter
--- OUTSIDE RECORDS SUMMARY | 2024-11-18 20:59 | XMS_ITS | Encounter Summary ---
Author Organization [facility] Address [address] [place] [address] Care Team Providers Care Visual Journalist Name Role Phone Martha Nieto DO Primary Care Provider Encounter Details Date Type Department Care Team (Late st Contact Info) Description 02/27/2024 MyChart Message Enc [facility] Medical Group Family Medicine - [place] [address] [place] [phone] Martha Nieto DO [address] [place] [address] Bladder problems Social History Tobacco Use Types [...] Sex Assigned at Female 04/27/2024 3:23 PM KAIAWHINA Legal Sex Female 5:49 PM CDT Gender Identity Female 06/08/2021 9:11 AM KAIAWHINA Sexual Orientation Straight 06/08/2021 9: 11 AM KAIAWHINA documented as of this encounter Functional Status * Calculated C-SSRS Risk Score (Lifetime/Recent) Answer Date of Assessment Author Status No Risk Indicated 03/01/2024 8:09 AM Sánchez Ryan RN Active * [place] Suicide Severity Rating Scale (Screener/Recent Self-Report) Question [...] Depression Total Score: 11 023 8:25 AM KAIAWHINA documented as of this encounter Care Teams Visual Journalist Relationship Specialty Start Date End Date Martha Nieto DO [address] [place] [address] PCP - General 08/01/16 documented as of this encounter
--- OUTSIDE RECORDS SUMMARY | 2024-11-18 20:59 | XMS_ITS | Encounter Summary ---
Author Organization [facility] Address [address] [place] [address] Care Team Providers Care Extra Hand Name Role Phone Martha Nieto DO Primary Care Provider [phone] Encounter Details Date Type Department Care Team (Late st Contact Info) Description 05/30/2023 [email or web address] Message Enc [place] [facility], JT [address] [place], [place] [phone] Lula Jasso MD [address] [facility] [address] [place], [place] [id number] Heart rate Social History Tobacco Use Types [...] Sex Assigned at Female 04/27/2024 3:[address] PROJECT MANAGER Legal Sex Female 5:49 PM CDT Gender Identity Female 06/08/2021 9:[address] PROJECT MANAGER Sexual Orientation Straight 06/08/2021 9: [address] PROJECT MANAGER documented as of this encounter Progress Notes * Kimi Vitale RN - 06/02/2023 12:07 PM CST Lets increase metoprolol to 50 mg QD. Monitor BP daily and call back in 1 week w/ bp readings for medication titration. Above message from Dr. Jasso. [employer] message sent to the patient with the above information. PROJECT MANAGER documented in this encounter Plan of Treatment Not on file documented as of this encounter Visit Diagnoses Not on filedocumented in this encounter Additional Health Concerns Assessment Noted Time PHQ-9 Depression Total Score: 11 023 8:[address] PROJECT MANAGER documented as of this encounter Care Teams Extra Hand Relationship Specialty Start Date End Date Martha Nieto DO [address] [place] [address] PCP - General 08/01/16 documented as of this encounter
--- OUTSIDE RECORDS SUMMARY | 2024-11-18 20:59 | XMS_ITS | Encounter Summary ---
Author Organization [facility] Address [address] [place] [address] Care Team Providers Care Chairman President And Chief Executive Officer Name Role Phone Martha Nieto DO Primary Care Provider [phone] Encounter Details Date Type Department Care Team (Late st Contact Info) Description 04/24/2023 MyChart Message Enc [facility] Medical Group Family Medicine - [place] [address] [place] [phone] Martha Nieto DO [address] [place] [address] Allergic reaction Social History Tobacco Use Types [...] Sex Assigned at Female 04/27/2024 3:23 PM CLINICAL ALLERGIST Legal Sex Female 5:49 PM CDT Gender Identity Female 06/08/2021 9:11 AM CLINICAL ALLERGIST Sexual Orientation Straight 06/08/2021 9: 11 AM CLINICAL ALLERGIST documented as of this encounter Plan of Treatment Not on file documented as of this encounter Visit Diagnoses Not on filedocumented in this encounter Additional Health Concerns Assessment Noted Time PHQ-9 Depression Total Score: 11 023 8:25 AM CLINICAL ALLERGIST documented as of this encounter Care Teams Chairman President And Chief Executive Officer Relationship Specialty Start Date End Date Martha Nieto DO [address] [place] [address] PCP - General 08/01/16 documented as of this encounter
--- OUTSIDE RECORDS SUMMARY | 2024-11-18 20:59 | XMS_ITS | Encounter Summary ---
Author Organization [facility] Address [address] [place] [address] Care Team Providers Care Grease Buffer Name Role Phone Martha Nieto DO Primary Care Provider [phone] Encounter Details Date Type Department Care Team (Late st Contact Info) Description 01/14/2024 MyChart Message Enc [facility] Medical Group Family Medicine - [place] [address], [address] [place] [phone] Martha Nieto DO [address] [place] [address] Fertility Social History Tobacco Use Types Packs/Day [...] Sex Assigned at Female 04/27/2024 3:23 PM SPORTS MARKETER Legal Sex Female 5:49 PM CDT Gender Identity Female 06/08/2021 9:11 AM SPORTS MARKETER Sexual Orientation Straight 06/08/2021 9: 11 AM SPORTS MARKETER documented as of this encounter Plan of Treatment Not on file documented as of this encounter Visit Diagnoses Not on filedocumented in this encounter Additional Health Concerns Assessment Noted Time PHQ-9 Depression Total Score: 11 023 8:25 AM SPORTS MARKETER documented as of this encounter Care Teams Grease Buffer Relationship Specialty Start Date End Date Martha Nieto DO [address] [place] [address] PCP - General 08/01/16 documented as of this encounter
--- OUTSIDE RECORDS SUMMARY | 2024-11-18 20:59 | XMS_ITS | Clinical Summary ---
Author Organization [facility] Address [address] [place] [address] Care Team Providers Care Technical Applications Scientist Name Role Phone Martha Nieto DO Primary Care Provider [phone] Allergies Active Allergy Reactions Criticality Noted Date [...] Group Ultrasound (SCAN) 10/11/2024 MyChart Message Enc [facility] Medical Group Family Medicine [address], [address] [place] [address] Martha Nieto DO Updated ROBBY [...] / Stillbirths Mother Heart Disease Paternal Grandfather [place] Stroke Paternal Grandfather Cancer Paternal Grandmother Diabetes [...] Sex Assigned at Female 04/27/2024 3:23 PM HEALTH CONCIERGE Legal Sex Female 5:49 PM CDT Gender Identity Female 06/08/2021 9:11 AM HEALTH CONCIERGE Sexual Orientation Straight 06/08/2021 9: 11 AM HEALTH CONCIERGE Last Filed Vital Signs Vital Sign Reading Time Taken Comments Blood Pressure 118/83 03/01/2024 12:00 PM HEALTH CONCIERGE Pulse 72 03/01/2024 10:16 AM HEALTH CONCIERGE Temperature 36.8 C (98.3 F) 03/01/2024 8:02 AM HEALTH CONCIERGE Respiratory Rate 20 03/01/2024 10:16 AM HEALTH CONCIERGE Oxygen Saturation 98% 03/01/2024 11:00 AM HEALTH CONCIERGE Inhaled Oxygen Concentration - - Weight 111.1 kg (245 lb) 03/01/2024 8:02 AM HEALTH CONCIERGE Height 162.6 cm (5' 4) 03/01/2024 8:02 AM HEALTH CONCIERGE Body Mass Index 42.05 03/01/2024 8:02 AM HEALTH CONCIERGE Plan of Treatment Health Maintenance Due Date [...] season) 2023 04/19/2022, 07/21/2020, 06/29/2020 PHQ-2 (Physician [place]) 04/14/2024 10/30/2023 Chlamydia Screening Females ages 16-24 [...] CHLAMYDIA GC RNA STAT 03/01/2024 8:15 AM HEALTH CONCIERGE from Last 3 Months or Most Recently Relevant to Health Maintenance Results * ULTRASOUND GENERIC (SCAN ORDER) (10/16/2024) Anatomical Region Laterality Modality Other 10/16/2024 [facility] Scanned SCANNING Final Resu lt * VASCULAR LAB GENERIC (SCAN ORDER) (09/27/2024) 09/27/2024 [facility] Scanned SCANNING Final Resu lt * CHLAMYDIA GC RNA (03/01/2024 8:15 AM HEALTH CONCIERGE) SPEC DESCRIPTION URINE CLEAN CATCH 03/01/2024 11:11 AM HEALTH CONCIERGE [facility] CHLAMYDIA RNA TMA NEGATIVE NEGATIVE 024 1:[address] [facility] Comment:PERFORMED BY NUCLEIC ACID AMPLIFICATION N.GONORRHOEAE RNA TMA NEGATIVE NEGATIVE 03/03/2024 1:[address] [facility] Comment:PERFORMED BY NUCLEIC ACID AMPLIFICATION URINE SPECIMEN / Unknown 03/01/2024 8:15 AM HEALTH CONCIERGE us Brendan Lee MD MICROBIOLOGY - GENERAL ORDER SHELLEY Final Result [facility] [address] [place] [address], [place] [phone] [facility] [address] [place] [address], [place] [phone] from Last 3 Months or Most Recently Relevant to Health Maintenance Insurance [employer] Advance Directives * Full Code (Latest Code Status on File) Date Activated Date Inactivated Comments 01/21/2020 9:44 AM 01/21/2020 11:45 AM Care Teams Technical Applications Scientist Relationship Specialty Start Date End Date Martha Nieto DO [address] [place] [address] PCP - General 08/01/16
--- NOTE | 2024-11-20 06:46 | PM.OBTRLD ---
OB - Triage/Final Diagnosis Visit Information Reason for evaluation: other (vaginal fluid not ruptured) Comments/Additional reasons for admission: I have assessed the risk for this patient, Caroline Christinaberry, and determined that she would benefit from observation care.
== END 2024-11-18 21:00 | disposition home or self-care (01) ==
PROVIDERS: Admitting Provider Obstetrics & Gynecology Gynecology; PCP Obstetrics & Gynecology Gynecology; Visit Provider Obstetrics & Gynecology Gynecology
DX: Z03.79 Encounter for other suspected maternal and fetal conditions ruled out (principal); Z3A.35 35 weeks gestation of pregnancy
CPT/HCPCS: G0378; G0379

== ENCOUNTER 2024-11-20 17:44 | Observation (INO) | payer OTHER, SELFPAY ==
[2024-11-20 19:01] VITALS: PULSE 87
--- OUTSIDE RECORDS SUMMARY | 2024-11-20 19:05 | XMS_ITS | Encounter Summary ---
Author Organization [facility] Address [address] [place] [address] Care Team Providers Care Full Time Name Role Phone Martha Nieto DO Primary Care Provider [phone] Encounter Details Date Type Department Care Team (Late st Contact Info) Description 04/15/2024 MyChart Message Enc [facility] Medical Group Family Medicine - [place] [address], [address] [place] [phone] Martha Nieto DO [address] [place] [address] Hcg results Social History Tobacco Use Types [...] Sex Assigned at Female 04/27/2024 3:23 PM END USER SUPPORT SPECIALIST Legal Sex Female 5:49 PM CDT Gender Identity Female 06/08/2021 9:11 AM END USER SUPPORT SPECIALIST Sexual Orientation Straight 06/08/2021 9: 11 AM END USER SUPPORT SPECIALIST documented as of this encounter Plan of Treatment Not on file documented as of this encounter Visit Diagnoses Not on filedocumented in this encounter Additional Health Concerns Assessment Noted Time PHQ-9 Depression Total Score: 11 023 8:25 AM END USER SUPPORT SPECIALIST documented as of this encounter Care Teams Full Time Relationship Specialty Start Date End Date Martha Nieto DO [address] [place] [address] PCP - General 08/01/16 documented as of this encounter
--- OUTSIDE RECORDS SUMMARY | 2024-11-20 19:05 | XMS_ITS | Encounter Summary ---
Author Organization [facility] Address [address] [place] [address] Care Team Providers Care Health Program Analyst Name Role Phone Martha Nieto DO Primary Care Provider Encounter Details Date Type Department Care Team (Late st Contact Info) Description 04/24/2023 MyChart Message Enc [facility] Medical Group Family Medicine - [place] [address] [place] [phone] Martha Nieto DO [address] [place] [address] Allergic reaction Social History Tobacco Use Types [...] Sex Assigned at Female 04/27/2024 3:23 PM ZONE SUPERVISOR FIREARMS Legal Sex Female 5:49 PM CDT Gender Identity Female 06/08/2021 9:11 AM ZONE SUPERVISOR FIREARMS Sexual Orientation Straight 06/08/2021 9: 11 AM ZONE SUPERVISOR FIREARMS documented as of this encounter Plan of Treatment Not on file documented as of this encounter Visit Diagnoses Not on filedocumented in this encounter Additional Health Concerns Assessment Noted Time PHQ-9 Depression Total Score: 11 023 8:25 AM ZONE SUPERVISOR FIREARMS documented as of this encounter Care Teams Health Program Analyst Relationship Specialty Start Date End Date Martha Nieto DO [address] [place] [address] PCP - General 08/01/16 documented as of this encounter
--- OUTSIDE RECORDS SUMMARY | 2024-11-20 19:05 | XMS_ITS | Encounter Summary ---
Author Organization [facility] Address [address] [place] [address] Care Team Providers Care Capital Project Engineer Name Role Phone Martha Nieto DO Primary Care Provider Encounter Details Date Type Department Care Team (Late st Contact Info) Description 05/30/2023 [place] Message Enc [place] [facility], JT [address] [place], [place] [phone] Lula Jasso MD [address] [facility] [address] [place], [place] [id number] Heart rate Social History Tobacco Use Types [...] Sex Assigned at Female 04/27/2024 3:23 PM ACETONE RECOVERY WORKER Legal Sex Female 5:49 PM CDT Gender Identity Female 06/08/2021 9:11 AM ACETONE RECOVERY WORKER Sexual Orientation Straight 06/08/2021 9: 11 AM ACETONE RECOVERY WORKER documented as of this encounter Progress Notes * Kimi Vitale RN - 06/02/2023 12:07 PM CST Lets increase metoprolol to 50 mg QD. Monitor BP daily and call back in 1 week w/ bp readings for medication titration. Above message from Dr. Jasso. [employer] message sent to the patient with the above information. ONE RECOVERY WORKER documented in this encounter Plan of Treatment Not on file documented as of this encounter Visit Diagnoses Not on filedocumented in this encounter Additional Health Concerns Assessment Noted Time PHQ-9 Depression Total Score: 11 023 8:25 AM ACETONE RECOVERY WORKER documented as of this encounter Care Teams Capital Project Engineer Relationship Specialty Start Date End Date Martha Nieto DO [address] [place] [address] PCP - General 08/01/16 documented as of this encounter
--- OUTSIDE RECORDS SUMMARY | 2024-11-20 19:05 | XMS_ITS | Encounter Summary ---
Author Organization [facility] Address [address] [place] [address] Care Team Providers Care Learning And Development Coordinator Name Role Phone Martha Nieto DO Primary Care Provider Encounter Details Date Type Department Care Team (Late st Contact Info) Description 11/06/2022 MyChart Message Enc [facility] Medical Group Family Medicine - [place] [address] [place] [phone] Martha Nieto DO [address] [place] [address] Heart Rate Social History Tobacco Use Types [...] Sex Assigned at Female 04/27/2024 3:23 PM DRAFTING DETAILER Legal Sex Female 5:49 PM CDT Gender Identity Female 06/08/2021 9:11 AM DRAFTING DETAILER Sexual Orientation Straight 06/08/2021 9: 11 AM DRAFTING DETAILER documented as of this encounter Plan of Treatment Not on file documented as of this encounter Visit Diagnoses Not on filedocumented in this encounter Additional Health Concerns Assessment Noted Time PHQ-9 Depression Total Score: 11 023 8:25 AM DRAFTING DETAILER documented as of this encounter Care Teams Learning And Development Coordinator Relationship Specialty Start Date End Date Martha Nieto DO [address] [place] [address] PCP - General 08/01/16 documented as of this encounter
--- OUTSIDE RECORDS SUMMARY | 2024-11-20 19:05 | XMS_ITS | Encounter Summary ---
Author Organization [facility] Address [address] [place] [address] Care Team Providers Care Zigzag Topstitcher Name Role Phone Martha Nieto DO Primary Care Provider [phone] Encounter Details Date Type Department Care Team (Late st Contact Info) Description 09/29/2020 MyChart Message Enc [facility] Medical Group Family Medicine - [place] [address] [place] [phone] Martha Nieto DO [address] [place] [address] RE: Question Social History Tobacco Use Types [...] Sex Assigned at Female 04/27/2024 3:23 PM FISH FILLETER Legal Sex Female 5:49 PM CDT Gender Identity Female 06/08/2021 9:11 AM FISH FILLETER Sexual Orientation Straight 06/08/2021 9: 11 AM FISH FILLETER COVID-19 Exposure Response Date Recorded In the [...] documented as of this encounter Care Teams Zigzag Topstitcher Relationship Specialty Start Date End Date Martha Nieto DO [address] '[place] [address] PCP - General 08/01/16 documented as of this encounter
--- OUTSIDE RECORDS SUMMARY | 2024-11-20 19:05 | XMS_ITS | Encounter Summary ---
Author Organization [facility] Address [address] [place] [address] Care Team Providers Care Assembly Lead Person Name Role Phone Martha Nieto DO Primary Care Provider [phone] Encounter Details Date Type Department Care Team (Late st Contact Info) Description 01/14/2024 MyChart Message Enc [facility] Medical Group Family Medicine - [place] [address], [address] [place] [phone] Martha Nieto DO [address] [place] [address] Fertility Social History Tobacco Use Types Packs/Day [...] Sex Assigned at Female 04/27/2024 3:23 PM EDUCATION ASSISTANT Legal Sex Female 5:49 PM CDT Gender Identity Female 06/08/2021 9:11 AM EDUCATION ASSISTANT Sexual Orientation Straight 06/08/2021 9: 11 AM EDUCATION ASSISTANT documented as of this encounter Plan of Treatment Not on file documented as of this encounter Visit Diagnoses Not on filedocumented in this encounter Additional Health Concerns Assessment Noted Time PHQ-9 Depression Total Score: 11 023 8:25 AM EDUCATION ASSISTANT documented as of this encounter Care Teams Assembly Lead Person Relationship Specialty Start Date End Date Martha Nieto DO [address] [place] [address] PCP - General 08/01/16 documented as of this encounter
--- OUTSIDE RECORDS SUMMARY | 2024-11-20 19:05 | XMS_ITS | Encounter Summary ---
Author Organization [facility] Address [address] [place] [address] Care Team Providers Care It Assistant Name Role Phone Martha Nieto DO Primary Care Provider [phone] Encounter Details Date Type Department Care Team (Late st Contact Info) Description 05/14/2022 MyChart Message Enc [facility] Family Medicine - [place] [address], [address] [place] [address] Martha Nieto DO [address] [place] [address] Bowel movement Social History Tobacco Use Types [...] Sex Assigned at Female 04/27/2024 3:23 PM PRESIDENT TRUST COMPANY Legal Sex Female 5:49 PM CDT Gender Identity Female 06/08/2021 9:11 AM PRESIDENT TRUST COMPANY Sexual Orientation Straight 06/08/2021 9: 11 AM PRESIDENT TRUST COMPANY documented as of this encounter Plan of Treatment Not on file documented as of this encounter Visit Diagnoses Not on filedocumented in this encounter Additional Health Concerns Infection Onset Date Last Indicated Resolved Time COVID-19 Rule Out 10/31/2022 10/31/2022 10/31/2022 2:17 AM CDT Assessment Noted Time PHQ-9 Depression Total Score: 0 06/20/19 22 2:52 PM PRESIDENT TRUST COMPANY documented as of this encounter Care Teams It Assistant Relationship Specialty Start Date End Date Martha Nieto DO [address] [place] [address] PCP - General 08/01/16 documented as of this encounter
--- OUTSIDE RECORDS SUMMARY | 2024-11-20 19:05 | XMS_ITS | Clinical Summary ---
Author Organization [facility] Address [address] [place] [address] Care Team Providers Care Instructor Apparel Manufacture Name Role Phone Martha Nieto DO Primary Care Provider [phone] Allergies Active Allergy Reactions Criticality Noted Date [...] Group Ultrasound (SCAN) 10/11/2024 MyChart Message Enc [facility] Family Medicine [address], [address] [place] [address] Martha Nieto DO Updated ROBBY [...] / Stillbirths Mother Heart Disease Paternal Grandfather MS Stroke Paternal Grandfather Cancer Paternal Grandmother Diabetes [...] Sex Assigned at Female 04/27/2024 3:23 PM SUPERVISOR RECORDS CHANGE Legal Sex Female 5:49 PM CDT Gender Identity Female 06/08/2021 9:11 AM SUPERVISOR RECORDS CHANGE Sexual Orientation Straight 06/08/2021 9: 11 AM SUPERVISOR RECORDS CHANGE Last Filed Vital Signs Vital Sign Reading Time Taken Comments Blood Pressure 118/83 03/01/2024 12:00 PM SUPERVISOR RECORDS CHANGE Pulse 72 03/01/2024 10:16 AM SUPERVISOR RECORDS CHANGE Temperature 36.8 C (98.3 F) 03/01/2024 8:02 AM SUPERVISOR RECORDS CHANGE Respiratory Rate 20 03/01/2024 10:16 AM SUPERVISOR RECORDS CHANGE Oxygen Saturation 98% 03/01/2024 11:00 AM SUPERVISOR RECORDS CHANGE Inhaled Oxygen Concentration - - Weight 111.1 kg (245 lb) 03/01/2024 8:02 AM SUPERVISOR RECORDS CHANGE Height 162.6 cm (5' 4) 03/01/2024 8:02 AM SUPERVISOR RECORDS CHANGE Body Mass Index 42.05 03/01/2024 8:02 AM SUPERVISOR RECORDS CHANGE Plan of Treatment Health Maintenance Due Date [...] season) 2023 04/19/2022, 07/21/2020, 06/29/2020 PHQ-2 (Physician [place]) 04/14/2024 10/30/2023 Chlamydia Screening Females ages 16-24 [...] CHLAMYDIA GC RNA STAT 03/01/2024 8:15 AM SUPERVISOR RECORDS CHANGE from Last 3 Months or Most Recently Relevant to Health Maintenance Results * ULTRASOUND GENERIC (SCAN ORDER) (10/16/2024) Anatomical Region Laterality Modality Other 10/16/2024 [facility] Scanned SCANNING Final Resu lt * VASCULAR LAB GENERIC (SCAN ORDER) (09/27/2024) 09/27/2024 [facility] Scanned SCANNING Final Resu lt * CHLAMYDIA GC RNA (03/01/2024 8:15 AM SUPERVISOR RECORDS CHANGE) SPEC DESCRIPTION URINE CLEAN CATCH 03/01/2024 11:11 AM SUPERVISOR RECORDS CHANGE [facility] CHLAMYDIA RNA TMA NEGATIVE NEGATIVE 024 1:14 AM SUPERVISOR RECORDS CHANGE [facility] Comment:PERFORMED BY NUCLEIC ACID AMPLIFICATION N.GONORRHOEAE RNA TMA NEGATIVE NEGATIVE 03/03/2024 1:14 AM SUPERVISOR RECORDS CHANGE [facility] Comment:PERFORMED BY NUCLEIC ACID AMPLIFICATION URINE SPECIMEN / Unknown 03/01/2024 8:15 AM SUPERVISOR RECORDS CHANGE us Brendan Lee MD MICROBIOLOGY - GENERAL ORDER [place] Final Result [facility] [address] [place] [address], [place] [phone] [facility] [address] [place] [address], [place] [phone] from Last 3 Months or Most Recently Relevant to Health Maintenance Insurance [employer] Advance Directives * Full Code (Latest Code Status on File) Date Activated Date Inactivated Comments 01/21/2020 9:44 AM 01/21/2020 11:45 AM Care Teams Instructor Apparel Manufacture Relationship Specialty Start Date End Date Martha Nieto DO [address] [place] [address] PCP - General 08/01/16
--- OUTSIDE RECORDS SUMMARY | 2024-11-20 19:05 | XMS_ITS | Encounter Summary ---
Author Organization [facility] Address [address] [place] [address] Care Team Providers Care Seconds Grader Name Role Phone Martha Nieto DO Primary Care Provider [phone] Encounter Details Date Type Department Care Team (Late st Contact Info) Description 07/03/[address] [facility] Family Medicine - [place] [address], [address] [place] [phone] Martha Nieto DO [address] [place] [address] General Surgeon Social History Tobacco Use Types [...] Sex Assigned at Female 04/27/2024 3:23 PM POT OPERATOR Legal Sex Female 5:49 PM CDT Gender Identity Female 06/08/2021 9:11 AM POT OPERATOR Sexual Orientation Straight 06/08/2021 9: 11 AM POT OPERATOR COVID-19 Exposure Response Date Recorded In [...] Depression Total Score: 11 023 8:25 AM POT OPERATOR documented as of this encounter Care Teams Seconds Grader Relationship Specialty Start Date End Date Martha Nieto DO [address] [place] [address] PCP - General 08/01/16 documented as of this encounter
--- OUTSIDE RECORDS SUMMARY | 2024-11-20 19:05 | XMS_ITS | Encounter Summary ---
Author Organization [facility] Address [address] [place] [address] Care Team Providers Care Litigation Legal Assistant Name Role Phone Martha Nieto DO Primary Care Provider Encounter Details Date Type Department Care Team (Late st Contact Info) Description 06/12/2023 MyChart Message Enc [facility] Family Medicine - [place] [address], [address] [place] [phone] Martha Nieto DO [address] [place] [address] Blood work/urine Social History Tobacco Use Types [...] Sex Assigned at Female 04/27/2024 3:23 PM CHECK WEIGHER Legal Sex Female 5:49 PM CDT Gender Identity Female 06/08/2021 9:11 AM CHECK WEIGHER Sexual Orientation Straight 06/08/2021 9: 11 AM CHECK WEIGHER documented as of this encounter Plan of Treatment Not on file documented as of this encounter Visit Diagnoses Not on filedocumented in this encounter Additional Health Concerns Assessment Noted Time PHQ-9 Depression Total Score: 11 023 8:25 AM CHECK WEIGHER documented as of this encounter Care Teams Litigation Legal Assistant Relationship Specialty Start Date End Date Martha Nieto DO [address] [place] [address] PCP - General 08/01/16 documented as of this encounter
--- OUTSIDE RECORDS SUMMARY | 2024-11-20 19:05 | XMS_ITS | Encounter Summary ---
Author Organization [facility] Address [address] [place] [address] Care Team Providers Care Client Liaison Name Role Phone Martha Nieto DO Primary Care Provider [phone] Encounter Details Date Type Department Care Team (Late st Contact Info) Description 04/01/2022 MyChart Message Enc [facility] Family Medicine - [place] [address], [address] [place] [address] Martha Nieto DO [address] [place] [address] ROBBY Social History Tobacco Use Types Packs/Day [...] Sex Assigned at Female 04/27/2024 3:23 PM METAL NUMERICAL TOOL PROGRAMMER Legal Sex Female 5:49 PM CDT Gender Identity Female 06/08/2021 9:11 AM METAL NUMERICAL TOOL PROGRAMMER Sexual Orientation Straight 06/08/2021 9: 11 AM METAL NUMERICAL TOOL PROGRAMMER COVID-19 Exposure Response Date Recorded In the last 10 days, have yo u been in contact with someone who was confirmed or suspected to have Coronavirus/COVID-19? No / Unsure 03/19/2022 3:25 PM METAL NUMERICAL TOOL PROGRAMMER documented as of this encounter Progress Notes * Tika Delong MA - 04/02/2022 8:59 AM CST Left message for patient to call office L NUMERICAL TOOL PROGRAMMER * Tika Deolng MA - 04/01/2022 10:24 AM CST Left message for patient to call office for appointment. L NUMERICAL TOOL PROGRAMMER documented in this encounter Plan of Treatment Not on file documented as of this encounter Visit Diagnoses Not on filedocumented in this encounter Additional Health Concerns Infection Onset Date Last Indicated Resolved Time COVID-19 Rule Out 10/31/2022 10/31/2022 10/31/2022 2:17 AM CDT Assessment Noted Time PHQ-9 Depression Total Score: 0 06/20/19 2:52 PM METAL NUMERICAL TOOL PROGRAMMER documented as of this encounter Care Teams Client Liaison Relationship Specialty Start Date End Date Martha Nieto DO [address] '[place] [address] PCP - General 08/01/16 documented as of this encounter
--- OUTSIDE RECORDS SUMMARY | 2024-11-20 19:05 | XMS_ITS | Encounter Summary ---
Author Organization [facility] Address [address] [place] [address] Care Team Providers Care Caregivers Homecare Name Role Phone Martha Nieto DO Primary Care Provider [phone] Encounter Details Date Type Department Care Team (Late st Contact Info) Description 08/13/2022 MyChart Message Enc [facility] Family Medicine - [place] [address], [address] [place] [address] Martha Nieto DO [address] [place] [address] Question regarding CBC W/DIFF AUTOMATED Social History [...] Sex Assigned at Female 04/27/2024 3:23 PM MUSIC PROFESSOR Legal Sex Female 5:49 PM CDT Gender Identity Female 06/08/2021 9:11 AM MUSIC PROFESSOR Sexual Orientation Straight 06/08/2021 9: 11 AM MUSIC PROFESSOR COVID-19 Exposure Response Date Recorded In the [...] Depression Total Score: 11 023 8:25 AM MUSIC PROFESSOR documented as of this encounter Care Teams Caregivers Homecare Relationship Specialty Start Date End Date Martha Nieto DO [address] '[place] [address] PCP - General 08/01/16 documented as of this encounter
--- OUTSIDE RECORDS SUMMARY | 2024-11-20 19:05 | XMS_ITS | Encounter Summary ---
Author Organization [facility] Address [address] [place] [address] Care Team Providers Care Figure Clerk Name Role Phone Martha Nieto DO Primary Care Provider [phone] Encounter Details Date Type Department Care Team (Late st Contact Info) Description 04/21/2023 MyChart Message Enc [facility] Family Medicine - [place] [address], [address] [place] [phone] Martha Nieto DO [address] [place] [address] Allergic reaction Social History Tobacco Use Types [...] Sex Assigned at Female 04/27/2024 3:23 PM SALES REPRESENTATIVE FACILITY SERVICES Legal Sex Female 5:49 PM CDT Gender Identity Female 06/08/2021 9:11 AM SALES REPRESENTATIVE FACILITY SERVICES Sexual Orientation Straight 06/08/2021 9: 11 AM SALES REPRESENTATIVE FACILITY SERVICES documented as of this encounter Functional Status [...] awful might happen 0 04/22/2023 10:46 AM SALES REPRESENTATIVE FACILITY SERVICES Katty Girard MA Ac tive LULÚ-7 Total Score 0 04/22/2023 10:46 AM SALES REPRESENTATIVE FACILITY SERVICES Katty Clemente MA Active documented as of this encounter Plan of Treatment Not on file documented as of this encounter Visit Diagnoses Not on filedocumented in this encounter Additional Health Concerns Assessment Noted Time PHQ-9 Depression Total Score: 11 023 8:25 AM SALES REPRESENTATIVE FACILITY SERVICES documented as of this encounter Care Teams Figure Clerk Relationship Specialty Start Date End Date Martha Nieto DO [address] [place] [address] PCP - General 08/01/16 documented as of this encounter
--- OUTSIDE RECORDS SUMMARY | 2024-11-20 19:05 | XMS_ITS | Encounter Summary ---
Author Organization [facility] Address [address] [place] [address] Care Team Providers Care Marsh Buggy Operator Name Role Phone Martha Nieto DO Primary Care Provider Encounter Details Date Type Department Care Team (Late st Contact Info) Description 02/27/2024 MyChart Message Enc [facility] Family Medicine - [place] [address] [place] [phone] Martha Nieto DO [address] [place] [address] Bladder problems Social History Tobacco Use Types [...] Sex Assigned at Female 04/27/2024 3:23 PM EXCEL SPECIALIST Legal Sex Female 5:49 PM CDT Gender Identity Female 06/08/2021 9:11 AM EXCEL SPECIALIST Sexual Orientation Straight 06/08/2021 9: 11 AM EXCEL SPECIALIST documented as of this encounter Functional Status * Calculated C-SSRS Risk Score (Lifetime/Recent) Answer Date of Assessment Author Status No Risk Indicated 03/01/2024 8:09 AM Sánchez Ryan RN Active * [place] Suicide Severity Rating Scale (Screener/Recent Self-Report) Question [...] Depression Total Score: 11 023 8:25 AM EXCEL SPECIALIST documented as of this encounter Care Teams Marsh Buggy Operator Relationship Specialty Start Date End Date Martha Nieto DO [address] [place] [address] PCP - General 08/01/16 documented as of this encounter
--- OUTSIDE RECORDS SUMMARY | 2024-11-20 19:05 | XMS_ITS | Encounter Summary ---
Author Organization [facility] Address [address] [place] [address] Care Team Providers Care Network Engineer Administrator Name Role Phone Martha Nieto DO Primary Care Provider [phone] Encounter Details Date Type Department Care Team (Late st Contact Info) Description 10/01/2023 MyChart Message Enc [facility] Family Medicine - [place] [address] [place] [phone] Martha Nieto DO [address] [place] [address] Oral thrush Social History Tobacco Use Types [...] Sex Assigned at Female 04/27/2024 3:23 PM TORPEDO MAN Legal Sex Female 5:49 PM CDT Gender Identity Female 06/08/2021 9:11 AM TORPEDO MAN Sexual Orientation Straight 06/08/2021 9: 11 AM TORPEDO MAN documented as of this encounter Plan of Treatment Not on file documented as of this encounter Visit Diagnoses Not on filedocumented in this encounter Additional Health Concerns Assessment Noted Time PHQ-9 Depression Total Score: 11 023 8:25 AM TORPEDO MAN documented as of this encounter Care Teams Network Engineer Administrator Relationship Specialty Start Date End Date Martha Nieto DO [address] [place] [address] PCP - General 08/01/16 documented as of this encounter
--- OUTSIDE RECORDS SUMMARY | 2024-11-20 19:05 | XMS_ITS | Encounter Summary ---
Author Organization [facility] Address [address] [place] [address] Care Team Providers Care Carbon Rod Inserter Name Role Phone Martha Nieto Karlie PETERSON Primary Care Provider [phone] Encounter Details Date Type Department Care Team (Late st Contact Info) Description 10/29/2023 SSEV Message Enc [facility] [address] [place] [address] Meliza, [facility] Provider Proof of name change Social History [...] Sex Assigned at Female 04/27/2024 3:23 PM CONTROL ROOM OPERATOR Legal Sex Female 5:49 PM CDT Gender Identity Female 06/08/2021 9:11 AM CONTROL ROOM OPERATOR Sexual Orientation Straight 06/08/2021 9: 11 AM CONTROL ROOM OPERATOR documented as of this encounter Functional Status * Over the past 2 weeks, how often have you been bothered by any of the following problems? Question Answer Date of Assessment Author Status Little interest or pleasure in doing things Not at all 10/30/2023 12:48 PM CDT Tonny Yanes, Nurse Train System Operator I Active Feeling down, depressed, or hopeless Not at all 10/30/2023 12:48 PM CDT Favian Yanes, Nurse Train System Operator I Active Patient Health Questionnaire-2 Score 0 10/30/2023 12:48 PM CDT Shanell Yanes, Nurse Train System Operator I Active documented as of this encounter Plan of Treatment Not on file documented as of this encounter Visit Diagnoses Not on filedocumented in this encounter Additional Health Concerns Assessment Noted Time PHQ-9 Depression Total Score: 11 023 8:25 AM CONTROL ROOM OPERATOR documented as of this encounter Care Teams Carbon Rod Inserter Relationship Specialty Start Date End Date Martha Nieto DO [address] [place] [address] PCP - General 08/01/16 documented as of this encounter
--- OUTSIDE RECORDS SUMMARY | 2024-11-20 19:05 | XMS_ITS | Encounter Summary ---
Author Organization [facility] Address [address] [place] [address] Care Team Providers Care Steel Grinder Name Role Phone Martha Nieto DO Primary Care Provider [phone] Encounter Details Date Type Department Care Team (Late st Contact Info) Description 04/15/2024 MyChart Message Enc [facility] Family Medicine - [place] [address], [address] [place] [phone] Martha Nieto DO [address] [place] [address] Hcg Social History Tobacco Use Types Packs/Day [...] Sex Assigned at Female 04/27/2024 3:23 PM MONORAIL HELPER Legal Sex Female 5:49 PM CDT Gender Identity Female 06/08/2021 9:11 AM MONORAIL HELPER Sexual Orientation Straight 06/08/2021 9: 11 AM MONORAIL HELPER documented as of this encounter Progress Notes * Tika Francis MA - 04/15/2024 12:53 PM CST Patient notified that results have been faxed to and new labs have been ordered. SheVU and thanked us. RAIL HELPER documented in this encounter Plan of Treatment Not on file documented as of this encounter Results * HCG QUANT (SERUM)-CHORIONIC GONADOTROPIN (04/15/2024 2:10 PM MONORAIL HELPER) Pathologist [facility] HCG QUANTITATIVE 448 MIU/ML 04/15/19 3:37 PM MONORAIL HELPER [facility] Comment: WEEKS OF REFERENCE [...] MONTHS 10,000 - 100,000 04/15/2024 2:10 PM MONORAIL HELPER us Martha Nieto DO LABORATORY Final Result [facility] [address] [place] [address], [place] [phone] documented in this encounter Visit Diagnoses Diagnosis Missed menses Absence of menstruation documented in this encounter Additional Health Concerns Assessment Noted Time PHQ-9 Depression Total Score: 11 023 8:25 AM MONORAIL HELPER documented as of this encounter Care Teams Steel Grinder Relationship Specialty Start Date End Date Martha Nieto DO [address] [place] [address] PCP - General 08/01/16 documented as of this encounter
--- OUTSIDE RECORDS SUMMARY | 2024-11-20 19:05 | XMS_ITS | Encounter Summary ---
Author Organization [facility] Address [address] [place] [address] Care Team Providers Care Shop Tailor Apprentice Name Role Phone Martha Nieto DO Primary Care Provider [phone] Encounter Details Date Type Department Care Team (Late st Contact Info) Description 11/13/2022 MyChart Message Enc [facility] Family Medicine - [place] [address] [place] [phone] Martha Nieto DO [address] [place] [address] Throw up Social History Tobacco Use Types [...] Sex Assigned at Female 04/27/2024 3:23 PM NUCLEAR CONTROL ROOM OPERATOR Legal Sex Female 5:49 PM CDT Gender Identity Female 06/08/2021 9:11 AM NUCLEAR CONTROL ROOM OPERATOR Sexual Orientation Straight 06/08/2021 9: 11 AM NUCLEAR CONTROL ROOM OPERATOR documented as of this encounter Progress [...] Depression Total Score: 11 023 8:25 AM NUCLEAR CONTROL ROOM OPERATOR documented as of this encounter Care Teams Shop Tailor Apprentice Relationship Specialty Start Date End Date Martha Nieto DO [address] [place] [address] PCP - General 08/01/16 documented as of this encounter
--- OUTSIDE RECORDS SUMMARY | 2024-11-20 19:05 | XMS_ITS | Encounter Summary ---
Author Organization [facility] Address [address] [place] [address] Care Team Providers Care Stock Raiser Name Role Phone Martha Nieto DO Primary Care Provider [phone] Encounter Details Date Type Department Care Team (Late st Contact Info) Description 06/15/2021 MyChart Message Enc [facility] Family Medicine - [place] [address] [place] [phone] Martha Nieto DO [address] [place] [address] Possible UTI Social History Tobacco Use Types [...] Sex Assigned at Female 04/27/2024 3:23 PM HUMAN RESOURCE PROFESSIONAL Legal Sex Female 5:49 PM CDT Gender Identity Female 06/08/2021 9:11 AM HUMAN RESOURCE PROFESSIONAL Sexual Orientation Straight 06/08/2021 9: 11 AM HUMAN RESOURCE PROFESSIONAL COVID-19 Exposure Response Date Recorded In the last 10 days, have yo u been in contact with someone who was confirmed or suspected to have Coronavirus/COVID-19? No / Unsure 06/18/2021 3:10 PM HUMAN RESOURCE PROFESSIONAL documented as of this encounter Plan of Treatment Not on file documented as of this encounter Visit Diagnoses Not on filedocumented in this encounter Additional Health Concerns Infection Onset Date Last Indicated Resolved Time COVID-19 Rule Out 10/31/2022 10/31/2022 10/31/2022 2:17 AM CDT Assessment Noted Time PHQ-9 Depression Total Score: 0 06/08/19 22 9:58 AM HUMAN RESOURCE PROFESSIONAL documented as of this encounter Care Teams Stock Raiser Relationship Specialty Start Date End Date Martha Nieto DO [address] '[place] [address] PCP - General 08/01/16 documented as of this encounter
--- OUTSIDE RECORDS SUMMARY | 2024-11-20 19:05 | XMS_ITS | Encounter Summary ---
Author Organization [facility] Address [address] [place] [address] Care Team Providers Care Student Name Role Phone Martha Nieto DO Primary Care Provider [phone] Encounter Details Date Type Department Care Team (Late st Contact Info) Description 08/09/2022 Musiwave Message [facility] Patient Accounts [address] [place] [address] [facility] Social History [...] Sex Assigned at Female 04/27/2024 3:23 PM LINEMAN SERVICE OR WORK DISPATCHER Legal Sex Female 5:49 PM CDT Gender Identity Female 06/08/2021 9:11 AM LINEMAN SERVICE OR WORK DISPATCHER Sexual Orientation Straight 06/08/2021 9: 11 AM LINEMAN SERVICE OR WORK DISPATCHER COVID-19 Exposure Response Date Recorded In the [...] Depression Total Score: 11 023 8:25 AM LINEMAN SERVICE OR WORK DISPATCHER documented as of this encounter Care Teams Student Relationship Specialty Start Date End Date Martha Nieto DO [address] '[place] [address] PCP - General 08/01/16 documented as of this encounter
--- OUTSIDE RECORDS SUMMARY | 2024-11-20 19:05 | XMS_ITS | Encounter Summary ---
Author Organization [facility] Address [address] [place] [address] Care Team Providers Care Fan Installer Name Role Phone Martha Nieto DO Primary Care Provider [phone] Encounter Details Date Type Department Care Team (Late st Contact Info) Description 01/17/2020 Prep for Procedure [place] Pre-Admission Testing [facility] [place] [address] Anton Maza MD [address] [place] [address] Social History Tobacco Use Types [...] Sex Assigned at Female 04/27/2024 3:23 PM BORDER POLICE Legal Sex Female 5:49 PM CDT Gender Identity Female 06/08/2021 9:11 AM BORDER POLICE Sexual Orientation Straight 06/08/2021 9: 11 AM BORDER POLICE COVID-19 Exposure Response Date Recorded In the [...] DETECTED NOT DETECTED 01/20/2020 12:[address] [facility] Comment: A Not Detected (negative) test result [...] providers and patients using the following websites: https://www.[employer]Daqi/home/Covid-19/HCP/NAAT/fact-sheet2 https://www.[employer]qi/home/Covid-19/Patients/NAAT/ fact-sheet2 This test has been authorized by the FDA under an Emergency Use Authorization (EUA) for use by authorized laboratories. Due to the current public health emergency, [facility] is receiving a high volume of samples [...] about COVID-19 can be found at the [employer] website: www.[employer]Daqi/Covid19. Test performed at [facility] [address] [id number] Director: DAINA BRUSH DO,MPH FIRST TEST YES 01/18/2020 3:07 PM CDT [facility] EMPLOYED IN HEALTHCARE NO 01/18/2020 3:07 PM CDT [facility] SYMPTOMATIC DEFINED BY CDC NO 01/18/2020 3:07 PM CDT [facility] DATE OF SYMPTOM ONSET UNKNOWN 01/18/2020 3:09 PM CDT [facility] HOSPITALIZATION STATUS NO 01/18/2020 3:07 PM CDT [facility] PATIENT IN ICU NO 01/18/2020 3:07 PM CDT [facility] RESIDENT OF [facility] NO 01/18/2020 3:07 PM CDT [facility] NOT 01/18/2020 3:07 PM CDT [facility] PATIENT'S RACE WHITE OR 01/18/2020 3:07 PM CDT [facility] ETHNICITY NONHISPANIC 01/18/2020 3:07 PM CDT [facility] SOURCE (QST) NASOPHARYNGEAL SWAB 01/18/2020 3:07 PM CDT [facility] NASOPHARYNGEAL SWAB / Unknown 01/18/2020 3:06 PM CDT us Anton Maza MD MICROBIOLOGY - GENERAL ORDERABL ES Final Result [facility] [address] [place] [address], [place] [phone] [facility] [address] [place] [address], documented in this encounter Visit Diagnoses Diagnosis Preop examination- Primary Preoperative examination, unspecified documented in this encounter Additional Health Concerns Infection Onset Date Last Indicated Resolved Time COVID-19 Rule Out 01/18/2020 01/18/2020 01/20/2020 12:21 PM CDT COVID-19 Rule Out 10/31/2022 10/31/2022 10/31/2022 2:17 AM CDT documented as of this encounter Care Teams Fan Installer Relationship Specialty Start Date End Date Martha Nieto DO [address] [place] [address] PCP - General 08/01/16 documented as of this encounter
--- OUTSIDE RECORDS SUMMARY | 2024-11-20 19:05 | XMS_ITS | Encounter Summary ---
Author Organization [facility] Address [address] [place] [address] Care Team Providers Care Customer Acquisition Manager Name Role Phone Martha Nieto DO Primary Care Provider [phone] Encounter Details Date Type Department Care Team (Late st Contact Info) Description 03/28/2023 [facility]and[employer] Message Enc [facility], [address] [place], [place] [id number] Lula Jasso MD [address] [facility] [address] [place], [place] [id number] Medication Social History Tobacco Use Types Packs/Day [...] Sex Assigned at Female 04/27/2024 3:23 PM LOAD OUT SUPERVISOR Legal Sex Female 5:49 PM CDT Gender Identity Female 06/08/2021 9:11 AM LOAD OUT SUPERVISOR Sexual Orientation Straight 06/08/2021 9: 11 AM LOAD OUT SUPERVISOR documented as of this encounter Progress Notes * Kimi Vitael RN - 03/28/2023 1:05 PM CST Thank you for letting me know. I will review the field investigator and message you with results. Letsget you started on metoprolol XL 25 mg QD. Can you monitor your HR/BP once daily and message in 1 week with HR and BP readings. Above message from Dr. Jasso. [employer] message sent to the patient with the above information. OUT SUPERVISOR documented in this encounter Plan of Treatment Not on file documented as of this encounter Visit Diagnoses Not on filedocumented in this encounter Additional Health Concerns Assessment Noted Time PHQ-9 Depression Total Score: 11 023 8:25 AM LOAD OUT SUPERVISOR documented as of this encounter Care Teams Customer Acquisition Manager Relationship Specialty Start Date End Date Martha Nieto DO [address] [place] [address] PCP - General 08/01/16 documented as of this encounter
--- OUTSIDE RECORDS SUMMARY | 2024-11-20 19:05 | XMS_ITS | Encounter Summary ---
Author Organization [facility] Address [address] [place] [address] Care Team Providers Care Space Scheduler Name Role Phone Martha Nieto DO Primary Care Provider [phone] Encounter Details Date Type Department Care Team (Late st Contact Info) Description 07/11/2021 MyChart Message Enc [facility] Family Medicine - [place] [address] [place] [address] Martha Nieto DO [address] [place] [address] Pain Social History Tobacco Use Types Packs/Day [...] Sex Assigned at Female 04/27/2024 3:23 PM SENIOR RESEARCH SCIENTIST Legal Sex Female 5:49 PM CDT Gender Identity Female 06/08/2021 9:11 AM SENIOR RESEARCH SCIENTIST Sexual Orientation Straight 06/08/2021 9: 11 AM SENIOR RESEARCH SCIENTIST COVID-19 Exposure Response Date Recorded In the [...] Total Score: 0 06/20/19 22 2:52 PM SENIOR RESEARCH SCIENTIST documented as of this encounter Care Teams Space Scheduler Relationship Specialty Start Date End Date Martha Nieto DO [address] '[place] [address] PCP - General 08/01/16 documented as of this encounter
--- OUTSIDE RECORDS SUMMARY | 2024-11-20 19:05 | XMS_ITS | Encounter Summary ---
Author Organization [facility] Address [address] [place] [address] Care Team Providers Care Women'S Swim Coach Name Role Phone Martha Nieto DO Primary Care Provider [phone] Encounter Details Date Type Department Care Team (Late st Contact Info) Description 10/31/2022 MyChart Message Enc [facility] Family Medicine - [place] [address] [place] [address] Martha Nieto DO [address] [place] [address] Question regarding URINALYSIS Social History Tobacco Use [...] Sex Assigned at Female 04/27/2024 3:23 PM CARDIOLOGY PHYSICIAN Legal Sex Female 5:49 PM CDT Gender Identity Female 06/08/2021 9:11 AM CARDIOLOGY PHYSICIAN Sexual Orientation Straight 06/08/2021 9: 11 AM CARDIOLOGY PHYSICIAN documented as of this encounter Functional Status * Calculated C-SSRS Risk Score (Lifetime/Recent) Answer Date of Assessment Author Status No Risk Indicated 10/31/2022 12:56 AM CDT Yarelis Howe RN Active * [address] Suicide Severity Rating Scale (Screener/Recent Self-Report) Question [...] Depression Total Score: 11 023 8:25 AM CARDIOLOGY PHYSICIAN documented as of this encounter Care Teams Women'S Swim Coach Relationship Specialty Start Date End Date Martha Nieto DO [address] [place] [address] PCP - General 08/01/16 documented as of this encounter
--- OUTSIDE RECORDS SUMMARY | 2024-11-20 19:05 | XMS_ITS ---
Author Organization [facility] [employer] [place] ([address]) Address [address] [place] [address] Care Team Providers Care Electric Needle Specialist Name Role Phone Gerson PETERSON Martha Primary Care Provider Unavailabl Tanisha Ragsdale Unavailable [phone] [facility], Provider Unavailable Unavailab le Allergies Allergen (clinical drug ingredient) Drug/Non Drug Allergy documented on EMR Reaction Allergy Type Onset Date Status Glue GLUE (uncoded) hives Allergy Activ e REASON FOR VISIT [facility] To [facility] Conversion Encounter Medications Medication SIG (Take, [...] review and pick correct strength-formulatio n from [facility] options. If intended option is not shown, discontinue and re-order from Quick Search* Active Encounters Encounter Location Date Provider Diagnosis [facility] [place] [address] 09/27/2023 Provider [facility] Allergic rhinitis due to [...] * IDANIA CarolineDOB: 2 (24 yo F)Acc No.[id number]:09/27/2023 Patient: Caroline KIRBY Provider: Jovani Callahan :2000 A ge:23 Y S ex:Female Date:09/27/2023 Address:[address] [place], [place] [id number] Pcp:Martha Nieto DO Subjective: * Chief Complaints: [...] Electronic signature of Prov toby CASTELLON-Migration on 11/20/2024 at 07:05 PM CDT Sign off status: Pending * Provider: Jovani Callahan Date: 09/27/2023 Generated for Maribell rowe/Vasile/Haider on: 11/20/2024 07:05 PM CDT
--- OUTSIDE RECORDS SUMMARY | 2024-11-20 19:05 | XMS_ITS | Encounter Summary ---
Author Organization [facility] Address [address] [place] [address] Care Team Providers Care Armature Winder Repair Name Role Phone Martha Nieto DO Primary Care Provider [phone] Encounter Details Date Type Department Care Team (Late st Contact Info) Description 12/22/2023 MyChart Message Enc [facility] Family Medicine - [place] [address] [place] [phone] Martha Nieto DO [address] [place] [address] Question Social History Tobacco Use Types Packs/Day [...] Sex Assigned at Female 04/27/2024 3:23 PM FIRE CLAIMS ADJUSTER Legal Sex Female 5:49 PM CDT Gender Identity Female 06/08/2021 9:11 AM FIRE CLAIMS ADJUSTER Sexual Orientation Straight 06/08/2021 9: 11 AM FIRE CLAIMS ADJUSTER documented as of this encounter Plan of Treatment Not on file documented as of this encounter Visit Diagnoses Not on filedocumented in this encounter Additional Health Concerns Assessment Noted Time PHQ-9 Depression Total Score: 11 023 8:25 AM FIRE CLAIMS ADJUSTER documented as of this encounter Care Teams Armature Winder Repair Relationship Specialty Start Date End Date Martha Nieto DO [address] [place] [address] PCP - General 08/01/16 documented as of this encounter
--- OUTSIDE RECORDS SUMMARY | 2024-11-20 19:06 | XMS_ITS | Encounter Summary ---
Author Organization [facility] Address [address] [place] [address] Care Team Providers Care Solar System Installer Name Role Phone Martha Nieto DO Primary Care Provider [phone] Encounter Details Date Type Department Care Team (Late st Contact Info) Description 10/11/2020 MyChart Message Enc [facility] Family Medicine - [place] [address], [address] [place] [phone] Martha Nieto DO [address] [place] [address] Question Social History Tobacco Use Types Packs/Day [...] Assigned at Female 04/27/2024 3:23 PM MANAGER SHOP Legal Sex Female 5:49 PM CDT Gender Identity Female 06/08/2021 9:11 AM MANAGER SHOP Sexual Orientation Straight 06/08/2021 9: 11 AM MANAGER SHOP COVID-19 Exposure Response Date Recorded In the [...] documented as of this encounter Care Teams Solar System Installer Relationship Specialty Start Date End Date Martha Nieto DO [address] [place] [address] PCP - General 08/01/16 documented as of this encounter
--- OUTSIDE RECORDS SUMMARY | 2024-11-20 19:06 | XMS_ITS ---
Author Organization [facility] [place] ([address]) Address [address] [place] [address] Care Team Providers Care Scalemaker Name Role Phone Marhta Nieto DO Primary Care Provider Tanisha Hanna Unavailable [phone] REASON FOR VISIT ARC follow-up Encounters Encounter Location Date Provider Diagnosis [facility] [address] [place] [address] 11/12/2023 Tanisha Morton Plan Of Treatment No Information Progress Notes * Caroline LYDOB: 2 (24 yo F)Acc No.[id number]:11/12/2023 Progress Notes Patient: Caroline KIRBY Provider: MADELINE Cardenas :2000 A ge:23 Y S ex:Female Date:11/12/2023 [address] [facility] Pcp:Martha Nieto DO Subjective: * Chief Complaints: * 1 . [facility]C follow-up. * Medical History: Objective: * Vitals: Assessment: Plan: * Treatment: * Billing Information: * Visit Code: * Procedure Codes: * Electronic signature of MADELINE Cano on 11/20/2024 at 07:05 PM CDT Sign off status: Pending * Provider: MADELINE Cardenas Date: 0 11/12/2023 Generated for Maribell rowe/Vasile/Haider on: 0 11/20/2024 07:05 PM CDT
--- OUTSIDE RECORDS SUMMARY | 2024-11-20 19:06 | XMS_ITS | Encounter Summary ---
Author Organization [facility] Address [address] [place] [address] Care Team Providers Care Food Mixer Assembler Name Role Phone Martha Nieto DO Primary Care Provider [phone] Encounter Details Date Type Department Care Team (Late st Contact Info) Description 12/28/2020 MyChart Message Enc [facility] Family Medicine - [place] [address], [address] [place] [phone] Martha Nieto DO [address] [place] [address] RE: Question Social History Tobacco Use Types [...] Sex Assigned at Female 04/27/2024 3:23 PM HEAD OF CYTOGENETICS Legal Sex Female 5:49 PM CDT Gender Identity Female 06/08/2021 9:11 AM HEAD OF CYTOGENETICS Sexual Orientation Straight 06/08/2021 9: 11 AM HEAD OF CYTOGENETICS documented as of this encounter Progress Notes [...] documented as of this encounter Care Teams Food Mixer Assembler Relationship Specialty Start Date End Date Martha Nieto DO [address] [place] [address] PCP - General 08/01/16 documented as of this encounter
--- OUTSIDE RECORDS SUMMARY | 2024-11-20 19:06 | XMS_ITS | Patient Health Record ---
Author Organization [facility] [place] ([address]) Address [address] [place] [address] Care Team Providers Care Roofing Foreman Name Role Phone aMrtha Nieto DO Primary Care Provider Unavailbrianna e Tanisha Morton Unavailable [phone] Allergies Allergen (clinical drug ingredient) Drug/Non Drug [...] Status Risk Notes Problem Chronic allergic conjunctivitis (50061072) Other chronic allergic conjunctivitis (H10.45) Active confirmed Problem Allergic rhinitis caused by pollen (disorder) (52388223) Allergic rhinitis due to pollen (J30.1) Active confirmed Problem Allergic rhinitis (70212423) Other allergic rhinitis (J30.89) Active confirmed Problem Allergic rhinitis caused by animal hair and dander (563059888489466) Allergic rhinitis due to animal (cat) (dog) hair and dander (J30.81) Active confirmed Plan Of Treatment No Information Insurance Providers Payer Name Payer Address Payer Phone Subscriber Number Group Number Insured Name Patient Relationship to Insured Coverage Start Date Coverage End Date [facility] [address] [place] [address] [phone] [id number] Chinedu Ly Child - Insured has Financial Responsibility Medical (General) History Medical History History ICD Code pre hypertension Surgical History Surgery Date(Month/Year) appendectomy 04/2016 cholecystectomy 04/2022 Tonsillectomy Gastric sleeve [place] teeth removal
[2024-11-20 19:09] VITALS: BMI 47.9
--- NOTE | 2024-11-20 19:16 | PC.NURSE ---
Pt discharged home undelivered in stable condition per order. Discharge orders discussed and given to pt, pt stated understanding, all questions and concerns answered. Pt ambulated out of department with all belongings, S.O @ pt side.
--- NOTE | 2024-11-22 10:09 | PM.OBTRLD ---
OB - Triage/Final Diagnosis Visit Information Reason for evaluation: other (Abdominal pain; vaginal fluid) Comments/Additional reasons for admission: I have assessed the risk for this patient, Caroline Olsen, and determined that she would benefit from observation care.
== END 2024-11-20 19:20 | disposition home or self-care (01) ==
PROVIDERS: Admitting Provider Obstetrics & Gynecology Gynecology; PCP Obstetrics & Gynecology Gynecology; Visit Provider Obstetrics & Gynecology Gynecology
DX: O26.893 Other specified pregnancy related conditions, third trimester (principal); R10.9 Unspecified abdominal pain; Z3A.35 35 weeks gestation of pregnancy
CPT/HCPCS: G0378; G0379

== ENCOUNTER 2024-11-22 19:11 | Observation (INO) | payer OTHER, SELFPAY ==
[2024-11-22] VITALS (16 sets, daily range): BP systolic 106–116; BP diastolic 55–65; PULSE 90–104; TEMP 36.1; O2SAT 96–100; BMI 47.7
--- OUTSIDE RECORDS SUMMARY | 2024-11-22 19:25 | XMS_ITS | Encounter Summary ---
Author Organization [facility] Address [address] [place] [address] Care Team Providers Care Nematologist Name Role Phone Martha Nieto DO Primary Care Provider Encounter Details Date Type Department Care Team (Late st Contact Info) Description 04/01/2022 MyChart Message Enc [facility] Family Medicine - [place] [address], [address] [place] [address] Martha Nieto DO [address] [place] [address] [place] Social History Tobacco Use Types Packs/Day [...] Sex Assigned at Female 04/27/2024 3:23 PM AIR PURIFIER SERVICER Legal Sex Female 5:49 PM CDT Gender Identity Female 06/08/2021 9:11 AM AIR PURIFIER SERVICER Sexual Orientation Straight 06/08/2021 9: 11 AM AIR PURIFIER SERVICER COVID-19 Exposure Response Date Recorded In the last 10 days, have yo u been in contact with someone who was confirmed or suspected to have Coronavirus/COVID-19? No / Unsure 03/19/2022 3:25 PM AIR PURIFIER SERVICER documented as of this encounter Progress Notes * Tika Delong MA - 04/02/2022 8:59 AM CST Left message for patient to call office PURIFIER SERVICER * Tika Delong MA - 04/01/2022 10:24 AM CST Left message for patient to call office for appointment. PURIFIER SERVICER documented in this encounter Plan of Treatment Not on file documented as of this encounter Visit Diagnoses Not on filedocumented in this encounter Additional Health Concerns Infection Onset Date Last Indicated Resolved Time COVID-19 Rule Out 10/31/2022 10/31/2022 10/31/2022 2:17 AM CDT Assessment Noted Time PHQ-9 Depression Total Score: 0 06/20/19 2:52 PM AIR PURIFIER SERVICER documented as of this encounter Care Teams Nematologist Relationship Specialty Start Date End Date Martha Nieto DO [address] '[place] [address] PCP - General 08/01/16 documented as of this encounter
--- OUTSIDE RECORDS SUMMARY | 2024-11-22 19:25 | XMS_ITS | Encounter Summary ---
Author Organization [facility] Address [address] [place] [address] Care Team Providers Care Pattern Cleaner Name Role Phone Martha Nieto DO Primary Care Provider [phone] Encounter Details Date Type Department Care Team (Late st Contact Info) Description 05/14/2022 MyChart Message Enc [facility] Family Medicine - [place] [address], [address] [place] [phone] Martha Nieto DO [address] [place] [address] Bowel movement Social History Tobacco Use Types [...] Sex Assigned at Female 04/27/2024 3:23 PM LAB HEAD Legal Sex Female 5:49 PM CDT Gender Identity Female 06/08/2021 9:11 AM LAB HEAD Sexual Orientation Straight 06/08/2021 9: 11 AM LAB HEAD documented as of this encounter Plan of Treatment Not on file documented as of this encounter Visit Diagnoses Not on filedocumented in this encounter Additional Health Concerns Infection Onset Date Last Indicated Resolved Time COVID-19 Rule Out 10/31/2022 10/31/2022 10/31/2022 2:17 AM CDT Assessment Noted Time PHQ-9 Depression Total Score: 0 06/20/19 22 2:52 PM LAB HEAD documented as of this encounter Care Teams Pattern Cleaner Relationship Specialty Start Date End Date Martha Nieto DO [address] [place] [address] PCP - General 08/01/16 documented as of this encounter
--- OUTSIDE RECORDS SUMMARY | 2024-11-22 19:25 | XMS_ITS | Encounter Summary ---
Author Organization [facility] Address [address] [place] [address] Care Team Providers Care Spindle Sander Name Role Phone Martha Nieto DO Primary Care Provider [phone] Encounter Details Date Type Department Care Team (Late st Contact Info) Description 02/27/2024 MyChart Message Enc [facility] Family Medicine - [place] [address], [address] [place] [address] Martha Nieto DO [address] [place] [address] Bladder problems Social History Tobacco Use Types [...] Assigned at Female 04/27/2024 3:23 PM SUPERVISOR INSTRUMENT MECHANICS Legal Sex Female 5:49 PM CDT Gender Identity Female 06/08/2021 9:11 AM SUPERVISOR INSTRUMENT MECHANICS Sexual Orientation Straight 06/08/2021 9: 11 AM SUPERVISOR INSTRUMENT MECHANICS documented as of this encounter Functional Status * Calculated C-SSRS Risk Score (Lifetime/Recent) Answer Date of Assessment Author Status No Risk Indicated 03/01/2024 8:09 AM Sánchez Ryan RN Active * [place] Suicide Severity Rating Scale (Screener/Recent Self-Report) Question [...] Depression Total Score: 11 023 8:25 AM SUPERVISOR INSTRUMENT MECHANICS documented as of this encounter Care Teams Spindle Sander Relationship Specialty Start Date End Date Martha Nieto DO [address] [place] [address] PCP - General 08/01/16 documented as of this encounter
--- OUTSIDE RECORDS SUMMARY | 2024-11-22 19:25 | XMS_ITS | Encounter Summary ---
Author Organization [facility] Address [address] [place] [address] Care Team Providers Care Circular Sawyer Stone Name Role Phone Martha Nieto DO Primary Care Provider [phone] Encounter Details Date Type Department Care Team (Late st Contact Info) Description 08/09/[address] [facility] Patient Accounts [address] [place] [address] [facility] Social History Tobacco [...] Sex Assigned at Female 04/27/2024 3:23 PM SEASONAL CUSTOMER SERVICE ASSOCIATE Legal Sex Female 5:49 PM CDT Gender Identity Female 06/08/2021 9:11 AM SEASONAL CUSTOMER SERVICE ASSOCIATE Sexual Orientation Straight 06/08/2021 9: 11 AM SEASONAL CUSTOMER SERVICE ASSOCIATE COVID-19 Exposure Response Date Recorded In [...] Depression Total Score: 11 023 8:25 AM SEASONAL CUSTOMER SERVICE ASSOCIATE documented as of this encounter Care Teams Circular Sawyer Stone Relationship Specialty Start Date End Date Martha Nieto DO [address] '[place] [address] PCP - General 08/01/16 documented as of this encounter
--- OUTSIDE RECORDS SUMMARY | 2024-11-22 19:25 | XMS_ITS | Encounter Summary ---
Author Organization [facility] Address [address] [place] [address] Care Team Providers Care Asic Engineer Name Role Phone Martha Nieto DO Primary Care Provider [phone] Encounter Details Date Type Department Care Team (Late st Contact Info) Description 10/31/2022 MyChart Message Enc [facility] Medical Group Family Medicine - [place] [address], [address] [place] [address] Martha Nieto DO [address] [place] [address] Question regarding URINALYSIS Social History Tobacco Use [...] Sex Assigned at Female 04/27/2024 3:23 PM DOOR SLINGER Legal Sex Female 5:49 PM CDT Gender Identity Female 06/08/2021 9:11 AM DOOR SLINGER Sexual Orientation Straight 06/08/2021 9: 11 AM DOOR SLINGER documented as of this encounter Functional Status * Calculated C-SSRS Risk Score (Lifetime/Recent) Answer Date of Assessment Author Status No Risk Indicated 10/31/2022 12:56 AM CDT Yarelis Howe RN Active * [place] Suicide Severity Rating Scale (Screener/Recent Self-Report) Question [...] Depression Total Score: 11 023 8:25 AM DOOR SLINGER documented as of this encounter Care Teams Asic Engineer Relationship Specialty Start Date End Date Martha Nieto DO [address] [place] [address] PCP - General 08/01/16 documented as of this encounter
--- OUTSIDE RECORDS SUMMARY | 2024-11-22 19:25 | XMS_ITS | Encounter Summary ---
Author Organization [facility] Address [address] [place] [address] Care Team Providers Care Plasterer Rough Name Role Phone Martha Nieto DO Primary Care Provider [phone] Encounter Details Date Type Department Care Team (Late st Contact Info) Description 09/29/2020 MyChart Message Enc [facility] Medical Group Family Medicine - [place] [address], [address] [place] [phone] Martha Nieto DO [address] [place] [address] RE: Question Social History Tobacco Use Types [...] Sex Assigned at Female 04/27/2024 3:23 PM GORE CUTTER Legal Sex Female 5:49 PM CDT Gender Identity Female 06/08/2021 9:11 AM GORE CUTTER Sexual Orientation Straight 06/08/2021 9: 11 AM GORE CUTTER COVID-19 Exposure Response Date Recorded In the [...] documented as of this encounter Care Teams Plasterer Rough Relationship Specialty Start Date End Date Martha Nieto DO [address] '[place] [address] PCP - General 08/01/16 documented as of this encounter
--- OUTSIDE RECORDS SUMMARY | 2024-11-22 19:25 | XMS_ITS | Encounter Summary ---
Author Organization [facility] Address [address] [place] [address] Care Team Providers Care Grocery Cashier Name Role Phone Martha Nieto DO Primary Care Provider Encounter Details Date Type Department Care Team (Late st Contact Info) Description 04/15/2024 MyChart Message Enc [facility] Medical Group Family Medicine - [place] [address] [place] [phone] Martha Nieto DO [address] [place] [address] Hcg results Social History Tobacco Use Types [...] Sex Assigned at Female 04/27/2024 3:23 PM SIGN DESIGNER Legal Sex Female 5:49 PM CDT Gender Identity Female 06/08/2021 9:11 AM SIGN DESIGNER Sexual Orientation Straight 06/08/2021 9: 11 AM SIGN DESIGNER documented as of this encounter Plan of Treatment Not on file documented as of this encounter Visit Diagnoses Not on filedocumented in this encounter Additional Health Concerns Assessment Noted Time PHQ-9 Depression Total Score: 11 023 8:25 AM SIGN DESIGNER documented as of this encounter Care Teams Grocery Cashier Relationship Specialty Start Date End Date Martha Nieto DO [address] [place] [address] PCP - General 08/01/16 documented as of this encounter
--- OUTSIDE RECORDS SUMMARY | 2024-11-22 19:25 | XMS_ITS | Encounter Summary ---
Author Organization [facility] Address [address] [place] [address] Care Team Providers Care Database Design Analyst Name Role Phone Martha Nieto DO Primary Care Provider [phone] Encounter Details Date Type Department Care Team (Late st Contact Info) Description 01/14/2024 MyChart Message Enc [facility] Medical Group Family Medicine - [place] [address], [address] [place] [phone] Martha Nieto DO [address] [place] [address] Fertility Social History Tobacco Use Types Packs/Day [...] Sex Assigned at Female 04/27/2024 3:23 PM RECREATION THERAPY DIRECTOR Legal Sex Female 5:49 PM CDT Gender Identity Female 06/08/2021 9:11 AM RECREATION THERAPY DIRECTOR Sexual Orientation Straight 06/08/2021 9: 11 AM RECREATION THERAPY DIRECTOR documented as of this encounter Plan of Treatment Not on file documented as of this encounter Visit Diagnoses Not on filedocumented in this encounter Additional Health Concerns Assessment Noted Time PHQ-9 Depression Total Score: 11 023 8:25 AM RECREATION THERAPY DIRECTOR documented as of this encounter Care Teams Database Design Analyst Relationship Specialty Start Date End Date Martha Nieto DO [address] [place] [address] PCP - General 08/01/16 documented as of this encounter
--- OUTSIDE RECORDS SUMMARY | 2024-11-22 19:25 | XMS_ITS | Encounter Summary ---
Author Organization [facility] Address [address] [place] [address] Care Team Providers Care Communications Technician Name Role Phone Martha Nieto DO Primary Care Provider [phone] Encounter Details Date Type Department Care Team (Late st Contact Info) Description 11/06/2022 MyChart Message Enc [facility] Medical Group Family Medicine - [place] [address] [place] [phone] Martha Nieto DO [address] [place] [address] Heart Rate Social History Tobacco Use Types [...] Sex Assigned at Female 04/27/2024 3:23 PM TICKET COLLECTOR Legal Sex Female 5:49 PM CDT Gender Identity Female 06/08/2021 9:11 AM TICKET COLLECTOR Sexual Orientation Straight 06/08/2021 9: 11 AM TICKET COLLECTOR documented as of this encounter Plan of Treatment Not on file documented as of this encounter Visit Diagnoses Not on filedocumented in this encounter Additional Health Concerns Assessment Noted Time PHQ-9 Depression Total Score: 11 023 8:25 AM TICKET COLLECTOR documented as of this encounter Care Teams Communications Technician Relationship Specialty Start Date End Date Martha Nieto DO [address] [place] [address] PCP - General 08/01/16 documented as of this encounter
--- OUTSIDE RECORDS SUMMARY | 2024-11-22 19:25 | XMS_ITS | Encounter Summary ---
Author Organization [facility] Address [address] [place] [address] Care Team Providers Care Transit Mixer Operator Name Role Phone Martha Nieto DO Primary Care Provider [phone] Encounter Details Date Type Department Care Team (Late st Contact Info) Description 04/15/2024 MyChart Message Enc [facility] Medical Group Family Medicine - [place] [address], [address] [place] [phone] Martha Nieto DO [address] [place] [address] Hcg Social History Tobacco Use Types Packs/Day [...] Assigned at Female 04/27/2024 3:23 PM BRANCH SERVICES MANAGER Legal Sex Female 5:49 PM CDT Gender Identity Female 06/08/2021 9:11 AM BRANCH SERVICES MANAGER Sexual Orientation Straight 06/08/2021 9: 11 AM BRANCH SERVICES MANAGER documented as of this encounter Progress Notes * Tika Francis MA - 04/15/2024 12:53 PM CST Patient notified that results have been faxed to and new labs have been ordered. SheVU and thanked us. CH SERVICES MANAGER documented in this encounter Plan of Treatment Not on file documented as of this encounter Results * HCG QUANT (SERUM)-CHORIONIC GONADOTROPIN (04/15/2024 2:10 PM BRANCH SERVICES MANAGER) Pathologist [facility] HCG QUANTITATIVE 448 MIU/ML 04/15/19 3:37 PM BRANCH SERVICES MANAGER [facility] Comment: WEEKS OF REFERENCE RANGES [...] MONTHS 10,000 - 100,000 04/15/2024 2:10 PM BRANCH SERVICES MANAGER us Martha Nieto DO LABORATORY Final Result [facility] [address] [place] [address], [place] [phone] documented in this encounter Visit Diagnoses Diagnosis Missed menses Absence of menstruation documented in this encounter Additional Health Concerns Assessment Noted Time PHQ-9 Depression Total Score: 11 023 8:25 AM BRANCH SERVICES MANAGER documented as of this encounter Care Teams Transit Mixer Operator Relationship Specialty Start Date End Date Martha Nieto DO [address] [place] [address] PCP - General 08/01/16 documented as of this encounter
--- OUTSIDE RECORDS SUMMARY | 2024-11-22 19:25 | XMS_ITS | Encounter Summary ---
Author Organization [facility] Address [address] [place] [address] Care Team Providers Care Skoog Operator Name Role Phone Martha Nieto DO Primary Care Provider [phone] Encounter Details Date Type Department Care Team (Late st Contact Info) Description 05/30/2023 AppwoRxt Message Enc [facility] [place], [place] [phone] Lula Jasso MD [address] [place], [place] [phone] Heart rate Social History Tobacco Use Types [...] Sex Assigned at Female 04/27/2024 3:23 PM CASTING MACHINE SERVICE OPERATOR Legal Sex Female 5:49 PM CDT Gender Identity Female 06/08/2021 9:11 AM CASTING MACHINE SERVICE OPERATOR Sexual Orientation Straight 06/08/2021 9: 11 AM CASTING MACHINE SERVICE OPERATOR documented as of this encounter Progress Notes * Kimi Vitale RN - 06/02/2023 12:07 PM CST Lets increase metoprolol to 50 mg QD. Monitor BP daily and call back in 1 week w/ bp readings for medication titration. Above message from Dr. Jasso. [employer] message sent to the patient with the above information. ING MACHINE SERVICE OPERATOR documented in this encounter Plan of Treatment Not on file documented as of this encounter Visit Diagnoses Not on filedocumented in this encounter Additional Health Concerns Assessment Noted Time PHQ-9 Depression Total Score: 11 023 8:25 AM CASTING MACHINE SERVICE OPERATOR documented as of this encounter Care Teams Skoog Operator Relationship Specialty Start Date End Date Martha Nieto DO [address] [place] [address] PCP - General 08/01/16 documented as of this encounter
--- OUTSIDE RECORDS SUMMARY | 2024-11-22 19:25 | XMS_ITS | Encounter Summary ---
Author Organization [facility] Address [address] [place] [address] Care Team Providers Care Contact Acid Plant Operator Name Role Phone Martha Nieto DO Primary Care Provider [phone] Encounter Details Date Type Department Care Team (Late st Contact Info) Description 06/12/2023 MyChart Message Enc [facility] Medical Group Family Medicine - [place] [address], [address] [place] [phone] Martha Nieto DO [address] [place] [address] Blood work/urine Social History Tobacco Use Types [...] Sex Assigned at Female 04/27/2024 3:23 PM TEMPORARY RECEPTIONIST Legal Sex Female 5:49 PM CDT Gender Identity Female 06/08/2021 9:11 AM TEMPORARY RECEPTIONIST Sexual Orientation Straight 06/08/2021 9: 11 AM TEMPORARY RECEPTIONIST documented as of this encounter Plan of Treatment Not on file documented as of this encounter Visit Diagnoses Not on filedocumented in this encounter Additional Health Concerns Assessment Noted Time PHQ-9 Depression Total Score: 11 023 8:25 AM TEMPORARY RECEPTIONIST documented as of this encounter Care Teams Contact Acid Plant Operator Relationship Specialty Start Date End Date Martha Nieto DO [address] [place] [address] PCP - General 08/01/16 documented as of this encounter
--- OUTSIDE RECORDS SUMMARY | 2024-11-22 19:25 | XMS_ITS | Encounter Summary ---
Author Organization [facility] Address [address] [place] [address] Care Team Providers Care Ornamental Iron Erector Name Role Phone Martha Nieto DO Primary Care Provider [phone] Encounter Details Date Type Department Care Team (Late st Contact Info) Description 04/24/2023 MyChart Message Enc [facility] Medical Group Family Medicine - [place] [address], [address] [place] [phone] Martha Nieto DO [address] [place] [address] Allergic reaction Social History Tobacco Use Types [...] Sex Assigned at Female 04/27/2024 3:23 PM CONCRETE PAVING SUPERVISOR Legal Sex Female 5:49 PM CDT Gender Identity Female 06/08/2021 9:11 AM CONCRETE PAVING SUPERVISOR Sexual Orientation Straight 06/08/2021 9: 11 AM CONCRETE PAVING SUPERVISOR documented as of this encounter Plan of Treatment Not on file documented as of this encounter Visit Diagnoses Not on filedocumented in this encounter Additional Health Concerns Assessment Noted Time PHQ-9 Depression Total Score: 11 023 8:25 AM CONCRETE PAVING SUPERVISOR documented as of this encounter Care Teams Ornamental Iron Erector Relationship Specialty Start Date End Date Martha Nieto DO [address] [place] [address] PCP - General 08/01/16 documented as of this encounter
--- OUTSIDE RECORDS SUMMARY | 2024-11-22 19:25 | XMS_ITS | Encounter Summary ---
Author Organization [facility] Address [address] [place] [address] Care Team Providers Care Hemmer Automatic Name Role Phone Martha Nieto DO Primary Care Provider [phone] Encounter Details Date Type Department Care Team (Late st Contact Info) Description 08/13/2022 MyChart Message Enc [facility] Medical Group Family Medicine - [place] [address], [address] [place] [address] Martha Nieto DO [address] [place] [address] Question regarding CBC W/DIFF AUTOMATED Social History [...] Assigned at Female 04/27/2024 3:23 PM MANAGER UTILIZATION MANAGEMENT Legal Sex Female 5:49 PM CDT Gender Identity Female 06/08/2021 9:11 AM MANAGER UTILIZATION MANAGEMENT Sexual Orientation Straight 06/08/2021 9: 11 AM MANAGER UTILIZATION MANAGEMENT COVID-19 Exposure Response Date Recorded In the [...] Depression Total Score: 11 023 8:25 AM MANAGER UTILIZATION MANAGEMENT documented as of this encounter Care Teams Hemmer Automatic Relationship Specialty Start Date End Date Martha Nieto DO [address] '[place] [address] PCP - General 08/01/16 documented as of this encounter
--- OUTSIDE RECORDS SUMMARY | 2024-11-22 19:25 | XMS_ITS | Encounter Summary ---
Author Organization [facility] Address [address] [place] [address] Care Team Providers Care Database Coordinator Name Role Phone Martha Nieto DO Primary Care Provider [phone] Encounter Details Date Type Department Care Team (Late st Contact Info) Description 03/28/2023 TeamLease Servicest Message Enc [facility] [address] [place], [place] [phone] Lula Jasso MD [address] [place], [place] [id number] Medication Social History Tobacco Use Types Packs/Day [...] Sex Assigned at Female 04/27/2024 3:23 PM EDUCATIONAL INTERPRETER Legal Sex Female 5:49 PM CDT Gender Identity Female 06/08/2021 9:11 AM EDUCATIONAL INTERPRETER Sexual Orientation Straight 06/08/2021 9: 11 AM EDUCATIONAL INTERPRETER documented as of this encounter Progress Notes * Kimi Vitale RN - 03/28/2023 1:05 PM CST Thank you for letting me know. I will review the restaurant culinary manager and message you with results. Letsget you started on metoprolol XL 25 mg QD. Can you monitor your HR/BP once daily and message in 1 week with HR and BP readings. Above message from Dr. Jasso. [employer] message sent to the patient with the above information. ATIONAL INTERPRETER documented in this encounter Plan of Treatment Not on file documented as of this encounter Visit Diagnoses Not on filedocumented in this encounter Additional Health Concerns Assessment Noted Time PHQ-9 Depression Total Score: 11 023 8:25 AM EDUCATIONAL INTERPRETER documented as of this encounter Care Teams Database Coordinator Relationship Specialty Start Date End Date Martha Nieto DO [address] [place] [address] PCP - General 08/01/16 documented as of this encounter
--- OUTSIDE RECORDS SUMMARY | 2024-11-22 19:25 | XMS_ITS | Encounter Summary ---
Author Organization [facility] Address [address] [place] [address] Care Team Providers Care Senior Technical Specialist Name Role Phone Martha Nieto DO Primary Care Provider [phone] Encounter Details Date Type Department Care Team (Late st Contact Info) Description 07/03/2022 MyChart Message Enc [facility] Medical Group Family Medicine - [place] [address] [place] [phone] Martha Nieto DO [address] [place] [address] General Surgeon Social History Tobacco Use Types [...] Sex Assigned at Female 04/27/2024 3:23 PM MORTGAGE ADVISOR Legal Sex Female 5:49 PM CDT Gender Identity Female 06/08/2021 9:11 AM MORTGAGE ADVISOR Sexual Orientation Straight 06/08/2021 9: 11 AM MORTGAGE ADVISOR COVID-19 Exposure Response Date Recorded In the [...] Depression Total Score: 11 023 8:25 AM MORTGAGE ADVISOR documented as of this encounter Care Teams Senior Technical Specialist Relationship Specialty Start Date End Date Martha Nieto DO [address] [place] [address] PCP - General 08/01/16 documented as of this encounter
--- OUTSIDE RECORDS SUMMARY | 2024-11-22 19:25 | XMS_ITS | Encounter Summary ---
Author Organization [facility] Address [address] [place] [address] Care Team Providers Care Electric Range Preparer Name Role Phone Martha Nieto DO Primary Care Provider [phone] Encounter Details Date Type Department Care Team (Late st Contact Info) Description 12/22/2023 MyChart Message Enc [facility] Medical Group Family Medicine - [place] [address] [place] [phone] Martha Nieto DO [address] [place] [address] Question Social History Tobacco Use Types Packs/Day [...] Sex Assigned at Female 04/27/2024 3:23 PM TEMPERATURE REGULATOR PYROMETER Legal Sex Female 5:49 PM CDT Gender Identity Female 06/08/2021 9:11 AM TEMPERATURE REGULATOR PYROMETER Sexual Orientation Straight 06/08/2021 9: 11 AM TEMPERATURE REGULATOR PYROMETER documented as of this encounter Plan of Treatment Not on file documented as of this encounter Visit Diagnoses Not on filedocumented in this encounter Additional Health Concerns Assessment Noted Time PHQ-9 Depression Total Score: 11 023 8:25 AM TEMPERATURE REGULATOR PYROMETER documented as of this encounter Care Teams Electric Range Preparer Relationship Specialty Start Date End Date Martha Nieto DO [address] [place] [address] PCP - General 08/01/16 documented as of this encounter
--- OUTSIDE RECORDS SUMMARY | 2024-11-22 19:25 | XMS_ITS | Encounter Summary ---
Author Organization [facility] Address [address] [place] [address] Care Team Providers Care Ground Products Director Name Role Phone Martha Nieto DO Primary Care Provider [phone] Encounter Details Date Type Department Care Team (Late st Contact Info) Description 01/17/2020 Prep for Procedure [place] Pre-Admission Testing [facility] [place] [address] Anton Maza MD [address] [place] [address] Social History Tobacco Use Types [...] Sex Assigned at Female 04/27/2024 3:23 PM HANDBELL CHOIR DIRECTOR Legal Sex Female 5:49 PM CDT Gender Identity Female 06/08/2021 9:11 AM HANDBELL CHOIR DIRECTOR Sexual Orientation Straight 06/08/2021 9: 11 AM HANDBELL CHOIR DIRECTOR COVID-19 Exposure Response Date Recorded In the [...] DETECTED NOT DETECTED 01/20/2020 12:21 PM CDT [facility] Comment: A Not [...] providers and patients using the following websites: https://www.[employer]/home/Covid-19/HCP/NAAT/fact-sheet2 https://www.[employer]/home/Covid-19/Patients/NAAT/ fact-sheet2 This test has been authorized by the FDA under an Emergency Use Authorization (EUA) for use by authorized laboratories. Due to the current public health emergency, [facility] is receiving a high volume of samples [...] about COVID-19 can be found at the [facility] website: www.[employer]/Covid19. Test performed at [facility] [address] [id number] Director: DAINA BURSH DO,MPH FIRST TEST YES 01/18/2020 3:07 PM CDT [facility] EMPLOYED IN HEALTHCARE NO 01/18/2020 3:07 PM CDT [facility] SYMPTOMATIC DEFINED BY CDC NO 01/18/2020 3:07 PM CDT [facility] DATE OF SYMPTOM ONSET UNKNOWN 01/18/2020 3:09 PM CDT [facility] HOSPITALIZATION STATUS NO 01/18/2020 3:07 PM CDT [facility] PATIENT IN ICU NO 01/18/2020 3:07 PM CDT [facility] RESIDENT OF [facility] NO 01/18/2020 3:07 PM CDT [facility] NOT 01/18/2020 3:07 PM CDT [facility] PATIENT'S RACE WHITE OR 01/18/2020 3:07 PM CDT [facility] ETHNICITY NONHISPANIC 01/18/2020 3:07 PM CDT [facility] SOURCE (QST) NASOPHARYNGEAL SWAB 01/18/2020 3:07 PM CDT [facility] NASOPHARYNGEAL SWAB / Unknown 01/18/2020 3:06 PM CDT us Anton Maza MD MICROBIOLOGY - GENERAL ORDERABL ES Final Result [facility] [address] [place] [address], [place] [phone] [facility] [address] [place] [address], documented in this encounter Visit Diagnoses Diagnosis Preop examination- Primary Preoperative examination, unspecified documented in this encounter Additional Health Concerns Infection Onset Date Last Indicated Resolved Time COVID-19 Rule Out 01/18/2020 01/18/2020 01/20/2020 12:21 PM CDT COVID-19 Rule Out 10/31/2022 10/31/2022 10/31/2022 2:17 AM CDT documented as of this encounter Care Teams Ground Products Director Relationship Specialty Start Date End Date Martha Nieto DO [address] [place] [address] PCP - General 08/01/16 documented as of this encounter
--- OUTSIDE RECORDS SUMMARY | 2024-11-22 19:25 | XMS_ITS | Encounter Summary ---
Author Organization [facility] Address [address] [place] [address] Care Team Providers Care Microstrategy Developer Name Role Phone Martha Nieto DO Primary Care Provider [phone] Encounter Details Date Type Department Care Team (Late st Contact Info) Description 11/13/2022 MyChart Message Enc [facility] Medical Group Family Medicine - [place] [address] [place] [phone] Martha Nieto DO [address] [place] [address] Throw up Social History Tobacco Use Types [...] Sex Assigned at Female 04/27/2024 3:23 PM JEWEL SUPERVISOR Legal Sex Female 5:49 PM CDT Gender Identity Female 06/08/2021 9:11 AM JEWEL SUPERVISOR Sexual Orientation Straight 06/08/2021 9: 11 AM JEWEL SUPERVISOR documented as of this encounter Progress [...] Depression Total Score: 11 023 8:25 AM JEWEL SUPERVISOR documented as of this encounter Care Teams Microstrategy Developer Relationship Specialty Start Date End Date Martha Nieto DO [address] [place] [address] PCP - General 08/01/16 documented as of this encounter
--- OUTSIDE RECORDS SUMMARY | 2024-11-22 19:25 | XMS_ITS | Encounter Summary ---
Author Organization [facility] Address [address] [place] [address] Care Team Providers Care Per Diem Registered Nurse Name Role Phone Martha Nieto DO Primary Care Provider Encounter Details Date Type Department Care Team (Late st Contact Info) Description 04/21/2023 MyChart Message Enc [facility] Family Medicine - [place] [address] [place] [phone] Martha Nieto DO [address] [place] [address] Allergic reaction Social History Tobacco Use Types [...] Sex Assigned at Female 04/27/2024 3:23 PM TILE GRADER Legal Sex Female 5:49 PM CDT Gender Identity Female 06/08/2021 9:11 AM TILE GRADER Sexual Orientation Straight 06/08/2021 9: 11 AM TILE GRADER documented as of this encounter Functional Status [...] or irritable 0 04/22/2023 10:46 AM Katty Sandvoal MA Ac tive Feeling afraid as if something awful might happen 0 04/22/2023 10:46 AM TILE GRADER Katty Girard MA Ac tive LULÚ-7 Total Score 0 04/22/2023 10:46 AM TILE GRADER Katty Clemente MA Active documented as of this encounter Plan of Treatment Not on file documented as of this encounter Visit Diagnoses Not on filedocumented in this encounter Additional Health Concerns Assessment Noted Time PHQ-9 Depression Total Score: 11 023 8:25 AM TILE GRADER documented as of this encounter Care Teams Per Diem Registered Nurse Relationship Specialty Start Date End Date Martha Nieto DO [address] [place] [address] PCP - General 08/01/16 documented as of this encounter
--- OUTSIDE RECORDS SUMMARY | 2024-11-22 19:26 | XMS_ITS | Encounter Summary ---
Author Organization [facility] Address [address] [place] [address] Care Team Providers Care Steel Fabricator Name Role Phone Martha Nieto Karlie PETERSON Primary Care Provider [phone] Encounter Details Date Type Department Care Team (Late st Contact Info) Description 10/29/2023 [place] Message Enc [facility] [employer] [facility] [address] [place] [address] Meliza, [facility] Provider Proof of name change Social History [...] Assigned at Female 04/27/2024 3:23 PM TELEVISION CABLE INSTALLER Legal Sex Female 5:49 PM CDT Gender Identity Female 06/08/2021 9:11 AM TELEVISION CABLE INSTALLER Sexual Orientation Straight 06/08/2021 9: 11 AM TELEVISION CABLE INSTALLER documented as of this encounter Functional Status * Over the past 2 weeks, how often have you been bothered by any of the following problems? Question Answer Date of Assessment Author Status Little interest or pleasure in doing things Not at all 10/30/2023 12:48 PM CDT Tonny Yanes, Nurse Geographic Analyst I Active Feeling down, depressed, or hopeless Not at all 10/30/2023 12:48 PM CDT Favian Yanes, Nurse Geographic Analyst I Active Patient Health Questionnaire-2 Score 0 10/30/2023 12:48 PM CDT Shanell Yanes, Nurse Geographic Analyst I Active documented as of this encounter Plan of Treatment Not on file documented as of this encounter Visit Diagnoses Not on filedocumented in this encounter Additional Health Concerns Assessment Noted Time PHQ-9 Depression Total Score: 11 023 8:25 AM TELEVISION CABLE INSTALLER documented as of this encounter Care Teams Steel Fabricator Relationship Specialty Start Date End Date Martha Nieto DO [address] [place] [address] PCP - General 08/01/16 documented as of this encounter
--- OUTSIDE RECORDS SUMMARY | 2024-11-22 19:26 | XMS_ITS | Encounter Summary ---
Author Organization [facility] Address [address] [place] [address] Care Team Providers Care Signal Engineer Name Role Phone Martha Neito DO Primary Care Provider [phone] Encounter Details Date Type Department Care Team (Late st Contact Info) Description 12/28/2020 MyChart Message Enc [facility] Family Medicine - [place] [address], [address] [place] [phone] Martha Nieto DO [address] [place] [address] RE: Question Social History Tobacco Use Types [...] Sex Assigned at Female 04/27/2024 3:23 PM ARTS ADMINISTRATOR Legal Sex Female 5:49 PM CDT Gender Identity Female 06/08/2021 9:11 AM ARTS ADMINISTRATOR Sexual Orientation Straight 06/08/2021 9: 11 AM ARTS ADMINISTRATOR documented as of this encounter Progress Notes [...] documented as of this encounter Care Teams Signal Engineer Relationship Specialty Start Date End Date Martha Nieto DO [address] [place] [address] PCP - General 08/01/16 documented as of this encounter
--- OUTSIDE RECORDS SUMMARY | 2024-11-22 19:26 | XMS_ITS | Patient Health Record ---
Author Organization [facility] [employer] [place] ([address]) Address [address] [place] [address] Care Team Providers Care Case Operator Name Role Phone Martha Nieto DO Primary Care Provider Unavailbrianna e Tanisha Morton Unavailable [phone] Allergies Allergen (clinical drug ingredient) Drug/Non Drug [...] Status Risk Notes Problem Chronic allergic conjunctivitis (78839593) Other chronic allergic conjunctivitis (H10.45) Active confirmed Problem Allergic rhinitis caused by pollen (disorder) (68477677) Allergic rhinitis due to pollen (J30.1) Active confirmed Problem Allergic rhinitis (94612309) Other allergic rhinitis (J30.89) Active confirmed Problem Allergic rhinitis caused by animal hair and dander ([id number]) Allergic rhinitis due to animal (cat) (dog) hair and dander (J30.81) Active confirmed Plan Of Treatment No Information Insurance Providers Payer Name Payer Address Payer Phone Subscriber Number Group Number Insured Name Patient Relationship to Insured Coverage Start Date Coverage End Date [facility] [address] [place] [phone] [id number] Chinedu Ly Child - Insured has Financial Responsibility Medical (General) History Medical History History ICD Code pre hypertension Surgical History Surgery Date(Month/Year) appendectomy 04/2016 cholecystectomy 04/2022 Tonsillectomy Gastric sleeve [place] teeth removal
--- OUTSIDE RECORDS SUMMARY | 2024-11-22 19:26 | XMS_ITS | Encounter Summary ---
Author Organization [facility] Address [address] [place] [address] Care Team Providers Care Negative Cleaner Name Role Phone Martha Nieto DO Primary Care Provider [phone] Encounter Details Date Type Department Care Team (Late st Contact Info) Description 06/15/2021 MyChart Message Enc [facility] Family Medicine - [place] [address], [address] [place] [phone] Martha Nieto DO [address] [place] [address] Possible UTI Social History Tobacco Use Types [...] Sex Assigned at Female 04/27/2024 3:23 PM FACILITIES ENGINEERING MANAGER Legal Sex Female 5:49 PM CDT Gender Identity Female 06/08/2021 9:11 AM FACILITIES ENGINEERING MANAGER Sexual Orientation Straight 06/08/2021 9: 11 AM FACILITIES ENGINEERING MANAGER COVID-19 Exposure Response Date Recorded In the last 10 days, have yo u been in contact with someone who was confirmed or suspected to have Coronavirus/COVID-19? No / Unsure 06/18/2021 3:10 PM FACILITIES ENGINEERING MANAGER documented as of this encounter Plan of Treatment Not on file documented as of this encounter Visit Diagnoses Not on filedocumented in this encounter Additional Health Concerns Infection Onset Date Last Indicated Resolved Time COVID-19 Rule Out 10/31/2022 10/31/2022 10/31/2022 2:17 AM CDT Assessment Noted Time PHQ-9 Depression Total Score: 0 06/08/19 22 9:58 AM FACILITIES ENGINEERING MANAGER documented as of this encounter Care Teams Negative Cleaner Relationship Specialty Start Date End Date Martha Nieto DO [address] '[place] [address] PCP - General 08/01/16 documented as of this encounter
--- OUTSIDE RECORDS SUMMARY | 2024-11-22 19:26 | XMS_ITS | Encounter Summary ---
Author Organization [facility] Address [address] [place] [address] Care Team Providers Care Computer Repairer Name Role Phone Martha Nieto DO Primary Care Provider [phone] Encounter Details Date Type Department Care Team (Late st Contact Info) Description 10/01/2023 MyChart Message Enc [facility] Family Medicine - [place] [address] [place] [phone] Martha Nieto DO [address] [place] [address] Oral thrush Social History Tobacco Use Types [...] Sex Assigned at Female 04/27/2024 3:23 PM CORK FLOOR INSTALLER Legal Sex Female 5:49 PM CDT Gender Identity Female 06/08/2021 9:11 AM CORK FLOOR INSTALLER Sexual Orientation Straight 06/08/2021 9: 11 AM CORK FLOOR INSTALLER documented as of this encounter Plan of Treatment Not on file documented as of this encounter Visit Diagnoses Not on filedocumented in this encounter Additional Health Concerns Assessment Noted Time PHQ-9 Depression Total Score: 11 023 8:25 AM CORK FLOOR INSTALLER documented as of this encounter Care Teams Computer Repairer Relationship Specialty Start Date End Date Martha Nieto DO [address] [place] [address] PCP - General 08/01/16 documented as of this encounter
--- OUTSIDE RECORDS SUMMARY | 2024-11-22 19:26 | XMS_ITS | Encounter Summary ---
Author Organization [facility] Address [address] [place] [address] Care Team Providers Care Blending Machine Feeder Name Role Phone Martha Nieto DO Primary Care Provider [phone] Encounter Details Date Type Department Care Team (Late st Contact Info) Description 07/11/2021 MyChart Message Enc [facility] Family Medicine - [place] [address], [address] [place] [phone] Martha Nieto DO [address] [place] [address] Pain Social History Tobacco Use Types Packs/Day [...] Sex Assigned at Female 04/27/2024 3:23 PM SHOE STITCHER ODD Legal Sex Female 5:49 PM CDT Gender Identity Female 06/08/2021 9:11 AM SHOE STITCHER ODD Sexual Orientation Straight 06/08/2021 9: 11 AM SHOE STITCHER ODD COVID-19 Exposure Response Date Recorded In the [...] Total Score: 0 06/20/19 22 2:52 PM SHOE STITCHER ODD documented as of this encounter Care Teams Blending Machine Feeder Relationship Specialty Start Date End Date Martha Nieto DO [address] '[place] [address] PCP - General 08/01/16 documented as of this encounter
--- OUTSIDE RECORDS SUMMARY | 2024-11-22 19:26 | XMS_ITS | Encounter Summary ---
Author Organization [facility] Address [address] [place] [address] Care Team Providers Care Industrial Hygiene Manager Name Role Phone Martha Nieto DO Primary Care Provider [phone] Encounter Details Date Type Department Care Team (Late st Contact Info) Description 10/11/2020 MyChart Message Enc [facility] Family Medicine - [place] [address], [address] [place] [phone] Martha Nieto DO [address] [place] [address] Question Social History Tobacco Use Types Packs/Day [...] Assigned at Female 04/27/2024 3:23 PM SENIOR FIRMWARE ENGINEER Legal Sex Female 5:49 PM CDT Gender Identity Female 06/08/2021 9:11 AM SENIOR FIRMWARE ENGINEER Sexual Orientation Straight 06/08/2021 9: 11 AM SENIOR FIRMWARE ENGINEER COVID-19 Exposure Response Date Recorded In the [...] documented as of this encounter Care Teams Industrial Hygiene Manager Relationship Specialty Start Date End Date Martha Nieto DO [address] [place] [address] PCP - General 08/01/16 documented as of this encounter
--- OUTSIDE RECORDS SUMMARY | 2024-11-22 19:26 | XMS_ITS ---
Author Organization [facility] [place] ([address]) Address [address] [place] [address] Care Team Providers Care Electric Razor Assembler Name Role Phone Martha Nieto DO Primary Care Provider Tanisha Hanna Unavailable [phone] REASON FOR VISIT ARC follow-up Encounters Encounter Location Date Provider Diagnosis [facility] [address] [place] [address] 11/12/2023 Tanisha Morton Plan Of Treatment No Information Progress Notes * Caroline LYDOB: 2 (24 yo F)Acc No.[id number]:11/12/2023 Progress Notes Patient: Caroline KIRBY Provider: MADELINE Cardenas :2000 A ge:23 Y S ex:Female Date:11/12/2023 [address] [facility] Pcp:Martha Nieto DO Subjective: * Chief Complaints: * 1 . ARC follow-up. * Medical History: Objective: * Vitals: Assessment: Plan: * Treatment: * Billing Information: * Visit Code: * Procedure Codes: * Electronic signature of MADELINE Cano on 11/22/2024 at 07:26 PM CDT Sign off status: Pending * Provider: MADELINE Cardenas Date: 0 11/12/2023 Generated for Maribell rowe/Vasile/Haider on: 0 11/22/2024 07:26 PM CDT
--- OUTSIDE RECORDS SUMMARY | 2024-11-22 19:26 | XMS_ITS | Clinical Summary ---
Author Organization [facility] Address [address] [place] [address] Care Team Providers Care Lens Maker Name Role Phone Martha Nieto DO Primary Care Provider [phone] Allergies Active Allergy Reactions Criticality Noted Date [...] Group Ultrasound (SCAN) 10/11/2024 MyChart Message Enc [facility] Family Medicine [address], [address] [place] [address] Martha Nieto DO Updated ROBBY [...] / Stillbirths Mother Heart Disease Paternal Grandfather [place] Stroke Paternal Grandfather Cancer Paternal Grandmother Diabetes [...] Sex Assigned at Female 04/27/2024 3:23 PM EMERGENCY MEDICAL SERVICE MANAGER Legal Sex Female 5:49 PM CDT Gender Identity Female 06/08/2021 9:11 AM EMERGENCY MEDICAL SERVICE MANAGER Sexual Orientation Straight 06/08/2021 9: 11 AM EMERGENCY MEDICAL SERVICE MANAGER Last Filed Vital Signs Vital Sign Reading Time Taken Comments Blood Pressure 118/83 03/01/2024 12:00 PM EMERGENCY MEDICAL SERVICE MANAGER Pulse 72 03/01/2024 10:16 AM EMERGENCY MEDICAL SERVICE MANAGER Temperature 36.8 C (98.3 F) 03/01/2024 8:02 AM EMERGENCY MEDICAL SERVICE MANAGER Respiratory Rate 20 03/01/2024 10:16 AM EMERGENCY MEDICAL SERVICE MANAGER Oxygen Saturation 98% 03/01/2024 11:00 AM EMERGENCY MEDICAL SERVICE MANAGER Inhaled Oxygen Concentration - - Weight 111.1 kg (245 lb) 03/01/2024 8:02 AM EMERGENCY MEDICAL SERVICE MANAGER Height 162.6 cm (5' 4) 03/01/2024 8:02 AM EMERGENCY MEDICAL SERVICE MANAGER Body Mass Index 42.05 03/01/2024 8:02 AM EMERGENCY MEDICAL SERVICE MANAGER Plan of Treatment Health Maintenance Due Date [...] season) 2023 04/19/2022, 07/21/2020, 06/29/2020 PHQ-2 (Physician [place]) 04/14/2024 10/30/2023 Chlamydia Screening Females ages 16-24 [...] CHLAMYDIA GC RNA STAT 03/01/2024 8:15 AM EMERGENCY MEDICAL SERVICE MANAGER from Last 3 Months or Most Recently Relevant to Health Maintenance Results * ULTRASOUND GENERIC (SCAN ORDER) (10/16/2024) Anatomical Region Laterality Modality Other 10/16/2024 [facility] Scanned SCANNING Final Resu lt * VASCULAR LAB GENERIC (SCAN ORDER) (09/27/2024) 09/27/2024 [facility] Scanned SCANNING Final Resu lt * CHLAMYDIA GC RNA (03/01/2024 8:15 AM EMERGENCY MEDICAL SERVICE MANAGER) SPEC DESCRIPTION URINE CLEAN CATCH 03/01/2024 11:11 AM EMERGENCY MEDICAL SERVICE MANAGER [facility] CHLAMYDIA RNA TMA NEGATIVE NEGATIVE 024 1:14 AM EMERGENCY MEDICAL SERVICE MANAGER [facility] Comment:PERFORMED BY NUCLEIC ACID AMPLIFICATION N.GONORRHOEAE RNA TMA NEGATIVE NEGATIVE 03/03/2024 1:14 AM EMERGENCY MEDICAL SERVICE MANAGER [facility] Comment:PERFORMED BY NUCLEIC ACID AMPLIFICATION URINE SPECIMEN / Unknown 03/01/2024 8:15 AM EMERGENCY MEDICAL SERVICE MANAGER us Brendan Lee MD MICROBIOLOGY - GENERAL ORDER [place] Final Result [facility] [address] [place] [address], [place] [phone] [facility] [address] [place] [address], [place] [phone] from Last 3 Months or Most Recently Relevant to Health Maintenance Insurance [employer] Advance Directives * Full Code (Latest Code Status on File) Date Activated Date Inactivated Comments 01/21/2020 9:44 AM 01/21/2020 11:45 AM Care Teams Lens Maker Relationship Specialty Start Date End Date Martha Nieto DO [address] [place] [address] PCP - General 08/01/16
--- NOTE | 2024-11-22 19:52 | OBADM ---
This patient, Caroline Olsen, admitted to the OB room Labor/Delivery/Recovery 104 for observation. Patient/family oriented to hospital policies and general routines including ID bracelet, bed and alarms, visiting hours, pain management, procedures, bathroom and other care routines, personal items, smoking policy, room service/diet, and visiting hours. Patient/Family are encouraged to report perceived risks to care and to ask questions if they do not understand what they are told or what they should do.
[2024-11-22 20:03] LABS: Add Urine Microscopic? YES; Appearance Urine Cloudy (Clear); Glucose Urine UA Negative (Negative); Leukocyte Esterase Ur Trace LEU/UL (Negative); Need Manual Microscopic Reviewed; Nitrate Urine Negative (Negative); Non Pathogenic Casts 0-2; Specific Grav Ur 1.025 (1.001-1.035)
--- NOTE | 2024-11-25 07:56 | P.PNOB_ITS ---
OB - Triage/Final Diagnosis Visit Information Reason for evaluation: threatened labor Comments/Additional reasons for admission: I have assessed the risk for this patient, Caroline Olsen, and determined that she would benefit from observation care. Evaluation Laboratory results: Laboratory Tests 11/22/24 19:29 Urine Color Yellow Urine Appearance Cloudy H Urine pH 6.0 Ur Specific [place] 1.025 Urine Protein Trace Urine Glucose (UA) Negative Urine Ketones Trace H Ur Blood (Man) Negative Urine Nitrate Negative Urine Bilirubin Negative Urine Urobilinogen 1.0 Add Ur Microanalysis Reviewed Leukocyte Esterase Rfl Trace H Urine RBC 3-5 H Urine WBC 6-10 H Ur Squamous Epith Cells Many H Urine Bacteria 3+ H Urine Casts 0-2
== END 2024-11-22 20:40 | disposition home or self-care (01) ==
PROVIDERS: Admitting Provider Obstetrics & Gynecology Gynecology; PCP Obstetrics & Gynecology Gynecology; Visit Provider Obstetrics & Gynecology Gynecology
DX: O26.893 Other specified pregnancy related conditions, third trimester (principal); R10.9 Unspecified abdominal pain; Z3A.36 36 weeks gestation of pregnancy
CPT/HCPCS: 81001; G0378; G0379

== ENCOUNTER 2024-12-02 08:35 | Outpatient (CLI) | payer OTHER, SELFPAY ==
--- OUTSIDE RECORDS SUMMARY | 2023-09-27 16:30 | XMS_ITS ---
Author Organization [facility] [employer] [place] ([address]) Address [address] [place] [address] Care Team Providers Care Textile Machinery Sales Representative Name Role Phone Martha Nieto DO Primary Care Provider Unavailabl Tanisha Ragsdale Unavailable [phone] [facility], Provider Unavailable Unavailab le Allergies Allergen (clinical drug ingredient) Drug/Non Drug Allergy documented on EMR Reaction Allergy Type Onset Date Status Glue GLUE (uncoded) hives Allergy Activ e REASON FOR VISIT [facility] Encounter Medications Medication SIG (Take, Route, Frequency, Duration) Notes Start Date End Date Status NASAL WASHES N/A DIRECTED INTRANASALLY NEEDED; Duration: 30 *Please review for potential replacement for e-prescription and drug interaction check* 07/24/2023 Active Fluticasone Propionate 50 MCG/ACT 2 spray(s) in each nostril once a day; Duration: 30 days 07/24/2023 Active Cetirizine HCl 10 MG 1 tab(s) orally once a day; Duration: 30 days 07/24/2023 Active Metoprolol Succinate ER 200 MG 1 CAP(S) ORALLY TWICE A DAY *Please review and pick correct strength-formulatio n from [facility] options. If intended option is not shown, discontinue and re-order from Quick Search* Active Encounters Encounter Location Date Provider Diagnosis [facility] [place] [address] 09/27/2023 Provider [facility] Allergic rhinitis due to pollen J30.1 Assessments Encounter Date Diagnosis (ICD Code) Assessment Notes Treatment Notes Treatment Clinical Notes Section Notes 09/27/2023 Allergic rhinitis due to pollen (ICD-10 - J30.1) Plan Of Treatment Medication Medication Name Sig Start Date Stop Date Notes NASAL WASHES N/A DIRECTED INTRANASALLY NEEDED; Duration: 30 07/24/2023 *Please review for potential replacement for e-prescription and drug interaction check* Fluticasone Propionate 50 MCG/ACT 2 spray(s) in each nostril once a day; Duration: 30 days 07/24/2023 Cetirizine HCl 10 MG 1 tab(s) orally onc e a day; Duration: 30 days 07/24/2023 Progress Notes * IDANIA CarolineDOB: 2 (24 yo F)Acc No.[id number]:09/27/2023 Patient: Caroline KIRBY Provider: Jovani Callhaan :2000 A ge:23 Y S ex:Female Date:09/27/2023 Address:[address] [place], [place] [id number] Pcp:Martha Nieto DO Subjective: * Chief Complaints: * 1 . Multum To [facility] Conversion Encounter. * Medical History: * Medications: T aking Metoprolol Succinate ER 200 MG CAPSULE, EXTENDED RELEASE 1 CAP(S) ORALLY TWICE A DAY , Notes to Pharmacist: *Please review and pick correct strength- formulation from [facility] options. If intended option is not shown, discontinue and re-order from Quick Search* * Allergies: G LUE: hives. Objective: * Vitals: Assessment: * Assessment: 1. A llergic rhinitis due to pollen - J30.1 (Primary) Plan: * Treatment: * Billing Information: * Visit Code: * Procedure Codes: * Electronic signature of Prov toby CASTELLON-Migration on 12/02/2024 at 08:52 AM CDT Sign off status: Pending * Provider: Jovani Callahan Date: 09/27/2023 Generated for Maribell rowe/Vasile/Haider on: 12/02/2024 08:52 AM CDT
--- OUTSIDE RECORDS SUMMARY | 2023-11-12 12:30 | XMS_ITS ---
Author Organization [facility] [place] ([address]) Address [address] [place] [address] Care Team Providers Care Regulatory Leader Name Role Phone Martha Nieto DO Primary Care Provider Tanisha Hanna Unavailable [phone] REASON FOR VISIT [facility] follow-up Encounters Encounter Location Date Provider Diagnosis [facility] [address] [place] [address] 11/12/2023 Tanisha Morton Plan Of Treatment No Information Progress Notes * Caroline LYDOB: 2 (24 yo F)Acc No.[id number]:11/12/2023 Progress Notes Patient: Caroline KIRBY Provider: MADELINE Cardenas :2000 A ge:23 Y S ex:Female Date:11/12/2023 [facility] [facility] Pcp:Martha Nieto DO Subjective: * Chief Complaints: * 1 . [facility] follow-up. * Medical History: Objective: * Vitals: Assessment: Plan: * Treatment: * Billing Information: * Visit Code: * Procedure Codes: * Electronic signature of MADELINE Cano on 12/02/2024 at 08:51 AM CDT Sign off status: Pending * Provider: MADELINE Cardenas Date: 0 11/12/2023 Generated for Maribell rowe/Vasile/Haider on: 0 12/02/2024 08:51 AM CDT
--- OUTSIDE RECORDS SUMMARY | 2024-12-02 08:52 | XMS_ITS | Patient Health Record ---
Author Organization [facility] [employer] [place] ([address]) Address [address] [place] [address] Care Team Providers Care Entry Level Receptionist Name Role Phone Martha Nieto DO Primary Care Provider Unavailbrianna e Tanisha Morton Unavailable [phone] Allergies Allergen (clinical drug ingredient) Drug/Non Drug [...] Status Risk Notes Problem Chronic allergic conjunctivitis (75833617) Other chronic allergic conjunctivitis (H10.45) Active confirmed Problem Allergic rhinitis caused by pollen (disorder) (55249885) Allergic rhinitis due to pollen (J30.1) Active confirmed Problem Other allergic rhinitis (J30.89) Active confirmed Problem Allergic rhinitis caused by animal hair and dander (070867144340730) Allergic rhinitis due to animal (cat) (dog) hair and dander (J30.81) Active confirmed Plan Of Treatment No Information Insurance Providers Payer Name Payer Address Payer Phone Subscriber Number Group Number Insured Name Patient Relationship to Insured Coverage Start Date Coverage End Date [facility] [address] [place] [phone] [id number] Chinedu Ly Child - Insured has Financial Responsibility Medical (General) History Medical History History ICD Code pre hypertension Surgical History Surgery Date(Month/Year) appendectomy 04/2016 cholecystectomy 04/2022 Tonsillectomy Gastric sleeve [place] teeth removal
--- OUTSIDE RECORDS SUMMARY | 2024-12-02 08:52 | XMS_ITS ---
Author Organization [facility] (ClinicalSummary Clone) Address Unknown Care Team Providers Care Administrative Analyst Name Role Phone Unavailable Primary Care Physician Unavailab le Results * [UNITY] CARRIER SCREEN Performed by: [employer] Component Value Range Date Fraction 3.4% 07/12/2024 02 :34 pm [facility] Cystic Fibrosis NIPT result LOW RISK < 1 in 5000 07/12/2024 02:34 pm [facility] Sickle Cell Disease/Beta-Thalassemia/Hemo globinopathies carrier screen NEGATIVE 07/12/2024 02:34 pm [facility] Alpha-Thalassemia carrier screen NEGATIVE 07/12/2024 02:34 pm [facility] Cystic Fibrosis 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
--- OUTSIDE RECORDS SUMMARY | 2024-12-02 08:52 | XMS_ITS ---
Author Organization [facility] (ClinicalSummary Clone) Address Unknown Care Team Providers Care Groundwater Monitoring Technician Name Role Phone Unavailable Primary Care Physician Unavailab le Results * [UNITY] ANEUPLOIDY NIPT Performed by: [employer] Component Value Range Date Fraction 4.2% 06/30/2024 [...]
[2024-12-02 09:33] VITALS: BP 124/69; PULSE 86
[2024-12-02 09:37] LABS: Hematocrit 32.6 % (37.0-47.0); Hemoglobin 10.6 g/dL (12.0-15.0); Immature Granulocyte Percent A 0.4 % (0-0.5); Lymphocytes Absolute Auto 1.44 K/mm3 (0.9-3.2); Mean Corpuscular HGB Conc 32.5 g/dl (32-36); Mean Corpuscular Hemoglobin 29.1 pg (26-34); Mean Corpuscular Volume 89.6 fl (80-100); Nucleated Red Blood Cells Absolute Auto 0.000 K/mm3 (0.0-0.012); Nucleated Red Blood Cells Perc 0.0 % (0.0-0.2); Platelet Count Result 211 k/mm3 (150-375); Red Blood Count 3.64 M/mm3 (4.2-5.4); White Blood Count 9.1 K/mm3 (4.5-10.0)
[2024-12-02 09:43] VITALS: BP 124/69; PULSE 82; BMI 49.0
[2024-12-02 09:43] LABS: Add Urine Microscopic? YES; Appearance Urine Cloudy (Clear); Glucose Urine UA Negative (Negative); Leukocyte Esterase Ur Trace LEU/UL (Negative); Nitrate Urine Negative (Negative); Non Pathogenic Casts 0-2; Specific Grav Ur 1.025 (1.001-1.035)
[2024-12-02 09:48] VITALS: BP 121/67; PULSE 75
[2024-12-02 09:54] LABS: Total Protein Urine Random < 5 mg/dL; Ur Ttl Prot Creatinine Ratio < 0.03 mg/mg (0-0.20)
[2024-12-02 10:00] VITALS: BP 118/64; PULSE 65
[2024-12-02 10:15] VITALS: BP 131/82; PULSE 77
[2024-12-02 10:16] LABS: Alanine Aminotransferase 15 U/L (6-35); Albumin Level 2.9 g/dL (3.5-5.1); Alkaline Phosphatase 148 U/L (38-126); Anion Gap 6 mmol/L (4-12); Aspartate Amino Transferase 20 U/L (14-36); Bilirubin,Total 0.3 mg/dL (0.2-1.3); Blood Urea Nitrogen 8 mg/dL (7-17); Calcium 8.5 mg/dL (8.4-10.2); Carbon Dioxide 19 mmol/L (22-30); Chloride 111 mmol/L (98-107); Estimated CRCL calculation 193 ml/min; Estimated Glomerular Filt Rate > 60; Glucose 106 mg/dL (65-110); Potassium 3.6 mmol/L (3.4-5.0); Sodium 136 mmol/L (137-145); Total Protein 5.7 g/dL (6.3-8.2); Uric Acid 6.2 mg/dL (2.5-7.5)
[2024-12-02 10:31] VITALS: BP 116/82; PULSE 71
--- NOTE | 2024-12-02 10:35 | PC.NURSE ---
Dr. Swartz returned page and informed of reactive NST, BP's, and lab results. Orders received for discharge and for pt to do a 24 hr urine at home for a baseline.
== END 2024-12-02 10:46 | disposition home or self-care (01) ==
LOC: ANHOBOP 08:39 → ANHOBPP 08:41
PROVIDERS: PCP Obstetrics & Gynecology Gynecology; Visit Provider Obstetrics & Gynecology Gynecology
DX: O13.9 Gestational [pregnancy-induced] hypertension without significant proteinuria, unspecified trimester (principal); Z3A.00 Weeks of gestation of pregnancy not specified
CPT/HCPCS: 36415; 59025; 80053; 81001; 82570; 84156; 84550; 85025; 99199

== ENCOUNTER 2024-12-03 08:52 | Outpatient (NON) | payer OTHER, SELFPAY ==
--- OUTSIDE RECORDS SUMMARY | 2023-09-27 16:30 | XMS_ITS ---
Author Organization [facility] [employer] [place] ([address]) Address [address] [place] [address] Care Team Providers Care Accounts Payable Coordinator Name Role Phone Gerson PETERSON Martha Primary Care Provider Unavailabl Tanisha Ragsdale Unavailable [phone] [employer], Provider Unavailable Unavailab le Allergies Allergen (clinical drug ingredient) Drug/Non Drug Allergy documented on EMR Reaction Allergy Type Onset Date Status Glue GLUE (uncoded) hives Allergy Activ e REASON FOR VISIT [facility] Encounter Medications Medication SIG (Take, Route, [...] review and pick correct strength-formulatio n from [facility] options. If intended option is not shown, discontinue and re-order from Quick Search* Active Encounters Encounter Location Date Provider Diagnosis [facility] [place] [address] 09/27/2023 Provider [facility] Allergic rhinitis due to [...] Duration: 30 days 07/24/2023 Progress Notes * Caroline LYDOB: 2 (24 yo F)Acc No.[id number]:09/27/2023 Patient: Caroline KIRBY Provider: Jovani Callahan :2000 A ge:23 Y S ex:Female Date:09/27/2023 Address:[address] [place], [place] [id number] Pcp:Martha Nieto DO Subjective: * Chief Complaints: [...] Electronic signature of Prov toby CASTELLON-Migration on 12/03/2024 at 09:06 AM CDT Sign off status: Pending * Provider: Jovani Callahan Date: 09/27/2023 Generated for Maribell rowe/Vasile/Haider on: 0 12/03/2024 09:06 AM CDT
--- OUTSIDE RECORDS SUMMARY | 2023-11-12 12:30 | XMS_ITS ---
Author Organization [facility] [place] ([address]) Address [address] [place] [address] Care Team Providers Care Fountain Operator Name Role Phone Martha Nieto DO Primary Care Provider Tanisha Hanna Unavailable [phone] REASON FOR VISIT [facility] follow-up Encounters Encounter Location Date Provider Diagnosis [facility] [address] [place] [address] 11/12/2023 Tanisha Morton Plan Of Treatment No Information Progress Notes * Caroline LYDOB: 2 (24 yo F)Acc No.[id number]:11/12/2023 Progress Notes Patient: Caroline KIRBY Provider: MADELINE Cardenas :2000 A ge:23 Y S ex:Female Date:11/12/2023 [facility] [facility] Pcp:Martha Nieto DO Subjective: * Chief Complaints: * 1 . [facility] follow-up. * Medical History: Objective: * Vitals: Assessment: Plan: * Treatment: * Billing Information: * Visit Code: * Procedure Codes: * Electronic signature of MADELINE Cano on 12/03/2024 at 09:06 AM CDT Sign off status: Pending * Provider: MADELINE Cardenas Date: 0 11/12/2023 Generated for Maribell rowe/Vasile/Haider on: 0 12/03/2024 09:06 AM CDT
--- OUTSIDE RECORDS SUMMARY | 2024-12-03 09:06 | XMS_ITS | Patient Health Record ---
Author Organization [facility] [facility] [employer] [place] ([address]) Address [address] [place] [address] Care Team Providers Care Psychiatry Physician Name Role Phone Martha Nieto DO Primary Care Provider Unavailbrianna e Tanisha Morton Unavailable [phone] Allergies Allergen (clinical drug ingredient) Drug/Non Drug [...] Status Risk Notes Problem Chronic allergic conjunctivitis (32123442) Other chronic allergic conjunctivitis (H10.45) Active confirmed Problem Allergic rhinitis caused by pollen (disorder) (18414833) Allergic rhinitis due to pollen (J30.1) Active confirmed Problem Allergic rhinitis (34297464) Other allergic rhinitis (J30.89) Active confirmed Problem Allergic rhinitis caused by animal hair and dander (916941285981016) Allergic rhinitis due to animal (cat) (dog) hair and dander (J30.81) Active confirmed Plan Of Treatment No Information Insurance Providers Payer Name Payer Address Payer Phone Subscriber Number Group Number Insured Name Patient Relationship to Insured Coverage Start Date Coverage End Date [facility] [address] [place] [address] [phone] [id number] Chinedu Ly Child - Insured has Financial Responsibility Medical (General) History Medical History History ICD Code pre hypertension Surgical History Surgery Date(Month/Year) appendectomy 04/2016 cholecystectomy 04/2022 Tonsillectomy Gastric sleeve [place] teeth removal
[2024-12-03 09:19] VITALS: BMI 49.0
[2024-12-03 09:31] LABS: Serum Creat 0.51; Total Protein Urine Random 9 mg/dL
[2024-12-03 09:32] LABS: Creatinine Clearance Urine 132.7 ml/min (75-125); Total Protein Urine 24 Hr 135 mg/24hr (28-141); Total Volume 24 Hour Urine 1500 ml
== END 2024-12-03 08:53 | disposition home or self-care (01) ==
LOC: ANHOBOP 09:02
PROVIDERS: PCP Obstetrics & Gynecology Gynecology; Visit Provider Obstetrics & Gynecology Gynecology
DX: O13.9 Gestational [pregnancy-induced] hypertension without significant proteinuria, unspecified trimester (principal); Z3A.00 Weeks of gestation of pregnancy not specified
CPT/HCPCS: 81050; 82575; 84156

== ENCOUNTER 2024-12-12 | Inpatient (IN) | payer OTHER, SELFPAY ==
--- OUTSIDE RECORDS SUMMARY | 2023-09-27 16:30 | XMS_ITS ---
Author Organization [facility] [employer] [place] ([address]) Address [address] [place] [address] Care Team Providers Care Research And Development Tester Name Role Phone Martha Nieto DO Primary Care Provider UnavailTanisha Calhoun Unavailable [phone] [facility], Provider Unavailable Unavailab le Allergies Allergen (clinical drug ingredient) Drug/Non Drug Allergy documented on EMR Reaction Allergy Type Onset Date Status Information temporarily unavailable GLUE (uncoded) hives Allergy Active REASON FOR VISIT [facility] Encounter Medications Medication SIG (Take, Route, [...] review and pick correct strength-formulatio n from [facility] options. If intended option is not shown, discontinue and re-order from Quick Search* Active Encounters Encounter Location Date Provider Diagnosis [facility] [place] [address] [place] [address] 09/27/2023 Provider [facility] Allergic rhinitis due to [...] * IDANIA CarolineDOB: 2 (24 yo F)Acc No.[id number]:09/27/2023 Patient: Caroline KIRBY Provider: Jovani Callahan :2000 A ge:23 Y S ex:Female Date:09/27/2023 Address:[address] [place], [place] [id number] Pcp:Martha Nieto DO Subjective: * Chief Complaints: [...] Electronic signature of Prov toby CASTELLON-Migration on 12/12/2024 at 12:06 AM CDT Sign off status: Pending * Provider: Jovani Callahan Date: 09/27/2023 Generated for Maribell rowe/Vasile/Haider on: 12/12/2024 12:06 AM CDT
--- OUTSIDE RECORDS SUMMARY | 2023-11-12 12:30 | XMS_ITS ---
Author Organization [facility] [place] ([address]) Address [address] [place] [address] Care Team Providers Care Solar Installation Technician Name Role Phone Martha Nieto DO Primary Care Provider Tanisha Hanna Unavailable [phone] REASON FOR VISIT [facility] follow-up Encounters Encounter Location Date Provider Diagnosis [facility] [place] [facility] [address] [place] [address] 11/12/2023 Tanisha Morton Plan Of Treatment No Information Progress Notes * Caroline LYDOB: 2 (24 yo F)Acc No.[id number]:11/12/2023 Progress Notes Patient: Caroline KIRBY Provider: MADELINE Cardenas :2000 A ge:23 Y S ex:Female Date:11/12/2023 [facility] [facility] Pcp:Martha Nieto DO Subjective: * Chief Complaints: * 1 . [facility] follow-up. * Medical History: Objective: * Vitals: Assessment: Plan: * Treatment: * Billing Information: * Visit Code: * Procedure Codes: * Electronic signature of MADELINE Cano on 12/12/2024 at 12:07 AM CDT Sign off status: Pending * Provider: MADELINE Cardenas Date: 0 11/12/2023 Generated for Maribell rowe/Vasile/Haider on: 0 12/12/2024 12:07 AM CDT
[2024-12-12] VITALS (251 sets, daily range): BP systolic 84–155; BP diastolic 43–97; PULSE 31–136; RESP 16–17; TEMP 36.1–36.6; O2SAT 76–100; BMI 48.6
--- OUTSIDE RECORDS SUMMARY | 2024-12-12 00:06 | XMS_ITS | Encounter Summary ---
Author Organization [facility] Address [address] [place] [address] Care Team Providers Care Vehicle Inspector Name Role Phone Martha Nieto DO Primary Care Provider Encounter Details Date Type Department Care Team (Late st Contact Info) Description 05/14/2022 MyChart Message Enc [facility] Medical Group Family Medicine - [place] [address] [place] [phone] Martha Nieto DO [address] [place] [address] Bowel movement Social History Tobacco Use Types [...] Sex Assigned at Female 04/27/2024 3:23 PM OPERATIONS BUSINESS PARTNER Legal Sex Female 5:49 PM CDT Gender Identity Female 06/08/2021 9:11 AM OPERATIONS BUSINESS PARTNER Sexual Orientation Straight 06/08/2021 9: 11 AM OPERATIONS BUSINESS PARTNER documented as of this encounter Plan of Treatment Not on file documented as of this encounter Visit Diagnoses Not on filedocumented in this encounter Additional Health Concerns Infection Onset Date Last Indicated Resolved Time COVID-19 Rule Out 10/31/2022 10/31/2022 10/31/2022 2:17 AM CDT Assessment Noted Time PHQ-9 Depression Total Score: 0 06/20/19 22 2:52 PM OPERATIONS BUSINESS PARTNER documented as of this encounter Care Teams Vehicle Inspector Relationship Specialty Start Date End Date Martha Nieto DO [address] [place] [address] PCP - General 08/01/16 documented as of this encounter
--- OUTSIDE RECORDS SUMMARY | 2024-12-12 00:06 | XMS_ITS | Encounter Summary ---
Author Organization [facility] Address [address] [place] [address] Care Team Providers Care Facilities Specialist Name Role Phone Martha Nieto DO Primary Care Provider Encounter Details Date Type Department Care Team (Late st Contact Info) Description 07/11/2021 MyChart Message Enc [facility] Family Medicine - [place] [address] [place] [phone] Martha Nieto DO [address] [place] [address] Pain Social History Tobacco Use Types Packs/Day [...] Sex Assigned at Female 04/27/2024 3:23 PM PRIVATE BRANCH EXCHANGE SERVICE ADVISOR Legal Sex Female 5:49 PM CDT Gender Identity Female 06/08/2021 9:11 AM PRIVATE BRANCH EXCHANGE SERVICE ADVISOR Sexual Orientation Straight 06/08/2021 9: 11 AM PRIVATE BRANCH EXCHANGE SERVICE ADVISOR COVID-19 Exposure Response Date Recorded In [...] Total Score: 0 06/20/19 22 2:52 PM PRIVATE BRANCH EXCHANGE SERVICE ADVISOR documented as of this encounter Care Teams Facilities Specialist Relationship Specialty Start Date End Date Martha Nieto DO [address] '[place] [address] PCP - General 08/01/16 documented as of this encounter
--- OUTSIDE RECORDS SUMMARY | 2024-12-12 00:06 | XMS_ITS | Encounter Summary ---
Author Organization [facility] Address [address] [place] [address] Care Team Providers Care Space Controller Name Role Phone Martha Nieto DO Primary Care Provider [phone] Encounter Details Date Type Department Care Team (Late st Contact Info) Description 04/21/2023 MyChart Message Enc [facility] Family Medicine - [place] [address] [place] [phone] Martha Nieto DO [address] [place] [address] Allergic reaction Social History Tobacco Use Types [...] Sex Assigned at Female 04/27/2024 3:23 PM TOBACCO STRIPPER HAND Legal Sex Female 5:49 PM CDT Gender Identity Female 06/08/2021 9:11 AM TOBACCO STRIPPER HAND Sexual Orientation Straight 06/08/2021 9: 11 AM TOBACCO STRIPPER HAND documented as of this encounter Functional Status [...] on edge 0 04/22/2023 10:46 AM Katty Snadoval MA Ac tive Not being able to [...] awful might happen 0 04/22/2023 10:46 AM TOBACCO STRIPPER HAND Katty Girard MA Ac tive LULÚ-7 Total Score 0 04/22/2023 10:46 AM TOBACCO STRIPPER HAND Katty Clemente MA Active documented as of this encounter Plan of Treatment Not on file documented as of this encounter Visit Diagnoses Not on filedocumented in this encounter Additional Health Concerns Assessment Noted Time PHQ-9 Depression Total Score: 11 023 8:25 AM TOBACCO STRIPPER HAND documented as of this encounter Care Teams Space Controller Relationship Specialty Start Date End Date Martha Nieto DO [address] [place] [address] PCP - General 08/01/16 documented as of this encounter
--- OUTSIDE RECORDS SUMMARY | 2024-12-12 00:06 | XMS_ITS | Encounter Summary ---
Author Organization [facility] Address [address] [place] [address] Care Team Providers Care Ambulatory Services Representative Name Role Phone Martha Nieto DO Primary Care Provider [phone] Encounter Details Date Type Department Care Team (Late st Contact Info) Description 06/15/2021 MyChart Message Enc [facility] Family Medicine - [place] [address], [address] [place] [phone] Martha Nieto DO [address] [place] [address] Possible UTI Social History Tobacco Use Types [...] Sex Assigned at Female 04/27/2024 3:23 PM FAMILY ENGAGEMENT SPECIALIST Legal Sex Female 5:49 PM CDT Gender Identity Female 06/08/2021 9:11 AM FAMILY ENGAGEMENT SPECIALIST Sexual Orientation Straight 06/08/2021 9: 11 AM FAMILY ENGAGEMENT SPECIALIST COVID-19 Exposure Response Date Recorded In the last 10 days, have yo u been in contact with someone who was confirmed or suspected to have Coronavirus/COVID-19? No / Unsure 06/18/2021 3:10 PM FAMILY ENGAGEMENT SPECIALIST documented as of this encounter Plan of Treatment Not on file documented as of this encounter Visit Diagnoses Not on filedocumented in this encounter Additional Health Concerns Infection Onset Date Last Indicated Resolved Time COVID-19 Rule Out 10/31/2022 10/31/2022 10/31/2022 2:17 AM CDT Assessment Noted Time PHQ-9 Depression Total Score: 0 06/08/19 22 9:58 AM FAMILY ENGAGEMENT SPECIALIST documented as of this encounter Care Teams Ambulatory Services Representative Relationship Specialty Start Date End Date Martha Nieto DO [address] '[place] [address] PCP - General 08/01/16 documented as of this encounter
--- OUTSIDE RECORDS SUMMARY | 2024-12-12 00:06 | XMS_ITS | Encounter Summary ---
Author Organization [facility] Address [address] [place] [address] Care Team Providers Care Chief Digital Media Officer Name Role Phone Martha Nieto DO Primary Care Provider [phone] Encounter Details Date Type Department Care Team (Late st Contact Info) Description 09/29/2020 MyChart Message Enc [facility] Family Medicine - [place] [address], [address] [place] [phone] Martha Nieto DO [address] [place] [address] RE: Question Social History Tobacco Use Types [...] Sex Assigned at Female 04/27/2024 3:23 PM SURGICAL SCRUB TECHNICIAN Legal Sex Female 5:49 PM CDT Gender Identity Female 06/08/2021 9:11 AM SURGICAL SCRUB TECHNICIAN Sexual Orientation Straight 06/08/2021 9: 11 AM SURGICAL SCRUB TECHNICIAN COVID-19 Exposure Response Date Recorded In the [...] documented as of this encounter Care Teams Chief Digital Media Officer Relationship Specialty Start Date End Date Martha Nieto DO [address] '[place] [address] PCP - General 08/01/16 documented as of this encounter
--- OUTSIDE RECORDS SUMMARY | 2024-12-12 00:06 | XMS_ITS | Encounter Summary ---
Author Organization [facility] Address [address] [place] [address] Care Team Providers Care African History Professor Name Role Phone Martha Nieto DO Primary Care Provider [phone] Encounter Details Date Type Department Care Team (Late st Contact Info) Description 05/30/2023 Helios Innovative Technologiest Message Enc [facility] [place], [place] [phone] Lula Jasso MD [address] [facility] [address] [place], [place] [id number] Heart rate Social History Tobacco Use Types [...] Sex Assigned at Female 04/27/2024 3:23 PM SOAP DRIER TENDER Legal Sex Female 5:49 PM CDT Gender Identity Female 06/08/2021 9:11 AM SOAP DRIER TENDER Sexual Orientation Straight 06/08/2021 9: 11 AM SOAP DRIER TENDER documented as of this encounter Progress Notes * Kimi Vitale RN - 06/02/2023 12:07 PM CST Lets increase metoprolol to 50 mg QD. Monitor BP daily and call back in 1 week w/ bp readings for medication titration. Above message from Dr. Jasso. Press message sent to the patient with the above information. DRIER TENDER documented in this encounter Plan of Treatment Not on file documented as of this encounter Visit Diagnoses Not on filedocumented in this encounter Additional Health Concerns Assessment Noted Time PHQ-9 Depression Total Score: 11 023 8:25 AM SOAP DRIER TENDER documented as of this encounter Care Teams African History Professor Relationship Specialty Start Date End Date Martha Nieto DO [address] [place] [address] PCP - General 08/01/16 documented as of this encounter
--- OUTSIDE RECORDS SUMMARY | 2024-12-12 00:06 | XMS_ITS | Encounter Summary ---
Author Organization [facility] Address [address] [place] [address] Care Team Providers Care Client Associate Name Role Phone Martha Nieto DO Primary Care Provider [phone] Encounter Details Date Type Department Care Team (Late st Contact Info) Description 03/28/2023 PetBoxt Message Enc [facility] [address] [place], [place] [phone] Lula Jasso MD [address] [facility] [address] [place], [place] [id number] Medication Social History Tobacco Use Types Packs/Day [...] Sex Assigned at Female 04/27/2024 3:23 PM CATHOLIC PRIEST Legal Sex Female 5:49 PM CDT Gender Identity Female 06/08/2021 9:11 AM CATHOLIC PRIEST Sexual Orientation Straight 06/08/2021 9: 11 AM CATHOLIC PRIEST documented as of this encounter Progress Notes * Kimi Vitale RN - 03/28/2023 1:05 PM CST Thank you for letting me know. I will review the radiation monitor and message you with results. Letsget you started on metoprolol XL 25 mg QD. Can you monitor your HR/BP once daily and message in 1 week with HR and BP readings. Above message from Dr. Jasso. Kofikafehart message sent to the patient with the above information. OLIC PRIEST documented in this encounter Plan of Treatment Not on file documented as of this encounter Visit Diagnoses Not on filedocumented in this encounter Additional Health Concerns Assessment Noted Time PHQ-9 Depression Total Score: 11 023 8:25 AM CATHOLIC PRIEST documented as of this encounter Care Teams Client Associate Relationship Specialty Start Date End Date Martha Nieto DO [address] [place] [address] PCP - General 08/01/16 documented as of this encounter
--- OUTSIDE RECORDS SUMMARY | 2024-12-12 00:06 | XMS_ITS | Encounter Summary ---
Author Organization [facility] Address [address] [place] [address] Care Team Providers Care Clasp Machine Operator Name Role Phone Martha Nieto DO Primary Care Provider [phone] Encounter Details Date Type Department Care Team (Late st Contact Info) Description 04/15/2024 MyChart Message Enc [facility] Family Medicine - [place] [address] [place] [phone] Martha Nieto DO [address] [place] [address] Hcg Social History Tobacco Use Types Packs/Day [...] Sex Assigned at Female 04/27/2024 3:23 PM PREPARED FOODS SUPERVISOR Legal Sex Female 5:49 PM CDT Gender Identity Female 06/08/2021 9:11 AM PREPARED FOODS SUPERVISOR Sexual Orientation Straight 06/08/2021 9: 11 AM PREPARED FOODS SUPERVISOR documented as of this encounter Progress Notes * Tika Francis MA - 04/15/2024 12:53 PM CST Patient notified that results have been faxed to and new labs have been ordered. SheVU and thanked us. ARED FOODS SUPERVISOR documented in this encounter Plan of Treatment Not on file documented as of this encounter Results * HCG QUANT (SERUM)-CHORIONIC GONADOTROPIN (04/15/2024 2:10 PM PREPARED FOODS SUPERVISOR) Pathologist [facility] HCG QUANTITATIVE 448 MIU/ML 04/15/19 3:37 PM PREPARED FOODS SUPERVISOR [facility] Comment: WEEKS OF REFERENCE [...] MONTHS 10,000 - 100,000 04/15/2024 2:10 PM PREPARED FOODS SUPERVISOR us Martha Nieto DO LABORATORY Final Result [facility] [address] [place] [address], [place] [phone] documented in this encounter Visit Diagnoses Diagnosis Missed menses Absence of menstruation documented in this encounter Additional Health Concerns Assessment Noted Time PHQ-9 Depression Total Score: 11 023 8:25 AM PREPARED FOODS SUPERVISOR documented as of this encounter Care Teams Clasp Machine Operator Relationship Specialty Start Date End Date Martha Nieto DO [address] [place] [address] PCP - General 08/01/16 documented as of this encounter
--- OUTSIDE RECORDS SUMMARY | 2024-12-12 00:06 | XMS_ITS | Encounter Summary ---
Author Organization [facility] Address [address] [place] [address] Care Team Providers Care Machine Operator Name Role Phone Martha Nieto DO Primary Care Provider Encounter Details Date Type Department Care Team (Late st Contact Info) Description 08/13/2022 MyChart Message Enc [facility] Family Medicine - [place] [address] [place] [address] Martha Nieto DO [address] [place] [address] Question regarding CBC W/DIFF AUTOMATED Social History [...] Sex Assigned at Female 04/27/2024 3:23 PM GROUP BURNER MACHINE Legal Sex Female 5:49 PM CDT Gender Identity Female 06/08/2021 9:11 AM GROUP BURNER MACHINE Sexual Orientation Straight 06/08/2021 9: 11 AM GROUP BURNER MACHINE COVID-19 Exposure Response Date Recorded In the [...] Depression Total Score: 11 023 8:25 AM GROUP BURNER MACHINE documented as of this encounter Care Teams Machine Operator Relationship Specialty Start Date End Date Martha Nieto DO [address] '[place] [address] PCP - General 08/01/16 documented as of this encounter
--- OUTSIDE RECORDS SUMMARY | 2024-12-12 00:06 | XMS_ITS | Encounter Summary ---
Author Organization [facility] Address [address] [place] [address] Care Team Providers Care Retail Banker Name Role Phone Martha Nieto Karlie PETERSON Primary Care Provider [phone] Encounter Details Date Type Department Care Team (Late st Contact Info) Description 10/29/2023 We Are Hunted Message Enc [facility] [address] [place] [address] Meliza, [facility] Provider Proof of name change Social History [...] Sex Assigned at Female 04/27/2024 3:23 PM HOTEL ATTENDANT Legal Sex Female 5:49 PM CDT Gender Identity Female 06/08/2021 9:11 AM HOTEL ATTENDANT Sexual Orientation Straight 06/08/2021 9: 11 AM HOTEL ATTENDANT documented as of this encounter Functional Status * Over the past 2 weeks, how often have you been bothered by any of the following problems? Question Answer Date of Assessment Author Status Little interest or pleasure in doing things Not at all 10/30/2023 12:48 PM CDT Tonny Yanes, Nurse Lighting Designer I Active Feeling down, depressed, or hopeless Not at all 10/30/2023 12:48 PM CDT Favian Yanes, Nurse Lighting Designer I Active Patient Health Questionnaire-2 Score 0 10/30/2023 12:48 PM CDT Shanell Yanes, Nurse Lighting Designer I Active documented as of this encounter Plan of Treatment Not on file documented as of this encounter Visit Diagnoses Not on filedocumented in this encounter Additional Health Concerns Assessment Noted Time PHQ-9 Depression Total Score: 11 023 8:25 AM HOTEL ATTENDANT documented as of this encounter Care Teams Retail Banker Relationship Specialty Start Date End Date Martha Nieto DO [address] [place] [address] PCP - General 08/01/16 documented as of this encounter
--- OUTSIDE RECORDS SUMMARY | 2024-12-12 00:06 | XMS_ITS | Encounter Summary ---
Author Organization [facility] Address [address] [place] [address] Care Team Providers Care Cook Apprentice Name Role Phone Martha Nieto DO Primary Care Provider [phone] Encounter Details Date Type Department Care Team (Late st Contact Info) Description 04/24/2023 MyChart Message Enc [facility] Family Medicine - [place] [address] [place] [phone] Martha Nieto DO [address] [place] [address] Allergic reaction Social History Tobacco Use Types [...] Sex Assigned at Female 04/27/2024 3:23 PM ANTI AIR WARFARE OPERATIONS OFFICER Legal Sex Female 5:49 PM CDT Gender Identity Female 06/08/2021 9:11 AM ANTI AIR WARFARE OPERATIONS OFFICER Sexual Orientation Straight 06/08/2021 9: 11 AM ANTI AIR WARFARE OPERATIONS OFFICER documented as of this encounter Plan of Treatment Not on file documented as of this encounter Visit Diagnoses Not on filedocumented in this encounter Additional Health Concerns Assessment Noted Time PHQ-9 Depression Total Score: 11 023 8:25 AM ANTI AIR WARFARE OPERATIONS OFFICER documented as of this encounter Care Teams Cook Apprentice Relationship Specialty Start Date End Date Martha Nieto DO [address] [place] [address] PCP - General 08/01/16 documented as of this encounter
--- OUTSIDE RECORDS SUMMARY | 2024-12-12 00:06 | XMS_ITS | Encounter Summary ---
Author Organization [facility] Address [address] [place] [address] Care Team Providers Care Mini Bar Attendant Name Role Phone Martha Nieto DO Primary Care Provider [phone] Encounter Details Date Type Department Care Team (Late st Contact Info) Description 04/15/2024 MyChart Message Enc [facility] Family Medicine - [place] [address] [place] [phone] Martha Nieto DO [address] [place] [address] Hcg results Social History Tobacco Use Types [...] Sex Assigned at Female 04/27/2024 3:23 PM AUDITOR INTERNAL Legal Sex Female 5:49 PM CDT Gender Identity Female 06/08/2021 9:11 AM AUDITOR INTERNAL Sexual Orientation Straight 06/08/2021 9: 11 AM AUDITOR INTERNAL documented as of this encounter Plan of Treatment Not on file documented as of this encounter Visit Diagnoses Not on filedocumented in this encounter Additional Health Concerns Assessment Noted Time PHQ-9 Depression Total Score: 11 023 8:25 AM AUDITOR INTERNAL documented as of this encounter Care Teams Mini Bar Attendant Relationship Specialty Start Date End Date Martha Nieto DO [address] [place] [address] PCP - General 08/01/16 documented as of this encounter
--- OUTSIDE RECORDS SUMMARY | 2024-12-12 00:06 | XMS_ITS | Encounter Summary ---
Author Organization [facility] Address [address] [place] [address] Care Team Providers Care Contract Processor Name Role Phone Martha Nieto DO Primary Care Provider [phone] Encounter Details Date Type Department Care Team (Late st Contact Info) Description 01/17/2020 Prep for Procedure [place] Pre-Admission Testing [facility] [place] [address] Anton Maza MD [address] [place] [address] Social History Tobacco Use Types [...] Sex Assigned at Female 04/27/2024 3:23 PM SHERIFF Legal Sex Female 5:49 PM CDT Gender Identity Female 06/08/2021 9:11 AM SHERIFF Sexual Orientation Straight 06/08/2021 9: 11 AM SHERIFF COVID-19 Exposure Response Date Recorded In the [...] DETECTED NOT DETECTED 01/20/2020 12:21 PM CDT [facility] Comment: A Not Detected (negative) test [...] providers and patients using the following websites: https://www.[employer].Vestor/home/Covid-19/HCP/NAAT/fact-sheet2 https://www.[employer].Vestor/home/Covid-19/Patients/NAAT/ fact-sheet2 This test has been authorized by the FDA under an Emergency Use Authorization (EUA) for use by authorized laboratories. Due to the current public health emergency, [facility] is receiving a high volume of samples [...] about COVID-19 can be found at the [facility] website: www.[employer].Vestor/Covid19. Test performed at [facility] [place] [address] [id number] Director: DAINA BRUSH DO,MPH FIRST TEST YES 01/18/2020 3:[address] [facility] EMPLOYED IN HEALTHCARE NO 01/18/2020 3:[address] [facility] SYMPTOMATIC DEFINED BY CDC NO 01/18/2020 3:[address] [facility] DATE OF SYMPTOM ONSET UNKNOWN 01/18/2020 3:[address] [facility] HOSPITALIZATION STATUS NO 01/18/2020 3:[address] [facility] PATIENT IN ICU NO 01/18/2020 3:[address] [facility] RESIDENT OF [facility] NO 01/18/2020 3:[address] [facility] NOT 01/18/2020 3:[address] [facility] PATIENT'S RACE WHITE OR 01/18/2020 3:[address] [facility] ETHNICITY NONHISPANIC 01/18/2020 3:[address] [facility] SOURCE (QST) NASOPHARYNGEAL SWAB 01/18/2020 3:[address] [facility] NASOPHARYNGEAL SWAB / Unknown 01/18/2020 3:06 PM CDT us Anton Maza MD MICROBIOLOGY - GENERAL ORDERABL ES Final Result [facility] [address] [place] [address], [place] [phone] [facility] [address] [place] [address], documented in this encounter Visit Diagnoses Diagnosis Preop examination- Primary Preoperative examination, unspecified documented in this encounter Additional Health Concerns Infection Onset Date Last Indicated Resolved Time COVID-19 Rule Out 01/18/2020 01/18/2020 01/20/2020 12:21 PM CDT COVID-19 Rule Out 10/31/2022 10/31/2022 10/31/2022 2:17 AM CDT documented as of this encounter Care Teams Contract Processor Relationship Specialty Start Date End Date Martha Nieto DO [address] [place] [address] PCP - General 08/01/16 documented as of this encounter
--- OUTSIDE RECORDS SUMMARY | 2024-12-12 00:06 | XMS_ITS | Encounter Summary ---
Author Organization [facility] Address [address] [place] [address] Care Team Providers Care Coordinator Hotels Name Role Phone Martha Nieto DO Primary Care Provider [phone] Encounter Details Date Type Department Care Team (Late st Contact Info) Description 12/22/2023 MyChart Message Enc [facility] Family Medicine - [place] [address] [place] [phone] Martha Nieto DO [address] [place] [address] Question Social History Tobacco Use Types Packs/Day [...] Sex Assigned at Female 04/27/2024 3:23 PM COTTON WEIGHER Legal Sex Female 5:49 PM CDT Gender Identity Female 06/08/2021 9:11 AM COTTON WEIGHER Sexual Orientation Straight 06/08/2021 9: 11 AM COTTON WEIGHER documented as of this encounter Plan of Treatment Not on file documented as of this encounter Visit Diagnoses Not on filedocumented in this encounter Additional Health Concerns Assessment Noted Time PHQ-9 Depression Total Score: 11 023 8:25 AM COTTON WEIGHER documented as of this encounter Care Teams Coordinator Hotels Relationship Specialty Start Date End Date Martha Nieto DO [address] [place] [address] PCP - General 08/01/16 documented as of this encounter
--- OUTSIDE RECORDS SUMMARY | 2024-12-12 00:06 | XMS_ITS | Encounter Summary ---
Author Organization [facility] Address [address] [place] [address] Care Team Providers Care Family Preservation Worker Name Role Phone Martha Nieto DO Primary Care Provider [phone] Encounter Details Date Type Department Care Team (Late st Contact Info) Description 11/13/2022 MyChart Message Enc [facility] Family Medicine - [place] [address] [place] [phone] Martha Nieto DO [address] [place] [address] Throw up Social History Tobacco Use Types [...] Assigned at Female 04/27/2024 3:23 PM SUPERVISOR PLATE PASTING Legal Sex Female 5:49 PM CDT Gender Identity Female 06/08/2021 9:11 AM SUPERVISOR PLATE PASTING Sexual Orientation Straight 06/08/2021 9: 11 AM SUPERVISOR PLATE PASTING documented as of this encounter Progress Notes [...] Total Score: 11 023 8:25 AM SUPERVISOR PLATE PASTING documented as of this encounter Care Teams Family Preservation Worker Relationship Specialty Start Date End Date Martha Nieto DO [address] [place] [address] PCP - General 08/01/16 documented as of this encounter
--- OUTSIDE RECORDS SUMMARY | 2024-12-12 00:06 | XMS_ITS | Encounter Summary ---
Author Organization [facility] Address [address] [place] [address] Care Team Providers Care Deputy Treasurer Name Role Phone Martha Nieto DO Primary Care Provider Encounter Details Date Type Department Care Team (Late st Contact Info) Description 01/14/2024 MyChart Message Enc [facility] Family Medicine - [place] [address], [address] [place] [phone] Martha Nieto DO [address] [place] [address] Fertility Social History Tobacco Use Types Packs/Day [...] Sex Assigned at Female 04/27/2024 3:23 PM UTILITIES GROUND WORKER Legal Sex Female 5:49 PM CDT Gender Identity Female 06/08/2021 9:11 AM UTILITIES GROUND WORKER Sexual Orientation Straight 06/08/2021 9: 11 AM UTILITIES GROUND WORKER documented as of this encounter Plan of Treatment Not on file documented as of this encounter Visit Diagnoses Not on filedocumented in this encounter Additional Health Concerns Assessment Noted Time PHQ-9 Depression Total Score: 11 023 8:25 AM UTILITIES GROUND WORKER documented as of this encounter Care Teams Deputy Treasurer Relationship Specialty Start Date End Date Martha Nieto DO [address] [place] [address] PCP - General 08/01/16 documented as of this encounter
--- OUTSIDE RECORDS SUMMARY | 2024-12-12 00:06 | XMS_ITS | Encounter Summary ---
Author Organization [facility] Address [address] [place] [address] Care Team Providers Care Nitrating Acid Mixer Name Role Phone Martha Nieto DO Primary Care Provider [phone] Encounter Details Date Type Department Care Team (Late st Contact Info) Description 07/03/2022 MyChart Message Enc [facility] Family Medicine - [place] [address], [address] [place] [phone] Martha Nieto DO [address] [place] [address] General Surgeon Social History Tobacco Use Types [...] Sex Assigned at Female 04/27/2024 3:23 PM PLANER CHAIN OFFBEARER Legal Sex Female 5:49 PM CDT Gender Identity Female 06/08/2021 9:11 AM PLANER CHAIN OFFBEARER Sexual Orientation Straight 06/08/2021 9: 11 AM PLANER CHAIN OFFBEARER COVID-19 Exposure Response Date Recorded In the [...] Depression Total Score: 11 023 8:25 AM PLANER CHAIN OFFBEARER documented as of this encounter Care Teams Nitrating Acid Mixer Relationship Specialty Start Date End Date Martha Nieto DO [address] [place] [address] PCP - General 08/01/16 documented as of this encounter
--- OUTSIDE RECORDS SUMMARY | 2024-12-12 00:06 | XMS_ITS | Encounter Summary ---
Author Organization [facility] Address [address] [place] [address] Care Team Providers Care Informatica Mdm Architect Name Role Phone Martha Nieto DO Primary Care Provider [phone] Encounter Details Date Type Department Care Team (Late st Contact Info) Description 10/31/2022 MyChart Message Enc [facility] Family Medicine - [place] [address], [address] [place] [address] Martha Nieto DO [address] [place] [address] Question regarding URINALYSIS Social History Tobacco Use [...] Sex Assigned at Female 04/27/2024 3:23 PM SOLID WASTE DIVISION SUPERVISOR Legal Sex Female 5:49 PM CDT Gender Identity Female 06/08/2021 9:11 AM SOLID WASTE DIVISION SUPERVISOR Sexual Orientation Straight 06/08/2021 9: 11 AM SOLID WASTE DIVISION SUPERVISOR documented as of this encounter Functional Status * Calculated C-SSRS Risk Score (Lifetime/Recent) Answer Date of Assessment Author Status No Risk Indicated 10/31/2022 12:56 AM CDT Yarelis Howe RN Active * [place] Suicide Severity Rating Scale (Screener/Recent Self-Report) Question [...] Depression Total Score: 11 023 8:25 AM SOLID WASTE DIVISION SUPERVISOR documented as of this encounter Care Teams Informatica Mdm Architect Relationship Specialty Start Date End Date Martha Nieto DO [address] [place] [address] PCP - General 08/01/16 documented as of this encounter
--- OUTSIDE RECORDS SUMMARY | 2024-12-12 00:06 | XMS_ITS | Encounter Summary ---
Author Organization [facility] Address [address] [place] [address] Care Team Providers Care Mounter Sousaphones Name Role Phone Martha Nieto DO Primary Care Provider [phone] Encounter Details Date Type Department Care Team (Late st Contact Info) Description 06/12/2023 MyChart Message Enc [facility] Family Medicine - [place] [address], [address] [place] [phone] Martha Nieto DO [address] [place] [address] Blood work/urine Social History Tobacco Use Types [...] Sex Assigned at Female 04/27/2024 3:23 PM POLICE CHIEF DEPUTY Legal Sex Female 5:49 PM CDT Gender Identity Female 06/08/2021 9:11 AM POLICE CHIEF DEPUTY Sexual Orientation Straight 06/08/2021 9: 11 AM POLICE CHIEF DEPUTY documented as of this encounter Plan of Treatment Not on file documented as of this encounter Visit Diagnoses Not on filedocumented in this encounter Additional Health Concerns Assessment Noted Time PHQ-9 Depression Total Score: 11 023 8:25 AM POLICE CHIEF DEPUTY documented as of this encounter Care Teams Mounter Sousaphones Relationship Specialty Start Date End Date Martha Nieto DO [address] [place] [address] PCP - General 08/01/16 documented as of this encounter
--- OUTSIDE RECORDS SUMMARY | 2024-12-12 00:06 | XMS_ITS | Encounter Summary ---
Author Organization [facility] Address [address] [place] [address] Care Team Providers Care Chaser Helper Name Role Phone Martha Nieto DO Primary Care Provider [phone] Encounter Details Date Type Department Care Team (Late st Contact Info) Description 08/09/2022 [employer] [address] [facility] Patient Accounts [address] [place] [address] [facility] Payment Plan Social History [...] Sex Assigned at Female 04/27/2024 3:23 PM DUAL RATE DEALER Legal Sex Female 5:49 PM CDT Gender Identity Female 06/08/2021 9:11 AM DUAL RATE DEALER Sexual Orientation Straight 06/08/2021 9: 11 AM DUAL RATE DEALER COVID-19 Exposure Response Date Recorded In the [...] Depression Total Score: 11 023 8:25 AM DUAL RATE DEALER documented as of this encounter Care Teams Chaser Helper Relationship Specialty Start Date End Date Martha Nieto DO [address] '[place] [address] PCP - General 08/01/16 documented as of this encounter
--- OUTSIDE RECORDS SUMMARY | 2024-12-12 00:06 | XMS_ITS | Encounter Summary ---
Author Organization [facility] Address [address] [place] [address] Care Team Providers Care Doctor Of Optometry Name Role Phone Martha Nieto DO Primary Care Provider [phone] Encounter Details Date Type Department Care Team (Late st Contact Info) Description 04/01/2022 MyChart Message Enc [facility] Family Medicine - [place] [address], [address] [place] [phone] Martha Nieto DO [address] [place] [address] [place] Social History Tobacco Use Types Packs/Day [...] Assigned at Female 04/27/2024 3:23 PM QUALITY TESTER Legal Sex Female 5:49 PM CDT Gender Identity Female 06/08/2021 9:11 AM QUALITY TESTER Sexual Orientation Straight 06/08/2021 9: 11 AM QUALITY TESTER COVID-19 Exposure Response Date Recorded In the last 10 days, have yo u been in contact with someone who was confirmed or suspected to have Coronavirus/COVID-19? No / Unsure 03/19/2022 3:25 PM QUALITY TESTER documented as of this encounter Progress Notes * Tika Delong MA - 04/02/2022 8:59 AM CST Left message for patient to call office ITY TESTER * Tika Delong MA - 04/01/2022 10:24 AM CST Left message for patient to call office for appointment. ITY TESTER documented in this encounter Plan of Treatment Not on file documented as of this encounter Visit Diagnoses Not on filedocumented in this encounter Additional Health Concerns Infection Onset Date Last Indicated Resolved Time COVID-19 Rule Out 10/31/2022 10/31/2022 10/31/2022 2:17 AM CDT Assessment Noted Time PHQ-9 Depression Total Score: 0 06/20/19 2:52 PM QUALITY TESTER documented as of this encounter Care Teams Doctor Of Optometry Relationship Specialty Start Date End Date Martha Nieto DO [address] '[place] [address] PCP - General 08/01/16 documented as of this encounter
--- OUTSIDE RECORDS SUMMARY | 2024-12-12 00:06 | XMS_ITS | Encounter Summary ---
Author Organization [facility] Address [address] [place] [address] Care Team Providers Care Public Relations Director Name Role Phone Martha Nieto DO Primary Care Provider [phone] Encounter Details Date Type Department Care Team (Late st Contact Info) Description 02/27/2024 MyChart Message Enc [facility] Family Medicine - [place] [address] [place] [phone] Martha Nieto DO [address] [place] [address] Bladder problems Social History Tobacco Use Types [...] Sex Assigned at Female 04/27/2024 3:23 PM PRODUCE BUYER Legal Sex Female 5:49 PM CDT Gender Identity Female 06/08/2021 9:11 AM PRODUCE BUYER Sexual Orientation Straight 06/08/2021 9: 11 AM PRODUCE BUYER documented as of this encounter Functional Status * Calculated C-SSRS Risk Score (Lifetime/Recent) Answer Date of Assessment Author Status No Risk Indicated 03/01/2024 8:09 AM Sánchez Ryan RN Active * [place] Suicide Severity Rating Scale (Screener/Recent Self-Report) Question [...] Depression Total Score: 11 023 8:25 AM PRODUCE BUYER documented as of this encounter Care Teams Public Relations Director Relationship Specialty Start Date End Date Martha Nieto DO [address] [place] [address] PCP - General 08/01/16 documented as of this encounter
--- OUTSIDE RECORDS SUMMARY | 2024-12-12 00:07 | XMS_ITS | Patient Health Record ---
Author Organization [facility] [employer] [facility] [address]) Address [address] [place] [address] Care Team Providers Care Change House Attendant Name Role Phone Martha Nieto DO Primary Care Provider UnavailTanisha Calhoun Unavailable [phone] Allergies Allergen (clinical drug ingredient) Drug/Non Drug Allergy documented on EMR Reaction Allergy Type Onset Date Status Information temporarily unavailable GLUE (uncoded) hives Allergy Active Reason For Referral No Information Medications Medication [...] Problem Status W/U Status Risk Notes Problem Information temporarily unavailable Other chronic allergic conjunctivitis (H10.45) Active confirmed Problem Information temporarily unavailable Allergic rhinitis due to pollen (J30.1) Active confirmed Problem Information temporarily unavailable Other allergic rhinitis (J30.89) Active confirmed Problem Information temporarily unavailable Allergic rhinitis due to animal (cat) (dog) hair and dander (J30.81) Active confirmed Plan Of Treatment No Information Insurance Providers Payer Name Payer Address Payer Phone Subscriber Number Group Number Insured Name Patient Relationship to Insured Coverage Start Date Coverage End Date [facility] [phone] [id number] Chinedu Ly Child - Insured has Financial Responsibility Medical (General) History Medical History History ICD Code pre hypertension Surgical History Surgery Date(Month/Year) appendectomy 04/2016 cholecystectomy 04/2022 Tonsillectomy Gastric sleeve [place] teeth removal
--- OUTSIDE RECORDS SUMMARY | 2024-12-12 00:07 | XMS_ITS | Clinical Summary ---
Author Organization [facility] Address [address] [place] [address] Care Team Providers Care Geology Technician Name Role Phone Martha Nieto DO Primary Care Provider [phone] Allergies Active Allergy Reactions Criticality Noted Date [...] Group Ultrasound (SCAN) 10/11/2024 MyChart Message Enc [facility] Family Medicine [address], [address] [place] [address] Martha Nieto DO Updated ROBBY [...] / Stillbirths Mother Heart Disease Paternal Grandfather [place] Stroke Paternal Grandfather Cancer Paternal Grandmother Diabetes [...] Sex Assigned at Female 04/27/2024 3:23 PM SEQUINS STRINGER Legal Sex Female 5:49 PM CDT Gender Identity Female 06/08/2021 9:11 AM SEQUINS STRINGER Sexual Orientation Straight 06/08/2021 9: 11 AM SEQUINS STRINGER Last Filed Vital Signs Vital Sign Reading Time Taken Comments Blood Pressure 118/83 03/01/2024 12:00 PM SEQUINS STRINGER Pulse 72 03/01/2024 10:16 AM SEQUINS STRINGER Temperature 36.8 C (98.3 F) 03/01/2024 8:02 AM SEQUINS STRINGER Respiratory Rate 20 03/01/2024 10:16 AM SEQUINS STRINGER Oxygen Saturation 98% 03/01/2024 11:00 AM SEQUINS STRINGER Inhaled Oxygen Concentration - - Weight 111.1 kg (245 lb) 03/01/2024 8:02 AM SEQUINS STRINGER Height 162.6 cm (5' 4) 03/01/2024 8:02 AM SEQUINS STRINGER Body Mass Index 42.05 03/01/2024 8:02 AM SEQUINS STRINGER Plan of Treatment Health Maintenance Due Date [...] season) 2023 04/19/2022, 07/21/2020, 06/29/2020 PHQ-2 (Physician [place]) 04/14/2024 10/30/2023 Chlamydia Screening Females ages 16-24 [...] CHLAMYDIA GC RNA STAT 03/01/2024 8:15 AM SEQUINS STRINGER from Last 3 Months or Most Recently Relevant to Health Maintenance Results * ULTRASOUND GENERIC (SCAN ORDER) (10/16/2024) Anatomical Region Laterality Modality Other 10/16/2024 [facility] Scanned SCANNING Final Resu lt * VASCULAR LAB GENERIC (SCAN ORDER) (09/27/2024) 09/27/2024 [facility] Scanned SCANNING Final Resu lt * CHLAMYDIA GC RNA (03/01/2024 8:15 AM SEQUINS STRINGER) SPEC DESCRIPTION URINE CLEAN CATCH 03/01/2024 11:11 AM SEQUINS STRINGER [facility] CHLAMYDIA RNA TMA NEGATIVE NEGATIVE 024 1:14 AM SEQUINS STRINGER [facility] Comment:PERFORMED BY NUCLEIC ACID AMPLIFICATION N.GONORRHOEAE RNA TMA NEGATIVE NEGATIVE 03/03/2024 1:14 AM SEQUINS STRINGER [facility] Comment:PERFORMED BY NUCLEIC ACID AMPLIFICATION URINE SPECIMEN / Unknown 03/01/2024 8:15 AM SEQUINS STRINGER us Brendan Lee MD MICROBIOLOGY - GENERAL ORDER [place] Final Result [facility] [address] [place] [address], [place] [phone] [facility] [address] [place] [address], [place] [phone] from Last 3 Months or Most Recently Relevant to Health Maintenance Insurance [employer] Advance Directives * Full Code (Latest Code Status on File) Date Activated Date Inactivated Comments 01/21/2020 9:44 AM 01/21/2020 11:45 AM Care Teams Geology Technician Relationship Specialty Start Date End Date Martha Nieto DO [address] [place] [address] PCP - General 08/01/16
--- OUTSIDE RECORDS SUMMARY | 2024-12-12 00:07 | XMS_ITS | Encounter Summary ---
Author Organization [facility] Address [address] [place] [address] Care Team Providers Care Mechanical Integrity Specialist Name Role Phone Martha Nieto DO Primary Care Provider [phone] Encounter Details Date Type Department Care Team (Late st Contact Info) Description 10/01/2023 MyChart Message Enc [facility] Family Medicine - [place] [address], [address] [place] [phone] Martha Nieto DO [address] [place] [address] Oral thrush Social History Tobacco Use Types [...] Sex Assigned at Female 04/27/2024 3:23 PM DECATING MACHINE OPERATOR Legal Sex Female 5:49 PM CDT Gender Identity Female 06/08/2021 9:11 AM DECATING MACHINE OPERATOR Sexual Orientation Straight 06/08/2021 9: 11 AM DECATING MACHINE OPERATOR documented as of this encounter Plan of Treatment Not on file documented as of this encounter Visit Diagnoses Not on filedocumented in this encounter Additional Health Concerns Assessment Noted Time PHQ-9 Depression Total Score: 11 023 8:25 AM DECATING MACHINE OPERATOR documented as of this encounter Care Teams Mechanical Integrity Specialist Relationship Specialty Start Date End Date Martha Nieto DO [address] [place] [address] PCP - General 08/01/16 documented as of this encounter
--- OUTSIDE RECORDS SUMMARY | 2024-12-12 00:07 | XMS_ITS | Encounter Summary ---
Author Organization [facility] Address [address] [place] [address] Care Team Providers Care Animal Warden Name Role Phone Martha Nieto DO Primary Care Provider [phone] Encounter Details Date Type Department Care Team (Late st Contact Info) Description 12/28/2020 MyChart Message Enc [facility] Family Medicine - [place] [address], [address] [place] [address] Martha Nieto DO [address] [place] [address] RE: Question Social History Tobacco Use Types [...] Sex Assigned at Female 04/27/2024 3:23 PM TUBE CARRIER Legal Sex Female 5:49 PM CDT Gender Identity Female 06/08/2021 9:11 AM TUBE CARRIER Sexual Orientation Straight 06/08/2021 9: 11 AM TUBE CARRIER documented as of this encounter Progress Notes [...] documented as of this encounter Care Teams Animal Warden Relationship Specialty Start Date End Date Martha Nieto DO [address] [place] [address] PCP - General 08/01/16 documented as of this encounter
--- OUTSIDE RECORDS SUMMARY | 2024-12-12 00:07 | XMS_ITS | Encounter Summary ---
Author Organization [facility] Address [address] [place] [address] Care Team Providers Care Nail Galvanizer Name Role Phone Martha Nieto DO Primary Care Provider [phone] Encounter Details Date Type Department Care Team (Late st Contact Info) Description 10/11/2020 MyChart Message Enc [facility] Family Medicine - [place] [address], [address] [place] [phone] Martha Nieto DO [address] [place] [address] Question Social History Tobacco Use Types Packs/Day [...] Sex Assigned at Female 04/27/2024 3:23 PM CHIEF FINANCIAL OFFICER Legal Sex Female 5:49 PM CDT Gender Identity Female 06/08/2021 9:11 AM CHIEF FINANCIAL OFFICER Sexual Orientation Straight 06/08/2021 9: 11 AM CHIEF FINANCIAL OFFICER COVID-19 Exposure Response Date Recorded In the [...] documented as of this encounter Care Teams Nail Galvanizer Relationship Specialty Start Date End Date Martha Nieto DO [address] [place] [address] PCP - General 08/01/16 documented as of this encounter
--- NOTE | 2024-12-12 00:22 | LDADM ---
This patient, Caroline Olsen, was admitted to Labor/Delivery/Recovery 106 on 12/12/24 at 00:00. Plans for labor, pain management and were discussed with patient. Patient/family oriented to hospital policies and general routines including ID bracelet, bed and alarms, visiting hours, pain management, procedures, bathroom and other care routines, personal items, smoking policy, room service/diet and guest tray routines, infant security routines, and visiting hours. Patient/Family are encouraged to report perceived risks to care and to ask questions if they do not understand what they are told or what they should do. See OBIX for further documentation.
[2024-12-12 00:51] LABS: Hematocrit 33.8 % (37.0-47.0); Hemoglobin 11.3 g/dL (12.0-15.0); Immature Granulocyte Percent A 0.4 % (0-0.5); Lymphocytes Absolute Auto 2.30 K/mm3 (0.9-3.2); Mean Corpuscular HGB Conc 33.4 g/dl (32-36); Mean Corpuscular Hemoglobin 29.4 pg (26-34); Mean Corpuscular Volume 87.8 fl (80-100); Nucleated Red Blood Cells Absolute Auto 0.000 K/mm3 (0.0-0.012); Nucleated Red Blood Cells Perc 0.0 % (0.0-0.2); Platelet Count Result 293 k/mm3 (150-375); Red Blood Count 3.85 M/mm3 (4.2-5.4); White Blood Count 13.8 K/mm3 (4.5-10.0)
[2024-12-12] MEDS: DINOPROSTONE 10 MG VAG INSERT VAGINAL (01:04)
[2024-12-12 01:37] LABS: Syphilis IgG/IgM Antibody Non-Reactive (Nonreactive)
--- NOTE | 2024-12-12 12:33 | WPDOBADMIT ---
Obstetrics - Admit Note Admission Note: record reviewed. No pertinent additions to the history and/or any subsequent changes in the physical findings that are not consistent with the expected course of the were found. Additions to the history and/or subsequent changes in the physical findings follow. Here for MIL at 39 wks. Cervadil last pm now removed. Now cervix 1-2/50/-3 AROM with clear fluid. Pitocin per protocols. FHTs reactive.
[2024-12-12] MEDS: AMPICILLIN SODIUM 2 GM in SODIUM CHLORIDE 0.9% IV 100 ML 200 ML IVPB (13:56)
[2024-12-12] MEDS: LACTATED RINGERS 1,000 ML 125 ML IV CONT ×2 (13:56→16:27)
[2024-12-12] MEDS: OXYTOCIN 30 UNITS/NS 500 ML 30 UNITS/500 ML BAG 6 UNITS IV CONT (14:32)
--- NOTE | 2024-12-12 15:26 | P.PNAN_ITS ---
Anes - Eval Pre Procedure Procedure: Labor Epidural Date/Time: 12/12/24 15:27 Surgeon: Sheridan Preop Diagnosis: Labor Pain Pre Op Diagnosis: IOL Patient Data Age: 24 Gender: F Height: 1.63 m Weight: 128.6 kg Last Vital Signs Temp 36.3 C L 12/12/24 14:00 Pulse 81 12/12/24 15:18 Resp 16 12/12/24 12:34 BP 126/51 L 12/12/24 15:18 Pulse Ox 100 12/12/24 15:23 O2 Del Method Room Air 12/12/24 07:53 Allergies Allergy/AdvReac Type Severity Reaction Status Date / Time adhesive AdvReac Hives Verified 12/02/24 09:51 Home Medications ?Medication ?Instructions ?Recorded ?Confirmed ?Type ergocalciferol (vitamin D2) 1,250 50,000 unit PO WEEKL Y 11/18/24 12/02/24 History mcg (50,000 unit) capsule (Vitamin D2) vit,calcium no.40-iron 1 tablet PO DAILY 11/0512/02/24 History fum 27 mg iron-folate no.1 1 mg tablet (PNV-Select) Laboratory Tests 12/12/24 00:37 WBC 13.8 H K/mm3 (4.5-10.0) RBC 3.85 L M/mm3 (4.2-5.4) Hgb 11.3 L g/dL (12.0-15.0) Hct 33.8 L % (37.0-47.0) MCV 87.8 fl (80-100) MCH 29.4 pg (26-34) MCHC 33.4 g/dl (32-36) RDW 12.5 % (11.5-14.5) Plt Count 293 k/mm3 (150-375) MPV 12.8 H fl (7.4-10.4) Immature Gran % (Auto) 0.4 % (0-0.5) Neut % (Auto) 76.0 H % (45.5-73.1) Lymph % (Auto) 16.7 L % (18.3-44.2) [place] % (Auto) 6.2 % (2.6-8.5) Eos % (Auto) 0.4 % (0-4.4) Baso % (Auto) 0.3 % (0.2-1.2) Lymph # (Auto) 2.30 K/mm3 (0.9-3.2) [place] # (Auto) 0.9 H K/mm3 (0.1-0.6) Eos # (Auto) 0.1 K/mm3 (0-0.3) Baso # (Auto) 0.0 K/mm3 (0.0-0.1) Abs Immat Gran (auto) 0.05 H K/mm3 (0.00-0.031) Absolute Neuts (auto) 10.5 H K/mm3 (1.3-6.7) Absolute Nucleated RBC 0.000 K/mm3 (0.0-0.012) Nucleated RBC % 0.0 % (0.0-0.2) Syphilis IgG/IgM Ab Non-reactive (Nonreactive) Blood Type A Positive Antibody Screen Negative : gestational age (, RY 12/19/24) Patient hx anesthesia problems: none Family hx anesthesia problems: none Results Review: All pre-operative results and documents have been reviewed as part of the pre- operative evaluation. [facility] Past Medical History Medical History History of spontaneous 11/04-no D&C PTSD (post-traumatic stress disorder) Episode of syncope 2020 Elevated cholesterol Anxiety and depression Environmental and seasonal allergies Surgical History Surgical History History of cholecystectomy (~07/2022) History of gastric surgery (~01/2022) s/p gastric sleeve [place] teeth extracted (~2018) History of tonsillectomy (~2019) History of appendectomy (~07/2018) Family History Family History Grandparent Diabetes mellitus Father Hypertension Unknown Cancer Unknown POTS (postural orthostatic tachycardia syndrome) Other Cerebrovascular accident Social History Social History Smoking status: Never smoker Tobacco type: e-cigarettes/vaping Second hand tobacco smoke exposure: No Alcohol intake: former Alcohol use details: not while Substance use: never Do You Feel Safe in your Home?: Yes Lack of Transportation: No Lack of Food: Never True Current Housing: I Have Housing Concerned About Future Housing: No Difficulty Paying Gas/Electric Bills: No Difficulty Paying for Meds: No Currently Unemployed: No Education: High School Diploma/GED Difficulty w/ Childcare or Family Care: No Gender identity (if verbalized by the patient): Female Spiritual care concerns: No Exam Day of Procedure 12/12/24 15:27 Patient weight: morbidly obese Heart: regular rate and rhythm Lungs: normal air movement Airway: Mallampati scale class II Neurological: alert and oriented
[2024-12-12] MEDS: AMPICILLIN SODIUM 1 GM in SODIUM CHLORIDE 0.9% IV 50 ML 100 ML IVPB ×2 (18:15→22:25)
[2024-12-13] VITALS (114 sets, daily range): BP systolic 82–145; BP diastolic 46–92; PULSE 63–170; RESP 16–20; TEMP 36.3–38; O2SAT 83–100
[2024-12-13] MEDS: LACTATED RINGERS 1,000 ML 125 ML IV CONT (01:38)
[2024-12-13] MEDS: ONDANSETRON INJ 4 MG/2 ML VIAL IV PUSH (01:40)
[2024-12-13] MEDS: AMPICILLIN SODIUM 1 GM in SODIUM CHLORIDE 0.9% IV 50 ML 100 ML IVPB (02:34)
[2024-12-13] MEDS: OXYTOCIN 30 UNITS/NS 500 ML 30 UNITS/500 ML BAG 999 UNITS IV CONT (03:42)
--- NOTE | 2024-12-13 03:56 | P.PCNOB_ITS ---
OB - Vaginal Delivery Note Procedure Delivery date: 12/13/24 Events: Other (MIL @ 39 wks) Induction method: AROM and Per Pitocin Protocol Delivery monitor: External FHT and Internal Uterine Route of delivery: Episiotomy description: None Laceration Description: Perineal - 2nd Degree (Y incision and external to the right) Delivery repair: vicryl (3-0) Specimen: No Quantitative Blood Loss (ml): 100 Anesthesia type: Epidural Disposition: Floor Complications: No immediate complications [place] Baby Date of : 12/13/24 Gestational Age by Date: 39 gender: Female Weight (pounds): 7 presentation: vertex position: Right Occiput Anterior (with hand at neck) Placenta delivery description: Spontaneous Cord Vessel Description: 3 Vessels and Delayed Cord Clamping score one minute: 8 score five minutes: 9
--- NOTE | 2024-12-13 03:59 | PM.OBDSVD ---
DS: Admitting Diagnosis Discharge Date 12/14/24 Admitting Diagnosis IUP 39 wks for CHIOMA DS: Discharge Diagnosis Discharge Diagnosis (1) (normal spontaneous vaginal delivery): Code(s): O80 - Encounter for full-term uncomplicated delivery Status: Acute OB - DS: Summary OB Procedures : Ultrasound OB Procedures Intrapartum: Spontaneous Vag Delivery OB Procedures: : None Peripartum Data Infant Delivery Method: Natural Vaginal Laceration Description: Perineal - 2nd Degree (Y incision and external to the right) Episiotomy description: None complications: none Status at Discharge Functional status at discharge: independent ambulation Overall status at discharge: patient is back to baseline Time Spent with Patient Time attestation: Total time spent providing and/or coordinating discharge services: Discharge Plan Discharge Attending physician on discharge: Bryanna Swartz Discharging Clinician: Bryanna Swartz Patient Disposition: Home Activity: may shower and pelvic rest Diet: regular Patient Instructions: Antibiotic Form Patient Language: Jamaican Stand Alone Forms: General Discharge Information Follow-up/Referrals: Bryanna Swartz MD [Primary Care Provider, [employer] COORDINATOR] - 6 Weeks Discharge Medications: Continued PNV-Select 27-1 mg tablet 1 tablet PO DAILY ergocalciferol (vitamin D2) [Vitamin D2] 1,250 mcg (50,000 unit) capsule 50,000 unit PO WEEKLY Patient Comments: Takes every Friday Date of admission: 12/12/24 00:00 Primary Care Provider: Bryanna Swartz Admitting Provider: Bryanna Swartz Attending physician on admission: Bryanna Swartz Condition: Stable
[2024-12-13] MEDS: OXYTOCIN 30 UNITS/NS 500 ML 30 UNITS/500 ML BAG 125 UNITS IV CONT (04:14)
[2024-12-13 05:51] LABS: Hematocrit 32.9 % (37.0-47.0); Hemoglobin 11.0 g/dL (12.0-15.0); Immature Granulocyte Percent A 0.6 % (0-0.5); Lymphocytes Absolute Auto 1.20 K/mm3 (0.9-3.2); Mean Corpuscular HGB Conc 33.4 g/dl (32-36); Mean Corpuscular Hemoglobin 29.7 pg (26-34); Mean Corpuscular Volume 88.9 fl (80-100); Nucleated Red Blood Cells Absolute Auto 0.000 K/mm3 (0.0-0.012); Nucleated Red Blood Cells Perc 0.0 % (0.0-0.2); Platelet Count Result 238 k/mm3 (150-375); Red Blood Count 3.70 M/mm3 (4.2-5.4); White Blood Count 20.5 K/mm3 (4.5-10.0)
[2024-12-13 06:01] LABS: Total Protein Urine Random 34 mg/dL; Ur Ttl Prot Creatinine Ratio 0.22 mg/mg (0-0.20)
[2024-12-13 06:11] LABS: Alanine Aminotransferase 15 U/L (6-35); Albumin Level 2.8 g/dL (3.5-5.1); Alkaline Phosphatase 173 U/L (38-126); Anion Gap 6 mmol/L (4-12); Aspartate Amino Transferase 25 U/L (14-36); Bilirubin,Total 0.7 mg/dL (0.2-1.3); Blood Urea Nitrogen 9 mg/dL (7-17); Calcium 8.4 mg/dL (8.4-10.2); Carbon Dioxide 18 mmol/L (22-30); Chloride 109 mmol/L (98-107); Estimated CRCL calculation 141 ml/min; Estimated Glomerular Filt Rate > 60; Glucose 99 mg/dL (65-110); Potassium 3.7 mmol/L (3.4-5.0); Sodium 133 mmol/L (137-145); Total Protein 5.6 g/dL (6.3-8.2); Uric Acid 6.8 mg/dL (2.5-7.5)
[2024-12-13] MEDS: IBUPROFEN 600 MG TABLET PO ×2 (06:22→16:15)
--- NOTE | 2024-12-13 06:37 | OBPPTRN ---
Patient transferred to post room # 291 via wheelchair. Support person present. Oriented to unit, room, information board, rooming in, admission packet and security measures. Patient verbalizes understanding.
[2024-12-13] MEDS: DOCUSATE SODIUM 100 MG CAPSULE PO ×2 (09:14→16:15)
[2024-12-13] MEDS: MULTIVIT/MIN/PREN/FOL AC/IRON TABLET 1 TAB PO (09:14)
--- NOTE | 2024-12-13 09:40 | PC.NURSE ---
Breast pump provided due to [patient request]. Instructions given on cleaning, care, usage, that there should be no pain, pumping schedule for milk production, collection, and storage of human milk. Patient was assessed for correct placement, flange size, to pump for adequate milk production every 3 hours (8 times in 24 hours) 1-2 times at night.?Mother voiced understanding of the education shared along with mom/baby guide and the hands on pumping handout for additional resource information. Reported to the Primary RN.
[2024-12-14 06:11] LABS: Hematocrit 31.9 % (37.0-47.0); Hemoglobin 9.8 g/dL (12.0-15.0)
[2024-12-14 07:10] VITALS: BP 114/62; PULSE 85; RESP 16; TEMP 36.6; O2SAT 99
--- NOTE | 2024-12-14 07:32 | P.PNOB_ITS ---
OB - PN: Subj Subjective Date/time seen: 12/14/24 07:32 Patient comments: no complaints and pain well controlled baby status: doing well OB - PN: Obj Data Labs 12/14/24 05:57 12/13/24 05:39 Labs: Laboratory Results - last 24 hr 12/14/24 05:57 Hgb 9.8 L Hct 31.9 L OB - PN A/P Plan day: 1 Plan: routine care, discharge home, follow up 6 weeks and other (plans condoms for bc) Time Spent With Patient Time: Total time spent is greater than 50% in coordination of care (as documented) at patient's floor/unit and/or counseling patient: Exam 2 : Bimanual exam- vagina & uterus: other (Uterus firm, nt @U)
[2024-12-14] MEDS: MULTIVIT/MIN/PREN/FOL AC/IRON TABLET 1 TAB PO (08:44)
[2024-12-14] MEDS: IBUPROFEN 600 MG TABLET PO (08:44)
[2024-12-14] MEDS: DOCUSATE SODIUM 100 MG CAPSULE PO (08:44)
[2024-12-15 11:17] VITALS: BP 124/73; PULSE 71; RESP 18; TEMP 37.1; O2SAT 100
== END 2024-12-14 10:12 | disposition home or self-care (01) | DRG 807 ==
LOC: ANHLDR 12-13 04:01 → ANHOB2 12-13 06:39
PROVIDERS: Admitting Provider Obstetrics & Gynecology Gynecology; PCP Obstetrics & Gynecology Gynecology; Visit Provider Obstetrics & Gynecology Gynecology
DX: O99.824 Streptococcus B carrier state complicating childbirth (principal); Z37.0 Single live birth; Z3A.39 39 weeks gestation of pregnancy; O70.1 Second degree perineal laceration during delivery
CPT/HCPCS: 36415; 80053; 82570; 84156; 84550; 85014; 85018; 85025; 86593; 86850; 86900; 86901; A9270; J0290; J2405; J2590; J2795; J7120